=== PATIENT | female | born 1950 | race Caucasian/White ===

== ENCOUNTER → 2023-04-06 07:18 | Outpatient (CLI) | payer MEDICARE, OTHER, SELFPAY ==
[2023-04-06 08:37] LABS: Cortisol AM (Before 10AM) 7.69 ug/dL (4.46-22.7)
[2023-04-08 13:36] LABS: Dehydroepiandrosterone Sulfate 27.2 ug/dL (20.4-186.6)
== END ==
LOC: LAB 07:19
PROVIDERS: Family Provider Family Medicine; PCP Family Medicine; Referring Provider Internal Medicine Endocrinology, Diabetes & Metabolism; Visit Provider Internal Medicine Endocrinology, Diabetes & Metabolism
DX: Z86.39 Personal history of other endocrine, nutritional and metabolic disease (principal)
CPT/HCPCS: 36415; 82024; 82533; 82627

== ENCOUNTER → 2023-05-31 14:37 | Outpatient (CLI) | payer MEDICARE, OTHER, SELFPAY ==
[2023-05-31 17:36] LABS: BUN Creatinine Ratio 37.9 (6-22); Blood Urea Nitrogen 22 mg/dL (7-17); Carbon Dioxide 26 mmol/L (22-32); Chloride 106 mmol/L (98-107); Estimated Glomerular Filt Rate > 60 mL/min (>60); Glucose 93 mg/dL (80-110); HEMOLYSIS < 15 (0-50); Potassium 4.6 mmol/L (3.4-5.1); Sodium 138 mmol/L (137-145)
== END ==
PROVIDERS: Family Provider Family Medicine; PCP Family Medicine; Referring Provider Internal Medicine; Visit Provider Internal Medicine
DX: I50.32 Chronic diastolic (congestive) heart failure (principal)
CPT/HCPCS: 36415; 80048

== ENCOUNTER → 2023-06-06 09:35 | Outpatient (CLI) | payer MEDICARE, OTHER, SELFPAY ==
--- NOTE | 2023-06-06 09:37 | DI.RAD.S_ITS ---
PROCEDURE: XR DEXA AXIAL SKELETON INDICATIONS: postmenopausal female COMPARISON: None. FINDINGS: Lumbar Spine: Bone mineral density 0.603 g/cm2, T score -4.0. Left Hip: Bone mineral density 0.604 g/cm2, T score -2.8. Left Femoral Neck: Bone mineral density 0.515 g/cm2, T score -3.0. Right Hip: Bone mineral density 0.576 g/cm2, T score -3.0. Right Femoral Neck: Bone mineral density 0.462 g/cm2, T score -3.5. Fracture Risk Calculation (when applicable): Not calculated due to osteoporosis. IMPRESSION: Osteoporosis. Dictated by: Alexis Jorge M.D. on 06/06/2023 at 14:47 Approved by: Alexis Jorge M.D. on 06/06/2023 at 14:50
== END ==
PROVIDERS: Family Provider Family Medicine; PCP Family Medicine; Referring Provider Family Medicine; Visit Provider Family Medicine
DX: Z78.0 Asymptomatic menopausal state (principal); M81.0 Age-related osteoporosis without current pathological fracture
CPT/HCPCS: 77080

== ENCOUNTER → 2023-06-24 08:54 | Outpatient (CLI) | payer MEDICARE, OTHER, SELFPAY ==
[2023-06-24 10:47] LABS: Add Manual Diff / Slide Review NO; Basophils Absolute Auto 0 /uL (0-100); Basophils Percent Auto 0.9 % (0-2); Eosinophils Absolute Auto 100 /uL (0-450); Eosinophils Percent Auto 1.9 % (2-4); Hematocrit 39.1 % (36-46); Hemoglobin 13.6 g/dL (12.0-16.0); Lymphocytes Absolute Auto 1100 /uL (1100-4500); Lymphocytes Percent Auto 26.1 % (25-40); Mean Corpuscular HGB Conc 34.7 % (30-36); Mean Corpuscular Hemoglobin 32.2 PG (26-34); Mean Corpuscular Volume 92.8 fL (80-100); Monocytes Absolute Auto 400 /uL (0-900); Monocytes Percent Auto 10.1 % (3-14); Neutrophils Absolute Auto 2500 /uL (1500-7000); Platelet Count 266 X10^3/uL (150-400); Red Blood Cell Count 4.22 X10^6/uL (4.0-5.2); Red Cell Distribution Width 12.5 % (11.6-14.8); White Blood Cell Count 4.1 X10^3/uL (4.5-11.0)
[2023-06-24 11:03] LABS: BUN Creatinine Ratio 24.5 (6-22); Blood Urea Nitrogen 13 mg/dL (7-17); Calcium 9.5 mg/dL (8.4-10.2); Carbon Dioxide 26 mmol/L (22-32); Chloride 107 mmol/L (98-107); Estimated Glomerular Filt Rate > 60 mL/min (>60); Glucose 125 mg/dL (80-110); HEMOLYSIS < 15 (0-50); Potassium 3.9 mmol/L (3.4-5.1); Sodium 138 mmol/L (137-145)
[2023-06-24 11:32] LABS: Cortisol AM (Before 10AM) 8.22 ug/dL (4.46-22.7)
== END ==
PROVIDERS: Family Provider Family Medicine; PCP Family Medicine; Referring Provider Internal Medicine Endocrinology, Diabetes & Metabolism; Visit Provider Internal Medicine Endocrinology, Diabetes & Metabolism
DX: M81.0 Age-related osteoporosis without current pathological fracture (principal); Z86.39 Personal history of other endocrine, nutritional and metabolic disease; Z98.890 Other specified postprocedural states; Z86.018 Personal history of other benign neoplasm
CPT/HCPCS: 36415; 80048; 82024; 82306; 82530; 82533; 82627; 85025

== ENCOUNTER → 2023-07-07 10:23 | Outpatient (CLI) | payer MEDICARE, OTHER, SELFPAY | PROVIDERS: Family Provider Family Medicine; PCP Family Medicine; Referring Provider Internal Medicine Endocrinology, Diabetes & Metabolism; Visit Provider Internal Medicine Endocrinology, Diabetes & Metabolism | DX: M81.0 Age-related osteoporosis without current pathological fracture (principal) | CPT/HCPCS: 36415; 82523; 82570; 83970 ==

== ENCOUNTER → 2023-07-09 08:09 | Outpatient (CLI) | payer MEDICARE, OTHER, SELFPAY ==
[2023-07-10 05:08] LABS: Calcium, Urine 5.9 mg/dL (Not Estab.); Creatinine, Urine 52.9 mg/dL (Not Estab.); Urine Calcium/Creatinine Ratio 112 mg/g creat (29-442)
== END ==
PROVIDERS: Family Provider Family Medicine; PCP Family Medicine; Referring Provider Internal Medicine Endocrinology, Diabetes & Metabolism; Visit Provider Internal Medicine Endocrinology, Diabetes & Metabolism
DX: M81.0 Age-related osteoporosis without current pathological fracture (principal)
CPT/HCPCS: 82340; 82570

== ENCOUNTER 2023-07-21 14:30 | Outpatient (RCR) | payer MEDICARE, OTHER, SELFPAY ==
[2023-03-04 13:04] VITALS: BP 125/75; PULSE 80
--- NOTE | 2023-03-04 15:23 | PT.OIE ---
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) Pain in unspecified joint (03/04/23) Past Medical History (Last Updated 01/31/23 @ 21:21 by Billie Norman) Abnormal Pap smear of cervix (~1977) Cataracts, bilateral (~2010) Chicken pox Endometriosis (~1988) Fibromyalgia Genital warts (~1972) Heavy menstrual period Hypertension (~2013) Measles Painful menstrual periods (~1964) Past Surgical History (Last Updated 01/31/23 @ 21:21 by Billie Norman) Anesthesia History of cataract removal with insertion of prosthetic lens History of tonsillectomy (~1977) History of tubal ligation (~1988) Pituitary adenoma (~2022) Visit Care Team Role Provider Type Caitlyn Dominguez DO Attending Provider Physician Family Provider Primary Care Provider Referring Provider Specialty: [facility] Practice Address: [address] [place] [address], [address], [facility] Email: [email or web address] Physical Therapy Initial Evaluation PT-OP-A Visit Information Start: 03/03/23 17:50 Freq: Status: Active Protocol: Document 03/04/23 13:04 LRN (Rec: 03/04/23 15:17 LRN [id number]) Out-Patient Physical Therapy Visit Information Visit Information Visit Type Initial Evaluation Visit Start Time 13:05 Visit Stop Time 14:55 Total Visit Minutes 50 Visit Number 1 Evaluation Information Evaluation Date 03/04/23 Precautions Precautions SOB after walking & putting shoes on, Fibromyalgia, Libra's disease, Chronic fatigue for 35 yrs, recent surgery (07/20/22) 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 PT-OP-B Current Condition Start: 03/03/23 17:50 Freq: Status: Active Protocol: Document 03/04/23 13:04 LRN (Rec: 03/04/23 15:17 LRN [id number]) Current Condition History of Current Condition Onset Date 06/3022 Current Complaints Fatigue, SOB, general soreness of body. 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 Currently dealing with effect of tapering down use of hydrocortisone. Shoulders, legs, R ankle pain new since surgery. Has hot spots on top of L leg and at spine on LB, R hand (cat bit her a couple months before surgery). On 6 hrs of Tylenol and 8 hrs on Meloxicam daily then can sleep. R hand is most problematic. Prior Treatments and Tests MRI & CAT scan to check on surgery results. PT for neck 5-6 yrs ago without resolution. Treatment Goals Patient/Caregiver Goals Pt goals: Cooking or sitting on toilet w /o the riser w/o pain in shoulders, legs, R ankle. Getting up from chair without difficulty. Able to move stick shift with R hand w/o pain. Taking on/off coat w/o pain. Prior Functional Status Baseline Function- ADL's Independent Baseline Function- Mobility Independent Baseline Function- Other Before surgery (2 yrs ago) hiking and 1/2 mile a day. 2x /week 3-5 miles. Before surgery: (3yrs ago) Panting putting shoes/boots, walking 1 mile. Current Functional Impairments (Reported) Functional Limitations- ADL's Difficulty opening cans with can project development manager, and help to put coat on. Functional Limitations- Mobility/Gait Walks 1x/day 6-8 blocks. Fatigued from walking into treatment room. 13 steps to get to room, results in breathing heavy. Personal Factors Other Personal Factors That May Effect Tumor from pituitary gland Therapy/Recovery removed 07/20/22, currently working on steroid taper. Fibromyalgia. SOB just walking and putting shoes on. PT-OP-C Subjective Start: 03/03/23 17:50 Freq: Status: Active Protocol: Document 03/04/23 13:04 LRN (Rec: 03/04/23 15:17 LRN [id number]) Patient Questionnaires ABC- Activity Specific Balance Confidence Scale ABC Score 80 ABC Functional Impairment 20 to <40% Impaired (Score 61- 80) PT-OP-E Functional Tests Start: 03/03/23 17:50 Freq: Status: Active Protocol: Document 03/04/23 13:04 LRN (Rec: 03/04/23 15:17 LRN [id number]) Functional Tests Other Gait until fatigue Name of Test 409 ft PT-OP-G Mobility & Gait Start: 03/03/23 17:50 Freq: Status: Active Protocol: Document 03/04/23 13:04 LRN (Rec: 03/04/23 15:17 LRN [id number]) OP Mobility Evaluation Functional Movements Other Functional Movements Putting coat on: Pt dons from overhead and requires assistance to pull coat down through arms and to clear head . PT-OP-H Neuro Start: 03/03/23 17:50 Freq: Status: Active Protocol: Document 03/04/23 13:04 LRN (Rec: 03/04/23 15:17 LRN [id number]) Sensation Evaluation Gross Sensation Gross Sensation WNL Vital Signs Pulse At rest sitting Pulse at Rest (bpm) 80 Pulse Assessment Method BP cuff Blood Pressure Sitting Blood Pressure (90/60-120/80 mmHg) 125/75 H Blood Pressure Source Automatic Cuff PT-OP-J Posture/Palpation/Skin Start: 03/03/23 17:50 Freq: Status: Active Protocol: Document 03/04/23 13:04 LRN (Rec: 03/04/23 15:17 LRN [id number]) Posture Evaluation Position Standing Head/C-Spine Posture Forward Head T-Spine Posture Increased Kyphosis L-Spine Posture Increased Lordosis Shoulder Posture (L) Rounded,(R) Rounded,(L) Elevated Scapula Posture (L) Neutral,(R) Neutral Arm Posture (L) Internally Rotated,(R) Internally Rotated Pelvis Posture Anteriorly Tilted Weight Distribution Balanced Knee Posture (L) Neutral,(R) Neutral Ankle/Foot Posture (L) Neutral,(R) Neutral Foot Arch (L) High Arch,(R) High Arch PT-OP-K Range of Motion Start: 03/03/23 17:50 Freq: Status: Active Protocol: Document 03/04/23 13:04 LRN (Rec: 03/04/23 15:17 LRN [id number]) Thumb Goniometric Range of Motion Thumb Right MCP Flexion Active (degrees) 30 IP Flexion Active (degrees) 30 Left MCP Flexion Active (degrees) 45 IP Flexion Active (degrees) 50 PT-OP-M Strength Start: 03/03/23 17:50 Freq: Status: Active Protocol: Document 03/04/23 13:04 LRN (Rec: 03/04/23 15:17 LRN [id number]) Finger/Thumb Strength Finger Manual Muscle Testing Right Thumb Flexion (fingers C8) 5 Normal Extension (thumb C8) 4+ Good+ Adduction 5 Normal Abduction (fingers T1) 4+ Good+ Comments Pain with testing of thumb AD. Left Thumb Comments 5/5 w/o pain Hand Animal Biologist/Pinch Strength Hand Dominance Hand Dominance Right Hand Strength Right Comments Animal Biologist strength in kgs (3 trials ): 2, 2, 2. Avg strength is 2 kgs. Norm for 70-74 yo female is 22 .5 kg R, 18.6 kg L. Left Comments Animal Biologist strength in kgs (3 trials ): 7, 7, 7. Avg strength is 7 kgs. Norm for 70-74 yo female is 22 .5 kg R, 18.6 kg L. PT-OP-Q Treatments Start: 03/03/23 17:50 Freq: Status: Active Protocol: Document 03/04/23 13:04 LRN (Rec: 03/04/23 15:17 LRN [id number]) Self-Care/Home Management Treatment Education Other Education Discussed results of evaluation, goals, and plan of care (POC). Pt agreeable to goals and POC. PT-OP-T Assessment and Plan Start: 03/03/23 17:50 Freq: Status: Active Protocol: Document 03/04/23 13:04 LRN (Rec: 03/04/23 15:17 LRN [id number]) Physical Therapy Assessment Rehab Potential Rehabilitation Potential Good Evaluation Complexity Number of Personal Factors/Comorbidities 3 or More Number of Body Systems Impaired 4 or More Clinical Presentation at Evaluation Evolving Impairments Impairments Activity Tolerance,Functional Activities,Pain,Posture,ROM, Strength Goals Three Impairment Decreased R hand strength due to thumb pain. Short Term Goal (STG) Improve R UE/backup operator strength with pt able to cooking w/o thumb pain, or pt able to independently open jars or can with can project development manager. STG Duration 4 wks-04/01/23 Patients Transporter Goal (LTG) Improve R UE/backup operator strength with pt able to move stick shift with R hand w/o pain. LTG Duration 8 wks-04/29/23 Two Impairment Decreased endurance making transfers from chairs and toilet difficult. Impairment Pain in shoulders, legs, R ankle making sitting on toilet w/o a riser and getting up from a chair difficult. Short Term Goal (STG) Improve endurance with 5xSTS in 12 secs or less or 30 sec chair stand 10x or greater, or walk 546 ft prior to fatigue. STG Duration 4 wks-04/01/23 Halfway Goal (LTG) Improve endurance with pt able to walk 684 ft prior to fatigue or 13 steps at home without heavy breathing. LTG Duration 8 wks-04/29/23 One Impairment Pt lacks appropriate self care HEP. Short Term Goal (STG) Pt will be educated and independent in donning/doffing a coat without pain. STG Duration 4 wks-04/01/23 Patients Transporter Goal (LTG) Pt will be independent in a self care HEP for general strengthening of core/LE's/UE' s and bilateral thumb mobility ex's. LTG Duration 12 wks-05/27/23 Assessment Summary Assessment Pt is a 72 yo female who presents with general weakness , fatigue and joint pain of shoulders, legs, R ankle, and R thumb. Pt has pain with movement and fatigues quickly with walking. She in the process of tapering off from steroids; therefore it is expected that her pain will persist and extension of her rehabilitation will be needed. The pt had low tolerance to activity and needed rests between assessments; therefore general ROM and further assessement of endurance will be addressed at her next visit . The pt will benefit from skilled physical therapy to improve endurance, strength and function, and progress exercise and lessening of joint pain with improved joint stability and mobility. Modalities and manual therapy will be used to promote an increase in mobility, strength and reduction of pain in her hands/R thumb. Physical Therapy Plan Frequency and Duration Frequency of Treatment 2x/Week Duration of treatment (weeks) 12 Plan of Care Start Date 03/04/23 Plan of Care End Date 05/27/23 Therapeutic Interventions Therapeutic Interventions Home Exercise Program,Joint Mobilizations,Manual Therapy, Neuromuscular Re-education, Self-Care/Home Management,Soft Tissue Mobilization, Therapeutic Activities, Therapeutic Exercises Modalities Electric Stimulation,Hot Packs ,Paraffin Bath Next Visit Focus/Plan Next Note Type Treatment Note Next Visit Plan Ther Ex: Sit to stand ex (30 sec STST), Strength check- thumb (opposition), Thera Act- mobility (general mobility) for donning/doffing coat for independence, general conditioning (recumb stepper or bike, & UBE). R Hand mobility: Paraffin and AROM stretches, R thumb flex stretching (MCP/IP jt), rubén strengthening T-Putty. UE ROM as needed for functional dressing. Manual: STM post workout for pain management or self stretching HEP.
--- NOTE | 2023-03-04 15:23 | PT.OPPOC ---
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) Pain in unspecified joint (03/04/23) Visit Care Team Role Provider Type Caitlyn Dominguez DO Attending Provider Physician Family Provider Primary Care Provider Referring Provider Specialty: Family Practice Address: [address] [place] [address], [address], [facility] Email: [email or web address] Plan Of Care PT-OP-T Assessment and Plan Start: 03/03/23 17:50 Freq: Status: Active Protocol: Document 03/04/23 13:04 LRN (Rec: 03/04/23 15:17 LRN [id number]) Physical Therapy Assessment Rehab Potential Rehabilitation Potential Good Evaluation Complexity Number of Personal Factors/Comorbidities 3 or More Number of Body Systems Impaired 4 or More Clinical Presentation at Evaluation Evolving Impairments Impairments Activity Tolerance,Functional Activities,Pain,Posture,ROM, Strength Goals Three Impairment Decreased R hand strength due to thumb pain. Short Term Goal (STG) Improve R UE/taker off hemp fiber strength with pt able to cooking w/o thumb pain, or pt able to independently open jars or can with can insurance healthcare consultant. STG Duration 4 wks-04/01/23 Snf Goal (LTG) Improve R UE/taker off hemp fiber strength with pt able to move stick shift with R hand w/o pain. LTG Duration 8 wks-04/29/23 Two Impairment Decreased endurance making transfers from chairs and toilet difficult. Impairment Pain in shoulders, legs, R ankle making sitting on toilet w/o a riser and getting up from a chair difficult. Short Term Goal (STG) Improve endurance with 5xSTS in 12 secs or less or 30 sec chair stand 10x or greater, or walk 546 ft prior to fatigue. STG Duration 4 wks-04/01/23 Snf Goal (LTG) Improve endurance with pt able to walk 684 ft prior to fatigue or 13 steps at home without heavy breathing. LTG Duration 8 wks-04/29/23 One Impairment Pt lacks appropriate self care HEP. Short Term Goal (STG) Pt will be educated and independent in donning/doffing a coat without pain. STG Duration 4 wks-04/01/23 Snf Goal (LTG) Pt will be independent in a self care HEP for general strengthening of core/LE's/UE' s and bilateral thumb mobility ex's. LTG Duration 12 wks-05/27/23 Assessment Summary Assessment Pt is a 72 yo female who presents with general weakness , fatigue and joint pain of shoulders, legs, R ankle, and R thumb. Pt has pain with movement and fatigues quickly with walking. She in the process of tapering off from steroids; therefore it is expected that her pain will persist and extension of her rehabilitation will be needed. The pt had low tolerance to activity and needed rests between assessments; therefore general ROM and further assessement of endurance will be addressed at her next visit . The pt will benefit from skilled physical therapy to improve endurance, strength and function, and progress exercise and lessening of joint pain with improved joint stability and mobility. Modalities and manual therapy will be used to promote an increase in mobility, strength and reduction of pain in her hands/R thumb. Physical Therapy Plan Frequency and Duration Frequency of Treatment 2x/Week Duration of treatment (weeks) 12 Plan of Care Start Date 03/04/23 Plan of Care End Date 05/27/23 Therapeutic Interventions Therapeutic Interventions Home Exercise Program,Joint Mobilizations,Manual Therapy, Neuromuscular Re-education, Self-Care/Home Management,Soft Tissue Mobilization, Therapeutic Activities, Therapeutic Exercises Modalities Electric Stimulation,Hot Packs ,Paraffin Bath Next Visit Focus/Plan Next Note Type Treatment Note Next Visit Plan Ther Ex: Sit to stand ex (30 sec STST), Strength check- thumb (opposition), Thera Act- mobility (general mobility) for donning/doffing coat for independence, general conditioning (recumb stepper or bike, & UBE). R Hand mobility: Paraffin and AROM stretches, R thumb flex stretching (MCP/IP jt), rubén strengthening T-Putty. UE ROM as needed for functional dressing. Manual: STM post workout for pain management or self stretching HEP. Plan of Care Dates Plan of Care Start Date 03/04/23 Plan of Care End Date 05/27/23 Electronically Signed by: Kim Reyes, PT 03/04/23 [id number] If you are in agreement with this Plan of Care, please return a signed and dated copy. I have reviewed this Plan of Care and certify that the skilled therapy services above are required to meet the patient?s needs. Physician Signature Date Printed Name and Credentials Clinical Instructor Signature Printed Name and Credentials
--- NOTE | 2023-03-07 11:33 | PT.OTN ---
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/07/23) Pain in unspecified joint (03/07/23) Physical Therapy Treatment Note PT-OP-A Visit Information Start: 03/03/23 17:50 Freq: Status: Active Protocol: Document 03/07/23 10:36 LRN (Rec: 03/07/23 11:28 LRN [id number]) Out-Patient Physical Therapy Visit Information Visit Information Visit Type Treatment Note Visit Start Time 10:37 Visit Stop Time 11:17 Total Visit Minutes 40 Visit Number 2 Evaluation Information Evaluation Date 03/04/23 Precautions Precautions SOB after walking & putting shoes on, Fibromyalgia, Libra's disease, Chronic fatigue for 35 yrs, recent surgery (07/20/22) 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 PT-OP-B Current Condition Start: 03/03/23 17:50 Freq: Status: Active Protocol: Document 03/04/23 13:04 LRN (Rec: 03/04/23 15:17 LRN [id number]) Current Condition History of Current Condition Onset Date 06/3022 Current Complaints Fatigue, SOB, general soreness of body. 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 Currently dealing with effect of tapering down use of hydrocortisone. Shoulders, legs, R ankle pain new since surgery. Has hot spots on top of L leg and at spine on LB, R hand (cat bit her a couple months before surgery). On 6 hrs of Tylenol and 8 hrs on Meloxicam daily then can sleep. R hand is most problematic. Prior Treatments and Tests MRI & CAT scan to check on surgery results. PT for neck 5-6 yrs ago without resolution. Treatment Goals Patient/Caregiver Goals Pt goals: Cooking or sitting on toilet w /o the riser w/o pain in shoulders, legs, R ankle. Getting up from chair without difficulty. Able to move stick shift with R hand w/o pain. Taking on/off coat w/o pain. Prior Functional Status Baseline Function- ADL's Independent Baseline Function- Mobility Independent Baseline Function- Other Before surgery (2 yrs ago) hiking and 1/2 mile a day. 2x /week 3-5 miles. Before surgery: (3yrs ago) Panting putting shoes/boots, walking 1 mile. Current Functional Impairments (Reported) Functional Limitations- ADL's Difficulty opening cans with can cook cashier food prep, and help to put coat on. Functional Limitations- Mobility/Gait Walks 1x/day 6-8 blocks. Fatigued from walking into treatment room. 13 steps to get to room, results in breathing heavy. Personal Factors Other Personal Factors That May Effect Tumor from pituitary gland Therapy/Recovery removed 07/20/22, currently working on steroid taper. Fibromyalgia. SOB just walking and putting shoes on. PT-OP-C Subjective Start: 03/03/23 17:50 Freq: Status: Active Protocol: Document 03/07/23 10:36 LRN (Rec: 03/07/23 11:28 LRN [id number]) OP-PT Subjective Patient Comments Patient Comments States she has a stong stomach because of the way she gets out of bed. PT-OP-E Functional Tests Start: 03/03/23 17:50 Freq: Status: Active Protocol: Document 03/07/23 10:36 LRN (Rec: 03/07/23 11:28 LRN [id number]) Functional Tests 30 Second Sit to Stand Test Score 7 reps Comments Norm: Female age 70-74 is 10- 15 reps PT-OP-G Mobility & Gait Start: 03/03/23 17:50 Freq: Status: Active Protocol: Document 03/04/23 13:04 LRN (Rec: 03/04/23 15:17 LRN [id number]) OP Mobility Evaluation Functional Movements Other Functional Movements Putting coat on: Pt dons from overhead and requires assistance to pull coat down through arms and to clear head . PT-OP-H Neuro Start: 03/03/23 17:50 Freq: Status: Active Protocol: Document 03/04/23 13:04 LRN (Rec: 03/04/23 15:17 LRN [id number]) Sensation Evaluation Gross Sensation Gross Sensation WNL Vital Signs Pulse At rest sitting Pulse at Rest (bpm) 80 Pulse Assessment Method BP cuff Blood Pressure Sitting Blood Pressure (90/60-120/80 mmHg) 125/75 H Blood Pressure Source Automatic Cuff PT-OP-J Posture/Palpation/Skin Start: 03/03/23 17:50 Freq: Status: Active Protocol: Document 03/04/23 13:04 LRN (Rec: 03/04/23 15:17 LRN [id number]) Posture Evaluation Position Standing Head/C-Spine Posture Forward Head T-Spine Posture Increased Kyphosis L-Spine Posture Increased Lordosis Shoulder Posture (L) Rounded,(R) Rounded,(L) Elevated Scapula Posture (L) Neutral,(R) Neutral Arm Posture (L) Internally Rotated,(R) Internally Rotated Pelvis Posture Anteriorly Tilted Weight Distribution Balanced Knee Posture (L) Neutral,(R) Neutral Ankle/Foot Posture (L) Neutral,(R) Neutral Foot Arch (L) High Arch,(R) High Arch PT-OP-K Range of Motion Start: 03/03/23 17:50 Freq: Status: Active Protocol: Document 03/04/23 13:04 LRN (Rec: 03/04/23 15:17 LRN [id number]) Thumb Goniometric Range of Motion Thumb Right MCP Flexion Active (degrees) 30 IP Flexion Active (degrees) 30 Left MCP Flexion Active (degrees) 45 IP Flexion Active (degrees) 50 PT-OP-M Strength Start: 03/03/23 17:50 Freq: Status: Active Protocol: Document 03/07/23 11:30 LRN (Rec: 03/07/23 11:33 LRN [id number]) Finger/Thumb Strength Finger Manual Muscle Testing Right Thumb Flexion (fingers C8) 5 Normal Extension (thumb C8) 4+ Good+ Adduction 5 Normal Abduction (fingers T1) 4+ Good+ Comments Pain with testing of thumb AD. Opposition: 5/5 except with middle finger 3/5 due to lateral wrist pain (around pisiform) and digits 4 & 5 strength is 4+/5. Left Thumb Comments 5/5 w/o pain Opposition: 5/5 with all fingers. PT-OP-Q Treatments Start: 03/03/23 17:50 Freq: Status: Active Protocol: Document 03/07/23 10:36 LRN (Rec: 03/07/23 11:28 LRN [id number]) Cardio Equipment Recumbent Bicycle Duration (Minutes) 4 Resistance 3 Seat Position 1 Other Pt cued to lean back to support back/tighten TA. Extra time for set up. Therapeutic Exercises Sitting Exercises Sit<>Stands Sitting Exercise Name Sit<>Stand Reps/Minutes 7x in 30 sec, f/b rest. Comments Pt fatigued and felt she was breathing hard (not audible). Therapeutic Activity Therapeutic Activity Transfers in/out of bed Name Transfer training: Bed mobility, practicing both sides Reps/Minutes 12' Comments Pillow moved to both ends for exer to both sides. Donning/[place] Coat Name Training for donning/doffing coat Reps/Minutes 15' Comments Training at start and end of therapy. Self-Care/Home Management Treatment Education Patient Education Home Exercise Program Activities Self-Care/Home Management Activities Issued & reviewed HEP: Sit<> stand, & Shoulder ext (elbows straight and flexed, and moving hands up spine). Issued & reviewed I/S for bed mobility transfers and written to work on modified dressing method (in with painful side to start & off with non- painful side to start). PT-OP-T Assessment and Plan Start: 03/03/23 17:50 Freq: Status: Active Protocol: Document 03/07/23 10:36 LRN (Rec: 03/07/23 11:28 LRN [id number]) Physical Therapy Assessment Goals Three Impairment Decreased R hand strength due to thumb pain. Short Term Goal (STG) Improve R UE/sketch maker strength with pt able to cooking w/o thumb pain, or pt able to independently open jars or can with can cook cashier food prep. STG Duration 4 wks-04/01/23 Protective Signal Repairer Goal (LTG) Improve R UE/sketch maker strength with pt able to move stick shift with R hand w/o pain. LTG Duration 8 wks-04/29/23 Two Impairment Decreased endurance making transfers from chairs and toilet difficult. Impairment Pain in shoulders, legs, R ankle making sitting on toilet w/o a riser and getting up from a chair difficult. Short Term Goal (STG) Improve endurance with 5xSTS in 12 secs or less or 30 sec chair stand 10x or greater, or walk 546 ft prior to fatigue. 03/07/23: 30 STS - 7 reps. STG Duration 4 wks-04/01/23 Longterm Goal (LTG) Improve endurance with pt able to walk 684 ft prior to fatigue or 13 steps at home without heavy breathing. LTG Duration 8 wks-04/29/23 One Impairment Pt lacks appropriate self care HEP. Short Term Goal (STG) Pt will be educated and independent in donning/doffing a coat without pain. STG Duration 4 wks-04/01/23 (03/07/23: MET GOAL) Longterm Goal (LTG) Pt will be independent in a self care HEP for general strengthening of core/LE's/UE' s and bilateral thumb mobility ex's. 03/07/23: HEP: Sit<>stands, AROM rubén shlder ext (elbows straight & flexed) & I/S in IR reaching hand up spine. LTG Duration 12 wks-05/27/23 progressing 03/07/23 Assessment Summary Assessment Pt with general weakness, fatigue and joint pain of shoulders, legs, R ankle, and R thumb. Pt much improved with less energy use for donning/doffing coat and getting in/out of bed, that may help reduce her back pain. Pt fatigued with sit<>stands and ex bike. Physical Therapy Plan Frequency and Duration Frequency of Treatment 2x/Week Duration of treatment (weeks) 12 Plan of Care Start Date 03/04/23 Plan of Care End Date 05/27/23 Next Visit Focus/Plan Next Note Type Treatment Note Next Visit Plan Ther Ex: Thera Act-mobility (general mobility) for donning /doffing coat for independence , general conditioning (recumb stepper or bike, & UBE). R Hand mobility: Paraffin and AROM stretches, R thumb flex stretching (MCP/IP jt), rubén strengthening T-Putty. UE ROM as needed for functional dressing. Manual: STM post workout for pain management or self stretching HEP.
--- NOTE | 2023-03-10 15:42 | PT.OTN ---
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) Pain in unspecified joint (03/10/23) Physical Therapy Treatment Note PT-OP-A Visit Information Start: 03/03/23 17:50 Freq: Status: Active Protocol: Document 03/10/23 13:06 LRN (Rec: 03/10/23 13:52 LRN [id number]) Out-Patient Physical Therapy Visit Information Visit Information Visit Type Treatment Note Visit Start Time 13:06 Visit Stop Time 13:47 Total Visit Minutes 41 Visit Number 2 Evaluation Information Evaluation Date 03/04/23 Precautions Precautions SOB after walking & putting shoes on, Fibromyalgia, Libra's disease, Chronic fatigue for 35 yrs, recent surgery (07/20/22) 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 PT-OP-B Current Condition Start: 03/03/23 17:50 Freq: Status: Active Protocol: Document 03/04/23 13:04 LRN (Rec: 03/04/23 15:17 LRN [id number]) Current Condition History of Current Condition Onset Date 06/3022 Current Complaints Fatigue, SOB, general soreness of body. 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 Currently dealing with effect of tapering down use of hydrocortisone. Shoulders, legs, R ankle pain new since surgery. Has hot spots on top of L leg and at spine on LB, R hand (cat bit her a couple months before surgery). On 6 hrs of Tylenol and 8 hrs on Meloxicam daily then can sleep. R hand is most problematic. Prior Treatments and Tests MRI & CAT scan to check on surgery results. PT for neck 5-6 yrs ago without resolution. Treatment Goals Patient/Caregiver Goals Pt goals: Cooking or sitting on toilet w /o the riser w/o pain in shoulders, legs, R ankle. Getting up from chair without difficulty. Able to move stick shift with R hand w/o pain. Taking on/off coat w/o pain. Prior Functional Status Baseline Function- ADL's Independent Baseline Function- Mobility Independent Baseline Function- Other Before surgery (2 yrs ago) hiking and 1/2 mile a day. 2x /week 3-5 miles. Before surgery: (3yrs ago) Panting putting shoes/boots, walking 1 mile. Current Functional Impairments (Reported) Functional Limitations- ADL's Difficulty opening cans with can vice president network development, and help to put coat on. Functional Limitations- Mobility/Gait Walks 1x/day 6-8 blocks. Fatigued from walking into treatment room. 13 steps to get to room, results in breathing heavy. Personal Factors Other Personal Factors That May Effect Tumor from pituitary gland Therapy/Recovery removed 07/20/22, currently working on steroid taper. Fibromyalgia. SOB just walking and putting shoes on. PT-OP-C Subjective Start: 03/03/23 17:50 Freq: Status: Active Protocol: Document 03/10/23 13:06 LRN (Rec: 03/10/23 13:52 LRN [id number]) OP-PT Subjective Patient Comments Patient Comments Moderately tired. Daily chore of preparing meals and showering is tiring. States her R thumb joints are not bending. PT-OP-E Functional Tests Start: 03/03/23 17:50 Freq: Status: Active Protocol: Document 03/07/23 10:36 LRN (Rec: 03/07/23 11:28 LRN [id number]) Functional Tests 30 Second Sit to Stand Test Score 7 reps Comments Norm: Female age 70-74 is 10- 15 reps PT-OP-G Mobility & Gait Start: 03/03/23 17:50 Freq: Status: Active Protocol: Document 03/04/23 13:04 LRN (Rec: 03/04/23 15:17 LRN [id number]) OP Mobility Evaluation Functional Movements Other Functional Movements Putting coat on: Pt dons from overhead and requires assistance to pull coat down through arms and to clear head . PT-OP-H Neuro Start: 03/03/23 17:50 Freq: Status: Active Protocol: Document 03/04/23 13:04 LRN (Rec: 03/04/23 15:17 LRN [id number]) Sensation Evaluation Gross Sensation Gross Sensation WNL Vital Signs Pulse At rest sitting Pulse at Rest (bpm) 80 Pulse Assessment Method BP cuff Blood Pressure Sitting Blood Pressure (90/60-120/80 mmHg) 125/75 H Blood Pressure Source Automatic Cuff PT-OP-J Posture/Palpation/Skin Start: 03/03/23 17:50 Freq: Status: Active Protocol: Document 03/04/23 13:04 LRN (Rec: 03/04/23 15:17 LRN [id number]) Posture Evaluation Position Standing Head/C-Spine Posture Forward Head T-Spine Posture Increased Kyphosis L-Spine Posture Increased Lordosis Shoulder Posture (L) Rounded,(R) Rounded,(L) Elevated Scapula Posture (L) Neutral,(R) Neutral Arm Posture (L) Internally Rotated,(R) Internally Rotated Pelvis Posture Anteriorly Tilted Weight Distribution Balanced Knee Posture (L) Neutral,(R) Neutral Ankle/Foot Posture (L) Neutral,(R) Neutral Foot Arch (L) High Arch,(R) High Arch PT-OP-K Range of Motion Start: 03/03/23 17:50 Freq: Status: Active Protocol: Document 03/04/23 13:04 LRN (Rec: 03/04/23 15:17 LRN [id number]) Thumb Goniometric Range of Motion Thumb Right MCP Flexion Active (degrees) 30 IP Flexion Active (degrees) 30 Left MCP Flexion Active (degrees) 45 IP Flexion Active (degrees) 50 PT-OP-M Strength Start: 03/03/23 17:50 Freq: Status: Active Protocol: Document 03/07/23 10:36 LRN (Rec: 03/07/23 11:33 LRN [id number]) Finger/Thumb Strength Finger Manual Muscle Testing Right Thumb Flexion (fingers C8) 5 Normal Extension (thumb C8) 4+ Good+ Adduction 5 Normal Abduction (fingers T1) 4+ Good+ Comments Pain with testing of thumb AD. Opposition: 5/5 except with middle finger 3/5 due to lateral wrist pain (around pisiform) and digits 4 & 5 strength is 4+/5. Left Thumb Comments 5/5 w/o pain Opposition: 5/5 with all fingers. PT-OP-Q Treatments Start: 03/03/23 17:50 Freq: Status: Active Protocol: Document 03/10/23 13:06 LRN (Rec: 03/10/23 13:52 LRN [id number]) Cardio Equipment Upper Body Ergometer (UBE) Duration (Minutes) 3 RPM 80 Seat Position 9 Height 3 Other fwd/bkwd 1.5' each Recumbent Elliptical (Biodex) Duration (Minutes) 5 Resistance 1 Seat Position 5 Other steps Gym Equipment Shuttle Recovery Bilateral Squats Details [place] squats Resistance 37 Shuttle Recovery Platform Stable Reps/Time 8x 3 Therapeutic Exercises Sitting Exercises Thumb flex strengthening Sitting Exercise Name Thumb flex strengthening Side right Equipment Used Yellow Putty Reps/Minutes 6' Comments Extra time taken for training on TPutty squeeze with thumb. Asstd w/L jain Thumb self flex stretch Sitting Exercise Name Thumb flex & self flex stretch Side right Reps/Minutes 6' Manual Therapy Treatment Joint Mobilizations R thumb IP jt Joint R thumb IP jt Direction PA of distal end of thumb Grade III Body Position Sitting Reps/Duration 9' Self-Care/Home Management Treatment Education Patient Education Home Exercise Program Activities Self-Care/Home Management Activities Issued Lev1 TPutty (yellow) and I/S pt in self R thumb IP/ MCP flex stretch f/b active flex strengthening. PT-OP-R Modalities Start: 03/03/23 17:50 Freq: Status: Active Protocol: Document 03/10/23 13:06 LRN (Rec: 03/10/23 13:52 LRN [id number]) Paraffin Bath Treatment Right Hand Treatment Technique Immersion Bath Wax Temperature (degrees F) 120 Number Wax Layers (layers) 7 Duration (minutes) 12 Comment Treatment Comment Only R hand dipped due to ring on 4th digit not able to remove. PT-OP-T Assessment and Plan Start: 03/03/23 17:50 Freq: Status: Active Protocol: Document 03/10/23 13:06 LRN (Rec: 03/10/23 13:52 LRN [id number]) Physical Therapy Assessment Goals Three Impairment Decreased R hand strength due to thumb pain. Short Term Goal (STG) Improve R UE/head wrestling coach strength with pt able to cooking w/o thumb pain, or pt able to independently open jars or can with can vice president network development. 03/10/23: Pt reportedly had more R thumb ROM after paraffin dip and PROM/JMT. STG Duration 4 wks-04/01/23 Snf Goal (LTG) Improve R UE/head wrestling coach strength with pt able to move stick shift with R hand w/o pain. LTG Duration 8 wks-04/29/23 Two Impairment Decreased endurance making transfers from chairs and toilet difficult. Impairment Pain in shoulders, legs, R ankle making sitting on toilet w/o a riser and getting up from a chair difficult. Short Term Goal (STG) Improve endurance with 5xSTS in 12 secs or less or 30 sec chair stand 10x or greater, or walk 546 ft prior to fatigue. 03/07/23: 30 STS - 7 reps. STG Duration 4 wks-04/01/23 Utility Plant Operative Goal (LTG) Improve endurance with pt able to walk 684 ft prior to fatigue or 13 steps at home without heavy breathing. LTG Duration 8 wks-04/29/23 One Impairment Pt lacks appropriate self care HEP. Short Term Goal (STG) Pt will be educated and independent in donning/doffing a coat without pain. STG Duration 4 wks-04/01/23 (03/07/23: MET GOAL) Utility Plant Operative Goal (LTG) Pt will be independent in a self care HEP for general strengthening of core/LE's/UE' s and bilateral thumb mobility ex's. 03/07/23: HEP: Sit<>stands, AROM casper shlder ext (elbows straight & flexed) & I/S in IR reaching hand up spine. LTG Duration 12 wks-05/27/23 progressing 03/07/23 Assessment Summary Assessment Pt with general weakness, fatigue and joint pain of shoulders, legs, R ankle, and R thumb. Pt reportedly able to move R thumb more after treatment. Pain in R shoulder limits her ability to sleep on R side. Physical Therapy Plan Frequency and Duration Frequency of Treatment 2x/Week Duration of treatment (weeks) 12 Plan of Care Start Date 03/04/23 Plan of Care End Date 05/27/23 Next Visit Focus/Plan Next Note Type Treatment Note Next Visit Plan Next: Progress endurance conditioning (work to 10') R Hand mobility: Paraffin and AROM stretches, R thumb flex stretching (MCP/IP jt), casper strengthening T-Putty. UE ROM as needed for functional dressing. Manual: STM post workout for pain management or self stretching HEP.
--- NOTE | 2023-03-15 16:00 | PT.OTN ---
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/15/23) Pain in unspecified joint (03/15/23) Physical Therapy Treatment Note PT-OP-A Visit Information Start: 03/03/23 17:50 Freq: Status: Active Protocol: Document 03/15/23 10:34 LRN (Rec: 03/15/23 11:19 LRN [id number]) Out-Patient Physical Therapy Visit Information Visit Information Visit Type Treatment Note Visit Start Time 10:34 Visit Stop Time 11:15 Total Visit Minutes 41 Visit Number 3 Evaluation Information Evaluation Date 03/04/23 Precautions Precautions SOB after walking & putting shoes on, Fibromyalgia, Libra's disease, Chronic fatigue for 35 yrs, recent surgery (07/20/22) 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 PT-OP-B Current Condition Start: 03/03/23 17:50 Freq: Status: Active Protocol: Document 03/04/23 13:04 LRN (Rec: 03/04/23 15:17 LRN [id number]) Current Condition History of Current Condition Onset Date 06/3022 Current Complaints Fatigue, SOB, general soreness of body. 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 Currently dealing with effect of tapering down use of hydrocortisone. Shoulders, legs, R ankle pain new since surgery. Has hot spots on top of L leg and at spine on LB, R hand (cat bit her a couple months before surgery). On 6 hrs of Tylenol and 8 hrs on Meloxicam daily then can sleep. R hand is most problematic. Prior Treatments and Tests MRI & CAT scan to check on surgery results. PT for neck 5-6 yrs ago without resolution. Treatment Goals Patient/Caregiver Goals Pt goals: Cooking or sitting on toilet w /o the riser w/o pain in shoulders, legs, R ankle. Getting up from chair without difficulty. Able to move stick shift with R hand w/o pain. Taking on/off coat w/o pain. Prior Functional Status Baseline Function- ADL's Independent Baseline Function- Mobility Independent Baseline Function- Other Before surgery (2 yrs ago) hiking and 1/2 mile a day. 2x /week 3-5 miles. Before surgery: (3yrs ago) Panting putting shoes/boots, walking 1 mile. Current Functional Impairments (Reported) Functional Limitations- ADL's Difficulty opening cans with can brand inspector, and help to put coat on. Functional Limitations- Mobility/Gait Walks 1x/day 6-8 blocks. Fatigued from walking into treatment room. 13 steps to get to room, results in breathing heavy. Personal Factors Other Personal Factors That May Effect Tumor from pituitary gland Therapy/Recovery removed 07/20/22, currently working on steroid taper. Fibromyalgia. SOB just walking and putting shoes on. PT-OP-C Subjective Start: 03/03/23 17:50 Freq: Status: Active Protocol: Document 03/15/23 10:34 LRN (Rec: 03/15/23 11:19 LRN [id number]) OP-PT Subjective Patient Comments Patient Comments States controller repairer and tester said she can stop taking steroids today. Feeling not quite as stiff and having a little more energy. Last week hiked 1.25 miles. Going up/down stairs 3x/day instead of trying to avoid and stairs 1x/day. R Thumb, bending more, but last jt doesn't bend much. PT-OP-E Functional Tests Start: 03/03/23 17:50 Freq: Status: Active Protocol: Document 03/07/23 10:36 LRN (Rec: 03/07/23 11:28 LRN [id number]) Functional Tests 30 Second Sit to Stand Test Score 7 reps Comments Norm: Female age 70-74 is 10- 15 reps PT-OP-G Mobility & Gait Start: 03/03/23 17:50 Freq: Status: Active Protocol: Document 03/04/23 13:04 LRN (Rec: 03/04/23 15:17 LRN [id number]) OP Mobility Evaluation Functional Movements Other Functional Movements Putting coat on: Pt dons from overhead and requires assistance to pull coat down through arms and to clear head . PT-OP-H Neuro Start: 03/03/23 17:50 Freq: Status: Active Protocol: Document 03/04/23 13:04 LRN (Rec: 03/04/23 15:17 LRN [id number]) Sensation Evaluation Gross Sensation Gross Sensation WNL Vital Signs Pulse At rest sitting Pulse at Rest (bpm) 80 Pulse Assessment Method BP cuff Blood Pressure Sitting Blood Pressure (90/60-120/80 mmHg) 125/75 H Blood Pressure Source Automatic Cuff PT-OP-J Posture/Palpation/Skin Start: 03/03/23 17:50 Freq: Status: Active Protocol: Document 03/04/23 13:04 LRN (Rec: 03/04/23 15:17 LRN [id number]) Posture Evaluation Position Standing Head/C-Spine Posture Forward Head T-Spine Posture Increased Kyphosis L-Spine Posture Increased Lordosis Shoulder Posture (L) Rounded,(R) Rounded,(L) Elevated Scapula Posture (L) Neutral,(R) Neutral Arm Posture (L) Internally Rotated,(R) Internally Rotated Pelvis Posture Anteriorly Tilted Weight Distribution Balanced Knee Posture (L) Neutral,(R) Neutral Ankle/Foot Posture (L) Neutral,(R) Neutral Foot Arch (L) High Arch,(R) High Arch PT-OP-K Range of Motion Start: 03/03/23 17:50 Freq: Status: Active Protocol: Document 03/04/23 13:04 LRN (Rec: 03/04/23 15:17 LRN [id number]) Thumb Goniometric Range of Motion Thumb Right MCP Flexion Active (degrees) 30 IP Flexion Active (degrees) 30 Left MCP Flexion Active (degrees) 45 IP Flexion Active (degrees) 50 PT-OP-M Strength Start: 03/03/23 17:50 Freq: Status: Active Protocol: Document 03/07/23 10:36 LRN (Rec: 03/07/23 11:33 LRN [id number]) Finger/Thumb Strength Finger Manual Muscle Testing Right Thumb Flexion (fingers C8) 5 Normal Extension (thumb C8) 4+ Good+ Adduction 5 Normal Abduction (fingers T1) 4+ Good+ Comments Pain with testing of thumb AD. Opposition: 5/5 except with middle finger 3/5 due to lateral wrist pain (around pisiform) and digits 4 & 5 strength is 4+/5. Left Thumb Comments 5/5 w/o pain Opposition: 5/5 with all fingers. PT-OP-Q Treatments Start: 03/03/23 17:50 Freq: Status: Active Protocol: Document 03/15/23 10:34 LRN (Rec: 03/15/23 11:19 LRN [id number]) Cardio Equipment Upper Body Ergometer (UBE) Duration (Minutes) 4 RPM 80 Seat Position 9 Height 3 Other fwd/bkwd 2' each Recumbent Elliptical (Biodex) Duration (Minutes) 6 Resistance 1 Seat Position 5 Other 504 steps Therapeutic Exercises Sitting Exercises Shoulder ext Sitting Exercise Name Shoulder Ext 1)arms straight, 2) elbows bent, 3) hands up back Side bilateral Reps/Minutes 10x Thumb flex strengthening Sitting Exercise Name Thumb flex/ext strengthening & opposition Side right Reps/Minutes 10 SH x 5' Comments Active & AAROM. Thumb reaches Distal to DIP jt. Thumb self flex stretch Sitting Exercise Name Thumb flex & self flex stretch Side right Reps/Minutes 6' Sit<>Stands Sitting Exercise Name Sit<>Stand Reps/Minutes 10x 2 Comments Pt not fatigued after 10, tired, not heavy breathing after 2 sets. Manual Therapy Treatment Joint Mobilizations R thumb IP jt Joint R thumb IP & MCP jt Direction Volar to Dorsal Grade III Body Position Sitting Reps/Duration 3' PT-OP-R Modalities Start: 03/03/23 17:50 Freq: Status: Active Protocol: Document 03/15/23 10:34 LRN (Rec: 03/15/23 11:19 LRN [id number]) Paraffin Bath Treatment Right Hand Treatment Technique Immersion Bath Wax Temperature (degrees F) 120 Number Wax Layers (layers) 7 Duration (minutes) 10 PT-OP-T Assessment and Plan Start: 03/03/23 17:50 Freq: Status: Active Protocol: Document 03/15/23 10:34 LRN (Rec: 03/15/23 11:19 LRN [id number]) Physical Therapy Assessment Goals Three Impairment Decreased R hand strength due to thumb pain. Short Term Goal (STG) Improve R UE/armored machine operator strength with pt able to cooking w/o thumb pain, or pt able to independently open jars or can with can brand inspector. 03/10/23: Pt reportedly had more R thumb ROM after paraffin dip and PROM/JMT. 03/15/23: Improved R thumb PROM: MCP jt ~45 deg flex, IP jt ~30 deg's flex; Opposition: thumb to little finger PIP jt distally. STG Duration 4 wks-04/01/23 Sizing Sponger Goal (LTG) Improve R UE/armored machine operator strength with pt able to move stick shift with R hand w/o pain. LTG Duration 8 wks-04/29/23 Two Impairment Decreased endurance making transfers from chairs and toilet difficult. Impairment Pain in shoulders, legs, R ankle making sitting on toilet w/o a riser and getting up from a chair difficult. Short Term Goal (STG) Improve endurance with 5xSTS in 12 secs or less or 30 sec chair stand 10x or greater, or walk 546 ft prior to fatigue. 03/07/23: 30 STS - 7 reps. STG Duration 4 wks-04/01/23 Mcc Goal (LTG) Improve endurance with pt able to walk 684 ft prior to fatigue or 13 steps at home without heavy breathing. 03/15/23: Hiking 1.25 miles & is tired after 13 stair steps at home, but not heavily breathing. LTG Duration 8 wks-04/29/23 progressed One Impairment Pt lacks appropriate self care HEP. Short Term Goal (STG) Pt will be educated and independent in donning/doffing a coat without pain. STG Duration 4 wks-04/01/23 (03/07/23: MET GOAL) Sizing Sponger Goal (LTG) Pt will be independent in a self care HEP for general strengthening of core/LE's/UE' s and bilateral thumb mobility ex's. 03/07/23: HEP: Sit<>stands, AROM rubén shlder ext (elbows straight & flexed) & I/S in IR reaching hand up spine. LTG Duration 12 wks-05/27/23 progressing 03/07/23 Assessment Summary Assessment Pt with general weakness, fatigue and joint pain of shoulders, legs, R ankle, and R thumb. Improving R thumb mobility. PROM: MCP jt ~45 deg flex, IP jt ~30 deg's flex . Opposition: R thumb reaches 5th digit PIP jt distally. Physical Therapy Plan Frequency and Duration Frequency of Treatment 2x/Week Duration of treatment (weeks) 12 Plan of Care Start Date 03/04/23 Plan of Care End Date 05/27/23 Next Visit Focus/Plan Next Note Type Treatment Note Next Visit Plan Next: Progress UBE/Biodex endurance conditioning (work to 10') R Hand mobility: Paraffin and AROM stretches, R thumb flex stretching (MCP/IP jt), rubén strengthening T-Putty. UE ROM as needed for functional dressing. Manual: STM post workout for pain management or self stretching HEP.
--- NOTE | 2023-03-17 16:05 | PT.OTN ---
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) Pain in unspecified joint (03/17/23) Physical Therapy Treatment Note PT-OP-A Visit Information Start: 03/03/23 17:50 Freq: Status: Active Protocol: Document 03/17/23 08:09 AB (Rec: 03/17/23 12:08 AB [id number]) Out-Patient Physical Therapy Visit Information Visit Information Visit Type Treatment Note Visit Start Time 09:06 Visit Stop Time 09:51 Visit Number 4 Number of RACK WASHER Visits 1 PT-OP-B Current Condition Start: 03/03/23 17:50 Freq: Status: Active Protocol: Document 03/04/23 13:04 LRN (Rec: 03/04/23 15:17 LRN [id number]) Current Condition History of Current Condition Onset Date 06/3022 Current Complaints Fatigue, SOB, general soreness of body. 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 Currently dealing with effect of tapering down use of hydrocortisone. Shoulders, legs, R ankle pain new since surgery. Has hot spots on top of L leg and at spine on LB, R hand (cat bit her a couple months before surgery). On 6 hrs of Tylenol and 8 hrs on Meloxicam daily then can sleep. R hand is most problematic. Prior Treatments and Tests MRI & CAT scan to check on surgery results. PT for neck 5-6 yrs ago without resolution. Treatment Goals Patient/Caregiver Goals Pt goals: Cooking or sitting on toilet w /o the riser w/o pain in shoulders, legs, R ankle. Getting up from chair without difficulty. Able to move stick shift with R hand w/o pain. Taking on/off coat w/o pain. Prior Functional Status Baseline Function- ADL's Independent Baseline Function- Mobility Independent Baseline Function- Other Before surgery (2 yrs ago) hiking and 1/2 mile a day. 2x /week 3-5 miles. Before surgery: (3yrs ago) Panting putting shoes/boots, walking 1 mile. Current Functional Impairments (Reported) Functional Limitations- ADL's Difficulty opening cans with can client services representative, and help to put coat on. Functional Limitations- Mobility/Gait Walks 1x/day 6-8 blocks. Fatigued from walking into treatment room. 13 steps to get to room, results in breathing heavy. Personal Factors Other Personal Factors That May Effect Tumor from pituitary gland Therapy/Recovery removed 07/20/22, currently working on steroid taper. Fibromyalgia. SOB just walking and putting shoes on. PT-OP-C Subjective Start: 03/03/23 17:50 Freq: Status: Active Protocol: Document 03/17/23 08:09 AB (Rec: 03/17/23 12:08 AB [id number]) OP-PT Subjective Patient Comments Patient Comments Patient late 9:06 able to accomodate. Patient reports she is the same since previous session, but better over all since she started therapy. Patient reports bending over to reach floor is painful. PT-OP-E Functional Tests Start: 03/03/23 17:50 Freq: Status: Active Protocol: Document 03/07/23 10:36 LRN (Rec: 03/07/23 11:28 LRN [id number]) Functional Tests 30 Second Sit to Stand Test Score 7 reps Comments Norm: Female age 70-74 is 10- 15 reps PT-OP-G Mobility & Gait Start: 03/03/23 17:50 Freq: Status: Active Protocol: Document 03/04/23 13:04 LRN (Rec: 03/04/23 15:17 LRN [id number]) OP Mobility Evaluation Functional Movements Other Functional Movements Putting coat on: Pt dons from overhead and requires assistance to pull coat down through arms and to clear head . PT-OP-H Neuro Start: 03/03/23 17:50 Freq: Status: Active Protocol: Document 03/04/23 13:04 LRN (Rec: 03/04/23 15:17 LRN [id number]) Sensation Evaluation Gross Sensation Gross Sensation WNL Vital Signs Pulse At rest sitting Pulse at Rest (bpm) 80 Pulse Assessment Method BP cuff Blood Pressure Sitting Blood Pressure (90/60-120/80 mmHg) 125/75 H Blood Pressure Source Automatic Cuff PT-OP-J Posture/Palpation/Skin Start: 03/03/23 17:50 Freq: Status: Active Protocol: Document 03/04/23 13:04 LRN (Rec: 03/04/23 15:17 LRN [id number]) Posture Evaluation Position Standing Head/C-Spine Posture Forward Head T-Spine Posture Increased Kyphosis L-Spine Posture Increased Lordosis Shoulder Posture (L) Rounded,(R) Rounded,(L) Elevated Scapula Posture (L) Neutral,(R) Neutral Arm Posture (L) Internally Rotated,(R) Internally Rotated Pelvis Posture Anteriorly Tilted Weight Distribution Balanced Knee Posture (L) Neutral,(R) Neutral Ankle/Foot Posture (L) Neutral,(R) Neutral Foot Arch (L) High Arch,(R) High Arch PT-OP-K Range of Motion Start: 03/03/23 17:50 Freq: Status: Active Protocol: Document 03/04/23 13:04 LRN (Rec: 03/04/23 15:17 LRN [id number]) Thumb Goniometric Range of Motion Thumb Right MCP Flexion Active (degrees) 30 IP Flexion Active (degrees) 30 Left MCP Flexion Active (degrees) 45 IP Flexion Active (degrees) 50 PT-OP-M Strength Start: 03/03/23 17:50 Freq: Status: Active Protocol: Document 03/07/23 10:36 LRN (Rec: 03/07/23 11:33 LRN [id number]) Finger/Thumb Strength Finger Manual Muscle Testing Right Thumb Flexion (fingers C8) 5 Normal Extension (thumb C8) 4+ Good+ Adduction 5 Normal Abduction (fingers T1) 4+ Good+ Comments Pain with testing of thumb AD. Opposition: 5/5 except with middle finger 3/5 due to lateral wrist pain (around pisiform) and digits 4 & 5 strength is 4+/5. Left Thumb Comments 5/5 w/o pain Opposition: 5/5 with all fingers. PT-OP-Q Treatments Start: 03/03/23 17:50 Freq: Status: Active Protocol: Document 03/17/23 08:09 AB (Rec: 03/17/23 12:08 AB [id number]) Cardio Equipment Upper Body Ergometer (UBE) Duration (Minutes) 4 RPM 80 Seat Position 9 Height 3 Other fwd/bkwd 2' each Therapeutic Exercises Supine Exercises supine shoulder flexion Supine Exercise Name with and without hands clasped Side bilateral Reps/Minutes 6 Comments VC for form. Sitting Exercises wrist extension Sitting Exercise Name AROM Side bilateral Reps/Minutes 2X10 Comments visual cues opposition Sitting Exercise Name AROM Side right Reps/Minutes 2X10 Comments visual cues Thumb flex strengthening Sitting Exercise Name Thumb flex/ext strengthening & opposition Side right Equipment Used Yellow Putty Comments post paraffin Sit<>Stands Comments VC hip hinge, sit down slowy, knees past 90 deg Therapeutic Activity Therapeutic Activity Transfers in/out of bed Name supine to sit Comments Verbal cues to fully roll onto side and for timing to decrease difficulty Manual Therapy Treatment Joint Mobilizations R thumb IP jt Joint R thumb IP jt Direction PA of distal end of thumb Grade III Body Position Sitting Reps/Duration 3' Manual Techniques thumb flexion Type PROM manually Body Location right thumb Body Position Sitting Reps/Duration [id number] Comments monitored for pain PT-OP-R Modalities Start: 03/03/23 17:50 Freq: Status: Active Protocol: Document 03/15/23 10:34 LRN (Rec: 03/15/23 11:19 LRN [id number]) Paraffin Bath Treatment Right Hand Treatment Technique Immersion Bath Wax Temperature (degrees F) 120 Number Wax Layers (layers) 7 Duration (minutes) 10 PT-OP-T Assessment and Plan Start: 03/03/23 17:50 Freq: Status: Active Protocol: Document 03/17/23 08:09 AB (Rec: 03/17/23 12:08 AB [id number]) Physical Therapy Assessment Goals Three Impairment Decreased R hand strength due to thumb pain. Short Term Goal (STG) Improve R UE/administrator pesticide strength with pt able to cooking w/o thumb pain, or pt able to independently open jars or can with can client services representative. 03/10/23: Pt reportedly had more R thumb ROM after paraffin dip and PROM/JMT. 03/15/23: Improved R thumb PROM: MCP jt ~45 deg flex, IP jt ~30 deg's flex; Opposition: thumb to little finger PIP jt distally. STG Duration 4 wks-04/01/23 Mcfp Goal (LTG) Improve R UE/administrator pesticide strength with pt able to move stick shift with R hand w/o pain. LTG Duration 8 wks-04/29/23 Two Impairment Decreased endurance making transfers from chairs and toilet difficult. Impairment Pain in shoulders, legs, R ankle making sitting on toilet w/o a riser and getting up from a chair difficult. Short Term Goal (STG) Improve endurance with 5xSTS in 12 secs or less or 30 sec chair stand 10x or greater, or walk 546 ft prior to fatigue. 03/07/23: 30 STS - 7 reps. STG Duration 4 wks-04/01/23 Procurement Accountant Goal (LTG) Improve endurance with pt able to walk 684 ft prior to fatigue or 13 steps at home without heavy breathing. 03/15/23: Hiking 1.25 miles & is tired after 13 stair steps at home, but not heavily breathing. LTG Duration 8 wks-04/29/23 progressed One Impairment Pt lacks appropriate self care HEP. Short Term Goal (STG) Pt will be educated and independent in donning/doffing a coat without pain. STG Duration 4 wks-04/01/23 (03/07/23: MET GOAL) Procurement Accountant Goal (LTG) Pt will be independent in a self care HEP for general strengthening of core/LE's/UE' s and bilateral thumb mobility ex's. 03/07/23: HEP: Sit<>stands, AROM rubén shlder ext (elbows straight & flexed) & I/S in IR reaching hand up spine. LTG Duration 12 wks-05/27/23 progressing 03/07/23 Assessment Summary Assessment Patient comments on right thumb moving farther post manual therapy and exercise. ROM and strength continues to be limited. Patient will benefit from progression of PT plan for progression of functional mobility. Physical Therapy Plan Frequency and Duration Frequency of Treatment 2x/Week Duration of treatment (weeks) 12 Plan of Care Start Date 03/04/23 Plan of Care End Date 05/27/23 Next Visit Focus/Plan Next Note Type Treatment Note Next Visit Plan Next: Progress UBE/Biodex endurance conditioning (work to 10') R Hand mobility: Paraffin and AROM stretches, R thumb flex stretching (MCP/IP jt), rubén strengthening T-Putty. UE ROM as needed for functional dressing. Manual: STM post workout for pain management or self stretching HEP. Possibly log roll left and right side for training and core srengthening, side sit to upright for improving UE strength for bed mobility
--- NOTE | 2023-03-21 11:12 | PT.OTN ---
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) Pain in unspecified joint (03/21/23) Physical Therapy Treatment Note PT-OP-A Visit Information Start: 03/03/23 17:50 Freq: Status: Active Protocol: Document 03/21/23 08:10 AB (Rec: 03/21/23 10:57 AB [id number]) Out-Patient Physical Therapy Visit Information Visit Information Visit Note HEP access code Visit Start Time 09:48 Visit Stop Time 10:31 Visit Number 5 Number of HOUSE DECORATOR Visits 2 PT-OP-B Current Condition Start: 03/03/23 17:50 Freq: Status: Active Protocol: Document 03/04/23 13:04 LRN (Rec: 03/04/23 15:17 LRN [id number]) Current Condition History of Current Condition Onset Date 06/3022 Current Complaints Fatigue, SOB, general soreness of body. 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 Currently dealing with effect of tapering down use of hydrocortisone. Shoulders, legs, R ankle pain new since surgery. Has hot spots on top of L leg and at spine on LB, R hand (cat bit her a couple months before surgery). On 6 hrs of Tylenol and 8 hrs on Meloxicam daily then can sleep. R hand is most problematic. Prior Treatments and Tests MRI & CAT scan to check on surgery results. PT for neck 5-6 yrs ago without resolution. Treatment Goals Patient/Caregiver Goals Pt goals: Cooking or sitting on toilet w /o the riser w/o pain in shoulders, legs, R ankle. Getting up from chair without difficulty. Able to move stick shift with R hand w/o pain. Taking on/off coat w/o pain. Prior Functional Status Baseline Function- ADL's Independent Baseline Function- Mobility Independent Baseline Function- Other Before surgery (2 yrs ago) hiking and 1/2 mile a day. 2x /week 3-5 miles. Before surgery: (3yrs ago) Panting putting shoes/boots, walking 1 mile. Current Functional Impairments (Reported) Functional Limitations- ADL's Difficulty opening cans with can damascener, and help to put coat on. Functional Limitations- Mobility/Gait Walks 1x/day 6-8 blocks. Fatigued from walking into treatment room. 13 steps to get to room, results in breathing heavy. Personal Factors Other Personal Factors That May Effect Tumor from pituitary gland Therapy/Recovery removed 07/20/22, currently working on steroid taper. Fibromyalgia. SOB just walking and putting shoes on. PT-OP-C Subjective Start: 03/03/23 17:50 Freq: Status: Active Protocol: Document 03/21/23 08:10 AB (Rec: 03/21/23 10:57 AB [id number]) OP-PT Subjective Patient Comments Patient Comments Patient reports she was OK post previous session. Patient reports she did all of the HEP every day with some pain. Patient repots she can lift her shoulders a little farther , comments she feels stiff, attributes to not sleeping well. PT-OP-E Functional Tests Start: 03/03/23 17:50 Freq: Status: Active Protocol: Document 03/07/23 10:36 LRN (Rec: 03/07/23 11:28 LRN [id number]) Functional Tests 30 Second Sit to Stand Test Score 7 reps Comments Norm: Female age 70-74 is 10- 15 reps PT-OP-G Mobility & Gait Start: 03/03/23 17:50 Freq: Status: Active Protocol: Document 03/04/23 13:04 LRN (Rec: 03/04/23 15:17 LRN [id number]) OP Mobility Evaluation Functional Movements Other Functional Movements Putting coat on: Pt dons from overhead and requires assistance to pull coat down through arms and to clear head . PT-OP-H Neuro Start: 03/03/23 17:50 Freq: Status: Active Protocol: Document 03/04/23 13:04 LRN (Rec: 03/04/23 15:17 LRN [id number]) Sensation Evaluation Gross Sensation Gross Sensation WNL Vital Signs Pulse At rest sitting Pulse at Rest (bpm) 80 Pulse Assessment Method BP cuff Blood Pressure Sitting Blood Pressure (90/60-120/80 mmHg) 125/75 H Blood Pressure Source Automatic Cuff PT-OP-J Posture/Palpation/Skin Start: 03/03/23 17:50 Freq: Status: Active Protocol: Document 03/04/23 13:04 LRN (Rec: 03/04/23 15:17 LRN [id number]) Posture Evaluation Position Standing Head/C-Spine Posture Forward Head T-Spine Posture Increased Kyphosis L-Spine Posture Increased Lordosis Shoulder Posture (L) Rounded,(R) Rounded,(L) Elevated Scapula Posture (L) Neutral,(R) Neutral Arm Posture (L) Internally Rotated,(R) Internally Rotated Pelvis Posture Anteriorly Tilted Weight Distribution Balanced Knee Posture (L) Neutral,(R) Neutral Ankle/Foot Posture (L) Neutral,(R) Neutral Foot Arch (L) High Arch,(R) High Arch PT-OP-K Range of Motion Start: 03/03/23 17:50 Freq: Status: Active Protocol: Document 03/04/23 13:04 LRN (Rec: 03/04/23 15:17 LRN [id number]) Thumb Goniometric Range of Motion Thumb Right MCP Flexion Active (degrees) 30 IP Flexion Active (degrees) 30 Left MCP Flexion Active (degrees) 45 IP Flexion Active (degrees) 50 PT-OP-M Strength Start: 03/03/23 17:50 Freq: Status: Active Protocol: Document 03/07/23 10:36 LRN (Rec: 03/07/23 11:33 LRN [id number]) Finger/Thumb Strength Finger Manual Muscle Testing Right Thumb Flexion (fingers C8) 5 Normal Extension (thumb C8) 4+ Good+ Adduction 5 Normal Abduction (fingers T1) 4+ Good+ Comments Pain with testing of thumb AD. Opposition: 5/5 except with middle finger 3/5 due to lateral wrist pain (around pisiform) and digits 4 & 5 strength is 4+/5. Left Thumb Comments 5/5 w/o pain Opposition: 5/5 with all fingers. PT-OP-Q Treatments Start: 03/03/23 17:50 Freq: Status: Active Protocol: Document 03/21/23 08:10 AB (Rec: 03/21/23 10:57 AB [id number]) Therapeutic Exercises Supine Exercises supine shoulder flexion Supine Exercise Name hands clasped Side bilateral Reps/Minutes x10 Comments VC for 10 second hold Sitting Exercises side sit to upright Sitting Exercise Name side sitting to forearm to upright Side bilateral Reps/Minutes X10 Comments Verbal cues to avoid holding breath and for tech finger glide AROM Sitting Exercise Name finger glide AROM Side right Reps/Minutes 4X Comments Verbal and visual cues wrist extension Sitting Exercise Name AROM Side bilateral Reps/Minutes 2X10 Comments visual cues opposition Sitting Exercise Name AROM Side right Reps/Minutes 2X10 Comments visual cues Thumb flex strengthening Sitting Exercise Name Thumb flex/ext strengthening & opposition Side right Equipment Used with ball for gripping this session Comments post paraffin Therapeutic Activity Therapeutic Activity Transfers in/out of bed Name supine to sit Comments Verbal cues for timing, performed from left and right side, decreased effort to perform task noted from right side vs left Manual Therapy Treatment Soft Tissue Mobilization right forearm Body Location prior to hand and wrist ex Mobilization Type Rolling,Other Intensity/Depth Superficial Body Position Hooklying Comments superficial to gentle moderate , monitored for pain anterior and posterior forarm muscles Joint Mobilizations R thumb IP jt Joint R thumb IP jt Direction PA of distal end of thumb Grade III Body Position Sitting Reps/Duration 3' Manual Techniques thumb flexion Type PROM manually Body Location right thumb Body Position Sitting Reps/Duration X2X12 Comments monitored for pain Self-Care/Home Management Treatment Education Other Education side sit to upright added to HEP for progression to decreased difficulty/effort supine to sit transfers PT-OP-R Modalities Start: 03/03/23 17:50 Freq: Status: Active Protocol: Document 03/21/23 08:10 AB (Rec: 03/21/23 10:59 AB [id number]) Paraffin Bath Treatment Right Hand Treatment Technique Immersion Bath 10 min Wax Temperature (degrees F) 120 Number Wax Layers (layers) 7 Patient Tolerance Good PT-OP-T Assessment and Plan Start: 03/03/23 17:50 Freq: Status: Active Protocol: Document 03/21/23 08:10 AB (Rec: 03/21/23 10:57 AB [id number]) Physical Therapy Assessment Goals Three Impairment Decreased R hand strength due to thumb pain. Short Term Goal (STG) Improve R UE/machine fancy stitcher strength with pt able to cooking w/o thumb pain, or pt able to independently open jars or can with can damascener. 03/10/23: Pt reportedly had more R thumb ROM after paraffin dip and PROM/JMT. 03/15/23: Improved R thumb PROM: MCP jt ~45 deg flex, IP jt ~30 deg's flex; Opposition: thumb to little finger PIP jt distally. STG Duration 4 wks-04/01/23 Detention Goal (LTG) Improve R UE/machine fancy stitcher strength with pt able to move stick shift with R hand w/o pain. LTG Duration 8 wks-04/29/23 Two Impairment Decreased endurance making transfers from chairs and toilet difficult. Impairment Pain in shoulders, legs, R ankle making sitting on toilet w/o a riser and getting up from a chair difficult. Short Term Goal (STG) Improve endurance with 5xSTS in 12 secs or less or 30 sec chair stand 10x or greater, or walk 546 ft prior to fatigue. 03/07/23: 30 STS - 7 reps. STG Duration 4 wks-04/01/23 Detention Goal (LTG) Improve endurance with pt able to walk 684 ft prior to fatigue or 13 steps at home without heavy breathing. 03/15/23: Hiking 1.25 miles & is tired after 13 stair steps at home, but not heavily breathing. One Short Term Goal (STG) Pt will be educated and independent in donning/doffing a coat without pain. Manager Infrastructure Goal (LTG) Pt will be independent in a self care HEP for general strengthening of core/LE's/UE' s and bilateral thumb mobility ex's. 03/07/23: HEP: Sit<>stands, AROM rubén shlder ext (elbows straight & flexed) & I/S in IR reaching hand up spine. Assessment Summary Assessment Patient reports she is in less pain end of session than she was when she came in, right thumb nearly to base of 5th digit end of session. Physical Therapy Plan Frequency and Duration Frequency of Treatment 2x/Week Duration of treatment (weeks) 12 Plan of Care Start Date 03/04/23 Plan of Care End Date 05/27/23 Next Visit Focus/Plan Next Note Type Treatment Note Next Visit Plan Next: Progress UBE/Biodex endurance conditioning (work to 10') R Hand mobility: Paraffin and AROM stretches, R thumb flex stretching (MCP/IP jt), rubén strengthening T-Putty. UE ROM as needed for functional dressing. Manual: STM post workout for pain management or self stretching HEP. Possibly log roll left and right side for training and core srengthening, focus on increasing endurance on Biodex next session
--- NOTE | 2023-03-24 09:47 | PT.OTN ---
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) Pain in unspecified joint (03/24/23) Physical Therapy Treatment Note PT-OP-A Visit Information Start: 03/03/23 17:50 Freq: Status: Active Protocol: Document 03/24/23 09:02 LRN (Rec: 03/24/23 09:47 LRN [id number]) Out-Patient Physical Therapy Visit Information Visit Information Visit Type Treatment Note Visit Start Time 09:04 Visit Stop Time 09:42 Visit Number 6 Number of PRE PLANNING ADVISOR Visits 1 Evaluation Information Evaluation Date 03/04/23 Precautions Precautions SOB after walking & putting shoes on, Fibromyalgia, Libra's disease, Chronic fatigue for 35 yrs, recent surgery (07/20/22) 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 PT-OP-B Current Condition Start: 03/03/23 17:50 Freq: Status: Active Protocol: Document 03/04/23 13:04 LRN (Rec: 03/04/23 15:17 LRN [id number]) Current Condition History of Current Condition Onset Date 06/3022 Current Complaints Fatigue, SOB, general soreness of body. 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 Currently dealing with effect of tapering down use of hydrocortisone. Shoulders, legs, R ankle pain new since surgery. Has hot spots on top of L leg and at spine on LB, R hand (cat bit her a couple months before surgery). On 6 hrs of Tylenol and 8 hrs on Meloxicam daily then can sleep. R hand is most problematic. Prior Treatments and Tests MRI & CAT scan to check on surgery results. PT for neck 5-6 yrs ago without resolution. Treatment Goals Patient/Caregiver Goals Pt goals: Cooking or sitting on toilet w /o the riser w/o pain in shoulders, legs, R ankle. Getting up from chair without difficulty. Able to move stick shift with R hand w/o pain. Taking on/off coat w/o pain. Prior Functional Status Baseline Function- ADL's Independent Baseline Function- Mobility Independent Baseline Function- Other Before surgery (2 yrs ago) hiking and 1/2 mile a day. 2x /week 3-5 miles. Before surgery: (3yrs ago) Panting putting shoes/boots, walking 1 mile. Current Functional Impairments (Reported) Functional Limitations- ADL's Difficulty opening cans with can maintenance fitter, and help to put coat on. Functional Limitations- Mobility/Gait Walks 1x/day 6-8 blocks. Fatigued from walking into treatment room. 13 steps to get to room, results in breathing heavy. Personal Factors Other Personal Factors That May Effect Tumor from pituitary gland Therapy/Recovery removed 07/20/22, currently working on steroid taper. Fibromyalgia. SOB just walking and putting shoes on. PT-OP-C Subjective Start: 03/03/23 17:50 Freq: Status: Active Protocol: Document 03/24/23 09:02 LRN (Rec: 03/24/23 09:47 LRN [id number]) OP-PT Subjective Patient Comments Patient Comments States endurance is better. Able to make breakfast and felt clear headead. Walked Heart NSC ~3200 steps (1/2hr). PT-OP-E Functional Tests Start: 03/03/23 17:50 Freq: Status: Active Protocol: Document 03/07/23 10:36 LRN (Rec: 03/07/23 11:28 LRN [id number]) Functional Tests 30 Second Sit to Stand Test Score 7 reps Comments Norm: Female age 70-74 is 10- 15 reps PT-OP-G Mobility & Gait Start: 03/03/23 17:50 Freq: Status: Active Protocol: Document 03/04/23 13:04 LRN (Rec: 03/04/23 15:17 LRN [id number]) OP Mobility Evaluation Functional Movements Other Functional Movements Putting coat on: Pt dons from overhead and requires assistance to pull coat down through arms and to clear head . PT-OP-H Neuro Start: 03/03/23 17:50 Freq: Status: Active Protocol: Document 03/04/23 13:04 LRN (Rec: 03/04/23 15:17 LRN [id number]) Sensation Evaluation Gross Sensation Gross Sensation WNL Vital Signs Pulse At rest sitting Pulse at Rest (bpm) 80 Pulse Assessment Method BP cuff Blood Pressure Sitting Blood Pressure (90/60-120/80 mmHg) 125/75 H Blood Pressure Source Automatic Cuff PT-OP-J Posture/Palpation/Skin Start: 03/03/23 17:50 Freq: Status: Active Protocol: Document 03/04/23 13:04 LRN (Rec: 03/04/23 15:17 LRN [id number]) Posture Evaluation Position Standing Head/C-Spine Posture Forward Head T-Spine Posture Increased Kyphosis L-Spine Posture Increased Lordosis Shoulder Posture (L) Rounded,(R) Rounded,(L) Elevated Scapula Posture (L) Neutral,(R) Neutral Arm Posture (L) Internally Rotated,(R) Internally Rotated Pelvis Posture Anteriorly Tilted Weight Distribution Balanced Knee Posture (L) Neutral,(R) Neutral Ankle/Foot Posture (L) Neutral,(R) Neutral Foot Arch (L) High Arch,(R) High Arch PT-OP-K Range of Motion Start: 03/03/23 17:50 Freq: Status: Active Protocol: Document 03/04/23 13:04 LRN (Rec: 03/04/23 15:17 LRN [id number]) Thumb Goniometric Range of Motion Thumb Right MCP Flexion Active (degrees) 30 IP Flexion Active (degrees) 30 Left MCP Flexion Active (degrees) 45 IP Flexion Active (degrees) 50 PT-OP-M Strength Start: 03/03/23 17:50 Freq: Status: Active Protocol: Document 03/07/23 10:36 LRN (Rec: 03/07/23 11:33 LRN [id number]) Finger/Thumb Strength Finger Manual Muscle Testing Right Thumb Flexion (fingers C8) 5 Normal Extension (thumb C8) 4+ Good+ Adduction 5 Normal Abduction (fingers T1) 4+ Good+ Comments Pain with testing of thumb AD. Opposition: 5/5 except with middle finger 3/5 due to lateral wrist pain (around pisiform) and digits 4 & 5 strength is 4+/5. Left Thumb Comments 5/5 w/o pain Opposition: 5/5 with all fingers. PT-OP-Q Treatments Start: 03/03/23 17:50 Freq: Status: Active Protocol: Document 03/24/23 09:02 LRN (Rec: 03/24/23 09:47 LRN [id number]) Cardio Equipment Upper Body Ergometer (UBE) Duration (Minutes) 7 RPM 80 Seat Position 9 Height 3 Other fwd/bkwd 2.5' each Recumbent Elliptical (Biodex) Duration (Minutes) 8 Resistance 1 Seat Position 5 Other 538 steps Therapeutic Exercises Sitting Exercises Thumb flex strengthening Sitting Exercise Name Thumb flex/ext strengthening & opposition Side right Equipment Used with Yellow putty gripping Comments post paraffin Thumb self flex stretch Sitting Exercise Name Thumb flex & self flex stretch (Garrett stretch) Side right Reps/Minutes 6' Manual Therapy Treatment Joint Mobilizations R thumb IP jt Joint R thumb IP jt Direction PA of distal end of thumb f/b stretch Body Position Sitting Manual Techniques thumb flexion Type PROM manually MCP, IP jt Body Location right thumb Body Position Sitting Reps/Duration 10 SH X2 Comments monitored for pain PT-OP-R Modalities Start: 03/03/23 17:50 Freq: Status: Active Protocol: Document 03/24/23 09:02 LRN (Rec: 03/24/23 09:47 LRN [id number]) Paraffin Bath Treatment Right Hand Treatment Technique Immersion Bath R thumb only Wax Temperature (degrees F) 120 Number Wax Layers (layers) 7 Patient Tolerance Good PT-OP-T Assessment and Plan Start: 03/03/23 17:50 Freq: Status: Active Protocol: Document 03/24/23 09:02 LRN (Rec: 03/24/23 09:47 LRN [id number]) Physical Therapy Assessment Goals Three Impairment Decreased R hand strength due to thumb pain. Short Term Goal (STG) Improve R UE/band instrument repairer strength with pt able to cooking w/o thumb pain, or pt able to independently open jars or can with can maintenance fitter. 03/10/23: Pt reportedly had more R thumb ROM after paraffin dip and PROM/JMT. 03/15/23: Improved R thumb PROM: MCP jt ~45 deg flex, IP jt ~30 deg's flex; Opposition: thumb to little finger PIP jt distally. STG Duration 4 wks-04/01/23 Halfway Goal (LTG) Improve R UE/band instrument repairer strength with pt able to move stick shift with R hand w/o pain. LTG Duration 8 wks-04/29/23 Two Impairment Decreased endurance making transfers from chairs and toilet difficult. Impairment Pain in shoulders, legs, R ankle making sitting on toilet w/o a riser and getting up from a chair difficult. Short Term Goal (STG) Improve endurance with 5xSTS in 12 secs or less or 30 sec chair stand 10x or greater, or walk 546 ft prior to fatigue. 03/07/23: 30 STS - 7 reps. STG Duration 4 wks-04/01/23 Commercial Escrow Officer Goal (LTG) Improve endurance with pt able to walk 684 ft prior to fatigue or 13 steps at home without heavy breathing. 03/15/23: Hiking 1.25 miles & is tired after 13 stair steps at home, but not heavily breathing. LTG Duration 8 wks-04/29/23 progressed One Short Term Goal (STG) Pt will be educated and independent in donning/doffing a coat without pain. STG Duration 4 wks-04/01/23 (03/07/23: MET GOAL) Commercial Escrow Officer Goal (LTG) Pt will be independent in a self care HEP for general strengthening of core/LE's/UE' s and bilateral thumb mobility ex's. 03/07/23: HEP: Sit<>stands, AROM rubén shlder ext (elbows straight & flexed) & I/S in IR reaching hand up spine. LTG Duration 12 wks-05/27/23 progressing 03/07/23 Assessment Summary Assessment Pt with general weakness, fatigue and joint pain of shoulders, legs, R ankle, and R thumb. Increasing in endurance with steps from 504 to 538 (7-8' on recumbent stepper). R thumb passive flex ~45 deg's. Pt needs cont 'd strengthening of upper body /neck/shoulders with UBE and progress towards postural strengthening. Physical Therapy Plan Frequency and Duration Frequency of Treatment 2x/Week Duration of treatment (weeks) 12 Plan of Care Start Date 03/04/23 Plan of Care End Date 05/27/23 Next Visit Focus/Plan Next Note Type Treatment Note Next Visit Plan Next: Possibly log roll left and right side for training and core srengthening, focus on increasing endurance on Biodex and UBE. Progress UBE/Biodex endurance conditioning (work to 10') R Hand mobility: Paraffin R thumb only, AROM stretches, R thumb flex stretching (MCP/IP jt), rubén strengthening T-Putty . UE ROM as needed for functional dressing. Manual: STM post workout for pain management or self stretching HEP.
--- NOTE | 2023-03-29 10:04 | PT.OTN ---
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/29/23) Pain in unspecified joint (03/29/23) Physical Therapy Treatment Note PT-OP-A Visit Information Start: 03/03/23 17:50 Freq: Status: Active Protocol: Document 03/29/23 08:18 AB (Rec: 03/29/23 10:04 AB [id number]) Out-Patient Physical Therapy Visit Information Visit Information Visit Type Treatment Note Visit Note Access Code [email or web address] Visit Start Time 09:00 Visit Stop Time 09:47 Visit Number 7 Number of SHOTGUN SHELL LOADING MACHINE OPERATOR Visits 1 Evaluation Information Evaluation Date 03/04/23 Precautions Precautions SOB after walking & putting shoes on, Fibromyalgia, [place]'s disease, Chronic fatigue for 35 yrs, recent surgery (07/20/22) 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 PT-OP-B Current Condition Start: 03/03/23 17:50 Freq: Status: Active Protocol: Document 03/04/23 13:04 LRN (Rec: 03/04/23 15:17 LRN [id number]) Current Condition History of Current Condition Onset Date 06/3022 Current Complaints Fatigue, SOB, general soreness of body. 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 Currently dealing with effect of tapering down use of hydrocortisone. Shoulders, legs, R ankle pain new since surgery. Has hot spots on top of L leg and at spine on LB, R hand (cat bit her a couple months before surgery). On 6 hrs of Tylenol and 8 hrs on Meloxicam daily then can sleep. R hand is most problematic. Prior Treatments and Tests MRI & CAT scan to check on surgery results. PT for neck 5-6 yrs ago without resolution. Treatment Goals Patient/Caregiver Goals Pt goals: Cooking or sitting on toilet w /o the riser w/o pain in shoulders, legs, R ankle. Getting up from chair without difficulty. Able to move stick shift with R hand w/o pain. Taking on/off coat w/o pain. Prior Functional Status Baseline Function- ADL's Independent Baseline Function- Mobility Independent Baseline Function- Other Before surgery (2 yrs ago) hiking and 1/2 mile a day. 2x /week 3-5 miles. Before surgery: (3yrs ago) Panting putting shoes/boots, walking 1 mile. Current Functional Impairments (Reported) Functional Limitations- ADL's Difficulty opening cans with can pilot instructor, and help to put coat on. Functional Limitations- Mobility/Gait Walks 1x/day 6-8 blocks. Fatigued from walking into treatment room. 13 steps to get to room, results in breathing heavy. Personal Factors Other Personal Factors That May Effect Tumor from pituitary gland Therapy/Recovery removed 07/20/22, currently working on steroid taper. Fibromyalgia. SOB just walking and putting shoes on. PT-OP-C Subjective Start: 03/03/23 17:50 Freq: Status: Active Protocol: Document 03/29/23 08:18 AB (Rec: 03/29/23 10:04 AB [id number]) OP-PT Subjective Patient Comments Patient Comments Patient reports the thumb is loosening up a little bit. Patient reports getting in and out of bed is a little easier . Patient reports getting of the toilet and picking things off the floor is difficult. PT-OP-E Functional Tests Start: 03/03/23 17:50 Freq: Status: Active Protocol: Document 03/07/23 10:36 LRN (Rec: 03/07/23 11:28 LRN [id number]) Functional Tests 30 Second Sit to Stand Test Score 7 reps Comments Norm: Female age 70-74 is 10- 15 reps PT-OP-G Mobility & Gait Start: 03/03/23 17:50 Freq: Status: Active Protocol: Document 03/04/23 13:04 LRN (Rec: 03/04/23 15:17 LRN [id number]) OP Mobility Evaluation Functional Movements Other Functional Movements Putting coat on: Pt dons from overhead and requires assistance to pull coat down through arms and to clear head . PT-OP-H Neuro Start: 03/03/23 17:50 Freq: Status: Active Protocol: Document 03/04/23 13:04 LRN (Rec: 03/04/23 15:17 LRN [id number]) Sensation Evaluation Gross Sensation Gross Sensation WNL Vital Signs Pulse At rest sitting Pulse at Rest (bpm) 80 Pulse Assessment Method BP cuff Blood Pressure Sitting Blood Pressure (90/60-120/80 mmHg) 125/75 H Blood Pressure Source Automatic Cuff PT-OP-J Posture/Palpation/Skin Start: 03/03/23 17:50 Freq: Status: Active Protocol: Document 03/04/23 13:04 LRN (Rec: 03/04/23 15:17 LRN [id number]) Posture Evaluation Position Standing Head/C-Spine Posture Forward Head T-Spine Posture Increased Kyphosis L-Spine Posture Increased Lordosis Shoulder Posture (L) Rounded,(R) Rounded,(L) Elevated Scapula Posture (L) Neutral,(R) Neutral Arm Posture (L) Internally Rotated,(R) Internally Rotated Pelvis Posture Anteriorly Tilted Weight Distribution Balanced Knee Posture (L) Neutral,(R) Neutral Ankle/Foot Posture (L) Neutral,(R) Neutral Foot Arch (L) High Arch,(R) High Arch PT-OP-K Range of Motion Start: 03/03/23 17:50 Freq: Status: Active Protocol: Document 03/04/23 13:04 LRN (Rec: 03/04/23 15:17 LRN [id number]) Thumb Goniometric Range of Motion Thumb Right MCP Flexion Active (degrees) 30 IP Flexion Active (degrees) 30 Left MCP Flexion Active (degrees) 45 IP Flexion Active (degrees) 50 PT-OP-M Strength Start: 03/03/23 17:50 Freq: Status: Active Protocol: Document 03/07/23 10:36 LRN (Rec: 03/07/23 11:33 LRN [id number]) Finger/Thumb Strength Finger Manual Muscle Testing Right Thumb Flexion (fingers C8) 5 Normal Extension (thumb C8) 4+ Good+ Adduction 5 Normal Abduction (fingers T1) 4+ Good+ Comments Pain with testing of thumb AD. Opposition: 5/5 except with middle finger 3/5 due to lateral wrist pain (around pisiform) and digits 4 & 5 strength is 4+/5. Left Thumb Comments 5/5 w/o pain Opposition: 5/5 with all fingers. PT-OP-Q Treatments Start: 03/03/23 17:50 Freq: Status: Active Protocol: Document 03/29/23 08:18 AB (Rec: 03/29/23 10:04 AB [id number]) Cardio Equipment Upper Body Ergometer (UBE) Duration (Minutes) 7 RPM 80 Seat Position 9 Height 3 Other fwd/bkwd 2.5' each 7.5 min not 7 Therapeutic Exercises Sitting Exercises wrist extension Sitting Exercise Name AROM Side bilateral Reps/Minutes 1X10 Comments visual cues opposition Sitting Exercise Name AROM Side right Reps/Minutes 1X10 Comments visual cues Thumb flex strengthening Sitting Exercise Name Thumb flex/ext strengthening & opposition Side right Equipment Used with Yellow putty gripping Comments post paraffin Sit<>Stands Sitting Exercise Name sit to stand with and without band and weight Resistance light band above knees 2nd and 3rd set, 2 lb weight 3rd set Reps/Minutes X10 X 3 Comments VC hip hinge knees past 90 deg Therapeutic Activity Therapeutic Activity seated scooting Name From mat at height PT estimates is her bed height Reps/Minutes X5 Comments Verbal and visual cues for Weight shift and scooting until back of knees touch mat. Patient ed to use this tech when getting into bed, prior to performing supine to and from sit. Transfers in/out of bed Name supine to sit Comments Verbal cues for timing, performed from left and right side Manual Therapy Treatment Soft Tissue Mobilization right forearm Body Location prior to hand and wrist ex Mobilization Type Rolling,Other Intensity/Depth Superficial Body Position Hooklying Comments superficial to gentle moderate , monitored for pain anterior and posterior forarm muscles Joint Mobilizations R thumb IP jt Joint R thumb IP jt Direction PA of distal end of thumb f/b stretch Body Position Sitting Manual Techniques thumb flexion Type PROM manually MCP, IP jt Body Location right thumb Body Position Sitting Reps/Duration 1 x10 Comments monitored for pain PT-OP-R Modalities Start: 03/03/23 17:50 Freq: Status: Active Protocol: Document 03/29/23 08:18 AB (Rec: 03/29/23 10:04 AB [id number]) Paraffin Bath Treatment Right Hand Treatment Technique Immersion Bath R thumb only Wax Temperature (degrees F) 120 Number Wax Layers (layers) 7 Patient Tolerance Good PT-OP-T Assessment and Plan Start: 03/03/23 17:50 Freq: Status: Active Protocol: Document 03/29/23 08:18 AB (Rec: 03/29/23 10:04 AB [id number]) Physical Therapy Assessment Goals Three Impairment Decreased R hand strength due to thumb pain. Short Term Goal (STG) Improve R UE/casting wheel operator helper strength with pt able to cooking w/o thumb pain, or pt able to independently open jars or can with can pilot instructor. 03/10/23: Pt reportedly had more R thumb ROM after paraffin dip and PROM/JMT. 03/15/23: Improved R thumb PROM: MCP jt ~45 deg flex, IP jt ~30 deg's flex; Opposition: thumb to little finger PIP jt distally. STG Duration 4 wks-04/01/23 Construction Checker Goal (LTG) Improve R UE/casting wheel operator helper strength with pt able to move stick shift with R hand w/o pain. LTG Duration 8 wks-04/29/23 Two Impairment Decreased endurance making transfers from chairs and toilet difficult. Impairment Pain in shoulders, legs, R ankle making sitting on toilet w/o a riser and getting up from a chair difficult. Short Term Goal (STG) Improve endurance with 5xSTS in 12 secs or less or 30 sec chair stand 10x or greater, or walk 546 ft prior to fatigue. 03/07/23: 30 STS - 7 reps. STG Duration 4 wks-04/01/23 Group Home Goal (LTG) Improve endurance with pt able to walk 684 ft prior to fatigue or 13 steps at home without heavy breathing. 03/15/23: Hiking 1.25 miles & is tired after 13 stair steps at home, but not heavily breathing. LTG Duration 8 wks-04/29/23 progressed One Short Term Goal (STG) Pt will be educated and independent in donning/doffing a coat without pain. STG Duration 4 wks-04/01/23 (03/07/23: MET GOAL) Construction Checker Goal (LTG) Pt will be independent in a self care HEP for general strengthening of core/LE's/UE' s and bilateral thumb mobility ex's. 03/07/23: HEP: Sit<>stands, AROM rubén shlder ext (elbows straight & flexed) & I/S in IR reaching hand up spine. LTG Duration 12 wks-05/27/23 progressing 03/07/23 Assessment Summary Assessment Patient reports feeling looser end of session. SLS right LE 2,3,2 seconds left 2,4,3 without UE use, with no improvement noted end of session. LE strength and balance continues to be limited. Patient would benefit from progression of plan. Physical Therapy Plan Frequency and Duration Frequency of Treatment 2x/Week Duration of treatment (weeks) 12 Plan of Care Start Date 03/04/23 Plan of Care End Date 05/27/23 Next Visit Focus/Plan Next Visit Plan Possibly sit to stand with band above knees and weight to HEP. assess HR strength for carryover to balance. Next: focus on increasing endurance on Biodex and UBE. Progress UBE/Biodex endurance conditioning (work to 10') R Hand mobility: Paraffin R thumb only, AROM stretches, R thumb flex stretching (MCP/IP jt), rubén strengthening T-Putty . UE ROM as needed for functional dressing. Manual: STM post workout for pain management or self stretching HEP. [ End ]
--- NOTE | 2023-03-31 10:20 | PT.OTN ---
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) Pain in unspecified joint (03/31/23) Physical Therapy Treatment Note PT-OP-A Visit Information Start: 03/03/23 17:50 Freq: Status: Active Protocol: Document 03/31/23 08:12 AB (Rec: 03/31/23 10:19 AB [id number]) Out-Patient Physical Therapy Visit Information Visit Information Visit Type Treatment Note Visit Note Access Code [email or web address] Visit Start Time 09:01 Visit Stop Time 09:47 Visit Number 9 Number of WET AND DRY SUGAR BIN OPERATOR Visits 2 Evaluation Information Evaluation Date 03/04/23 Precautions Precautions SOB after walking & putting shoes on, Fibromyalgia, [place]'s disease, Chronic fatigue for 35 yrs, recent surgery (07/20/22) 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 PT-OP-B Current Condition Start: 03/03/23 17:50 Freq: Status: Active Protocol: Document 03/04/23 13:04 LRN (Rec: 03/04/23 15:17 LRN [id number]) Current Condition History of Current Condition Onset Date 06/3022 Current Complaints Fatigue, SOB, general soreness of body. 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 Currently dealing with effect of tapering down use of hydrocortisone. Shoulders, legs, R ankle pain new since surgery. Has hot spots on top of L leg and at spine on LB, R hand (cat bit her a couple months before surgery). On 6 hrs of Tylenol and 8 hrs on Meloxicam daily then can sleep. R hand is most problematic. Prior Treatments and Tests MRI & CAT scan to check on surgery results. PT for neck 5-6 yrs ago without resolution. Treatment Goals Patient/Caregiver Goals Pt goals: Cooking or sitting on toilet w /o the riser w/o pain in shoulders, legs, R ankle. Getting up from chair without difficulty. Able to move stick shift with R hand w/o pain. Taking on/off coat w/o pain. Prior Functional Status Baseline Function- ADL's Independent Baseline Function- Mobility Independent Baseline Function- Other Before surgery (2 yrs ago) hiking and 1/2 mile a day. 2x /week 3-5 miles. Before surgery: (3yrs ago) Panting putting shoes/boots, walking 1 mile. Current Functional Impairments (Reported) Functional Limitations- ADL's Difficulty opening cans with can data collector, and help to put coat on. Functional Limitations- Mobility/Gait Walks 1x/day 6-8 blocks. Fatigued from walking into treatment room. 13 steps to get to room, results in breathing heavy. Personal Factors Other Personal Factors That May Effect Tumor from pituitary gland Therapy/Recovery removed 07/20/22, currently working on steroid taper. Fibromyalgia. SOB just walking and putting shoes on. PT-OP-C Subjective Start: 03/03/23 17:50 Freq: Status: Active Protocol: Document 03/31/23 08:12 AB (Rec: 03/31/23 10:19 AB [id number]) OP-PT Subjective Patient Comments Patient Comments Patient reports she is a little better, thumb is a little better, gripping continues to be a problem. Patient comments she would like to ride her bike a again. Patient reports has to use both hands to move stick shift on car to move car into gear. PT-OP-E Functional Tests Start: 03/03/23 17:50 Freq: Status: Active Protocol: Document 03/07/23 10:36 LRN (Rec: 03/07/23 11:28 LRN [id number]) Functional Tests 30 Second Sit to Stand Test Score 7 reps Comments Norm: Female age 70-74 is 10- 15 reps PT-OP-G Mobility & Gait Start: 03/03/23 17:50 Freq: Status: Active Protocol: Document 03/04/23 13:04 LRN (Rec: 03/04/23 15:17 LRN [id number]) OP Mobility Evaluation Functional Movements Other Functional Movements Putting coat on: Pt dons from overhead and requires assistance to pull coat down through arms and to clear head . PT-OP-H Neuro Start: 03/03/23 17:50 Freq: Status: Active Protocol: Document 03/04/23 13:04 LRN (Rec: 03/04/23 15:17 LRN [id number]) Sensation Evaluation Gross Sensation Gross Sensation WNL Vital Signs Pulse At rest sitting Pulse at Rest (bpm) 80 Pulse Assessment Method BP cuff Blood Pressure Sitting Blood Pressure (90/60-120/80 mmHg) 125/75 H Blood Pressure Source Automatic Cuff PT-OP-J Posture/Palpation/Skin Start: 03/03/23 17:50 Freq: Status: Active Protocol: Document 03/04/23 13:04 LRN (Rec: 03/04/23 15:17 LRN [id number]) Posture Evaluation Position Standing Head/C-Spine Posture Forward Head T-Spine Posture Increased Kyphosis L-Spine Posture Increased Lordosis Shoulder Posture (L) Rounded,(R) Rounded,(L) Elevated Scapula Posture (L) Neutral,(R) Neutral Arm Posture (L) Internally Rotated,(R) Internally Rotated Pelvis Posture Anteriorly Tilted Weight Distribution Balanced Knee Posture (L) Neutral,(R) Neutral Ankle/Foot Posture (L) Neutral,(R) Neutral Foot Arch (L) High Arch,(R) High Arch PT-OP-K Range of Motion Start: 03/03/23 17:50 Freq: Status: Active Protocol: Document 03/04/23 13:04 LRN (Rec: 03/04/23 15:17 LRN [id number]) Thumb Goniometric Range of Motion Thumb Right MCP Flexion Active (degrees) 30 IP Flexion Active (degrees) 30 Left MCP Flexion Active (degrees) 45 IP Flexion Active (degrees) 50 PT-OP-M Strength Start: 03/03/23 17:50 Freq: Status: Active Protocol: Document 03/07/23 10:36 LRN (Rec: 03/07/23 11:33 LRN [id number]) Finger/Thumb Strength Finger Manual Muscle Testing Right Thumb Flexion (fingers C8) 5 Normal Extension (thumb C8) 4+ Good+ Adduction 5 Normal Abduction (fingers T1) 4+ Good+ Comments Pain with testing of thumb AD. Opposition: 5/5 except with middle finger 3/5 due to lateral wrist pain (around pisiform) and digits 4 & 5 strength is 4+/5. Left Thumb Comments 5/5 w/o pain Opposition: 5/5 with all fingers. PT-OP-Q Treatments Start: 03/03/23 17:50 Freq: Status: Active Protocol: Document 03/31/23 08:12 AB (Rec: 03/31/23 10:19 AB [id number]) Cardio Equipment Upper Body Ergometer (UBE) Duration (Minutes) 7 RPM 75 Seat Position 9 Height 3 Other 7.5 for time 2.5 fwd bkwd Therapeutic Exercises Sitting Exercises finger glide AROM Sitting Exercise Name finger glide AROM Side right Reps/Minutes X10 Comments Verbal and visual cues opposition Sitting Exercise Name AROM Side right Reps/Minutes 1X10 Comments visual cues Thumb flex strengthening Sitting Exercise Name Thumb flex/ext strengthening & opposition Side right Equipment Used with Yellow putty gripping Comments post paraffin Sit<>Stands Sitting Exercise Name 20 inch seat height Side bilateral Resistance light blue band above knees holding 2 lb weight Reps/Minutes X10 X 3 Comments VC to keep tension on band Standing Exercises bilateral heel raise Standing Exercise Name with UE support Side bilateral Reps/Minutes 3X10 Comments Verbal cues to lower heels to floor slowly Manual Therapy Treatment Soft Tissue Mobilization right forearm Body Location prior to hand and wrist ex Mobilization Type Rolling,Other Intensity/Depth Superficial Body Position Hooklying Comments superficial to gentle moderate , monitored for pain anterior and posterior forarm muscles Joint Mobilizations R thumb IP jt Joint R thumb IP jt Direction PA of distal end of thumb f/b stretch Body Position Sitting Manual Techniques thumb flexion Type PROM manually MCP, IP jt Body Location right thumb Body Position Sitting Reps/Duration 1 x10 Comments monitored for pain PT-OP-R Modalities Start: 03/03/23 17:50 Freq: Status: Active Protocol: Document 03/31/23 08:12 AB (Rec: 03/31/23 10:19 AB [id number]) Paraffin Bath Treatment Right Hand Treatment Technique Immersion Bath R thumb only Wax Temperature (degrees F) 120 Number Wax Layers (layers) 7 Patient Tolerance Good PT-OP-T Assessment and Plan Start: 03/03/23 17:50 Freq: Status: Active Protocol: Document 03/31/23 08:12 AB (Rec: 03/31/23 10:19 AB [id number]) Physical Therapy Assessment Goals Three Impairment Decreased R hand strength due to thumb pain. Short Term Goal (STG) Improve R UE/glove cuffer strength with pt able to cooking w/o thumb pain, or pt able to independently open jars or can with can data collector. 03/10/23: Pt reportedly had more R thumb ROM after paraffin dip and PROM/JMT. 03/15/23: Improved R thumb PROM: MCP jt ~45 deg flex, IP jt ~30 deg's flex; Opposition: thumb to little finger PIP jt distally. STG Duration 4 wks-04/01/23 Industrial Economist Goal (LTG) Improve R UE/glove cuffer strength with pt able to move stick shift with R hand w/o pain. LTG Duration 8 wks-04/29/23 Two Impairment Decreased endurance making transfers from chairs and toilet difficult. Impairment Pain in shoulders, legs, R ankle making sitting on toilet w/o a riser and getting up from a chair difficult. Short Term Goal (STG) Improve endurance with 5xSTS in 12 secs or less or 30 sec chair stand 10x or greater, or walk 546 ft prior to fatigue. 03/07/23: 30 STS - 7 reps. 03/31/23 PT reports less pain right ankle with sit to stand with band tied above knees to control valgus at knee impact on ankle. STG Duration 4 wks-04/01/23 Industrial Economist Goal (LTG) Improve endurance with pt able to walk 684 ft prior to fatigue or 13 steps at home without heavy breathing. 03/15/23: Hiking 1.25 miles & is tired after 13 stair steps at home, but not heavily breathing. LTG Duration 8 wks-04/29/23 progressed One Short Term Goal (STG) Pt will be educated and independent in donning/doffing a coat without pain. STG Duration 4 wks-04/01/23 (03/07/23: MET GOAL) Mcfp Goal (LTG) Pt will be independent in a self care HEP for general strengthening of core/LE's/UE' s and bilateral thumb mobility ex's. 03/07/23: HEP: Sit<>stands, AROM rubén shlder ext (elbows straight & flexed) & I/S in IR reaching hand up spine. LTG Duration 12 wks-05/27/23 progressing 03/07/23 Assessment Summary Assessment Patient reports feeling perkier end of sessin. right thumb not yet to base of 5th digit during opposition AROM. Patient with good tolerance to progression of strengthening exercises this session. Possibly contract relax for finger and thumb flexion.HR for controlling fwd momentum during ambulation added to HEP bilateral ( unable to perform full single Leg HR right LE ) sit to stand with band with 2lb added to HEP Physical Therapy Plan Frequency and Duration Frequency of Treatment 2x/Week Duration of treatment (weeks) 12 Plan of Care Start Date 03/04/23 Plan of Care End Date 05/27/23 Next Visit Focus/Plan Next Note Type Treatment Note Next Visit Plan Next: Possibly standing for UBE, HEP, supine to sit as an exercise vs side sit to upright focus on increasing endurance on Biodex and UBE. Progress UBE/Biodex endurance conditioning (work to 10') R Hand mobility: Paraffin R thumb only, AROM stretches, R thumb flex stretching (MCP/IP jt), rubén strengthening T-Putty . UE ROM as needed for functional dressing. Manual: STM post workout for pain management or self stretching [ End ]
--- NOTE | 2023-04-05 10:22 | PT.OTN ---
Current Diagnoses Pituitary-dependent [place]'s disease (04/05/23) Pain in unspecified joint (04/05/23) Physical Therapy Treatment Note PT-OP-A Visit Information Start: 03/03/23 17:50 Freq: Status: Active Protocol: Document 04/05/23 09:04 LRN (Rec: 04/05/23 10:13 LRN [id number]) Out-Patient Physical Therapy Visit Information Visit Information Visit Type Progress Note Visit Start Time 09:04 Visit Stop Time 09:42 Visit Number 10 Evaluation Information Evaluation Date 03/04/23 Precautions Precautions SOB after walking & putting shoes on, Fibromyalgia, Goodman's disease, Chronic fatigue for 35 yrs, recent surgery (07/20/22) 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 PT-OP-B Current Condition Start: 03/03/23 17:50 Freq: Status: Active Protocol: Document 03/04/23 13:04 LRN (Rec: 03/04/23 15:17 LRN [id number]) Current Condition History of Current Condition Onset Date 06/3022 Current Complaints Fatigue, SOB, general soreness of body. 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 Currently dealing with effect of tapering down use of hydrocortisone. Shoulders, legs, R ankle pain new since surgery. Has hot spots on top of L leg and at spine on LB, R hand (cat bit her a couple months before surgery). On 6 hrs of Tylenol and 8 hrs on Meloxicam daily then can sleep. R hand is most problematic. Prior Treatments and Tests MRI & CAT scan to check on surgery results. PT for neck 5-6 yrs ago without resolution. Treatment Goals Patient/Caregiver Goals Pt goals: Cooking or sitting on toilet w /o the riser w/o pain in shoulders, legs, R ankle. Getting up from chair without difficulty. Able to move stick shift with R hand w/o pain. Taking on/off coat w/o pain. Prior Functional Status Baseline Function- ADL's Independent Baseline Function- Mobility Independent Baseline Function- Other Before surgery (2 yrs ago) hiking and 1/2 mile a day. 2x /week 3-5 miles. Before surgery: (3yrs ago) Panting putting shoes/boots, walking 1 mile. Current Functional Impairments (Reported) Functional Limitations- ADL's Difficulty opening cans with can registered nurse maternal child, and help to put coat on. Functional Limitations- Mobility/Gait Walks 1x/day 6-8 blocks. Fatigued from walking into treatment room. 13 steps to get to room, results in breathing heavy. Personal Factors Other Personal Factors That May Effect Tumor from pituitary gland Therapy/Recovery removed 07/20/22, currently working on steroid taper. Fibromyalgia. SOB just walking and putting shoes on. PT-OP-C Subjective Start: 03/03/23 17:50 Freq: Status: Active Protocol: Document 04/05/23 09:04 LRN (Rec: 04/05/23 10:13 LRN [id number]) OP-PT Subjective Patient Comments Patient Comments 04/05/23: Joints in R hand loosening. No pain with cooking. Pain in R thumb opening cans. Can't make fist with R hand as well as with L hand. Can't tuck shirt in from behind. Waking this morning felt less stiff in the whole body getting out of bed and walking down the stairs. Patient Questionnaires ABC- Activity Specific Balance Confidence Scale ABC Score 82.5 ABC Functional Impairment 1 to <20% Impaired (Score 81- 99) PT-OP-E Functional Tests Start: 03/03/23 17:50 Freq: Status: Active Protocol: Document 04/05/23 09:04 LRN (Rec: 04/05/23 10:16 LRN [id number]) Functional Tests 30 Second Sit to Stand Test Score 7 reps Comments Norm: Female age 70-74 is 10- 15 reps Five Times Sit to Stand Test Score 23 secs Comments 70-79 yo's is 12.6 secs Other Gait until fatigue Name of Test 500 ft PT-OP-G Mobility & Gait Start: 03/03/23 17:50 Freq: Status: Active Protocol: Document 03/04/23 13:04 LRN (Rec: 03/04/23 15:17 LRN [id number]) OP Mobility Evaluation Functional Movements Other Functional Movements Putting coat on: Pt dons from overhead and requires assistance to pull coat down through arms and to clear head . PT-OP-H Neuro Start: 03/03/23 17:50 Freq: Status: Active Protocol: Document 03/04/23 13:04 LRN (Rec: 03/04/23 15:17 LRN [id number]) Sensation Evaluation Gross Sensation Gross Sensation WNL Vital Signs Pulse At rest sitting Pulse at Rest (bpm) 80 Pulse Assessment Method BP cuff Blood Pressure Sitting Blood Pressure (90/60-120/80 mmHg) 125/75 H Blood Pressure Source Automatic Cuff PT-OP-J Posture/Palpation/Skin Start: 03/03/23 17:50 Freq: Status: Active Protocol: Document 03/04/23 13:04 LRN (Rec: 03/04/23 15:17 LRN [id number]) Posture Evaluation Position Standing Head/C-Spine Posture Forward Head T-Spine Posture Increased Kyphosis L-Spine Posture Increased Lordosis Shoulder Posture (L) Rounded,(R) Rounded,(L) Elevated Scapula Posture (L) Neutral,(R) Neutral Arm Posture (L) Internally Rotated,(R) Internally Rotated Pelvis Posture Anteriorly Tilted Weight Distribution Balanced Knee Posture (L) Neutral,(R) Neutral Ankle/Foot Posture (L) Neutral,(R) Neutral Foot Arch (L) High Arch,(R) High Arch PT-OP-K Range of Motion Start: 03/03/23 17:50 Freq: Status: Active Protocol: Document 03/04/23 13:04 LRN (Rec: 03/04/23 15:17 LRN [id number]) Thumb Goniometric Range of Motion Thumb Right MCP Flexion Active (degrees) 30 IP Flexion Active (degrees) 30 Left MCP Flexion Active (degrees) 45 IP Flexion Active (degrees) 50 PT-OP-M Strength Start: 03/03/23 17:50 Freq: Status: Active Protocol: Document 03/07/23 10:36 LRN (Rec: 03/07/23 11:33 LRN [id number]) Finger/Thumb Strength Finger Manual Muscle Testing Right Thumb Flexion (fingers C8) 5 Normal Extension (thumb C8) 4+ Good+ Adduction 5 Normal Abduction (fingers T1) 4+ Good+ Comments Pain with testing of thumb AD. Opposition: 5/5 except with middle finger 3/5 due to lateral wrist pain (around pisiform) and digits 4 & 5 strength is 4+/5. Left Thumb Comments 5/5 w/o pain Opposition: 5/5 with all fingers. PT-OP-Q Treatments Start: 03/03/23 17:50 Freq: Status: Active Protocol: Document 04/05/23 09:04 LRN (Rec: 04/05/23 10:13 LRN [id number]) Cardio Equipment Other Cardio Equipment Other Cardio Equipment Standing UBE. 9, ' ~7-8 rpm. With focus on core stablization. Walking for endurance. Pt walked 500 ft before fatigue. Therapeutic Exercises Sitting Exercises Hands behind head stretch Sitting Exercise Name Hands behind head stretch Side bilateral Reps/Minutes 3' Comments Functional assessment taken Thumb flex strengthening Sitting Exercise Name Thumb flex/ext strengthening & opposition Side right Equipment Used Active assisted ROM Reps/Minutes 4' Thumb self flex stretch Sitting Exercise Name Thumb flex & self flex stretch (Garrett stretch) Side right Reps/Minutes 4' Sit<>Stands Sitting Exercise Name 20 inch seat height Side bilateral Reps/Minutes 30 & 5x STS Comments Rest needed between exercises. 30 - 7 reps, 5xSTS in 23 secs. Standing Exercises Hands behind back stretch Standing Exercise Name Hands behind back (IR) stretch Side bilateral Reps/Minutes 3' Comments Functional assessment taken Manual Therapy Treatment Joint Mobilizations R thumb MCP jt Joint R thumb MCP jt Direction PA Body Position Sitting Reps/Duration 4' R thumb IP jt Joint R thumb IP jt Direction PA of distal end of thumb f/b stretch Body Position Sitting Reps/Duration 4' PT-OP-R Modalities Start: 03/03/23 17:50 Freq: Status: Active Protocol: Document 03/31/23 08:12 AB (Rec: 03/31/23 10:19 AB [id number]) Paraffin Bath Treatment Right Hand Treatment Technique Immersion Bath R thumb only Wax Temperature (degrees F) 120 Number Wax Layers (layers) 7 Patient Tolerance Good PT-OP-T Assessment and Plan Start: 03/03/23 17:50 Freq: Status: Active Protocol: Document 04/05/23 09:04 LRN (Rec: 04/05/23 10:13 LRN [id number]) Physical Therapy Assessment Rehab Potential Rehabilitation Potential Good Evaluation Complexity Number of Personal Factors/Comorbidities 3 or More Number of Body Systems Impaired 4 or More Clinical Presentation at Evaluation Evolving Impairments Impairments Activity Tolerance,Functional Activities,Pain,Posture,ROM, Strength Goals Four Impairment Can't tuck shirt in from behind due to casper shoulder restriction. Impairment Spouse is helping to tuck shirt in. Reaching behind head: Casper to C7. Reaching behind back: S1 right, S2 left Alf Goal (LTG) Improve shoulder mobility with pt able to tuck shirt in independently. LTG Duration 8 wks-05/27/23 Three Impairment Decreased R hand strength due to thumb pain. Short Term Goal (STG) Improve R UE/motor setter strength with pt able to cooking w/o thumb pain, or pt able to independently open jars or can with can registered nurse maternal child. 03/10/23: Pt reportedly had more R thumb ROM after paraffin dip and PROM/JMT. 03/15/23: Improved R thumb PROM: MCP jt ~45 deg flex, IP jt ~30 deg's flex; Opposition: thumb to little finger PIP jt distally. 04/05/23: Joints in R hand loosening. No pain with cooking. Pain in R thumb opening cans. Can't make fist with R hand as well as with L hand. Can't tuck shirt in from behind. STG Duration 4 wks-05/06/23 Bridal Gown Fitter Goal (LTG) Improve R UE/motor setter strength with pt able to move stick shift with R hand w/o pain. 04/05/23: Still using both hands, not able to motor setter well. LTG Duration 8 wks-05/27/23 04/05/23: No change Two Impairment Decreased endurance making transfers from chairs and toilet difficult. Impairment Pain in shoulders, legs, R ankle making sitting on toilet w/o a riser and getting up from a chair difficult. Short Term Goal (STG) Improve endurance with 5xSTS in 12 secs or less or 30 sec chair stand 10x or greater, or walk 546 ft prior to fatigue. 03/07/23: 30 STS - 7 reps. 03/31/23 PT reports less pain right ankle with sit to stand with band tied above knees to control valgus at knee impact on ankle. 04/05/23: 30 STS - 7 reps, 5xSTS in 23 secs. STG Duration 4 wks-05/06/23 Alf Goal (LTG) Improve endurance with pt able to walk 684 ft prior to fatigue or 13 steps at home without heavy breathing. 03/15/23: Hiking 1.25 miles & is tired after 13 stair steps at home, but not heavily breathing. 04/05/23: (NOTE: chronic fatigue for 35 yrs) Tired still after 13 steps at home. 04/05/23: Walking before fatigue - 500 ft. LTG Duration 8 wks-05/27/23 progressed One Short Term Goal (STG) Pt will be educated and independent in donning/doffing a coat without pain. STG Duration 4 wks-04/01/23 (03/07/23: MET GOAL) Bridal Gown Fitter Goal (LTG) Pt will be independent in a self care HEP for general strengthening of core/LE's/UE' s and bilateral thumb mobility ex's. 03/07/23: HEP: Sit<>stands, AROM casper shlder ext (elbows straight & flexed) & I/S in IR reaching hand up spine. LTG Duration 8 wks-05/27/23 progressing 03/07/23 Assessment Summary Assessment Pt with general weakness, fatigue and joint pain of shoulders, legs, R ankle, and R thumb. She show some functionalimprovement with no c/o R thumb pain with cooking. She has pain with opening cans, but is possibly from the can registered nurse maternal child itself as her spouse also has trouble opening cans. Although sit<> stand test shows no improvement, her walking endurance is improving prior to fatigue. ABC score shows improved function score of 80 to 82.5. R thumb mobility improved with ROM ex. Physical Therapy Plan Frequency and Duration Frequency of Treatment 2x/Week Duration of treatment (weeks) 8 Plan of Care Start Date 04/05/23 Plan of Care End Date 05/27/23 Therapeutic Interventions Therapeutic Interventions Home Exercise Program,Joint Mobilizations,Manual Therapy, Neuromuscular Re-education, Self-Care/Home Management,Soft Tissue Mobilization, Therapeutic Activities, Therapeutic Exercises Modalities Electric Stimulation,Hot Packs ,Paraffin Bath Next Visit Focus/Plan Next Note Type Treatment Note Next Visit Plan Next: Measure shoulder ROM and try again standing UBE. Assess pt's ability to open jars and start ex to improve the ability. HEP, log roll to sit to for endurance ex and Biodex/UBE. Progress UBE/Biodex endurance conditioning (work to 10') R Hand mobility: Paraffin R thumb only, AROM stretches, R thumb flex stretching (MCP/IP jt), casper strengthening T-Putty . UE ROM as needed for functional dressing. Manual: STM post workout for pain management or self stretching [ End ]
--- NOTE | 2023-04-05 10:22 | PT.OPPOC ---
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) Pain in unspecified joint (04/05/23) Visit Care Team Role Provider Type Caitlyn Dominguez DO Attending Provider Physician Family Provider Primary Care Provider Referring Provider Specialty: Family Practice Address: [address] [place] [address], [address], [facility] Email: [email or web address] Plan Of Care PT-OP-T Assessment and Plan Start: 03/03/23 17:50 Freq: Status: Active Protocol: Document 04/05/23 09:04 LRN (Rec: 04/05/23 10:13 LRN [id number]) Physical Therapy Assessment Rehab Potential Rehabilitation Potential Good Evaluation Complexity Number of Personal Factors/Comorbidities 3 or More Number of Body Systems Impaired 4 or More Clinical Presentation at Evaluation Evolving Impairments Impairments Activity Tolerance,Functional Activities,Pain,Posture,ROM, Strength Goals Four Impairment Can't tuck shirt in from behind due to rubén shoulder restriction. Impairment Spouse is helping to tuck shirt in. Reaching behind head: Rubén to C7. Reaching behind back: S1 right, S2 left Residential Goal (LTG) Improve shoulder mobility with pt able to tuck shirt in independently. LTG Duration 8 wks-05/27/23 Three Impairment Decreased R hand strength due to thumb pain. 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 03/10/23: Pt reportedly had more R thumb ROM after paraffin dip and PROM/JMT. 03/15/23: Improved R thumb PROM: MCP jt ~45 deg flex, IP jt ~30 deg's flex; Opposition: thumb to little finger PIP jt distally. 04/05/23: Joints in R hand loosening. No pain with cooking. Pain in R thumb opening cans. Can't make fist with R hand as well as with L hand. Can't tuck shirt in from behind. STG Duration 4 wks-05/06/23 Residential Goal (LTG) Improve R UE/secretary bookkeeper strength with pt able to move stick shift with R hand w/o pain. 04/05/23: Still using both hands, not able to secretary bookkeeper well. LTG Duration 8 wks-05/27/23 04/05/23: No change Two Impairment Decreased endurance making transfers from chairs and toilet difficult. Impairment Pain in shoulders, legs, R ankle making sitting on toilet w/o a riser and getting up from a chair difficult. Short Term Goal (STG) Improve endurance with 5xSTS in 12 secs or less or 30 sec chair stand 10x or greater, or walk 546 ft prior to fatigue. 03/07/23: 30 STS - 7 reps. 03/31/23 PT reports less pain right ankle with sit to stand with band tied above knees to control valgus at knee impact on ankle. 04/05/23: 30 STS - 7 reps, 5xSTS in 23 secs. STG Duration 4 wks-05/06/23 Residential Goal (LTG) Improve endurance with pt able to walk 684 ft prior to fatigue or 13 steps at home without heavy breathing. 03/15/23: Hiking 1.25 miles & is tired after 13 stair steps at home, but not heavily breathing. 04/05/23: (NOTE: chronic fatigue for 35 yrs) Tired still after 13 steps at home. 04/05/23: Walking before fatigue - 500 ft. LTG Duration 8 wks-05/27/23 progressed One Short Term Goal (STG) Pt will be educated and independent in donning/doffing a coat without pain. STG Duration 4 wks-04/01/23 (03/07/23: MET GOAL) Audioprosthologist Goal (LTG) Pt will be independent in a self care HEP for general strengthening of core/LE's/UE' s and bilateral thumb mobility ex's. 03/07/23: HEP: Sit<>stands, AROM rubén shlder ext (elbows straight & flexed) & I/S in IR reaching hand up spine. LTG Duration 8 wks-05/27/23 progressing 03/07/23 Assessment Summary Assessment Pt with general weakness, fatigue and joint pain of shoulders, legs, R ankle, and R thumb. She show some functionalimprovement with no c/o R thumb pain with cooking. She has pain with opening cans, but is possibly from the can roof promenade tile setter itself as her spouse also has trouble opening cans. Although sit<> stand test shows no improvement, her walking endurance is improving prior to fatigue. ABC score shows improved function score of 80 to 82.5. R thumb mobility improved with ROM ex. Physical Therapy Plan Frequency and Duration Frequency of Treatment 2x/Week Duration of treatment (weeks) 8 Plan of Care Start Date 04/05/23 Plan of Care End Date 05/27/23 Therapeutic Interventions Therapeutic Interventions Home Exercise Program,Joint Mobilizations,Manual Therapy, Neuromuscular Re-education, Self-Care/Home Management,Soft Tissue Mobilization, Therapeutic Activities, Therapeutic Exercises Modalities Electric Stimulation,Hot Packs ,Paraffin Bath Next Visit Focus/Plan Next Note Type Treatment Note Next Visit Plan Next: Measure shoulder ROM and try again standing UBE. Assess pt's ability to open jars and start ex to improve the ability. HEP, log roll to sit to for endurance ex and Biodex/UBE. Progress UBE/Biodex endurance conditioning (work to 10') R Hand mobility: Paraffin R thumb only, AROM stretches, R thumb flex stretching (MCP/IP jt), rubén strengthening T-Putty . UE ROM as needed for functional dressing. Manual: STM post workout for pain management or self stretching [ End ] Plan of Care Dates Plan of Care Start Date 04/05/23 Plan of Care End Date 05/27/23 Electronically Signed by: Kim Reyes, PT 04/05/23 [id number] If you are in agreement with this Plan of Care, please return a signed and dated copy. I have reviewed this Plan of Care and certify that the skilled therapy services above are required to meet the patient?s needs. Physician Signature Date Printed Name and Credentials Clinical Instructor Signature Printed Name and Credentials
--- NOTE | 2023-04-07 09:30 | PT.OTN ---
Current Diagnoses Pituitary-dependent Libra's disease (04/07/23) Pain in unspecified joint (04/07/23) Physical Therapy Treatment Note PT-OP-A Visit Information Start: 03/03/23 17:50 Freq: Status: Active Protocol: Document 04/07/23 08:07 AB (Rec: 04/07/23 09:23 AB [id number]) Out-Patient Physical Therapy Visit Information Visit Information Visit Type Treatment Note Visit Note Access Code [email or web address] Visit Start Time 08:16 Visit Stop Time 09:02 Visit Number 11 Number of DEVELOPING MACHINE OPERATOR Visits 1 Evaluation Information Evaluation Date 03/04/23 Precautions Precautions SOB after walking & putting shoes on, Fibromyalgia, [place]'s disease, Chronic fatigue for 35 yrs, recent surgery (07/20/22) 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 PT-OP-B Current Condition Start: 03/03/23 17:50 Freq: Status: Active Protocol: Document 03/04/23 13:04 LRN (Rec: 03/04/23 15:17 LRN [id number]) Current Condition History of Current Condition Onset Date 06/3022 Current Complaints Fatigue, SOB, general soreness of body. 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 Currently dealing with effect of tapering down use of hydrocortisone. Shoulders, legs, R ankle pain new since surgery. Has hot spots on top of L leg and at spine on LB, R hand (cat bit her a couple months before surgery). On 6 hrs of Tylenol and 8 hrs on Meloxicam daily then can sleep. R hand is most problematic. Prior Treatments and Tests MRI & CAT scan to check on surgery results. PT for neck 5-6 yrs ago without resolution. Treatment Goals Patient/Caregiver Goals Pt goals: Cooking or sitting on toilet w /o the riser w/o pain in shoulders, legs, R ankle. Getting up from chair without difficulty. Able to move stick shift with R hand w/o pain. Taking on/off coat w/o pain. Prior Functional Status Baseline Function- ADL's Independent Baseline Function- Mobility Independent Baseline Function- Other Before surgery (2 yrs ago) hiking and 1/2 mile a day. 2x /week 3-5 miles. Before surgery: (3yrs ago) Panting putting shoes/boots, walking 1 mile. Current Functional Impairments (Reported) Functional Limitations- ADL's Difficulty opening cans with can migrant leader, and help to put coat on. Functional Limitations- Mobility/Gait Walks 1x/day 6-8 blocks. Fatigued from walking into treatment room. 13 steps to get to room, results in breathing heavy. Personal Factors Other Personal Factors That May Effect Tumor from pituitary gland Therapy/Recovery removed 07/20/22, currently working on steroid taper. Fibromyalgia. SOB just walking and putting shoes on. PT-OP-C Subjective Start: 03/03/23 17:50 Freq: Status: Active Protocol: Document 04/07/23 08:07 AB (Rec: 04/07/23 09:29 AB [id number]) OP-PT Subjective Patient Comments Patient Comments Patient comments the exercises are working. Glenys reports that they have purchased a new can migrant leader, but have not tried it yet. Glenys also reports she was able to remove her ring on the right hand, and will be able to have the parraffin to the entire right and today. PT-OP-E Functional Tests Start: 03/03/23 17:50 Freq: Status: Active Protocol: Document 04/05/23 09:04 LRN (Rec: 04/05/23 10:16 LRN [id number]) Functional Tests 30 Second Sit to Stand Test Score 7 reps Comments Norm: Female age 70-74 is 10- 15 reps Five Times Sit to Stand Test Score 23 secs Comments 70-79 yo's is 12.6 secs Other Gait until fatigue Name of Test 500 ft PT-OP-G Mobility & Gait Start: 03/03/23 17:50 Freq: Status: Active Protocol: Document 03/04/23 13:04 LRN (Rec: 03/04/23 15:17 LRN [id number]) OP Mobility Evaluation Functional Movements Other Functional Movements Putting coat on: Pt dons from overhead and requires assistance to pull coat down through arms and to clear head . PT-OP-H Neuro Start: 03/03/23 17:50 Freq: Status: Active Protocol: Document 03/04/23 13:04 LRN (Rec: 03/04/23 15:17 LRN [id number]) Sensation Evaluation Gross Sensation Gross Sensation WNL Vital Signs Pulse At rest sitting Pulse at Rest (bpm) 80 Pulse Assessment Method BP cuff Blood Pressure Sitting Blood Pressure (90/60-120/80 mmHg) 125/75 H Blood Pressure Source Automatic Cuff PT-OP-J Posture/Palpation/Skin Start: 03/03/23 17:50 Freq: Status: Active Protocol: Document 03/04/23 13:04 LRN (Rec: 03/04/23 15:17 LRN [id number]) Posture Evaluation Position Standing Head/C-Spine Posture Forward Head T-Spine Posture Increased Kyphosis L-Spine Posture Increased Lordosis Shoulder Posture (L) Rounded,(R) Rounded,(L) Elevated Scapula Posture (L) Neutral,(R) Neutral Arm Posture (L) Internally Rotated,(R) Internally Rotated Pelvis Posture Anteriorly Tilted Weight Distribution Balanced Knee Posture (L) Neutral,(R) Neutral Ankle/Foot Posture (L) Neutral,(R) Neutral Foot Arch (L) High Arch,(R) High Arch PT-OP-K Range of Motion Start: 03/03/23 17:50 Freq: Status: Active Protocol: Document 04/07/23 08:07 AB (Rec: 04/07/23 09:23 AB [id number]) Shoulder Goniometric Range of Motion Shoulder left shoulder AROM Testing Position standing except ER supine Flexion 136 Extension 30 Abduction 84 External Rotation at 45 degrees 20 Abduction Internal Rotation Behind Back (text) L4 Right shoulder AROM Testing Position Standing standing except ER supine Flexion 102 Extension 39 Abduction 72 External Rotation at 45 degrees 48 Abduction Internal Rotation Behind Back (text) glute Wrist Goniometric Range of Motion Wrist left wrist Ulnar Deviation Active (degrees) 27 right UE Ulnar Deviation Active (degrees) 35 PT-OP-M Strength Start: 03/03/23 17:50 Freq: Status: Active Protocol: Document 03/07/23 10:36 LRN (Rec: 03/07/23 11:33 LRN [id number]) Finger/Thumb Strength Finger Manual Muscle Testing Right Thumb Flexion (fingers C8) 5 Normal Extension (thumb C8) 4+ Good+ Adduction 5 Normal Abduction (fingers T1) 4+ Good+ Comments Pain with testing of thumb AD. Opposition: 5/5 except with middle finger 3/5 due to lateral wrist pain (around pisiform) and digits 4 & 5 strength is 4+/5. Left Thumb Comments 5/5 w/o pain Opposition: 5/5 with all fingers. PT-OP-Q Treatments Start: 03/03/23 17:50 Freq: Status: Active Protocol: Document 04/07/23 08:07 AB (Rec: 04/07/23 09:23 [id number]) Cardio Equipment Upper Body Ergometer (UBE) Duration (Minutes) 7 RPM 75 Height 7 Other Standing 1.5 min at 60 RPM then 75 RPM Therapeutic Exercises Supine Exercises supine shoulder flexion Supine Exercise Name AROM Side bilateral Reps/Minutes X10 Comments In hooklying, 10 second hold for gentle gravity assisted stretch Sitting Exercises AA shoulder ER Sitting Exercise Name using opposite UE, arm on pillows Side bilateral Reps/Minutes X15 Comments Verbal and tactile cues towel therabar squeeze and twist Sitting Exercise Name towel therabar squeeze and twist Side bilateral Resistance yellow and blue bar, towel Reps/Minutes X10 X 3 ie X 10 towel, X 10 each bar Comments payton for pain, performed to simulate opening jars Manual Therapy Treatment Soft Tissue Mobilization right forearm Body Location prior to hand and wrist ex Mobilization Type Rolling,Other Intensity/Depth Superficial Body Position Hooklying Comments superficial to gentle moderate , monitored for pain anterior and posterior forarm muscles Joint Mobilizations R thumb MCP jt Joint R thumb MCP jt Direction PA Body Position Sitting Reps/Duration X10 R thumb IP jt Joint R thumb IP jt Direction PA of distal end of thumb f/b stretch Body Position Sitting Reps/Duration X10 Manual Techniques thumb flexion Type PROM manually MCP, IP jt Body Location right thumb Body Position Sitting Reps/Duration 1 x10 Comments monitored for pain Self-Care/Home Management Treatment Activities Self-Care/Home Management Activities supine shoulder flexion, AA seated shoulder ER and towel squeeze and twist added to HEP PT-OP-R Modalities Start: 03/03/23 17:50 Freq: Status: Active Protocol: Document 04/07/23 08:07 AB (Rec: 04/07/23 09:23 [id number]) Paraffin Bath Treatment Right Hand Treatment Technique Immersion Bath R hand ( ring has been removed ) Wax Temperature (degrees F) 120 Number Wax Layers (layers) 7 Patient Tolerance Good PT-OP-T Assessment and Plan Start: 03/03/23 17:50 Freq: Status: Active Protocol: Document 04/07/23 08:07 AB (Rec: 04/07/23 09:23 AB [id number]) Physical Therapy Assessment Goals Four Impairment Can't tuck shirt in from behind due to rubén shoulder restriction. Impairment Spouse is helping to tuck shirt in. Reaching behind head: Rubén to C7. Reaching behind back: S1 right, S2 left Veterinary Dentist Goal (LTG) Improve shoulder mobility with pt able to tuck shirt in independently. LTG Duration 8 wks-05/27/23 Three Impairment Decreased R hand strength due to thumb pain. Short Term Goal (STG) Improve R UE/cigar head perforator strength with pt able to cooking w/o thumb pain, or pt able to independently open jars or can with can migrant leader. 03/10/23: Pt reportedly had more R thumb ROM after paraffin dip and PROM/JMT. 03/15/23: Improved R thumb PROM: MCP jt ~45 deg flex, IP jt ~30 deg's flex; Opposition: thumb to little finger PIP jt distally. 04/05/23: Joints in R hand loosening. No pain with cooking. Pain in R thumb opening cans. Can't make fist with R hand as well as with L hand. Can't tuck shirt in from behind. STG Duration 4 wks-05/06/23 Alf Goal (LTG) Improve R UE/cigar head perforator strength with pt able to move stick shift with R hand w/o pain. 04/05/23: Still using both hands, not able to cigar head perforator well. LTG Duration 8 wks-05/27/23 04/05/23: No change Two Impairment Decreased endurance making transfers from chairs and toilet difficult. Impairment Pain in shoulders, legs, R ankle making sitting on toilet w/o a riser and getting up from a chair difficult. Short Term Goal (STG) Improve endurance with 5xSTS in 12 secs or less or 30 sec chair stand 10x or greater, or walk 546 ft prior to fatigue. 03/07/23: 30 STS - 7 reps. 03/31/23 PT reports less pain right ankle with sit to stand with band tied above knees to control valgus at knee impact on ankle. 04/05/23: 30 STS - 7 reps, 5xSTS in 23 secs. STG Duration 4 wks-05/06/23 Veterinary Dentist Goal (LTG) Improve endurance with pt able to walk 684 ft prior to fatigue or 13 steps at home without heavy breathing. 03/15/23: Hiking 1.25 miles & is tired after 13 stair steps at home, but not heavily breathing. 04/05/23: (NOTE: chronic fatigue for 35 yrs) Tired still after 13 steps at home. 04/05/23: Walking before fatigue - 500 ft. LTG Duration 8 wks-05/27/23 progressed One Short Term Goal (STG) Pt will be educated and independent in donning/doffing a coat without pain. STG Duration 4 wks-04/01/23 (03/07/23: MET GOAL) Alf Goal (LTG) Pt will be independent in a self care HEP for general strengthening of core/LE's/UE' s and bilateral thumb mobility ex's. 03/07/23: HEP: Sit<>stands, AROM rubén shlder ext (elbows straight & flexed) & I/S in IR reaching hand up spine. LTG Duration 8 wks-05/27/23 progressing 03/07/23 Assessment Summary Assessment Good tolerance to standing UBE . Patient into session without ring on right finger which demonstrates decreased swelling right hand, and was then able to have parraffin to entire hand this session. Physical Therapy Plan Frequency and Duration Frequency of Treatment 2x/Week Duration of treatment (weeks) 8 Plan of Care Start Date 04/05/23 Plan of Care End Date 05/27/23 Next Visit Focus/Plan Next Note Type Treatment Note Next Visit Plan Next: Measure shoulder PROM possibly and assess fox to standing UBE. Assess pt's ability to open jars/review towel twist/squeeze, possibly add tendon glide, HEP, log roll to sit to for endurance ex and Biodex/UBE. Progress UBE/Biodex endurance conditioning (work to 10') R Hand mobility: Paraffin R hand ( ring removed ), AROM stretches, R thumb flex stretching (MCP/IP jt), rubén strengthening T-Putty. UE ROM as needed for functional dressing. Manual: STM post workout for pain management or self stretching [ End ]
--- NOTE | 2023-04-11 10:44 | PT.OTN ---
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) Pain in unspecified joint (04/11/23) Physical Therapy Treatment Note PT-OP-A Visit Information Start: 03/03/23 17:50 Freq: Status: Active Protocol: Document 04/11/23 08:06 AB (Rec: 04/11/23 10:43 AB [id number]) Out-Patient Physical Therapy Visit Information Visit Information Visit Type Treatment Note Visit Note Access Code [id number] Visit Start Time 08:16 Visit Stop Time 08:58 Visit Number 12 Number of CITIZEN PARTICIPATION SPECIALIST Visits 2 Evaluation Information Evaluation Date 03/04/23 Precautions Precautions SOB after walking & putting shoes on, Fibromyalgia, [place]'s disease, Chronic fatigue for 35 yrs, recent surgery (07/20/22) 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 PT-OP-B Current Condition Start: 03/03/23 17:50 Freq: Status: Active Protocol: Document 03/04/23 13:04 LRN (Rec: 03/04/23 15:17 LRN [id number]) Current Condition History of Current Condition Onset Date 06/3022 Current Complaints Fatigue, SOB, general soreness of body. 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 Currently dealing with effect of tapering down use of hydrocortisone. Shoulders, legs, R ankle pain new since surgery. Has hot spots on top of L leg and at spine on LB, R hand (cat bit her a couple months before surgery). On 6 hrs of Tylenol and 8 hrs on Meloxicam daily then can sleep. R hand is most problematic. Prior Treatments and Tests MRI & CAT scan to check on surgery results. PT for neck 5-6 yrs ago without resolution. Treatment Goals Patient/Caregiver Goals Pt goals: Cooking or sitting on toilet w /o the riser w/o pain in shoulders, legs, R ankle. Getting up from chair without difficulty. Able to move stick shift with R hand w/o pain. Taking on/off coat w/o pain. Prior Functional Status Baseline Function- ADL's Independent Baseline Function- Mobility Independent Baseline Function- Other Before surgery (2 yrs ago) hiking and 1/2 mile a day. 2x /week 3-5 miles. Before surgery: (3yrs ago) Panting putting shoes/boots, walking 1 mile. Current Functional Impairments (Reported) Functional Limitations- ADL's Difficulty opening cans with can special services coordinator, and help to put coat on. Functional Limitations- Mobility/Gait Walks 1x/day 6-8 blocks. Fatigued from walking into treatment room. 13 steps to get to room, results in breathing heavy. Personal Factors Other Personal Factors That May Effect Tumor from pituitary gland Therapy/Recovery removed 07/20/22, currently working on steroid taper. Fibromyalgia. SOB just walking and putting shoes on. PT-OP-C Subjective Start: 03/03/23 17:50 Freq: Status: Active Protocol: Document 04/11/23 08:06 AB (Rec: 04/11/23 10:43 AB [id number]) OP-PT Subjective Patient Comments Patient Comments Patient reports the thumb seems to move a little faster and easier. Patient reports she still needs 2 naps a day, comments that the Chronic fatigue ME/CFS seems to persist. PT-OP-E Functional Tests Start: 03/03/23 17:50 Freq: Status: Active Protocol: Document 04/05/23 09:04 LRN (Rec: 04/05/23 10:16 LRN [id number]) Functional Tests 30 Second Sit to Stand Test Score 7 reps Comments Norm: Female age 70-74 is 10- 15 reps Five Times Sit to Stand Test Score 23 secs Comments 70-79 yo's is 12.6 secs Other Gait until fatigue Name of Test 500 ft PT-OP-G Mobility & Gait Start: 03/03/23 17:50 Freq: Status: Active Protocol: Document 03/04/23 13:04 LRN (Rec: 03/04/23 15:17 LRN [id number]) OP Mobility Evaluation Functional Movements Other Functional Movements Putting coat on: Pt dons from overhead and requires assistance to pull coat down through arms and to clear head . PT-OP-H Neuro Start: 03/03/23 17:50 Freq: Status: Active Protocol: Document 03/04/23 13:04 LRN (Rec: 03/04/23 15:17 LRN [id number]) Sensation Evaluation Gross Sensation Gross Sensation WNL Vital Signs Pulse At rest sitting Pulse at Rest (bpm) 80 Pulse Assessment Method BP cuff Blood Pressure Sitting Blood Pressure (90/60-120/80 mmHg) 125/75 H Blood Pressure Source Automatic Cuff PT-OP-J Posture/Palpation/Skin Start: 03/03/23 17:50 Freq: Status: Active Protocol: Document 03/04/23 13:04 LRN (Rec: 03/04/23 15:17 LRN [id number]) Posture Evaluation Position Standing Head/C-Spine Posture Forward Head T-Spine Posture Increased Kyphosis L-Spine Posture Increased Lordosis Shoulder Posture (L) Rounded,(R) Rounded,(L) Elevated Scapula Posture (L) Neutral,(R) Neutral Arm Posture (L) Internally Rotated,(R) Internally Rotated Pelvis Posture Anteriorly Tilted Weight Distribution Balanced Knee Posture (L) Neutral,(R) Neutral Ankle/Foot Posture (L) Neutral,(R) Neutral Foot Arch (L) High Arch,(R) High Arch PT-OP-K Range of Motion Start: 03/03/23 17:50 Freq: Status: Active Protocol: Document 04/11/23 08:06 AB (Rec: 04/11/23 10:43 AB [id number]) Shoulder Goniometric Range of Motion Shoulder left shoulder AROM Testing Position PROM supine Flexion 151 Abduction 91 External Rotation at 45 degrees 55 Abduction Right shoulder AROM Testing Position PROM supine Flexion 141 Abduction 84 External Rotation at 45 degrees 47 Abduction PT-OP-M Strength Start: 03/03/23 17:50 Freq: Status: Active Protocol: Document 03/07/23 10:36 LRN (Rec: 03/07/23 11:33 LRN [id number]) Finger/Thumb Strength Finger Manual Muscle Testing Right Thumb Flexion (fingers C8) 5 Normal Extension (thumb C8) 4+ Good+ Adduction 5 Normal Abduction (fingers T1) 4+ Good+ Comments Pain with testing of thumb AD. Opposition: 5/5 except with middle finger 3/5 due to lateral wrist pain (around pisiform) and digits 4 & 5 strength is 4+/5. Left Thumb Comments 5/5 w/o pain Opposition: 5/5 with all fingers. PT-OP-Q Treatments Start: 03/03/23 17:50 Freq: Status: Active Protocol: Document 04/11/23 08:06 AB (Rec: 04/11/23 10:43 AB [id number]) Cardio Equipment Upper Body Ergometer (UBE) Duration (Minutes) 8 RPM 75 Height 7 Other Standing 1.5 min at 60 RPM then 75 RPM Therapeutic Exercises Sitting Exercises towel therabar squeeze and twist Sitting Exercise Name towel squeeze and twist this session Side bilateral Reps/Minutes on min Comments post paraffin opposition Sitting Exercise Name AROM Side right Reps/Minutes 2X10 Comments visual cues Standing Exercises L stretch Standing Exercise Name mat at counter height Side bilateral Reps/Minutes X5 Comments Verbal and visual cues Manual Therapy Treatment Soft Tissue Mobilization right forearm Body Location prior to hand and wrist ex Mobilization Type Rolling,Other Intensity/Depth Superficial Body Position Hooklying Comments superficial to gentle moderate , monitored for pain anterior and posterior forarm muscles Joint Mobilizations R thumb MCP jt Joint R thumb MCP jt Direction PA Body Position Sitting Reps/Duration X10 R thumb IP jt Joint R thumb IP jt Direction PA of distal end of thumb f/b stretch Body Position Sitting Reps/Duration X10 Manual Techniques thumb flexion Type PROM manually MCP, IP jt Body Location right thumb Body Position Sitting Reps/Duration 1 x10 Comments monitored for pain Self-Care/Home Management Treatment Activities Self-Care/Home Management Activities Added AROM tendon glide to HEP PT-OP-R Modalities Start: 03/03/23 17:50 Freq: Status: Active Protocol: Document 04/11/23 08:06 AB (Rec: 04/11/23 10:43 AB [id number]) Paraffin Bath Treatment Right Hand Treatment Technique Immersion Bath R hand ( ring has been removed ) Wax Temperature (degrees F) 120 Number Wax Layers (layers) 7 Patient Tolerance Good PT-OP-T Assessment and Plan Start: 03/03/23 17:50 Freq: Status: Active Protocol: Document 04/11/23 08:06 AB (Rec: 04/11/23 10:43 AB [id number]) Physical Therapy Assessment Goals Four Impairment Can't tuck shirt in from behind due to csaper shoulder restriction. Impairment Spouse is helping to tuck shirt in. Reaching behind head: [place] to C7. Reaching behind back: S1 right, S2 left Prison Goal (LTG) Improve shoulder mobility with pt able to tuck shirt in independently. LTG Duration 8 wks-05/27/23 Three Impairment Decreased R hand strength due to thumb pain. Short Term Goal (STG) Improve R UE/church musician strength with pt able to cooking w/o thumb pain, or pt able to independently open jars or can with can special services coordinator. 03/10/23: Pt reportedly had more R thumb ROM after paraffin dip and PROM/JMT. 03/15/23: Improved R thumb PROM: MCP jt ~45 deg flex, IP jt ~30 deg's flex; Opposition: thumb to little finger PIP jt distally. 04/05/23: Joints in R hand loosening. No pain with cooking. Pain in R thumb opening cans. Can't make fist with R hand as well as with L hand. Can't tuck shirt in from behind. STG Duration 4 wks-05/06/23 Prison Goal (LTG) Improve R UE/church musician strength with pt able to move stick shift with R hand w/o pain. 04/05/23: Still using both hands, not able to church musician well. LTG Duration 8 wks-05/27/23 04/05/23: No change Two Impairment Decreased endurance making transfers from chairs and toilet difficult. Impairment Pain in shoulders, legs, R ankle making sitting on toilet w/o a riser and getting up from a chair difficult. Short Term Goal (STG) Improve endurance with 5xSTS in 12 secs or less or 30 sec chair stand 10x or greater, or walk 546 ft prior to fatigue. 03/07/23: 30 STS - 7 reps. 03/31/23 PT reports less pain right ankle with sit to stand with band tied above knees to control valgus at knee impact on ankle. 04/05/23: 30 STS - 7 reps, 5xSTS in 23 secs. STG Duration 4 wks-05/06/23 Plastics Bench Mechanic Goal (LTG) Improve endurance with pt able to walk 684 ft prior to fatigue or 13 steps at home without heavy breathing. 03/15/23: Hiking 1.25 miles & is tired after 13 stair steps at home, but not heavily breathing. 04/05/23: (NOTE: chronic fatigue for 35 yrs) Tired still after 13 steps at home. 04/05/23: Walking before fatigue - 500 ft. LTG Duration 8 wks-05/27/23 progressed One Short Term Goal (STG) Pt will be educated and independent in donning/doffing a coat without pain. STG Duration 4 wks-04/01/23 (03/07/23: MET GOAL) Plastics Bench Mechanic Goal (LTG) Pt will be independent in a self care HEP for general strengthening of core/LE's/UE' s and bilateral thumb mobility ex's. 03/07/23: HEP: Sit<>stands, AROM casper shlder ext (elbows straight & flexed) & I/S in IR reaching hand up spine. LTG Duration 8 wks-05/27/23 progressing 03/07/23 Assessment Summary Assessment Patient reports feeling a little tired everywhere end of session. Physical Therapy Plan Frequency and Duration Frequency of Treatment 2x/Week Duration of treatment (weeks) 8 Plan of Care Start Date 04/05/23 Plan of Care End Date 05/27/23 Next Visit Focus/Plan Next Note Type Treatment Note Next Visit Plan Next: AA Sh flexion, PROM ER/ isometric reactive vs sidelying sh ER. standing UBE . Assess pt's ability to open jars/twist/squeeze with therabar in clinic. HEP, log roll to sit to for endurance ex and Biodex/UBE. Progress UBE/Biodex endurance conditioning (work to 10') R Hand mobility: Paraffin R hand ( ring removed ), AROM stretches, R thumb flex stretching (MCP/IP jt), casper strengthening T-Putty. UE ROM as needed for functional dressing. Manual: STM post workout for pain management or self stretching [ End ]
--- NOTE | 2023-04-14 16:01 | PT.OTN ---
Current Diagnoses Pituitary-dependent Libra's disease (04/14/23) Pain in unspecified joint (04/14/23) Physical Therapy Treatment Note PT-OP-A Visit Information Start: 03/03/23 17:50 Freq: Status: Active Protocol: Document 04/14/23 08:20 LRN (Rec: 04/14/23 09:01 LRN [id number]) Out-Patient Physical Therapy Visit Information Visit Information Visit Type Treatment Note Visit Note 3after PN Visit Start Time 08:16 Visit Stop Time 09:00 Visit Number 12 Number of FICTION AND NONFICTION AUTHOR Visits 2 Evaluation Information Evaluation Date 03/04/23 Precautions Precautions SOB after walking & putting shoes on, Fibromyalgia, Libra's disease, Chronic fatigue for 35 yrs, recent surgery (07/20/22) 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 PT-OP-B Current Condition Start: 03/03/23 17:50 Freq: Status: Active Protocol: Document 03/04/23 13:04 LRN (Rec: 03/04/23 15:17 LRN [id number]) Current Condition History of Current Condition Onset Date 06/3022 Current Complaints Fatigue, SOB, general soreness of body. 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 Currently dealing with effect of tapering down use of hydrocortisone. Shoulders, legs, R ankle pain new since surgery. Has hot spots on top of L leg and at spine on LB, R hand (cat bit her a couple months before surgery). On 6 hrs of Tylenol and 8 hrs on Meloxicam daily then can sleep. R hand is most problematic. Prior Treatments and Tests MRI & CAT scan to check on surgery results. PT for neck 5-6 yrs ago without resolution. Treatment Goals Patient/Caregiver Goals Pt goals: Cooking or sitting on toilet w /o the riser w/o pain in shoulders, legs, R ankle. Getting up from chair without difficulty. Able to move stick shift with R hand w/o pain. Taking on/off coat w/o pain. Prior Functional Status Baseline Function- ADL's Independent Baseline Function- Mobility Independent Baseline Function- Other Before surgery (2 yrs ago) hiking and 1/2 mile a day. 2x /week 3-5 miles. Before surgery: (3yrs ago) Panting putting shoes/boots, walking 1 mile. Current Functional Impairments (Reported) Functional Limitations- ADL's Difficulty opening cans with can information resources director, and help to put coat on. Functional Limitations- Mobility/Gait Walks 1x/day 6-8 blocks. Fatigued from walking into treatment room. 13 steps to get to room, results in breathing heavy. Personal Factors Other Personal Factors That May Effect Tumor from pituitary gland Therapy/Recovery removed 07/20/22, currently working on steroid taper. Fibromyalgia. SOB just walking and putting shoes on. PT-OP-C Subjective Start: 03/03/23 17:50 Freq: Status: Active Protocol: Document 04/14/23 08:20 LRN (Rec: 04/14/23 15:41 LRN [id number]) OP-PT Subjective Patient Comments Patient Comments States has not been wearing shirts to tuck, so is not sure if she can do it. PT-OP-E Functional Tests Start: 03/03/23 17:50 Freq: Status: Active Protocol: Document 04/14/23 08:20 LRN (Rec: 04/14/23 15:42 LRN [id number]) Functional Tests 30 Second Sit to Stand Test Score 7 reps Comments Norm: Female age 70-74 is 10- 15 reps Five Times Sit to Stand Test Score 19 Comments 70-79 yo's is 12.6 secs PT-OP-G Mobility & Gait Start: 03/03/23 17:50 Freq: Status: Active Protocol: Document 03/04/23 13:04 LRN (Rec: 03/04/23 15:17 LRN [id number]) OP Mobility Evaluation Functional Movements Other Functional Movements Putting coat on: Pt dons from overhead and requires assistance to pull coat down through arms and to clear head . PT-OP-H Neuro Start: 03/03/23 17:50 Freq: Status: Active Protocol: Document 03/04/23 13:04 LRN (Rec: 03/04/23 15:17 LRN [id number]) Sensation Evaluation Gross Sensation Gross Sensation WNL Vital Signs Pulse At rest sitting Pulse at Rest (bpm) 80 Pulse Assessment Method BP cuff Blood Pressure Sitting Blood Pressure (90/60-120/80 mmHg) 125/75 H Blood Pressure Source Automatic Cuff PT-OP-J Posture/Palpation/Skin Start: 03/03/23 17:50 Freq: Status: Active Protocol: Document 03/04/23 13:04 LRN (Rec: 03/04/23 15:17 LRN [id number]) Posture Evaluation Position Standing Head/C-Spine Posture Forward Head T-Spine Posture Increased Kyphosis L-Spine Posture Increased Lordosis Shoulder Posture (L) Rounded,(R) Rounded,(L) Elevated Scapula Posture (L) Neutral,(R) Neutral Arm Posture (L) Internally Rotated,(R) Internally Rotated Pelvis Posture Anteriorly Tilted Weight Distribution Balanced Knee Posture (L) Neutral,(R) Neutral Ankle/Foot Posture (L) Neutral,(R) Neutral Foot Arch (L) High Arch,(R) High Arch PT-OP-K Range of Motion Start: 03/03/23 17:50 Freq: Status: Active Protocol: Document 04/11/23 08:06 AB (Rec: 04/11/23 10:43 AB [id number]) Shoulder Goniometric Range of Motion Shoulder left shoulder AROM Testing Position PROM supine Flexion 151 Abduction 91 External Rotation at 45 degrees 55 Abduction Right shoulder AROM Testing Position PROM supine Flexion 141 Abduction 84 External Rotation at 45 degrees 47 Abduction PT-OP-M Strength Start: 03/03/23 17:50 Freq: Status: Active Protocol: Document 03/07/23 10:36 LRN (Rec: 03/07/23 11:33 LRN [id number]) Finger/Thumb Strength Finger Manual Muscle Testing Right Thumb Flexion (fingers C8) 5 Normal Extension (thumb C8) 4+ Good+ Adduction 5 Normal Abduction (fingers T1) 4+ Good+ Comments Pain with testing of thumb AD. Opposition: 5/5 except with middle finger 3/5 due to lateral wrist pain (around pisiform) and digits 4 & 5 strength is 4+/5. Left Thumb Comments 5/5 w/o pain Opposition: 5/5 with all fingers. PT-OP-Q Treatments Start: 03/03/23 17:50 Freq: Status: Active Protocol: Document 04/14/23 08:20 LRN (Rec: 04/14/23 09:01 LRN [id number]) Cardio Equipment Upper Body Ergometer (UBE) Duration (Minutes) 10 RPM 75 Height 7 Other Standing 5' fwd/bkwd. Cuing to keep body from swaying/ rotating Therapeutic Exercises Sitting Exercises Jar opening twisting ex Sitting Exercise Name Jar opening twisting ex Side bilateral Equipment Used Small blow up beach ball. Reps/Minutes 3' Sit<>Stands Sitting Exercise Name 20 inch seat height Side bilateral Reps/Minutes 30 & 5x STS Comments Rest needed between exercises. 30 - 7 reps, 5xSTS in 23 secs. Standing Exercises Tucking shirt in Standing Exercise Name Tucking shirt in Side bilateral Reps/Minutes 6' Comments Cued for hand position in pronation. Shldr IR w/towel Standing Exercise Name Shoulder IR stretch Side bilateral Reps/Minutes 1' holds x 2-3 each Comments Extra time was taken for positioning & finding max fox stretch/position PT-OP-R Modalities Start: 03/03/23 17:50 Freq: Status: Active Protocol: Document 04/11/23 08:06 AB (Rec: 04/11/23 10:43 AB [id number]) Paraffin Bath Treatment Right Hand Treatment Technique Immersion Bath R hand ( ring has been removed ) Wax Temperature (degrees F) 120 Number Wax Layers (layers) 7 Patient Tolerance Good PT-OP-T Assessment and Plan Start: 03/03/23 17:50 Freq: Status: Active Protocol: Document 04/14/23 08:20 LRN (Rec: 04/14/23 09:01 LRN [id number]) Physical Therapy Assessment Goals Four Impairment Can't tuck shirt in from behind due to casper shoulder restriction. Impairment Spouse is helping to tuck shirt in. Reaching behind head: Casper to C7. Reaching behind back: S1 right, S2 left Switch Repairer Goal (LTG) Improve shoulder mobility with pt able to tuck shirt in independently. 04/14/23: Hasn't tried to tuck shirt in. LTG Duration 8 wks-05/27/23 progressed 04/14/23 Three Impairment Decreased R hand strength due to thumb pain. Short Term Goal (STG) Improve R UE/qualifications examiner strength with pt able to cooking w/o thumb pain, or pt able to independently open jars or can with can information resources director. 03/10/23: Pt reportedly had more R thumb ROM after paraffin dip and PROM/JMT. 03/15/23: Improved R thumb PROM: MCP jt ~45 deg flex, IP jt ~30 deg's flex; Opposition: thumb to little finger PIP jt distally. 04/05/23: Joints in R hand loosening. No pain with cooking. Pain in R thumb opening cans. Can't make fist with R hand as well as with L hand. Can't tuck shirt in from behind. STG Duration 4 wks-05/06/23 Switch Repairer Goal (LTG) Improve R UE/qualifications examiner strength with pt able to move stick shift with R hand w/o pain. 04/05/23: Still using both hands, not able to qualifications examiner well. LTG Duration 8 wks-05/27/23 04/05/23: No change Two Impairment Decreased endurance making transfers from chairs and toilet difficult. Impairment Pain in shoulders, legs, R ankle making sitting on toilet w/o a riser and getting up from a chair difficult. Short Term Goal (STG) Improve endurance with 5xSTS in 12 secs or less or 30 sec chair stand 10x or greater, or walk 546 ft prior to fatigue. 03/07/23: 30 STS - 7 reps. 03/31/23 PT reports less pain right ankle with sit to stand with band tied above knees to control valgus at knee impact on ankle. 04/05/23: 30 STS - 7 reps, 5xSTS in 23 secs. 04/14/23: 30 STS - 7 reps. 5XSTS in 19 secs. STG Duration 4 wks-05/06/23 Senior Care Goal (LTG) Improve endurance with pt able to walk 684 ft prior to fatigue or 13 steps at home without heavy breathing. 03/15/23: Hiking 1.25 miles & is tired after 13 stair steps at home, but not heavily breathing. 04/05/23: (NOTE: chronic fatigue for 35 yrs) Tired still after 13 steps at home. 04/05/23: Walking before fatigue - 500 ft. LTG Duration 8 wks-05/27/23 progressed One Short Term Goal (STG) Pt will be educated and independent in donning/doffing a coat without pain. STG Duration 4 wks-04/01/23 (03/07/23: MET GOAL) Switch Repairer Goal (LTG) Pt will be independent in a self care HEP for general strengthening of core/LE's/UE' s and bilateral thumb mobility ex's. 03/07/23: HEP: Sit<>stands, AROM casper shlder ext (elbows straight & flexed) & I/S in IR reaching hand up spine. LTG Duration 8 wks-05/27/23 progressing 03/07/23 Assessment Summary Assessment Pt with general weakness, fatigue and joint pain of shoulders, legs, R ankle, and R thumb. She shows some functional improvement with no c/o R thumb pain with cooking . She has pain with opening cans/jars due to UE weakness and thumb pain. No change with 30 STS test (7 reps) indicating no change in LE endurance/strength, but 5TSTS test shows improvement from 23 secs to 19 secs, indicating improved strength/balance/fall risk. No change with ability to tuck her shirt in due to decreased casper shoulder mobility (IR) and generally with strength. Pt needs to improve general endurance/ strength, casper shoulder IR mobility, and qualifications examiner strength/ function. Physical Therapy Plan Frequency and Duration Frequency of Treatment 2x/Week Duration of treatment (weeks) 8 Plan of Care Start Date 04/05/23 Plan of Care End Date 05/27/23 Next Visit Focus/Plan Next Note Type Treatment Note Next Visit Plan Next: PROM IR/general caspre shoulder strengthening for functional activities per goal . Standing UBE f/b immediately LE exercise for endurance (work to 10' each) , monitor for appropriate Perceived exertion scale. Ex to improve pt's ability to open jars/twist/qualifications examiner. Progress HEP. R Hand mobility: Start AROM stretches, R thumb flex stretching (MCP/IP jt), casper strengthening T-Putty As needed Paraffin R hand (ring removed ). Manual: STM post workout for pain management or self stretching [ End ]
--- NOTE | 2023-04-19 11:00 | PT.OTN ---
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) Pain in unspecified joint (04/19/23) Physical Therapy Treatment Note PT-OP-A Visit Information Start: 03/03/23 17:50 Freq: Status: Active Protocol: Document 04/19/23 08:07 AB (Rec: 04/19/23 11:00 AB [id number]) Out-Patient Physical Therapy Visit Information Visit Information Visit Type Treatment Note Visit Note Access Code [email or web address] 4 after PN Visit Start Time 08:59 Visit Stop Time 09:45 Visit Number 13 Number of DRYWALL PROFESSIONAL Visits 1 PT-OP-B Current Condition Start: 03/03/23 17:50 Freq: Status: Active Protocol: Document 03/04/23 13:04 LRN (Rec: 03/04/23 15:17 LRN [id number]) Current Condition History of Current Condition Onset Date 06/3022 Current Complaints Fatigue, SOB, general soreness of body. 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 Currently dealing with effect of tapering down use of hydrocortisone. Shoulders, legs, R ankle pain new since surgery. Has hot spots on top of L leg and at spine on LB, R hand (cat bit her a couple months before surgery). On 6 hrs of Tylenol and 8 hrs on Meloxicam daily then can sleep. R hand is most problematic. Prior Treatments and Tests MRI & CAT scan to check on surgery results. PT for neck 5-6 yrs ago without resolution. Treatment Goals Patient/Caregiver Goals Pt goals: Cooking or sitting on toilet w /o the riser w/o pain in shoulders, legs, R ankle. Getting up from chair without difficulty. Able to move stick shift with R hand w/o pain. Taking on/off coat w/o pain. Prior Functional Status Baseline Function- ADL's Independent Baseline Function- Mobility Independent Baseline Function- Other Before surgery (2 yrs ago) hiking and 1/2 mile a day. 2x /week 3-5 miles. Before surgery: (3yrs ago) Panting putting shoes/boots, walking 1 mile. Current Functional Impairments (Reported) Functional Limitations- ADL's Difficulty opening cans with can cyber crime investigator, and help to put coat on. Functional Limitations- Mobility/Gait Walks 1x/day 6-8 blocks. Fatigued from walking into treatment room. 13 steps to get to room, results in breathing heavy. Personal Factors Other Personal Factors That May Effect Tumor from pituitary gland Therapy/Recovery removed 07/20/22, currently working on steroid taper. Fibromyalgia. SOB just walking and putting shoes on. PT-OP-C Subjective Start: 03/03/23 17:50 Freq: Status: Active Protocol: Document 04/19/23 08:07 AB (Rec: 04/19/23 11:00 AB [id number]) OP-PT Subjective Patient Comments Patient Comments Patient reports she just has her usual back pain, reports she tried the new can cyber crime investigator and it worked. Patient comments the thumb is makeing progress fingers are still stiff when trying to open jars . Patient reports the top of her feet hurt when she wakes up in the morning. PT-OP-E Functional Tests Start: 03/03/23 17:50 Freq: Status: Active Protocol: Document 04/14/23 08:20 LRN (Rec: 04/14/23 15:42 LRN [id number]) Functional Tests 30 Second Sit to Stand Test Score 7 reps Comments Norm: Female age 70-74 is 10- 15 reps Five Times Sit to Stand Test Score 19 Comments 70-79 yo's is 12.6 secs PT-OP-G Mobility & Gait Start: 03/03/23 17:50 Freq: Status: Active Protocol: Document 03/04/23 13:04 LRN (Rec: 03/04/23 15:17 LRN [id number]) OP Mobility Evaluation Functional Movements Other Functional Movements Putting coat on: Pt dons from overhead and requires assistance to pull coat down through arms and to clear head . PT-OP-H Neuro Start: 03/03/23 17:50 Freq: Status: Active Protocol: Document 03/04/23 13:04 LRN (Rec: 03/04/23 15:17 LRN [id number]) Sensation Evaluation Gross Sensation Gross Sensation WNL Vital Signs Pulse At rest sitting Pulse at Rest (bpm) 80 Pulse Assessment Method BP cuff Blood Pressure Sitting Blood Pressure (90/60-120/80 mmHg) 125/75 H Blood Pressure Source Automatic Cuff PT-OP-J Posture/Palpation/Skin Start: 03/03/23 17:50 Freq: Status: Active Protocol: Document 03/04/23 13:04 LRN (Rec: 03/04/23 15:17 LRN [id number]) Posture Evaluation Position Standing Head/C-Spine Posture Forward Head T-Spine Posture Increased Kyphosis L-Spine Posture Increased Lordosis Shoulder Posture (L) Rounded,(R) Rounded,(L) Elevated Scapula Posture (L) Neutral,(R) Neutral Arm Posture (L) Internally Rotated,(R) Internally Rotated Pelvis Posture Anteriorly Tilted Weight Distribution Balanced Knee Posture (L) Neutral,(R) Neutral Ankle/Foot Posture (L) Neutral,(R) Neutral Foot Arch (L) High Arch,(R) High Arch PT-OP-K Range of Motion Start: 03/03/23 17:50 Freq: Status: Active Protocol: Document 04/11/23 08:06 AB (Rec: 04/11/23 10:43 AB [id number]) Shoulder Goniometric Range of Motion Shoulder left shoulder AROM Testing Position PROM supine Flexion 151 Abduction 91 External Rotation at 45 degrees 55 Abduction Right shoulder AROM Testing Position PROM supine Flexion 141 Abduction 84 External Rotation at 45 degrees 47 Abduction PT-OP-M Strength Start: 03/03/23 17:50 Freq: Status: Active Protocol: Document 03/07/23 10:36 LRN (Rec: 03/07/23 11:33 LRN [id number]) Finger/Thumb Strength Finger Manual Muscle Testing Right Thumb Flexion (fingers C8) 5 Normal Extension (thumb C8) 4+ Good+ Adduction 5 Normal Abduction (fingers T1) 4+ Good+ Comments Pain with testing of thumb AD. Opposition: 5/5 except with middle finger 3/5 due to lateral wrist pain (around pisiform) and digits 4 & 5 strength is 4+/5. Left Thumb Comments 5/5 w/o pain Opposition: 5/5 with all fingers. PT-OP-Q Treatments Start: 03/03/23 17:50 Freq: Status: Active Protocol: Document 04/19/23 08:07 AB (Rec: 04/19/23 11:00 AB [id number]) Cardio Equipment Upper Body Ergometer (UBE) Duration (Minutes) 10 RPM 75 Height 7 Other Standing 5' fwd/bkwd. Cuing to keep body from swaying/ rotating Therapeutic Exercises Supine Exercises supine shoulder flexion Supine Exercise Name AROM Side bilateral Reps/Minutes X10 Comments In hooklying, 10 second hold for gentle gravity assisted stretch Sidelying Exercises sidelying shoulder abduction Sidelying Exercise Name AROM Side right Reps/Minutes X10 sidelying shoulder ER Sidelying Exercise Name AROM Side right Reps/Minutes X10 Comments Verbal cues Sitting Exercises seated screwing and unscrewing bolts Sitting Exercise Name large screw Side right Reps/Minutes X2 in and out Comments Verbal cues towel therabar squeeze and twist Sitting Exercise Name yellow therabar Side bilateral Reps/Minutes on min Comments post paraffin Sit<>Stands Side bilateral Reps/Minutes X10 Comments Verbal cues for hip hinge Standing Exercises lunges Side bilateral Reps/Minutes 12 feet X 6 Comments verbal and visual cues, appears fatigued as seen by dec velocity final set dowel with 2 lb off rope Standing Exercise Name winding up and down wrist flex and ext with gripping Resistance 2 lb Reps/Minutes X4 Comments Verbal and visual cues Manual Therapy Treatment Soft Tissue Mobilization right shouler Body Location pec and post cuff Mobilization Type Cross-Friction,Rolling Intensity/Depth Moderate Body Position Hooklying Comments and sidelying prior to exercise right forearm Body Location prior to hand and wrist ex Mobilization Type Rolling,Other Intensity/Depth Superficial Body Position Hooklying Comments superficial to gentle moderate , monitored for pain anterior and posterior forarm muscles Joint Mobilizations R thumb MCP jt Joint R thumb MCP jt Direction PA Body Position Sitting Reps/Duration X10 R thumb IP jt Joint R thumb IP jt Direction PA of distal end of thumb f/b stretch Body Position Sitting Reps/Duration X10 Manual Techniques PROM right shoulder Type external rotation Body Position Sidelying Reps/Duration X8 Comments monitored for pain Self-Care/Home Management Treatment Education Other Education Patient ed trial of loosening knots with large ropes with right hand for strengthening. Also, discussed jar cyber crime investigator devices and knives that are designed for weak hands. PT-OP-R Modalities Start: 03/03/23 17:50 Freq: Status: Active Protocol: Document 04/19/23 08:07 AB (Rec: 04/19/23 11:00 AB [id number]) Paraffin Bath Treatment Right Hand Treatment Technique Immersion Bath R hand ( ring has been removed ) Wax Temperature (degrees F) 120 Number Wax Layers (layers) 7 Patient Tolerance Good Comment Treatment Comment Ring has been removed PT-OP-T Assessment and Plan Start: 03/03/23 17:50 Freq: Status: Active Protocol: Document 04/19/23 08:07 AB (Rec: 04/19/23 11:00 AB [id number]) Physical Therapy Assessment Goals Four Impairment Can't tuck shirt in from behind due to casper shoulder restriction. Impairment Spouse is helping to tuck shirt in. Reaching behind head: Casper to C7. Reaching behind back: S1 right, S2 left Shelter Goal (LTG) Improve shoulder mobility with pt able to tuck shirt in independently. 04/14/23: Hasn't tried to tuck shirt in. LTG Duration 8 wks-05/27/23 progressed 04/14/23 Three Impairment Decreased R hand strength due to thumb pain. Short Term Goal (STG) Improve R UE/marketing executive strength with pt able to cooking w/o thumb pain, or pt able to independently open jars or can with can cyber crime investigator. 03/10/23: Pt reportedly had more R thumb ROM after paraffin dip and PROM/JMT. 03/15/23: Improved R thumb PROM: MCP jt ~45 deg flex, IP jt ~30 deg's flex; Opposition: thumb to little finger PIP jt distally. 04/05/23: Joints in R hand loosening. No pain with cooking. Pain in R thumb opening cans. Can't make fist with R hand as well as with L hand. Can't tuck shirt in from behind. STG Duration 4 wks-05/06/23 Behavioral Health Professional Goal (LTG) Improve R UE/marketing executive strength with pt able to move stick shift with R hand w/o pain. 04/05/23: Still using both hands, not able to marketing executive well. LTG Duration 8 wks-05/27/23 04/05/23: No change Two Impairment Decreased endurance making transfers from chairs and toilet difficult. Impairment Pain in shoulders, legs, R ankle making sitting on toilet w/o a riser and getting up from a chair difficult. Short Term Goal (STG) Improve endurance with 5xSTS in 12 secs or less or 30 sec chair stand 10x or greater, or walk 546 ft prior to fatigue. 03/07/23: 30 STS - 7 reps. 03/31/23 PT reports less pain right ankle with sit to stand with band tied above knees to control valgus at knee impact on ankle. 04/05/23: 30 STS - 7 reps, 5xSTS in 23 secs. 04/14/23: 30 STS - 7 reps. 5XSTS in 19 secs. STG Duration 4 wks-05/06/23 Shelter Goal (LTG) Improve endurance with pt able to walk 684 ft prior to fatigue or 13 steps at home without heavy breathing. 03/15/23: Hiking 1.25 miles & is tired after 13 stair steps at home, but not heavily breathing. 04/05/23: (NOTE: chronic fatigue for 35 yrs) Tired still after 13 steps at home. 04/05/23: Walking before fatigue - 500 ft. LTG Duration 8 wks-05/27/23 progressed One Short Term Goal (STG) Pt will be educated and independent in donning/doffing a coat without pain. STG Duration 4 wks-04/01/23 (03/07/23: MET GOAL) Behavioral Health Professional Goal (LTG) Pt will be independent in a self care HEP for general strengthening of core/LE's/UE' s and bilateral thumb mobility ex's. 03/07/23: HEP: Sit<>stands, AROM casper shlder ext (elbows straight & flexed) & I/S in IR reaching hand up spine. LTG Duration 8 wks-05/27/23 progressing 03/07/23 Assessment Summary Assessment AROM right shoulder flexion to 120 deg in standing end of session, continues to be unable to touch distal thumb to base of 5th digit. Physical Therapy Plan Frequency and Duration Frequency of Treatment 2x/Week Duration of treatment (weeks) 8 Plan of Care Start Date 04/05/23 Plan of Care End Date 05/27/23 Next Visit Focus/Plan Next Note Type Treatment Note Next Visit Plan Next: Focus on PROM IR/general casper shoulder strengthening for functional activities per goal. Standing UBE f/b immediately LE exercise for endurance (work to 10' each) , monitor for appropriate Perceived exertion scale. continue with ex to improve pt 's ability to open jars/twist/ marketing executive. Progress HEP. R Hand mobility: Start AROM stretches, R thumb flex stretching (MCP/IP jt), casper strengthening T-Putty As needed Paraffin R hand (ring removed ). [ End ]
--- NOTE | 2023-04-21 11:20 | PT.OTN ---
Current Diagnoses Pituitary-dependent Libra's disease (04/21/23) Pain in unspecified joint (04/21/23) Physical Therapy Treatment Note PT-OP-A Visit Information Start: 03/03/23 17:50 Freq: Status: Active Protocol: Document 04/21/23 08:05 AB (Rec: 04/21/23 11:19 AB [id number]) Out-Patient Physical Therapy Visit Information Visit Information Visit Note Access Code [id number] 5 after PN Visit Start Time 09:03 Visit Stop Time 09:46 Visit Number 14 Number of HOME ECONOMICS EXTENSION WORKER Visits 2 Evaluation Information Evaluation Date 03/04/23 Precautions Precautions SOB after walking & putting shoes on, Fibromyalgia, [place]'s disease, Chronic fatigue for 35 yrs, recent surgery (07/20/22) 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 PT-OP-B Current Condition Start: 03/03/23 17:50 Freq: Status: Active Protocol: Document 03/04/23 13:04 LRN (Rec: 03/04/23 15:17 LRN [id number]) Current Condition History of Current Condition Onset Date 06/3022 Current Complaints Fatigue, SOB, general soreness of body. 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 Currently dealing with effect of tapering down use of hydrocortisone. Shoulders, legs, R ankle pain new since surgery. Has hot spots on top of L leg and at spine on LB, R hand (cat bit her a couple months before surgery). On 6 hrs of Tylenol and 8 hrs on Meloxicam daily then can sleep. R hand is most problematic. Prior Treatments and Tests MRI & CAT scan to check on surgery results. PT for neck 5-6 yrs ago without resolution. Treatment Goals Patient/Caregiver Goals Pt goals: Cooking or sitting on toilet w /o the riser w/o pain in shoulders, legs, R ankle. Getting up from chair without difficulty. Able to move stick shift with R hand w/o pain. Taking on/off coat w/o pain. Prior Functional Status Baseline Function- ADL's Independent Baseline Function- Mobility Independent Baseline Function- Other Before surgery (2 yrs ago) hiking and 1/2 mile a day. 2x /week 3-5 miles. Before surgery: (3yrs ago) Panting putting shoes/boots, walking 1 mile. Current Functional Impairments (Reported) Functional Limitations- ADL's Difficulty opening cans with can block cableman, and help to put coat on. Functional Limitations- Mobility/Gait Walks 1x/day 6-8 blocks. Fatigued from walking into treatment room. 13 steps to get to room, results in breathing heavy. Personal Factors Other Personal Factors That May Effect Tumor from pituitary gland Therapy/Recovery removed 07/20/22, currently working on steroid taper. Fibromyalgia. SOB just walking and putting shoes on. PT-OP-C Subjective Start: 03/03/23 17:50 Freq: Status: Active Protocol: Document 04/21/23 08:05 AB (Rec: 04/21/23 11:19 AB [id number]) OP-PT Subjective Patient Comments Patient Comments Patient reports opening jars are getting easier. Patient reports she hasn't tried tucking a shirt in, but feels like she has more ROM in shoulder. Patient reports cardiology appt March not due to any symptoms, but due to not having seen sugar cane planter machine operator since prior to surgery. Patient comments she would rather work on being more flexible than work on endurance. PT-OP-E Functional Tests Start: 03/03/23 17:50 Freq: Status: Active Protocol: Document 04/14/23 08:20 LRN (Rec: 04/14/23 15:42 LRN [id number]) Functional Tests 30 Second Sit to Stand Test Score 7 reps Comments Norm: Female age 70-74 is 10- 15 reps Five Times Sit to Stand Test Score 19 Comments 70-79 yo's is 12.6 secs PT-OP-G Mobility & Gait Start: 03/03/23 17:50 Freq: Status: Active Protocol: Document 03/04/23 13:04 LRN (Rec: 03/04/23 15:17 LRN [id number]) OP Mobility Evaluation Functional Movements Other Functional Movements Putting coat on: Pt dons from overhead and requires assistance to pull coat down through arms and to clear head . PT-OP-H Neuro Start: 03/03/23 17:50 Freq: Status: Active Protocol: Document 03/04/23 13:04 LRN (Rec: 03/04/23 15:17 LRN [id number]) Sensation Evaluation Gross Sensation Gross Sensation WNL Vital Signs Pulse At rest sitting Pulse at Rest (bpm) 80 Pulse Assessment Method BP cuff Blood Pressure Sitting Blood Pressure (90/60-120/80 mmHg) 125/75 H Blood Pressure Source Automatic Cuff PT-OP-J Posture/Palpation/Skin Start: 03/03/23 17:50 Freq: Status: Active Protocol: Document 03/04/23 13:04 LRN (Rec: 03/04/23 15:17 LRN [id number]) Posture Evaluation Position Standing Head/C-Spine Posture Forward Head T-Spine Posture Increased Kyphosis L-Spine Posture Increased Lordosis Shoulder Posture (L) Rounded,(R) Rounded,(L) Elevated Scapula Posture (L) Neutral,(R) Neutral Arm Posture (L) Internally Rotated,(R) Internally Rotated Pelvis Posture Anteriorly Tilted Weight Distribution Balanced Knee Posture (L) Neutral,(R) Neutral Ankle/Foot Posture (L) Neutral,(R) Neutral Foot Arch (L) High Arch,(R) High Arch PT-OP-K Range of Motion Start: 03/03/23 17:50 Freq: Status: Active Protocol: Document 04/11/23 08:06 AB (Rec: 04/11/23 10:43 AB [id number]) Shoulder Goniometric Range of Motion Shoulder left shoulder AROM Testing Position PROM supine Flexion 151 Abduction 91 External Rotation at 45 degrees 55 Abduction Right shoulder AROM Testing Position PROM supine Flexion 141 Abduction 84 External Rotation at 45 degrees 47 Abduction PT-OP-M Strength Start: 03/03/23 17:50 Freq: Status: Active Protocol: Document 03/07/23 10:36 LRN (Rec: 03/07/23 11:33 LRN [id number]) Finger/Thumb Strength Finger Manual Muscle Testing Right Thumb Flexion (fingers C8) 5 Normal Extension (thumb C8) 4+ Good+ Adduction 5 Normal Abduction (fingers T1) 4+ Good+ Comments Pain with testing of thumb AD. Opposition: 5/5 except with middle finger 3/5 due to lateral wrist pain (around pisiform) and digits 4 & 5 strength is 4+/5. Left Thumb Comments 5/5 w/o pain Opposition: 5/5 with all fingers. PT-OP-Q Treatments Start: 03/03/23 17:50 Freq: Status: Active Protocol: Document 04/21/23 08:05 AB (Rec: 04/21/23 11:19 [id number]) Cardio Equipment Upper Body Ergometer (UBE) Duration (Minutes) 10 RPM 75 Height 7 Other Standing 5' fwd/bkwd. Cuing to keep body from swaying/ rotating Therapeutic Exercises Supine Exercises supine shoulder AROM IR Side bilateral Reps/Minutes X10 Comments VC and patient ed self tactile cues to avoid ant translation of humerus Manual Therapy Treatment Soft Tissue Mobilization right forearm Body Location prior to hand and wrist ex Mobilization Type Rolling,Other Intensity/Depth Superficial Body Position Hooklying Comments superficial to gentle moderate , monitored for pain anterior and posterior forarm muscles Joint Mobilizations R thumb MCP jt Joint R thumb MCP jt Direction PA Body Position Hooklying Reps/Duration X10 R thumb IP jt Joint R thumb IP jt Direction PA of distal end of thumb f/b stretch Body Position Hooklying Reps/Duration X10 Manual Techniques PROM right shoulder Type internal rotation Body Position Hooklying Reps/Duration X6 Comments monitored for pain thumb flexion Type PROM manually MCP, IP jt Body Location right thumb Body Position Sitting Reps/Duration 1 x10 Comments monitored for pain Self-Care/Home Management Treatment Activities Self-Care/Home Management Activities AROM IR with self tactile cue to avoid ant translation of humerus added to HEP. Discontinued opposition exercise PT-OP-R Modalities Start: 03/03/23 17:50 Freq: Status: Active Protocol: Document 04/21/23 08:05 AB (Rec: 04/21/23 11:19 [id number]) Paraffin Bath Treatment Right Hand Treatment Technique Immersion Bath R hand ( ring has been removed ) Wax Temperature (degrees F) 120 Number Wax Layers (layers) 7 Patient Tolerance Good PT-OP-T Assessment and Plan Start: 03/03/23 17:50 Freq: Status: Active Protocol: Document 04/21/23 08:05 AB (Rec: 04/21/23 11:19 [id number]) Physical Therapy Assessment Goals Four Impairment Can't tuck shirt in from behind due to casper shoulder restriction. Impairment Spouse is helping to tuck shirt in. Reaching behind head: Casper to C7. Reaching behind back: S1 right, S2 left [facility]ci Goal (LTG) Improve shoulder mobility with pt able to tuck shirt in independently. 04/14/23: Hasn't tried to tuck shirt in. LTG Duration 8 wks-05/27/23 progressed 04/14/23 Three Impairment Decreased R hand strength due to thumb pain. Short Term Goal (STG) Improve R UE/wiener packer strength with pt able to cooking w/o thumb pain, or pt able to independently open jars or can with can block cableman. 03/10/23: Pt reportedly had more R thumb ROM after paraffin dip and PROM/JMT. 03/15/23: Improved R thumb PROM: MCP jt ~45 deg flex, IP jt ~30 deg's flex; Opposition: thumb to little finger PIP jt distally. 04/05/23: Joints in R hand loosening. No pain with cooking. Pain in R thumb opening cans. Can't make fist with R hand as well as with L hand. Can't tuck shirt in from behind. Roller Cleaner Goal (LTG) Improve R UE/wiener packer strength with pt able to move stick shift with R hand w/o pain. 04/05/23: Still using both hands, not able to wiener packer well. LTG Duration 8 wks-05/27/23 04/05/23: No change Two Impairment Decreased endurance making transfers from chairs and toilet difficult. Impairment Pain in shoulders, legs, R ankle making sitting on toilet w/o a riser and getting up from a chair difficult. Short Term Goal (STG) Improve endurance with 5xSTS in 12 secs or less or 30 sec chair stand 10x or greater, or walk 546 ft prior to fatigue. 03/07/23: 30 STS - 7 reps. 03/31/23 PT reports less pain right ankle with sit to stand with band tied above knees to control valgus at knee impact on ankle. 04/05/23: 30 STS - 7 reps, 5xSTS in 23 secs. 04/14/23: 30 STS - 7 reps. 5XSTS in 19 secs. STG Duration 4 wks-05/06/23 Roller Cleaner Goal (LTG) Improve endurance with pt able to walk 684 ft prior to fatigue or 13 steps at home without heavy breathing. 03/15/23: Hiking 1.25 miles & is tired after 13 stair steps at home, but not heavily breathing. 04/05/23: (NOTE: chronic fatigue for 35 yrs) Tired still after 13 steps at home. 04/05/23: Walking before fatigue - 500 ft. LTG Duration 8 wks-05/27/23 progressed One Short Term Goal (STG) Pt will be educated and independent in donning/doffing a coat without pain. STG Duration 4 wks-04/01/23 (03/07/23: MET GOAL) Roller Cleaner Goal (LTG) Pt will be independent in a self care HEP for general strengthening of core/LE's/UE' s and bilateral thumb mobility ex's. 03/07/23: HEP: Sit<>stands, AROM casper shlder ext (elbows straight & flexed) & I/S in IR reaching hand up spine. Assessment Summary Assessment Rates exertion 3/10 during UBE , able to hold a conversation. Right hand behind back to S2 , but with increased effort and UT activation start of session/ also noted ant translation of humerus with AROM IR right UE in hooklying, decreased with training. Physical Therapy Plan Frequency and Duration Frequency of Treatment 2x/Week Duration of treatment (weeks) 8 Plan of Care Start Date 04/05/23 Plan of Care End Date 05/27/23 Next Visit Focus/Plan Next Note Type Treatment Note Next Visit Plan Next: Focus on general casper shoulder strengthening for functional activities per goal / push up plus vs wall slide with lift off and lower. Standing UBE f/b immediately LE exercise for endurance/? ( work to 10' each) monitor for appropriate Perceived exertion scale with UBE, increase resistance. continue with ex to improve pt's ability to open jars/twist/wiener packer. Progress HEP. R Hand mobility: Start AROM stretches, R thumb flex stretching (MCP/IP jt), casper strengthening T-Putty As needed Paraffin R hand (ring removed ). [ End ]
--- NOTE | 2023-04-26 10:04 | PT.OTN ---
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) Pain in unspecified joint (04/26/23) Physical Therapy Treatment Note PT-OP-A Visit Information Start: 03/03/23 17:50 Freq: Status: Active Protocol: Document 04/26/23 09:04 LRN (Rec: 04/26/23 10:04 LRN [id number]) Out-Patient Physical Therapy Visit Information Visit Information Visit Type Treatment Note Visit Note 6 after PN Visit Start Time 09:04 Visit Stop Time 09:45 Visit Number 15 Evaluation Information Evaluation Date 03/04/23 Precautions Precautions SOB after walking & putting shoes on, Fibromyalgia, [place]'s disease, Chronic fatigue for 35 yrs, recent surgery (07/20/22) 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 PT-OP-B Current Condition Start: 03/03/23 17:50 Freq: Status: Active Protocol: Document 03/04/23 13:04 LRN (Rec: 03/04/23 15:17 LRN [id number]) Current Condition History of Current Condition Onset Date 06/3022 Current Complaints Fatigue, SOB, general soreness of body. 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 Currently dealing with effect of tapering down use of hydrocortisone. Shoulders, legs, R ankle pain new since surgery. Has hot spots on top of L leg and at spine on LB, R hand (cat bit her a couple months before surgery). On 6 hrs of Tylenol and 8 hrs on Meloxicam daily then can sleep. R hand is most problematic. Prior Treatments and Tests MRI & CAT scan to check on surgery results. PT for neck 5-6 yrs ago without resolution. Treatment Goals Patient/Caregiver Goals Pt goals: Cooking or sitting on toilet w /o the riser w/o pain in shoulders, legs, R ankle. Getting up from chair without difficulty. Able to move stick shift with R hand w/o pain. Taking on/off coat w/o pain. Prior Functional Status Baseline Function- ADL's Independent Baseline Function- Mobility Independent Baseline Function- Other Before surgery (2 yrs ago) hiking and 1/2 mile a day. 2x /week 3-5 miles. Before surgery: (3yrs ago) Panting putting shoes/boots, walking 1 mile. Current Functional Impairments (Reported) Functional Limitations- ADL's Difficulty opening cans with can director of procurement, and help to put coat on. Functional Limitations- Mobility/Gait Walks 1x/day 6-8 blocks. Fatigued from walking into treatment room. 13 steps to get to room, results in breathing heavy. Personal Factors Other Personal Factors That May Effect Tumor from pituitary gland Therapy/Recovery removed 07/20/22, currently working on steroid taper. Fibromyalgia. SOB just walking and putting shoes on. PT-OP-C Subjective Start: 03/03/23 17:50 Freq: Status: Active Protocol: Document 04/26/23 09:04 LRN (Rec: 04/26/23 10:04 LRN [id number]) OP-PT Subjective Patient Comments Patient Comments Shoulder ex's are coming along . L hand/shoulder are better/ less stiff than the R hand/ shoulder. Fingers on R hand don't bend yet. States stopped doing sit<>stands because it is too tiring. PT-OP-E Functional Tests Start: 03/03/23 17:50 Freq: Status: Active Protocol: Document 04/14/23 08:20 LRN (Rec: 04/14/23 15:42 LRN [id number]) Functional Tests 30 Second Sit to Stand Test Score 7 reps Comments Norm: Female age 70-74 is 10- 15 reps Five Times Sit to Stand Test Score 19 Comments 70-79 yo's is 12.6 secs PT-OP-G Mobility & Gait Start: 03/03/23 17:50 Freq: Status: Active Protocol: Document 03/04/23 13:04 LRN (Rec: 03/04/23 15:17 LRN [id number]) OP Mobility Evaluation Functional Movements Other Functional Movements Putting coat on: Pt dons from overhead and requires assistance to pull coat down through arms and to clear head . PT-OP-H Neuro Start: 03/03/23 17:50 Freq: Status: Active Protocol: Document 03/04/23 13:04 LRN (Rec: 03/04/23 15:17 LRN [id number]) Sensation Evaluation Gross Sensation Gross Sensation WNL Vital Signs Pulse At rest sitting Pulse at Rest (bpm) 80 Pulse Assessment Method BP cuff Blood Pressure Sitting Blood Pressure (90/60-120/80 mmHg) 125/75 H Blood Pressure Source Automatic Cuff PT-OP-J Posture/Palpation/Skin Start: 03/03/23 17:50 Freq: Status: Active Protocol: Document 03/04/23 13:04 LRN (Rec: 03/04/23 15:17 LRN [id number]) Posture Evaluation Position Standing Head/C-Spine Posture Forward Head T-Spine Posture Increased Kyphosis L-Spine Posture Increased Lordosis Shoulder Posture (L) Rounded,(R) Rounded,(L) Elevated Scapula Posture (L) Neutral,(R) Neutral Arm Posture (L) Internally Rotated,(R) Internally Rotated Pelvis Posture Anteriorly Tilted Weight Distribution Balanced Knee Posture (L) Neutral,(R) Neutral Ankle/Foot Posture (L) Neutral,(R) Neutral Foot Arch (L) High Arch,(R) High Arch PT-OP-K Range of Motion Start: 03/03/23 17:50 Freq: Status: Active Protocol: Document 04/11/23 08:06 AB (Rec: 04/11/23 10:43 AB [id number]) Shoulder Goniometric Range of Motion Shoulder left shoulder AROM Testing Position PROM supine Flexion 151 Abduction 91 External Rotation at 45 degrees 55 Abduction Right shoulder AROM Testing Position PROM supine Flexion 141 Abduction 84 External Rotation at 45 degrees 47 Abduction PT-OP-M Strength Start: 03/03/23 17:50 Freq: Status: Active Protocol: Document 03/07/23 10:36 LRN (Rec: 03/07/23 11:33 LRN [id number]) Finger/Thumb Strength Finger Manual Muscle Testing Right Thumb Flexion (fingers C8) 5 Normal Extension (thumb C8) 4+ Good+ Adduction 5 Normal Abduction (fingers T1) 4+ Good+ Comments Pain with testing of thumb AD. Opposition: 5/5 except with middle finger 3/5 due to lateral wrist pain (around pisiform) and digits 4 & 5 strength is 4+/5. Left Thumb Comments 5/5 w/o pain Opposition: 5/5 with all fingers. PT-OP-Q Treatments Start: 03/03/23 17:50 Freq: Status: Active Protocol: Document 04/26/23 09:04 LRN (Rec: 04/26/23 10:04 LRN [id number]) Cardio Equipment Upper Body Ergometer (UBE) Duration (Minutes) 10 RPM 70 Height 7 Other Standing 5' fwd/bkwd. Cuing to keep body from swaying/ rotating Recumbent Elliptical (Biodex) Duration (Minutes) 9 Resistance 2 Seat Position 5 Other 8' - 767 steps. (previously at 8' - 538 steps) Therapeutic Exercises Standing Exercises Tucking shirt in Standing Exercise Name Tucking shirt in Side bilateral Reps/Minutes 6' Shldr IR w/towel Standing Exercise Name Shoulder IR stretch with Side bilateral Reps/Minutes 1' holds x 3 bilaterally Comments Extra time was taken for positioning & finding max fox stretch/position Self-Care/Home Management Treatment Education Other Education Discussed with pt her 80% HR Max of 119-120 range for exer for endurance using DIMA Perceived Exertion Scale of Fairly Light (scale 11) to less than Somewhat Hard ( scale 12). Encouraged pt to cont Sit<> Stand ex's at home, but to do less if too tiring. PT-OP-R Modalities Start: 03/03/23 17:50 Freq: Status: Active Protocol: Document 04/21/23 08:05 AB (Rec: 04/21/23 11:19 AB [id number]) Paraffin Bath Treatment Right Hand Treatment Technique Immersion Bath R hand ( ring has been removed ) Wax Temperature (degrees F) 120 Number Wax Layers (layers) 7 Patient Tolerance Good PT-OP-T Assessment and Plan Start: 03/03/23 17:50 Freq: Status: Active Protocol: Document 04/26/23 09:04 LRN (Rec: 04/26/23 10:04 LRN [id number]) Physical Therapy Assessment Goals Four Impairment Can't tuck shirt in from behind due to rubén shoulder restriction. Impairment Spouse is helping to tuck shirt in. Reaching behind head: Rubén to C7. Reaching behind back: S1 right, S2 left Retirement Goal (LTG) Improve shoulder mobility with pt able to tuck shirt in independently. 04/14/23: Hasn't tried to tuck shirt in. LTG Duration 8 wks-05/27/23 progressed 04/14/23 Three Impairment Decreased R hand strength due to thumb pain. Short Term Goal (STG) Improve R UE/unmanned aircraft systems roboticist strength with pt able to cooking w/o thumb pain, or pt able to independently open jars or can with can director of procurement. 03/10/23: Pt reportedly had more R thumb ROM after paraffin dip and PROM/JMT. 03/15/23: Improved R thumb PROM: MCP jt ~45 deg flex, IP jt ~30 deg's flex; Opposition: thumb to little finger PIP jt distally. 04/05/23: Joints in R hand loosening. No pain with cooking. Pain in R thumb opening cans. Can't make fist with R hand as well as with L hand. Can't tuck shirt in from behind. 04/26/23: Slightly better able to unmanned aircraft systems roboticist with R hand. New can director of procurement, so able to open can most times. Might lack strength to twist handle to open can. STG Duration 4 wks-05/06/23 progressing 04/26/23. Aurist Goal (LTG) Improve R UE/unmanned aircraft systems roboticist strength with pt able to move stick shift with R hand w/o pain. 04/05/23: Still using both hands, not able to unmanned aircraft systems roboticist well. LTG Duration 8 wks-05/27/23 04/05/23: No change Two Impairment Decreased endurance making transfers from chairs and toilet difficult. Impairment Pain in shoulders, legs, R ankle making sitting on toilet w/o a riser and getting up from a chair difficult. Short Term Goal (STG) Improve endurance with 5xSTS in 12 secs or less or 30 sec chair stand 10x or greater, or walk 546 ft prior to fatigue. 03/07/23: 30 STS - 7 reps. 03/31/23 PT reports less pain right ankle with sit to stand with band tied above knees to control valgus at knee impact on ankle. 04/05/23: 30 STS - 7 reps, 5xSTS in 23 secs. 04/14/23: 30 STS - 7 reps. 5XSTS in 19 secs. STG Duration 4 wks-05/06/23 Retirement Goal (LTG) Improve endurance with pt able to walk 684 ft prior to fatigue or 13 steps at home without heavy breathing. 03/15/23: Hiking 1.25 miles & is tired after 13 stair steps at home, but not heavily breathing. 04/05/23: (NOTE: chronic fatigue for 35 yrs) Tired still after 13 steps at home. 04/05/23: Walking before fatigue - 500 ft. LTG Duration 8 wks-05/27/23 progressed One Impairment Pt lacks appropriate self care HEP. Short Term Goal (STG) Pt will be educated and independent in donning/doffing a coat without pain. STG Duration 4 wks-04/01/23 (03/07/23: MET GOAL) Aurist Goal (LTG) Pt will be independent in a self care HEP for general strengthening of core/LE's/UE' s and bilateral thumb mobility ex's. 03/07/23: HEP: Sit<>stands, AROM rubén shlder ext (elbows straight & flexed) & I/S in IR reaching hand up spine. LTG Duration 8 wks-05/27/23 progressing 03/07/23 Assessment Summary Assessment Pt with general weakness, fatigue and joint pain of shoulders, legs, R ankle, and R thumb. Pt has improved in endurance with increased steps over 8' on Biodex, but pt LE' s are weak with pt avoiding sit<>stands due to it being too fatiging. Physical Therapy Plan Frequency and Duration Frequency of Treatment 2x/Week Duration of treatment (weeks) 8 Plan of Care Start Date 04/05/23 Plan of Care End Date 05/27/23 Next Visit Focus/Plan Next Note Type Treatment Note Next Visit Plan Next: Focus on PROM IR/general rubén shoulder strengthening for functional activities PER GOAL & general rubén shoulder strengthening, try push up plus vs wall slide with lift off and lower; and add focus to Quad/Hamstring strengthening. ENDURANCE: Standing UBE f/b immediately LE for endurance (can include Sit<>Stands)/(work to 10' each ) monitor for appropriate Perceived exertion scale 10-11 . UBE, if needed increase resistance. Progress HEP (see LT GOAL #1). Continue with ex to improve pt 's ability to tuck shirt in ( GOAL 4), open jars/twist/unmanned aircraft systems roboticist (GOAL 3). R Hand mobility: Start AROM stretches, R thumb flex stretching (MCP/IP jt), rubén strengthening T-Putty As needed Paraffin R hand (ring removed ). [ End ]
--- NOTE | 2023-04-28 14:41 | PT.OTN ---
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) Pain in unspecified joint (04/28/23) Physical Therapy Treatment Note PT-OP-A Visit Information Start: 03/03/23 17:50 Freq: Status: Active Protocol: Document 04/28/23 08:09 AB (Rec: 04/28/23 09:47 AB [id number]) Out-Patient Physical Therapy Visit Information Visit Information Visit Type Treatment Note Visit Note 7 after PN Access Code [id number] Visit Start Time 09:01 Visit Stop Time 09:45 Visit Number 16 Number of [facility]ICAL [facility] REPRESENTATIVE Visits 1 Evaluation Information Evaluation Date 03/04/23 Precautions Precautions SOB after walking & putting shoes on, Fibromyalgia, [place]'s disease, Chronic fatigue for 35 yrs, recent surgery (07/20/22) 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 PT-OP-B Current Condition Start: 03/03/23 17:50 Freq: Status: Active Protocol: Document 03/04/23 13:04 LRN (Rec: 03/04/23 15:17 LRN [id number]) Current Condition History of Current Condition Onset Date 06/3022 Current Complaints Fatigue, SOB, general soreness of body. 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 Currently dealing with effect of tapering down use of hydrocortisone. Shoulders, legs, R ankle pain new since surgery. Has hot spots on top of L leg and at spine on LB, R hand (cat bit her a couple months before surgery). On 6 hrs of Tylenol and 8 hrs on Meloxicam daily then can sleep. R hand is most problematic. Prior Treatments and Tests MRI & CAT scan to check on surgery results. PT for neck 5-6 yrs ago without resolution. Treatment Goals Patient/Caregiver Goals Pt goals: Cooking or sitting on toilet w /o the riser w/o pain in shoulders, legs, R ankle. Getting up from chair without difficulty. Able to move stick shift with R hand w/o pain. Taking on/off coat w/o pain. Prior Functional Status Baseline Function- ADL's Independent Baseline Function- Mobility Independent Baseline Function- Other Before surgery (2 yrs ago) hiking and 1/2 mile a day. 2x /week 3-5 miles. Before surgery: (3yrs ago) Panting putting shoes/boots, walking 1 mile. Current Functional Impairments (Reported) Functional Limitations- ADL's Difficulty opening cans with can certified physical therapist assistant, and help to put coat on. Functional Limitations- Mobility/Gait Walks 1x/day 6-8 blocks. Fatigued from walking into treatment room. 13 steps to get to room, results in breathing heavy. Personal Factors Other Personal Factors That May Effect Tumor from pituitary gland Therapy/Recovery removed 07/20/22, currently working on steroid taper. Fibromyalgia. SOB just walking and putting shoes on. PT-OP-C Subjective Start: 03/03/23 17:50 Freq: Status: Active Protocol: Document 04/28/23 08:09 AB (Rec: 04/28/23 09:47 AB [id number]) OP-PT Subjective Patient Comments Patient Comments Patient reports neck and right hand have the ususal pain. Patient reports reaching behind back is better, tucked her shirt in a couple of times this morning. Pt reports performing hand exercises, noting hands were sore last night. Hand behind back right LE thumb to L 3 AROM start of session. Pt reports MD is ordering blood work, concerned she may need to back on the steriod. PT-OP-E Functional Tests Start: 03/03/23 17:50 Freq: Status: Active Protocol: Document 04/14/23 08:20 LRN (Rec: 04/14/23 15:42 LRN [id number]) Functional Tests 30 Second Sit to Stand Test Score 7 reps Comments Norm: Female age 70-74 is 10- 15 reps Five Times Sit to Stand Test Score 19 Comments 70-79 yo's is 12.6 secs PT-OP-G Mobility & Gait Start: 03/03/23 17:50 Freq: Status: Active Protocol: Document 03/04/23 13:04 LRN (Rec: 03/04/23 15:17 LRN [id number]) OP Mobility Evaluation Functional Movements Other Functional Movements Putting coat on: Pt dons from overhead and requires assistance to pull coat down through arms and to clear head . PT-OP-H Neuro Start: 03/03/23 17:50 Freq: Status: Active Protocol: Document 03/04/23 13:04 LRN (Rec: 03/04/23 15:17 LRN [id number]) Sensation Evaluation Gross Sensation Gross Sensation WNL Vital Signs Pulse At rest sitting Pulse at Rest (bpm) 80 Pulse Assessment Method BP cuff Blood Pressure Sitting Blood Pressure (90/60-120/80 mmHg) 125/75 H Blood Pressure Source Automatic Cuff PT-OP-J Posture/Palpation/Skin Start: 03/03/23 17:50 Freq: Status: Active Protocol: Document 03/04/23 13:04 LRN (Rec: 03/04/23 15:17 LRN [id number]) Posture Evaluation Position Standing Head/C-Spine Posture Forward Head T-Spine Posture Increased Kyphosis L-Spine Posture Increased Lordosis Shoulder Posture (L) Rounded,(R) Rounded,(L) Elevated Scapula Posture (L) Neutral,(R) Neutral Arm Posture (L) Internally Rotated,(R) Internally Rotated Pelvis Posture Anteriorly Tilted Weight Distribution Balanced Knee Posture (L) Neutral,(R) Neutral Ankle/Foot Posture (L) Neutral,(R) Neutral Foot Arch (L) High Arch,(R) High Arch PT-OP-K Range of Motion Start: 03/03/23 17:50 Freq: Status: Active Protocol: Document 04/11/23 08:06 AB (Rec: 04/11/23 10:43 AB [id number]) Shoulder Goniometric Range of Motion Shoulder left shoulder AROM Testing Position PROM supine Flexion 151 Abduction 91 External Rotation at 45 degrees 55 Abduction Right shoulder AROM Testing Position PROM supine Flexion 141 Abduction 84 External Rotation at 45 degrees 47 Abduction PT-OP-M Strength Start: 03/03/23 17:50 Freq: Status: Active Protocol: Document 03/07/23 10:36 LRN (Rec: 03/07/23 11:33 LRN [id number]) Finger/Thumb Strength Finger Manual Muscle Testing Right Thumb Flexion (fingers C8) 5 Normal Extension (thumb C8) 4+ Good+ Adduction 5 Normal Abduction (fingers T1) 4+ Good+ Comments Pain with testing of thumb AD. Opposition: 5/5 except with middle finger 3/5 due to lateral wrist pain (around pisiform) and digits 4 & 5 strength is 4+/5. Left Thumb Comments 5/5 w/o pain Opposition: 5/5 with all fingers. PT-OP-Q Treatments Start: 03/03/23 17:50 Freq: Status: Active Protocol: Document 04/28/23 08:09 AB (Rec: 04/28/23 09:47 AB [id number]) Cardio Equipment Recumbent Elliptical (Biodex) Duration (Minutes) 9 Resistance 3 Seat Position 6 Other 4 minutes into exercise rates exertion 5/10 Gia exertion scale Therapeutic Exercises Sitting Exercises wrist extension Sitting Exercise Name AROM Side bilateral Reps/Minutes 2X10 Comments with fingers flexed and fingers extended Sit<>Stands Sitting Exercise Name 18 inch seat height Side bilateral Reps/Minutes X10 X2 Comments Verbal cues for hip hinge Standing Exercises push up plus on wall Side bilateral Reps/Minutes X5 Comments verbal and tactile cues Manual Therapy Treatment Soft Tissue Mobilization right shouler Body Location post cuff and pec Mobilization Type Cross-Friction,Rolling Intensity/Depth Moderate Body Position Hooklying Comments also hooklying right forearm Body Location prior to hand and wrist ex Mobilization Type Rolling,Other Intensity/Depth Superficial Body Position Hooklying Comments prior to wrist ext with fingers neutral then flexed Joint Mobilizations scapular mobilization Joint right Direction dep and adduction Grade III Body Position Sidelying R thumb MCP jt Joint R thumb MCP jt Direction PA Body Position Hooklying Reps/Duration X10 R thumb IP jt Joint R thumb IP jt Direction PA of distal end of thumb f/b stretch Body Position Hooklying Reps/Duration X10 Manual Techniques thumb flexion Type PROM manually MCP, IP jt Body Location right thumb Body Position Sitting Reps/Duration 1 x10 Comments monitored for pain PT-OP-R Modalities Start: 03/03/23 17:50 Freq: Status: Active Protocol: Document 04/28/23 08:09 AB (Rec: 04/28/23 14:41 AB [id number]) Paraffin Bath Treatment Right Hand Treatment Technique Dip-immersion Wax Temperature (degrees F) 120 Number Wax Layers (layers) 7 Patient Tolerance Good PT-OP-T Assessment and Plan Start: 03/03/23 17:50 Freq: Status: Active Protocol: Document 04/28/23 08:09 AB (Rec: 04/28/23 09:47 AB [id number]) Physical Therapy Assessment Goals Four Impairment Can't tuck shirt in from behind due to casper shoulder restriction. Impairment Spouse is helping to tuck shirt in. Reaching behind head: Casper to C7. Reaching behind back: S1 right, S2 left Advertising Coordinator Goal (LTG) Improve shoulder mobility with pt able to tuck shirt in independently. 04/14/23: Hasn't tried to tuck shirt in. 04/28/2023 Patient reports she is able to tuck in shirt. Goal met LTG Duration 8 wks-05/27/23 progressed 04/14/23 Three Impairment Decreased R hand strength due to thumb pain. Short Term Goal (STG) Improve R UE/tools administrator strength with pt able to cooking w/o thumb pain, or pt able to independently open jars or can with can certified physical therapist assistant. 03/10/23: Pt reportedly had more R thumb ROM after paraffin dip and PROM/JMT. 03/15/23: Improved R thumb PROM: MCP jt ~45 deg flex, IP jt ~30 deg's flex; Opposition: thumb to little finger PIP jt distally. 04/05/23: Joints in R hand loosening. No pain with cooking. Pain in R thumb opening cans. Can't make fist with R hand as well as with L hand. Can't tuck shirt in from behind. 04/26/23: Slightly better able to tools administrator with R hand. New can certified physical therapist assistant, so able to open can most times. Might lack strength to twist handle to open can. STG Duration 4 wks-05/06/23 progressing 04/26/23. Advertising Coordinator Goal (LTG) Improve R UE/tools administrator strength with pt able to move stick shift with R hand w/o pain. 04/05/23: Still using both hands, not able to tools administrator well. LTG Duration 8 wks-05/27/23 04/05/23: No change Two Impairment Decreased endurance making transfers from chairs and toilet difficult. Impairment Pain in shoulders, legs, R ankle making sitting on toilet w/o a riser and getting up from a chair difficult. Short Term Goal (STG) Improve endurance with 5xSTS in 12 secs or less or 30 sec chair stand 10x or greater, or walk 546 ft prior to fatigue. 03/07/23: 30 STS - 7 reps. 03/31/23 PT reports less pain right ankle with sit to stand with band tied above knees to control valgus at knee impact on ankle. 04/05/23: 30 STS - 7 reps, 5xSTS in 23 secs. 04/14/23: 30 STS - 7 reps. 5XSTS in 19 secs. STG Duration 4 wks-05/06/23 [facility] Goal (LTG) Improve endurance with pt able to walk 684 ft prior to fatigue or 13 steps at home without heavy breathing. 03/15/23: Hiking 1.25 miles & is tired after 13 stair steps at home, but not heavily breathing. 04/05/23: (NOTE: chronic fatigue for 35 yrs) Tired still after 13 steps at home. 04/05/23: Walking before fatigue - 500 ft. LTG Duration 8 wks-05/27/23 progressed One Impairment Pt lacks appropriate self care HEP. Short Term Goal (STG) Pt will be educated and independent in donning/doffing a coat without pain. STG Duration 4 wks-04/01/23 (03/07/23: MET GOAL) Advertising Coordinator Goal (LTG) Pt will be independent in a self care HEP for general strengthening of core/LE's/UE' s and bilateral thumb mobility ex's. 03/07/23: HEP: Sit<>stands, AROM casper shlder ext (elbows straight & flexed) & I/S in IR reaching hand up spine. LTG Duration 8 wks-05/27/23 progressing 03/07/23 Assessment Summary Assessment Patient reports feeling more limber end of session. Physical Therapy Plan Frequency and Duration Frequency of Treatment 2x/Week Duration of treatment (weeks) 8 Plan of Care Start Date 04/05/23 Plan of Care End Date 05/27/23 Next Visit Focus/Plan Next Note Type Treatment Note Next Visit Plan Next: try push up plus counter vs wall. focus on hand next session with some Quad/ Hamstring strengthening. ENDURANCE: elliptical (can include Sit<>Stands)/(work to 10' each) monitor for appropriate Perceived exertion scale 10-11. Progress HEP (see LT GOAL #1). Continue with ex to improve pt 's ability to tuck shirt in ( GOAL 4), open jars/twist/tools administrator (GOAL 3). R Hand mobility: Start AROM stretches, R thumb flex stretching (MCP/IP jt), casper strengthening T-Putty As needed Paraffin R hand (ring removed ). [ End ]
--- NOTE | 2023-05-03 10:08 | PT.OTN ---
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 PT-OP-B Current Condition Start: 03/03/23 17:50 Freq: Status: Active Protocol: Document 03/04/23 13:04 LRN (Rec: 03/04/23 15:17 LRN [id number]) Current Condition History of Current Condition Onset Date 06/3022 Current Complaints Fatigue, SOB, general soreness of body. 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 Currently dealing with effect of tapering down use of hydrocortisone. Shoulders, legs, R ankle pain new since surgery. Has hot spots on top of L leg and at spine on LB, R hand (cat bit her a couple months before surgery). On 6 hrs of Tylenol and 8 hrs on Meloxicam daily then can sleep. R hand is most problematic. Prior Treatments and Tests MRI & CAT scan to check on surgery results. PT for neck 5-6 yrs ago without resolution. Treatment Goals Patient/Caregiver Goals Pt goals: Cooking or sitting on toilet w /o the riser w/o pain in shoulders, legs, R ankle. Getting up from chair without difficulty. Able to move stick shift with R hand w/o pain. Taking on/off coat w/o pain. Prior Functional Status Baseline Function- ADL's Independent Baseline Function- Mobility Independent Baseline Function- Other Before surgery (2 yrs ago) hiking and 1/2 mile a day. 2x /week 3-5 miles. Before surgery: (3yrs ago) Panting putting shoes/boots, walking 1 mile. Current Functional Impairments (Reported) Functional Limitations- ADL's Difficulty opening cans with can panel machine setter, and help to put coat on. Functional Limitations- Mobility/Gait Walks 1x/day 6-8 blocks. Fatigued from walking into treatment room. 13 steps to get to room, results in breathing heavy. Personal Factors Other Personal Factors That May Effect Tumor from pituitary gland Therapy/Recovery removed 07/20/22, currently working on steroid taper. Fibromyalgia. SOB just walking and putting shoes on. PT-OP-C Subjective Start: 03/03/23 17:50 Freq: Status: Active Protocol: Document 05/03/23 08:01 AB (Rec: 05/03/23 10:08 AB [id number]) OP-PT Subjective Patient Comments Patient Comments Patient reports having increased neck pain yesterday, reports she has a history of this, it is less today, but not resolved. Patient reports the hand is the same, comments breaking the seal as suggested worked. PT-OP-E Functional Tests Start: 03/03/23 17:50 Freq: Status: Active Protocol: Document 04/14/23 08:20 LRN (Rec: 04/14/23 15:42 LRN [id number]) Functional Tests 30 Second Sit to Stand Test Score 7 reps Comments Norm: Female age 70-74 is 10- 15 reps Five Times Sit to Stand Test Score 19 Comments 70-79 yo's is 12.6 secs PT-OP-G Mobility & Gait Start: 03/03/23 17:50 Freq: Status: Active Protocol: Document 03/04/23 13:04 LRN (Rec: 03/04/23 15:17 LRN [id number]) OP Mobility Evaluation Functional Movements Other Functional Movements Putting coat on: Pt dons from overhead and requires assistance to pull coat down through arms and to clear head . PT-OP-H Neuro Start: 03/03/23 17:50 Freq: Status: Active Protocol: Document 03/04/23 13:04 LRN (Rec: 03/04/23 15:17 LRN [id number]) Sensation Evaluation Gross Sensation Gross Sensation WNL Vital Signs Pulse At rest sitting Pulse at Rest (bpm) 80 Pulse Assessment Method BP cuff Blood Pressure Sitting Blood Pressure (90/60-120/80 mmHg) 125/75 H Blood Pressure Source Automatic Cuff PT-OP-J Posture/Palpation/Skin Start: 03/03/23 17:50 Freq: Status: Active Protocol: Document 03/04/23 13:04 LRN (Rec: 03/04/23 15:17 LRN [id number]) Posture Evaluation Position Standing Head/C-Spine Posture Forward Head T-Spine Posture Increased Kyphosis L-Spine Posture Increased Lordosis Shoulder Posture (L) Rounded,(R) Rounded,(L) Elevated Scapula Posture (L) Neutral,(R) Neutral Arm Posture (L) Internally Rotated,(R) Internally Rotated Pelvis Posture Anteriorly Tilted Weight Distribution Balanced Knee Posture (L) Neutral,(R) Neutral Ankle/Foot Posture (L) Neutral,(R) Neutral Foot Arch (L) High Arch,(R) High Arch PT-OP-K Range of Motion Start: 03/03/23 17:50 Freq: Status: Active Protocol: Document 04/11/23 08:06 AB (Rec: 04/11/23 10:43 AB [id number]) Shoulder Goniometric Range of Motion Shoulder left shoulder AROM Testing Position PROM supine Flexion 151 Abduction 91 External Rotation at 45 degrees 55 Abduction Right shoulder AROM Testing Position PROM supine Flexion 141 Abduction 84 External Rotation at 45 degrees 47 Abduction PT-OP-M Strength Start: 03/03/23 17:50 Freq: Status: Active Protocol: Document 03/07/23 10:36 LRN (Rec: 03/07/23 11:33 LRN [id number]) Finger/Thumb Strength Finger Manual Muscle Testing Right Thumb Flexion (fingers C8) 5 Normal Extension (thumb C8) 4+ Good+ Adduction 5 Normal Abduction (fingers T1) 4+ Good+ Comments Pain with testing of thumb AD. Opposition: 5/5 except with middle finger 3/5 due to lateral wrist pain (around pisiform) and digits 4 & 5 strength is 4+/5. Left Thumb Comments 5/5 w/o pain Opposition: 5/5 with all fingers. PT-OP-Q Treatments Start: 03/03/23 17:50 Freq: Status: Active Protocol: Document 05/03/23 08:01 AB (Rec: 05/03/23 10:08 AB [id number]) Cardio Equipment Recumbent Elliptical ([employer]) Duration (Minutes) 9 Resistance 3 Seat Position 6 Other Gia scale 10/20 fpc through Therapeutic Exercises Sitting Exercises digiflex yellow Sitting Exercise Name single finger set up Side right Equipment Used digiflex yellow Reps/Minutes one minute towel therabar squeeze and twist Sitting Exercise Name yellow therabar Side bilateral Reps/Minutes on min Comments post paraffin wrist extension Sitting Exercise Name AROM Side bilateral Reps/Minutes 2X10 Comments with fingers flexed and fingers extended Sit<>Stands Sitting Exercise Name 21 seat height due to rep of slight knee pain today with ellipt & Side bilateral Reps/Minutes X10 X2 Comments reports of doing squats yesterday Standing Exercises push up plus on wall Standing Exercise Name on counter X 5 then on wall X 10 Reps/Minutes X5 and X 10 Comments verbal and visual dowel with 2 lb off rope Standing Exercise Name winding up and down wrist flex and ext with gripping Resistance 2 lb Reps/Minutes one min Comments Verbal and visual cues Manual Therapy Treatment Soft Tissue Mobilization right forearm Body Location prior to hand and wrist ex Mobilization Type Rolling,Other Intensity/Depth Superficial Body Position Hooklying Comments prior to wrist ext with fingers neutral then flexed Joint Mobilizations R thumb MCP jt Joint R thumb MCP jt Direction PA Body Position Hooklying Reps/Duration X10 R thumb IP jt Joint R thumb IP jt Direction PA of distal end of thumb f/b stretch Grade III Body Position Hooklying Reps/Duration X10 Manual Techniques PROM wrist extension right UE Reps/Duration X5 Comments post manual therapy pre exercise thumb flexion Type PROM manually MCP, IP jt right Body Location right thumb Body Position Sitting Reps/Duration 1 x8 Comments monitored for pain PT-OP-R Modalities Start: 03/03/23 17:50 Freq: Status: Active Protocol: Document 05/03/23 08:01 AB (Rec: 05/03/23 10:08 AB [id number]) Paraffin Bath Treatment Right Hand Treatment Technique Dip-immersion Wax Temperature (degrees F) 120 Number Wax Layers (layers) 7 Patient Tolerance Good PT-OP-T Assessment and Plan Start: 03/03/23 17:50 Freq: Status: Active Protocol: Document 05/03/23 08:01 AB (Rec: 05/03/23 10:08 AB [id number]) Physical Therapy Assessment Goals Four Impairment Can't tuck shirt in from behind due to casper shoulder restriction. Impairment Spouse is helping to tuck shirt in. Reaching behind head: Casper to C7. Reaching behind back: S1 right, S2 left Usp Goal (LTG) Improve shoulder mobility with pt able to tuck shirt in independently. 04/14/23: Hasn't tried to tuck shirt in. 04/28/2023 Patient reports she is able to tuck in shirt. Goal met LTG Duration 8 wks-05/27/23 progressed 04/14/23 Three Impairment Decreased R hand strength due to thumb pain. Short Term Goal (STG) Improve R UE/manufacturer strength with pt able to cooking w/o thumb pain, or pt able to independently open jars or can with can panel machine setter. 03/10/23: Pt reportedly had more R thumb ROM after paraffin dip and PROM/JMT. 03/15/23: Improved R thumb PROM: MCP jt ~45 deg flex, IP jt ~30 deg's flex; Opposition: thumb to little finger PIP jt distally. 04/05/23: Joints in R hand loosening. No pain with cooking. Pain in R thumb opening cans. Can't make fist with R hand as well as with L hand. Can't tuck shirt in from behind. 04/26/23: Slightly better able to manufacturer with R hand. New can panel machine setter, so able to open can most times. Might lack strength to twist handle to open can. STG Duration 4 wks-05/06/23 progressing 04/26/23. Usp Goal (LTG) Improve R UE/manufacturer strength with pt able to move stick shift with R hand w/o pain. 04/05/23: Still using both hands, not able to manufacturer well. LTG Duration 8 wks-05/27/23 04/05/23: No change Two Impairment Decreased endurance making transfers from chairs and toilet difficult. Impairment Pain in shoulders, legs, R ankle making sitting on toilet w/o a riser and getting up from a chair difficult. Short Term Goal (STG) Improve endurance with 5xSTS in 12 secs or less or 30 sec chair stand 10x or greater, or walk 546 ft prior to fatigue. 03/07/23: 30 STS - 7 reps. 03/31/23 PT reports less pain right ankle with sit to stand with band tied above knees to control valgus at knee impact on ankle. 04/05/23: 30 STS - 7 reps, 5xSTS in 23 secs. 04/14/23: 30 STS - 7 reps. 5XSTS in 19 secs. STG Duration 4 wks-05/06/23 Clinical Educator Goal (LTG) Improve endurance with pt able to walk 684 ft prior to fatigue or 13 steps at home without heavy breathing. 03/15/23: Hiking 1.25 miles & is tired after 13 stair steps at home, but not heavily breathing. 04/05/23: (NOTE: chronic fatigue for 35 yrs) Tired still after 13 steps at home. 04/05/23: Walking before fatigue - 500 ft. LTG Duration 8 wks-05/27/23 progressed One Impairment Pt lacks appropriate self care HEP. Short Term Goal (STG) Pt will be educated and independent in donning/doffing a coat without pain. STG Duration 4 wks-04/01/23 (03/07/23: MET GOAL) Clinical Educator Goal (LTG) Pt will be independent in a self care HEP for general strengthening of core/LE's/UE' s and bilateral thumb mobility ex's. 03/07/23: HEP: Sit<>stands, AROM casper shlder ext (elbows straight & flexed) & I/S in IR reaching hand up spine. LTG Duration 8 wks-05/27/23 progressing 03/07/23 Assessment Summary Assessment Gia scale 15 hard with sit to stand had to catch breath between sets. Patient hand feels looser end of session. Patient into session with reports difficulty opening jars persists, but trial of breaking the seal first as advised has helped. Physical Therapy Plan Frequency and Duration Frequency of Treatment 2x/Week Duration of treatment (weeks) 8 Plan of Care Start Date 04/05/23 Plan of Care End Date 05/27/23 Next Visit Focus/Plan Next Note Type Treatment Note Next Visit Plan Next: focus on hand next session with some Quad/ Hamstring strengthening. ENDURANCE: elliptical (can include Sit<>Stands)/(work to 10' each) monitor for appropriate Perceived exertion scale 10-11. Progress HEP (see LT GOAL #1). Continue with ex to improve pt 's ability to tuck shirt in ( GOAL 4), open jars/twist/manufacturer (GOAL 3). R Hand mobility: Start AROM stretches, R thumb flex stretching (MCP/IP jt), casper strengthening T-Putty As needed Paraffin R hand (ring removed ). [ End ]
--- NOTE | 2023-05-05 12:44 | PT.OTN ---
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) Pain in unspecified joint (05/05/23) Physical Therapy Treatment Note PT-OP-A Visit Information Start: 03/03/23 17:50 Freq: Status: Active Protocol: Document 05/05/23 09:03 LRN (Rec: 05/05/23 09:48 LRN [id number]) Out-Patient Physical Therapy Visit Information Visit Information Visit Type Treatment Note Visit Note 9 after PN Visit Start Time 09:03 Visit Stop Time 09:47 Visit Number 18 Number of OVERHEAD CRANE OPERATOR Visits 2 Evaluation Information Evaluation Date 03/04/23 Precautions Precautions SOB after walking & putting shoes on, Fibromyalgia, Libra's disease, Chronic fatigue for 35 yrs, recent surgery (07/20/22) 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 PT-OP-B Current Condition Start: 03/03/23 17:50 Freq: Status: Active Protocol: Document 03/04/23 13:04 LRN (Rec: 03/04/23 15:17 LRN [id number]) Current Condition History of Current Condition Onset Date 06/3022 Current Complaints Fatigue, SOB, general soreness of body. 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 Currently dealing with effect of tapering down use of hydrocortisone. Shoulders, legs, R ankle pain new since surgery. Has hot spots on top of L leg and at spine on LB, R hand (cat bit her a couple months before surgery). On 6 hrs of Tylenol and 8 hrs on Meloxicam daily then can sleep. R hand is most problematic. Prior Treatments and Tests MRI & CAT scan to check on surgery results. PT for neck 5-6 yrs ago without resolution. Treatment Goals Patient/Caregiver Goals Pt goals: Cooking or sitting on toilet w /o the riser w/o pain in shoulders, legs, R ankle. Getting up from chair without difficulty. Able to move stick shift with R hand w/o pain. Taking on/off coat w/o pain. Prior Functional Status Baseline Function- ADL's Independent Baseline Function- Mobility Independent Baseline Function- Other Before surgery (2 yrs ago) hiking and 1/2 mile a day. 2x /week 3-5 miles. Before surgery: (3yrs ago) Panting putting shoes/boots, walking 1 mile. Current Functional Impairments (Reported) Functional Limitations- ADL's Difficulty opening cans with can parts sales advisor, and help to put coat on. Functional Limitations- Mobility/Gait Walks 1x/day 6-8 blocks. Fatigued from walking into treatment room. 13 steps to get to room, results in breathing heavy. Personal Factors Other Personal Factors That May Effect Tumor from pituitary gland Therapy/Recovery removed 07/20/22, currently working on steroid taper. Fibromyalgia. SOB just walking and putting shoes on. PT-OP-C Subjective Start: 03/03/23 17:50 Freq: Status: Active Protocol: Document 05/05/23 09:03 LRN (Rec: 05/05/23 09:48 LRN [id number]) OP-PT Subjective Patient Comments Patient Comments States she is getting a cortisol test tomorrow to see if she is making enough cortisol in her body, because she has been losing a lot of weight. Sees Extractions Technologist on Tuesday05/09/23. States she will ask him what HR she should be exercising within. States she is tired today because she went to [facility] yesterday. PT-OP-E Functional Tests Start: 03/03/23 17:50 Freq: Status: Active Protocol: Document 04/14/23 08:20 LRN (Rec: 04/14/23 15:42 LRN [id number]) Functional Tests 30 Second Sit to Stand Test Score 7 reps Comments Norm: Female age 70-74 is 10- 15 reps Five Times Sit to Stand Test Score 19 Comments 70-79 yo's is 12.6 secs PT-OP-G Mobility & Gait Start: 03/03/23 17:50 Freq: Status: Active Protocol: Document 03/04/23 13:04 LRN (Rec: 03/04/23 15:17 LRN [id number]) OP Mobility Evaluation Functional Movements Other Functional Movements Putting coat on: Pt dons from overhead and requires assistance to pull coat down through arms and to clear head . PT-OP-H Neuro Start: 03/03/23 17:50 Freq: Status: Active Protocol: Document 03/04/23 13:04 LRN (Rec: 03/04/23 15:17 LRN [id number]) Sensation Evaluation Gross Sensation Gross Sensation WNL Vital Signs Pulse At rest sitting Pulse at Rest (bpm) 80 Pulse Assessment Method BP cuff Blood Pressure Sitting Blood Pressure (90/60-120/80 mmHg) 125/75 H Blood Pressure Source Automatic Cuff PT-OP-J Posture/Palpation/Skin Start: 03/03/23 17:50 Freq: Status: Active Protocol: Document 03/04/23 13:04 LRN (Rec: 03/04/23 15:17 LRN [id number]) Posture Evaluation Position Standing Head/C-Spine Posture Forward Head T-Spine Posture Increased Kyphosis L-Spine Posture Increased Lordosis Shoulder Posture (L) Rounded,(R) Rounded,(L) Elevated Scapula Posture (L) Neutral,(R) Neutral Arm Posture (L) Internally Rotated,(R) Internally Rotated Pelvis Posture Anteriorly Tilted Weight Distribution Balanced Knee Posture (L) Neutral,(R) Neutral Ankle/Foot Posture (L) Neutral,(R) Neutral Foot Arch (L) High Arch,(R) High Arch PT-OP-K Range of Motion Start: 03/03/23 17:50 Freq: Status: Active Protocol: Document 04/11/23 08:06 AB (Rec: 04/11/23 10:43 AB [id number]) Shoulder Goniometric Range of Motion Shoulder left shoulder AROM Testing Position PROM supine Flexion 151 Abduction 91 External Rotation at 45 degrees 55 Abduction Right shoulder AROM Testing Position PROM supine Flexion 141 Abduction 84 External Rotation at 45 degrees 47 Abduction PT-OP-M Strength Start: 03/03/23 17:50 Freq: Status: Active Protocol: Document 03/07/23 10:36 LRN (Rec: 03/07/23 11:33 LRN [id number]) Finger/Thumb Strength Finger Manual Muscle Testing Right Thumb Flexion (fingers C8) 5 Normal Extension (thumb C8) 4+ Good+ Adduction 5 Normal Abduction (fingers T1) 4+ Good+ Comments Pain with testing of thumb AD. Opposition: 5/5 except with middle finger 3/5 due to lateral wrist pain (around pisiform) and digits 4 & 5 strength is 4+/5. Left Thumb Comments 5/5 w/o pain Opposition: 5/5 with all fingers. PT-OP-Q Treatments Start: 03/03/23 17:50 Freq: Status: Active Protocol: Document 05/05/23 09:03 LRN (Rec: 05/05/23 09:48 [facility] [id number]) Cardio Equipment Upper Body Ergometer (UBE) Duration (Minutes) 10 RPM 70 Height 7 Other Standing 5' fwd/bkwd. Cuing to keep body from swaying/ rotating Recumbent Elliptical (Biodex) Duration (Minutes) 10 Resistance 3 Seat Position 6 Other Gia scale 10/20 mcc through Therapeutic Exercises Sitting Exercises Finger flex stretching Sitting Exercise Name Finger flexion stretching Side right Reps/Minutes 4' Thumb self flex stretch Sitting Exercise Name Thumb flex & self flex stretch (Garrett stretch) Side right Reps/Minutes 4' Sit<>Stands Sitting Exercise Name Sit<>stand from webbed chair w /o use of UE's. Side bilateral Reps/Minutes 3' Comments 30 STS - 7 reps. 5XSTS in 21 secs. Self-Care/Home Management Treatment Education Other Education Discussed and encouraged pt to continue sit<>stands daily and up to 3x/day and continue ex walking 3-5x/wk as tolerated. Activities Self-Care/Home Management Activities Issued handout for Perceived Exertion scale with recommendation to work 70-80% effort. PT-OP-R Modalities Start: 03/03/23 17:50 Freq: Status: Active Protocol: Document 05/05/23 09:03 GROVER (Rec: 05/05/23 09:48 [facility] [id number]) Paraffin Bath Treatment Right Hand Treatment Technique Dip-immersion Wax Temperature (degrees F) 120 Number Wax Layers (layers) 7 Patient Tolerance Good PT-OP-T Assessment and Plan Start: 03/03/23 17:50 Freq: Status: Active Protocol: Document 05/05/23 09:03 GROVER (Rec: 05/05/23 09:48 [facility] [id number]) Physical Therapy Assessment Goals Four Impairment Can't tuck shirt in from behind due to rubén shoulder restriction. Impairment Spouse is helping to tuck shirt in. Reaching behind head: Rubén to C7. Reaching behind back: S1 right, S2 left Staffing Program Manager Goal (LTG) Improve shoulder mobility with pt able to tuck shirt in independently. 04/14/23: Hasn't tried to tuck shirt in. 04/28/2023 Patient reports she is able to tuck in shirt. Goal met LTG Duration 8 wks-05/27/23 (05/05/23: MET GOAL on 04/28/23) Three Impairment Decreased R hand strength due to thumb pain. Short Term Goal (STG) Improve R UE/powder loader strength with pt able to cooking w/o thumb pain, or pt able to independently open jars or can with can parts sales advisor. 03/10/23: Pt reportedly had more R thumb ROM after paraffin dip and PROM/JMT. 03/15/23: Improved R thumb PROM: MCP jt ~45 deg flex, IP jt ~30 deg's flex; Opposition: thumb to little finger PIP jt distally. 04/05/23: Joints in R hand loosening. No pain with cooking. Pain in R thumb opening cans. Can't make fist with R hand as well as with L hand. Can't tuck shirt in from behind. 04/26/23: Slightly better able to powder loader with R hand. New can parts sales advisor, so able to open can most times. Might lack strength to twist handle to open can. STG Duration 4 wks-05/06/23 progressing 04/26/23. Staffing Program Manager Goal (LTG) Improve R UE/powder loader strength with pt able to move stick shift with R hand w/o pain. 04/05/23: Still using both hands, not able to powder loader well. LTG Duration 8 wks-05/27/23 04/05/23: No change Two Impairment Decreased endurance making transfers from chairs and toilet difficult. Impairment Pain in shoulders, legs, R ankle making sitting on toilet w/o a riser and getting up from a chair difficult. (5xSTS Norm for 70-79 yo is 12 .6 secs) (30 sec chair stand Norm for 70-74 yo female is 10-15x) Short Term Goal (STG) Improve endurance with 5xSTS in 12 secs or less or 30 sec chair stand 10x or greater, or walk 546 ft prior to fatigue. 03/07/23: 30 STS - 7 reps. 03/31/23 PT reports less pain right ankle with sit to stand with band tied above knees to control valgus at knee impact on ankle. 04/05/23: 30 STS - 7 reps, 5xSTS in 23 secs. 04/14/23: 30 STS - 7 reps. 5XSTS in 19 secs. 05/05/23: 30 STS - 7 reps. 5XSTS in 21 secs. STG Duration 4 wks-05/06/23 (05/05/23: No change STS & worse /30 STS) Staffing Program Manager Goal (LTG) Improve endurance with pt able to walk 684 ft prior to fatigue or 13 steps at home without heavy breathing. 03/15/23: Hiking 1.25 miles & is tired after 13 stair steps at home, but not heavily breathing. 04/05/23: (NOTE: chronic fatigue for 35 yrs) Tired still after 13 steps at home. 04/05/23: Walking before fatigue - 500 ft. LTG Duration 8 wks-05/27/23 progressed One Impairment Pt lacks appropriate self care HEP. Short Term Goal (STG) Pt will be educated and independent in donning/doffing a coat without pain. STG Duration 4 wks-04/01/23 (03/07/23: MET GOAL) Staffing Program Manager Goal (LTG) Pt will be independent in a self care HEP for general strengthening of core/LE's/UE' s and bilateral thumb mobility ex's. 03/07/23: HEP: (LE's) Sit<> stands, (UE's)AROM rubén shlder ext (elbows straight & flexed) & I/S in IR reaching hand up spine. 03/10/23: (UE's) I/S pt in self R thumb IP/MCP flex stretch f/b active flex strengthening and issued Lev1 TPutty (yellow). 03/21/23: OVERHEAD CRANE OPERATOR added HEP: Log roll sup<>sit transfer. 04/07/23: OVERHEAD CRANE OPERATOR added HEP: (UE' s) supine shoulder flexion, AA seated shoulder ER and towel squeeze and twist. 04/11/23: OVERHEAD CRANE OPERATOR added HEP: AROM tendon glide. 04/19/23: OVERHEAD CRANE OPERATOR added HEP: (UE' s) loosening knots with large ropes with right hand for strengthening. Discussed jar parts sales advisor devices and knives that are designed for weak hands. 04/21/23; OVERHEAD CRANE OPERATOR added HEP: (UE) AROM IR. 04/26/23: Pt to ex for endurance (Core:standing UBE) using GIA Perceived Exertion Scale of Fairly Light (scale 11) to less than Somewhat Hard. Sit<>Stand ex's at home, but to do less if too tiring. LTG Duration 8 wks-05/27/23 progressing 03/07/23 Assessment Summary Assessment Pt rehab to improve endurance (general weakness), fatigue, joint pain of shoulders, legs, R ankle, and R thumb. 5xSTS is 21 secs (previously 19 secs ), possibly due to pt weakened from cardio work prior to testing. She worked her endurance at fairly light ( 70% max HR) perceived exertion rating (PER) pt can probably work PER max 12 (80% max HR). Pt R hand mobility limited with finger flexion compared to L hand. Pt would benefit from improving R hand strength /function by reducing thumb pain and by improving LE quad/ hamstring endurance. Physical Therapy Plan Frequency and Duration Frequency of Treatment 2x/Week Duration of treatment (weeks) 8 Plan of Care Start Date 04/05/23 Plan of Care End Date 05/27/23 Next Visit Focus/Plan Next Note Type Progress Note Next Visit Plan Next: PN assessment. LE strengthening with Paraffin dip R hand, bike, R thumb ex's . Focus on reducing R thumb pain to improve thumb/hand ability to open jars/twist/powder loader (GOAL 3), and Quad/Hamstring strengthening (STS endurance). Mobility, R Thumb/Hand: Start AROM stretches, R thumb flex stretching (MCP/IP jt), rubén strengthening (improve thumb & powder loader strength), T- Putty & As needed Paraffin R hand (ring removed). ENDURANCE: LE: Add upright bike ex & cont Sit<>Stands x 10, monitor for appropriate Perceived exertion scale 10-11 . Progress HEP (see LT GOAL #1). Encourage pt to improve endurance on home stair & walking program. [ End ]
--- NOTE | 2023-05-10 16:49 | PT.OTN ---
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) Pain in unspecified joint (05/10/23) Physical Therapy Treatment Note PT-OP-A Visit Information Start: 03/03/23 17:50 Freq: Status: Active Protocol: Document 05/10/23 09:07 LRN (Rec: 05/10/23 09:49 LRN [id number]) Out-Patient Physical Therapy Visit Information Visit Information Visit Type Treatment Note Visit Note 10 after PN Visit Start Time 09:07 Visit Stop Time 09:47 Visit Number 19 Number of MEDICAL RECORDS AUDITOR Visits 2 Evaluation Information Evaluation Date 03/04/23 Precautions Precautions SOB after walking & putting shoes on, Fibromyalgia, Libra's disease, Chronic fatigue for 35 yrs, recent surgery (07/20/22) 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 PT-OP-B Current Condition Start: 03/03/23 17:50 Freq: Status: Active Protocol: Document 03/04/23 13:04 LRN (Rec: 03/04/23 15:17 LRN [id number]) Current Condition History of Current Condition Onset Date 06/3022 Current Complaints Fatigue, SOB, general soreness of body. 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 Currently dealing with effect of tapering down use of hydrocortisone. Shoulders, legs, R ankle pain new since surgery. Has hot spots on top of L leg and at spine on LB, R hand (cat bit her a couple months before surgery). On 6 hrs of Tylenol and 8 hrs on Meloxicam daily then can sleep. R hand is most problematic. Prior Treatments and Tests MRI & CAT scan to check on surgery results. PT for neck 5-6 yrs ago without resolution. Treatment Goals Patient/Caregiver Goals Pt goals: Cooking or sitting on toilet w /o the riser w/o pain in shoulders, legs, R ankle. Getting up from chair without difficulty. Able to move stick shift with R hand w/o pain. Taking on/off coat w/o pain. Prior Functional Status Baseline Function- ADL's Independent Baseline Function- Mobility Independent Baseline Function- Other Before surgery (2 yrs ago) hiking and 1/2 mile a day. 2x /week 3-5 miles. Before surgery: (3yrs ago) Panting putting shoes/boots, walking 1 mile. Current Functional Impairments (Reported) Functional Limitations- ADL's Difficulty opening cans with can hedis registered nurse rn, and help to put coat on. Functional Limitations- Mobility/Gait Walks 1x/day 6-8 blocks. Fatigued from walking into treatment room. 13 steps to get to room, results in breathing heavy. Personal Factors Other Personal Factors That May Effect Tumor from pituitary gland Therapy/Recovery removed 07/20/22, currently working on steroid taper. Fibromyalgia. SOB just walking and putting shoes on. PT-OP-C Subjective Start: 03/03/23 17:50 Freq: Status: Active Protocol: Document 05/10/23 09:07 LRN (Rec: 05/10/23 09:49 LRN [id number]) OP-PT Subjective Patient Comments Patient Comments States she is stiff. States she is doing things she couldn 't do before such as: tucking shirt in and flushing toilet while sitting on it, and going down stairs and getting in/ out of bed is easier. She was told she has light heart failure by her theater projectionist, she feels it is light heart failure. Luster Applicator noted she could exercise at a level of 120 on the DIMA Exertion Scale. Patient Questionnaires ABC- Activity Specific Balance Confidence Scale ABC Score 91.875 ABC Functional Impairment 1 to <20% Impaired (Score 81- 99) PT-OP-E Functional Tests Start: 03/03/23 17:50 Freq: Status: Active Protocol: Document 04/14/23 08:20 LRN (Rec: 04/14/23 15:42 LRN [id number]) Functional Tests 30 Second Sit to Stand Test Score 7 reps Comments Norm: Female age 70-74 is 10- 15 reps Five Times Sit to Stand Test Score 19 Comments 70-79 yo's is 12.6 secs PT-OP-G Mobility & Gait Start: 03/03/23 17:50 Freq: Status: Active Protocol: Document 03/04/23 13:04 LRN (Rec: 03/04/23 15:17 LRN [id number]) OP Mobility Evaluation Functional Movements Other Functional Movements Putting coat on: Pt dons from overhead and requires assistance to pull coat down through arms and to clear head . PT-OP-H Neuro Start: 03/03/23 17:50 Freq: Status: Active Protocol: Document 03/04/23 13:04 LRN (Rec: 03/04/23 15:17 LRN [id number]) Sensation Evaluation Gross Sensation Gross Sensation WNL Vital Signs Pulse At rest sitting Pulse at Rest (bpm) 80 Pulse Assessment Method BP cuff Blood Pressure Sitting Blood Pressure (90/60-120/80 mmHg) 125/75 H Blood Pressure Source Automatic Cuff PT-OP-J Posture/Palpation/Skin Start: 03/03/23 17:50 Freq: Status: Active Protocol: Document 03/04/23 13:04 LRN (Rec: 03/04/23 15:17 LRN [id number]) Posture Evaluation Position Standing Head/C-Spine Posture Forward Head T-Spine Posture Increased Kyphosis L-Spine Posture Increased Lordosis Shoulder Posture (L) Rounded,(R) Rounded,(L) Elevated Scapula Posture (L) Neutral,(R) Neutral Arm Posture (L) Internally Rotated,(R) Internally Rotated Pelvis Posture Anteriorly Tilted Weight Distribution Balanced Knee Posture (L) Neutral,(R) Neutral Ankle/Foot Posture (L) Neutral,(R) Neutral Foot Arch (L) High Arch,(R) High Arch PT-OP-K Range of Motion Start: 03/03/23 17:50 Freq: Status: Active Protocol: Document 04/11/23 08:06 AB (Rec: 04/11/23 10:43 AB [id number]) Shoulder Goniometric Range of Motion Shoulder left shoulder AROM Testing Position PROM supine Flexion 151 Abduction 91 External Rotation at 45 degrees 55 Abduction Right shoulder AROM Testing Position PROM supine Flexion 141 Abduction 84 External Rotation at 45 degrees 47 Abduction PT-OP-M Strength Start: 03/03/23 17:50 Freq: Status: Active Protocol: Document 03/07/23 10:36 LRN (Rec: 03/07/23 11:33 LRN [id number]) Finger/Thumb Strength Finger Manual Muscle Testing Right Thumb Flexion (fingers C8) 5 Normal Extension (thumb C8) 4+ Good+ Adduction 5 Normal Abduction (fingers T1) 4+ Good+ Comments Pain with testing of thumb AD. Opposition: 5/5 except with middle finger 3/5 due to lateral wrist pain (around pisiform) and digits 4 & 5 strength is 4+/5. Left Thumb Comments 5/5 w/o pain Opposition: 5/5 with all fingers. PT-OP-Q Treatments Start: 03/03/23 17:50 Freq: Status: Active Protocol: Document 05/10/23 09:07 LRN (Rec: 05/10/23 09:49 LRN [id number]) Therapeutic Exercises Sitting Exercises Finger flex stretching Sitting Exercise Name Finger flexion stretching Side right Reps/Minutes 4' Thumb self flex stretch Sitting Exercise Name Thumb flex & self flex stretch (Garrett stretch) Side right Reps/Minutes 4' Neuro Re-Education Treatment Balance Activities Tandem standing Details Tandem standing - bilateral Surface Level Reps/Duration 5' Comments R foot behind 0 secs L foot behind 10 secs SLS Details Single leg Balance - bilateral Surface Level Reps/Duration 5' Comments R 3 secs, L 8 secs. Self-Care/Home Management Treatment Education Other Education Discussed pt function and Scored ABC Scale (score 1740). Discussed pt's plan of care and discussed at length her goals with addition of experimental display builder strength and balance goal added. PT-OP-R Modalities Start: 03/03/23 17:50 Freq: Status: Active Protocol: Document 05/10/23 09:07 LRN (Rec: 05/10/23 09:49 LRN [id number]) Paraffin Bath Treatment Right Hand Treatment Technique Dip-immersion Wax Temperature (degrees F) 120 Number Wax Layers (layers) 7 Patient Tolerance Good PT-OP-T Assessment and Plan Start: 03/03/23 17:50 Freq: Status: Active Protocol: Document 05/10/23 09:07 LRN (Rec: 05/10/23 09:49 LRN [id number]) Physical Therapy Assessment Rehab Potential Rehabilitation Potential Good Evaluation Complexity Number of Personal Factors/Comorbidities 3 or More Number of Body Systems Impaired 4 or More Clinical Presentation at Evaluation Evolving Impairments Impairments Activity Tolerance,Balance, Functional Activities,Posture, ROM,Strength Goals Six Impairment Decreased balance Impairment SLS: 3 secs R, 8 secs L Tandem stance: R leg behind - 0 secs; L leg behind - 10 secs. Business Rules Developer Goal (LTG) Improve SLS or tandem stance to improve balance and safety with gait. LTG Duration 8 wks-07/08/23 Five Impairment Decreased R hand experimental display builder strength Business Rules Developer Goal (LTG) Pt able to feel safe gripping shower door to get out of shower without fear of falling or experimental display builder post on a boat to get off the boat onto a dock. LTG Duration 8 wks-07/08/23 Four Impairment Can't tuck shirt in from behind due to rubén shoulder restriction. Impairment Spouse is helping to tuck shirt in. Reaching behind head: Rubén to C7. Reaching behind back: S1 right, S2 left Halfway Goal (LTG) Improve shoulder mobility with pt able to tuck shirt in independently. 04/14/23: Hasn't tried to tuck shirt in. 04/28/2023 Patient reports she is able to tuck in shirt. Goal met LTG Duration 8 wks-05/27/23 (05/05/23: MET GOAL on 04/28/23) Three Impairment Decreased R hand strength due to thumb pain. Short Term Goal (STG) Improve R UE/experimental display builder strength with pt able to cooking w/o thumb pain, or pt able to independently open jars or can with can hedis registered nurse rn. 03/10/23: Pt reportedly had more R thumb ROM after paraffin dip and PROM/JMT. 03/15/23: Improved R thumb PROM: MCP jt ~45 deg flex, IP jt ~30 deg's flex; Opposition: thumb to little finger PIP jt distally. 04/05/23: Joints in R hand loosening. No pain with cooking. Pain in R thumb opening cans. Can't make fist with R hand as well as with L hand. Can't tuck shirt in from behind. 04/26/23: Slightly better able to experimental display builder with R hand. New can hedis registered nurse rn, so able to open can most times. Might lack strength to twist handle to open can. 05/10/23: Dosen't have thumb pain with cooking but fingers don't bend well and states thumb is improving in mobility . Opening jars is difficulty. Opening jars, if can break the seal first. Can open cans with new can hedis registered nurse rn (x 2). STG Duration 4 wks-05/06/23 (05/10/23: MET GOAL) Halfway Goal (LTG) Improve R UE/experimental display builder strength with pt able to move stick shift with R hand w/o pain. 04/05/23: Still using both hands, not able to experimental display builder well. 05/10/23: Able to move stick shift with R hand w/o pain. LTG Duration 8 wks-05/27/23 (05/10/23: MET GOAL) Two Impairment Decreased endurance making transfers from chairs and toilet difficult. Impairment Pain in shoulders, legs, R ankle making sitting on toilet w/o a riser and getting up from a chair difficult. (5xSTS Norm for 70-79 yo is 12 .6 secs) (30 sec chair stand Norm for 70-74 yo female is 10-15x) Short Term Goal (STG) Improve endurance with 5xSTS in 12 secs or less or 30 sec chair stand 10x or greater, or walk 546 ft prior to fatigue. 03/07/23: 30 STS - 7 reps. 03/31/23 PT reports less pain right ankle with sit to stand with band tied above knees to control valgus at knee impact on ankle. 04/05/23: 30 STS - 7 reps, 5xSTS in 23 secs. 04/14/23: 30 STS - 7 reps. 5XSTS in 19 secs. 05/05/23: 30 STS - 7 reps. 5XSTS in 21 secs. STG Duration 4 wks-06/10/23 (05/05/23: No change STS & worse w/30 STS) Business Rules Developer Goal (LTG) Improve endurance with pt able to walk 684 ft prior to fatigue or 13 steps at home without heavy breathing. 03/15/23: Hiking 1.25 miles & is tired after 13 stair steps at home, but not heavily breathing. 04/05/23: (NOTE: chronic fatigue for 35 yrs) Tired still after 13 steps at home. 04/05/23: Walking before fatigue - 500 ft. LTG Duration 8 wks-07/08/23 progressed One Impairment Pt lacks appropriate self care HEP. Short Term Goal (STG) Pt will be educated and independent in donning/doffing a coat without pain. STG Duration 4 wks-04/01/23 (03/07/23: MET GOAL) Halfway Goal (LTG) Pt will be independent in a self care HEP for general strengthening of core/LE's/UE' s and bilateral thumb mobility ex's. 03/07/23: HEP: (LE's) Sit<> stands, (UE's)AROM rubén shlder ext (elbows straight & flexed) & I/S in IR reaching hand up spine. 03/10/23: (UE's) I/S pt in self R thumb IP/MCP flex stretch f/b active flex strengthening and issued Lev1 TPutty (yellow). 03/21/23: MEDICAL RECORDS AUDITOR added HEP: Log roll sup<>sit transfer. 04/07/23: MEDICAL RECORDS AUDITOR added HEP: (UE' s) supine shoulder flexion, AA seated shoulder ER and towel squeeze and twist. 04/11/23: MEDICAL RECORDS AUDITOR added HEP: AROM tendon glide. 04/19/23: MEDICAL RECORDS AUDITOR added HEP: (UE' s) loosening knots with large ropes with right hand for strengthening. Discussed jar hedis registered nurse rn devices and knives that are designed for weak hands. 04/21/23; MEDICAL RECORDS AUDITOR added HEP: (UE) AROM IR. 04/26/23: Pt to ex for endurance (Core:standing UBE) using DIMA Perceived Exertion Scale of Fairly Light (scale 11) to less than Somewhat Hard. Sit<>Stand ex's at home, but to do less if too tiring. LTG Duration 8 wks-07/08/23 progressing 03/07/23 Assessment Summary Assessment Pt is a 72 yo female attending rehab to improve endurance ( general weakness), fatigue, joint pain of shoulders, legs, R ankle, and R thumb. She has improved in function as noted in goals above and her ABC function scale is 91/99 ( previously scored 82.5/99). The pt will benefit from continued skilled physical therapy to work towards further improving function, and added goals of improving her hand experimental display builder and balance to reduce her risk of falling and improve her safety with gait. Physical Therapy Plan Frequency and Duration Frequency of Treatment 2x/Week Duration of treatment (weeks) 8 Plan of Care Start Date 05/10/23 Plan of Care End Date 07/08/23 Therapeutic Interventions Therapeutic Interventions Home Exercise Program,Joint Mobilizations,Manual Therapy, Neuromuscular Re-education, Self-Care/Home Management,Soft Tissue Mobilization, Therapeutic Activities, Therapeutic Exercises Modalities Electric Stimulation,Hot Packs ,Paraffin Bath Next Visit Focus/Plan Next Note Type Treatment Note Next Visit Plan Next: LE strengthening with Paraffin dip R hand, bike, R thumb ex's and start balance training. Focus on improving R thumb mobility to improve thumb/hand ability to experimental display builder (GOAL 5), and Quad/Hamstring strengthening (STS endurance), and improve balance for safety and fluidity of gait. Mobility, R Thumb/Hand: Start AROM stretches, R thumb flex stretching (MCP/IP jt), rubén strengthening (improve thumb & experimental display builder strength), T- Putty & As needed Paraffin R hand (ring removed). ENDURANCE: LE: Add upright bike ex & cont Sit<>Stands x 10, monitor for appropriate Perceived exertion scale 10-11 . Progress HEP (see LT GOAL #1). Encourage pt to improve endurance on home stair & walking program. [ End ]
--- NOTE | 2023-05-10 16:49 | PT.OPPOC ---
Physical, Occupational & Speech Therapy At [facility] Current Diagnoses Pituitary-dependent [place]'s disease (05/10/23) Pain in unspecified joint (05/10/23) Visit Care Team Role Provider Type Caitlyn Dominguez DO Attending Provider Physician Family Provider Primary Care Provider Referring Provider Specialty: Family Practice Address: [address] [place] [address], [address], [facility] Email: [email or web address] Plan Of Care PT-OP-T Assessment and Plan Start: 03/03/23 17:50 Freq: Status: Active Protocol: Document 05/10/23 09:07 LRN (Rec: 05/10/23 09:49 LRN [id number]) Physical Therapy Assessment Rehab Potential Rehabilitation Potential Good Evaluation Complexity Number of Personal Factors/Comorbidities 3 or More Number of Body Systems Impaired 4 or More Clinical Presentation at Evaluation Evolving Impairments Impairments Activity Tolerance,Balance, Functional Activities,Posture, ROM,Strength Goals Six Impairment Decreased balance Impairment SLS: 3 secs R, 8 secs L Tandem stance: R leg behind - 0 secs; L leg behind - 10 secs. Snf Goal (LTG) Improve SLS or tandem stance to improve balance and safety with gait. LTG Duration 8 wks-07/08/23 Five Impairment Decreased R hand insurance account representative strength Snf Goal (LTG) Pt able to feel safe gripping shower door to get out of shower without fear of falling or insurance account representative post on a boat to get off the boat onto a dock. LTG Duration 8 wks-07/08/23 Four Impairment Can't tuck shirt in from behind due to rubén shoulder restriction. Impairment Spouse is helping to tuck shirt in. Reaching behind head: Rubén to C7. Reaching behind back: S1 right, S2 left Snf Goal (LTG) Improve shoulder mobility with pt able to tuck shirt in independently. 04/14/23: Hasn't tried to tuck shirt in. 04/28/2023 Patient reports she is able to tuck in shirt. Goal met LTG Duration 8 wks-05/27/23 (05/05/23: MET GOAL on 04/28/23) Three Impairment Decreased R hand strength due to thumb pain. Short Term Goal (STG) Improve R UE/insurance account representative strength with pt able to cooking w/o thumb pain, or pt able to independently open jars or can with can soft crab shedder. 03/10/23: Pt reportedly had more R thumb ROM after paraffin dip and PROM/JMT. 03/15/23: Improved R thumb PROM: MCP jt ~45 deg flex, IP jt ~30 deg's flex; Opposition: thumb to little finger PIP jt distally. 04/05/23: Joints in R hand loosening. No pain with cooking. Pain in R thumb opening cans. Can't make fist with R hand as well as with L hand. Can't tuck shirt in from behind. 04/26/23: Slightly better able to insurance account representative with R hand. New can soft crab shedder, so able to open can most times. Might lack strength to twist handle to open can. 05/10/23: Dosen't have thumb pain with cooking but fingers don't bend well and states thumb is improving in mobility . Opening jars is difficulty. Opening jars, if can break the seal first. Can open cans with new can soft crab shedder (x 2). STG Duration 4 wks-05/06/23 (05/10/23: MET GOAL) Autos Disassembler Goal (LTG) Improve R UE/insurance account representative strength with pt able to move stick shift with R hand w/o pain. 04/05/23: Still using both hands, not able to insurance account representative well. 05/10/23: Able to move stick shift with R hand w/o pain. LTG Duration 8 wks-05/27/23 (05/10/23: MET GOAL) Two Impairment Decreased endurance making transfers from chairs and toilet difficult. Impairment Pain in shoulders, legs, R ankle making sitting on toilet w/o a riser and getting up from a chair difficult. (5xSTS Norm for 70-79 yo is 12 .6 secs) (30 sec chair stand Norm for 70-74 yo female is 10-15x) Short Term Goal (STG) Improve endurance with 5xSTS in 12 secs or less or 30 sec chair stand 10x or greater, or walk 546 ft prior to fatigue. 03/07/23: 30 STS - 7 reps. 03/31/23 PT reports less pain right ankle with sit to stand with band tied above knees to control valgus at knee impact on ankle. 04/05/23: 30 STS - 7 reps, 5xSTS in 23 secs. 04/14/23: 30 STS - 7 reps. 5XSTS in 19 secs. 05/05/23: 30 STS - 7 reps. 5XSTS in 21 secs. STG Duration 4 wks-06/10/23 (05/05/23: No change STS & worse STS) Autos Disassembler Goal (LTG) Improve endurance with pt able to walk 684 ft prior to fatigue or 13 steps at home without heavy breathing. 03/15/23: Hiking 1.25 miles & is tired after 13 stair steps at home, but not heavily breathing. 04/05/23: (NOTE: chronic fatigue for 35 yrs) Tired still after 13 steps at home. 04/05/23: Walking before fatigue - 500 ft. LTG Duration 8 wks-07/08/23 progressed One Impairment Pt lacks appropriate self care HEP. Short Term Goal (STG) Pt will be educated and independent in donning/doffing a coat without pain. STG Duration 4 wks-04/01/23 (03/07/23: MET GOAL) Autos Disassembler Goal (LTG) Pt will be independent in a self care HEP for general strengthening of core/LE's/UE' s and bilateral thumb mobility ex's. 03/07/23: HEP: (LE's) Sit<> stands, (UE's)AROM rubén shlder ext (elbows straight & flexed) & I/S in IR reaching hand up spine. 03/10/23: (UE's) I/S pt in self R thumb IP/MCP flex stretch f/b active flex strengthening and issued Lev1 TPutty (yellow). 03/21/23: APPLICATIONS ENGINEER added HEP: Log roll sup<>sit transfer. 04/07/23: APPLICATIONS ENGINEER added HEP: (UE' s) supine shoulder flexion, AA seated shoulder ER and towel squeeze and twist. 04/11/23: APPLICATIONS ENGINEER added HEP: AROM tendon glide. 04/19/23: APPLICATIONS ENGINEER added HEP: (UE' s) loosening knots with large ropes with right hand for strengthening. Discussed jar soft crab shedder devices and knives that are designed for weak hands. 04/21/23; APPLICATIONS ENGINEER added HEP: (UE) AROM IR. 04/26/23: Pt to ex for endurance (Core:standing UBE) using DIMA Perceived Exertion Scale of Fairly Light (scale 11) to less than Somewhat Hard. Sit<>Stand ex's at home, but to do less if too tiring. LTG Duration 8 wks-07/08/23 progressing 03/07/23 Assessment Summary Assessment Pt is a 72 yo female attending rehab to improve endurance ( general weakness), fatigue, joint pain of shoulders, legs, R ankle, and R thumb. She has improved in function as noted in goals above and her ABC function scale is 91/99 ( previously scored 82.5/99). The pt will benefit from continued skilled physical therapy to work towards further improving function, and added goals of improving her hand insurance account representative and balance to reduce her risk of falling and improve her safety with gait. Physical Therapy Plan Frequency and Duration Frequency of Treatment 2x/Week Duration of treatment (weeks) 8 Plan of Care Start Date 05/10/23 Plan of Care End Date 07/08/23 Therapeutic Interventions Therapeutic Interventions Home Exercise Program,Joint Mobilizations,Manual Therapy, Neuromuscular Re-education, Self-Care/Home Management,Soft Tissue Mobilization, Therapeutic Activities, Therapeutic Exercises Modalities Electric Stimulation,Hot Packs ,Paraffin Bath Next Visit Focus/Plan Next Note Type Treatment Note Next Visit Plan Next: LE strengthening with Paraffin dip R hand, bike, R thumb ex's and start balance training. Focus on improving R thumb mobility to improve thumb/hand ability to insurance account representative (GOAL 5), and Quad/Hamstring strengthening (STS endurance), and improve balance for safety and fluidity of gait. Mobility, R Thumb/Hand: Start AROM stretches, R thumb flex stretching (MCP/IP jt), rubén strengthening (improve thumb & insurance account representative strength), T- Putty & As needed Paraffin R hand (ring removed). ENDURANCE: LE: Add upright bike ex & cont Sit<>Stands x 10, monitor for appropriate Perceived exertion scale 10-11 . Progress HEP (see LT GOAL #1). Encourage pt to improve endurance on home stair & walking program. [ End ] Plan of Care Dates Plan of Care Start Date 05/10/23 Plan of Care End Date 07/08/23 Electronically Signed by: Kim Reyes, PT 05/10/23 2425 If you are in agreement with this Plan of Care, please return a signed and dated copy. I have reviewed this Plan of Care and certify that the skilled therapy services above are required to meet the patient?s needs. Physician Signature Date Printed Name and Credentials Clinical Instructor Signature Printed Name and Credentials
--- NOTE | 2023-05-12 12:49 | PT.OTN ---
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) Pain in unspecified joint (05/12/23) Physical Therapy Treatment Note PT-OP-A Visit Information Start: 03/03/23 17:50 Freq: Status: Active Protocol: Document 05/12/23 08:01 AB (Rec: 05/12/23 10:29 AB [id number]) Out-Patient Physical Therapy Visit Information Visit Information Visit Type Treatment Note Visit Note 04/02 Visit Start Time 08:14 Visit Stop Time 09:02 Visit Number 20 Number of REGULATORY AFFAIRS STRATEGY SPECIALIST Visits 1 Evaluation Information Evaluation Date 03/04/23 Precautions Precautions SOB after walking & putting shoes on, Fibromyalgia, Libra's disease, Chronic fatigue for 35 yrs, recent surgery (07/20/22) 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 PT-OP-B Current Condition Start: 03/03/23 17:50 Freq: Status: Active Protocol: Document 03/04/23 13:04 LRN (Rec: 03/04/23 15:17 LRN [id number]) Current Condition History of Current Condition Onset Date 06/3022 Current Complaints Fatigue, SOB, general soreness of body. 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 Currently dealing with effect of tapering down use of hydrocortisone. Shoulders, legs, R ankle pain new since surgery. Has hot spots on top of L leg and at spine on LB, R hand (cat bit her a couple months before surgery). On 6 hrs of Tylenol and 8 hrs on Meloxicam daily then can sleep. R hand is most problematic. Prior Treatments and Tests MRI & CAT scan to check on surgery results. PT for neck 5-6 yrs ago without resolution. Treatment Goals Patient/Caregiver Goals Pt goals: Cooking or sitting on toilet w /o the riser w/o pain in shoulders, legs, R ankle. Getting up from chair without difficulty. Able to move stick shift with R hand w/o pain. Taking on/off coat w/o pain. Prior Functional Status Baseline Function- ADL's Independent Baseline Function- Mobility Independent Baseline Function- Other Before surgery (2 yrs ago) hiking and 1/2 mile a day. 2x /week 3-5 miles. Before surgery: (3yrs ago) Panting putting shoes/boots, walking 1 mile. Current Functional Impairments (Reported) Functional Limitations- ADL's Difficulty opening cans with can promotions executive producer, and help to put coat on. Functional Limitations- Mobility/Gait Walks 1x/day 6-8 blocks. Fatigued from walking into treatment room. 13 steps to get to room, results in breathing heavy. Personal Factors Other Personal Factors That May Effect Tumor from pituitary gland Therapy/Recovery removed 07/20/22, currently working on steroid taper. Fibromyalgia. SOB just walking and putting shoes on. PT-OP-C Subjective Start: 03/03/23 17:50 Freq: Status: Active Protocol: Document 05/12/23 08:01 AB (Rec: 05/12/23 10:29 AB [id number]) OP-PT Subjective Patient Comments Patient Comments Patient reports she ordered a digiflex and it is helping. Patient reports opening jars is going better. PT-OP-E Functional Tests Start: 03/03/23 17:50 Freq: Status: Active Protocol: Document 04/14/23 08:20 LRN (Rec: 04/14/23 15:42 LRN [id number]) Functional Tests 30 Second Sit to Stand Test Score 7 reps Comments Norm: Female age 70-74 is 10- 15 reps Five Times Sit to Stand Test Score 19 Comments 70-79 yo's is 12.6 secs PT-OP-G Mobility & Gait Start: 03/03/23 17:50 Freq: Status: Active Protocol: Document 03/04/23 13:04 LRN (Rec: 03/04/23 15:17 LRN [id number]) OP Mobility Evaluation Functional Movements Other Functional Movements Putting coat on: Pt dons from overhead and requires assistance to pull coat down through arms and to clear head . PT-OP-H Neuro Start: 03/03/23 17:50 Freq: Status: Active Protocol: Document 03/04/23 13:04 LRN (Rec: 03/04/23 15:17 LRN [id number]) Sensation Evaluation Gross Sensation Gross Sensation WNL Vital Signs Pulse At rest sitting Pulse at Rest (bpm) 80 Pulse Assessment Method BP cuff Blood Pressure Sitting Blood Pressure (90/60-120/80 mmHg) 125/75 H Blood Pressure Source Automatic Cuff PT-OP-J Posture/Palpation/Skin Start: 03/03/23 17:50 Freq: Status: Active Protocol: Document 03/04/23 13:04 LRN (Rec: 03/04/23 15:17 LRN [id number]) Posture Evaluation Position Standing Head/C-Spine Posture Forward Head T-Spine Posture Increased Kyphosis L-Spine Posture Increased Lordosis Shoulder Posture (L) Rounded,(R) Rounded,(L) Elevated Scapula Posture (L) Neutral,(R) Neutral Arm Posture (L) Internally Rotated,(R) Internally Rotated Pelvis Posture Anteriorly Tilted Weight Distribution Balanced Knee Posture (L) Neutral,(R) Neutral Ankle/Foot Posture (L) Neutral,(R) Neutral Foot Arch (L) High Arch,(R) High Arch PT-OP-K Range of Motion Start: 03/03/23 17:50 Freq: Status: Active Protocol: Document 04/11/23 08:06 AB (Rec: 04/11/23 10:43 AB [id number]) Shoulder Goniometric Range of Motion Shoulder left shoulder AROM Testing Position PROM supine Flexion 151 Abduction 91 External Rotation at 45 degrees 55 Abduction Right shoulder AROM Testing Position PROM supine Flexion 141 Abduction 84 External Rotation at 45 degrees 47 Abduction PT-OP-M Strength Start: 03/03/23 17:50 Freq: Status: Active Protocol: Document 03/07/23 10:36 LRN (Rec: 03/07/23 11:33 LRN [id number]) Finger/Thumb Strength Finger Manual Muscle Testing Right Thumb Flexion (fingers C8) 5 Normal Extension (thumb C8) 4+ Good+ Adduction 5 Normal Abduction (fingers T1) 4+ Good+ Comments Pain with testing of thumb AD. Opposition: 5/5 except with middle finger 3/5 due to lateral wrist pain (around pisiform) and digits 4 & 5 strength is 4+/5. Left Thumb Comments 5/5 w/o pain Opposition: 5/5 with all fingers. PT-OP-Q Treatments Start: 03/03/23 17:50 Freq: Status: Active Protocol: Document 05/12/23 08:01 AB (Rec: 05/12/23 10:29 AB [id number]) Cardio Equipment Recumbent Elliptical (Biodex) Duration (Minutes) 10 Resistance 3 Seat Position 3 Other 11 fairly light Gia scale 7 min into bike Gym Equipment Shuttle Balance red Details feet on fours and stagger stance Reps/Duration 3 min Comments CGA to minimal assist, visual scanning, head turns and eyes closed for feet on fours Therapeutic Exercises Sitting Exercises full billiard table assembler and full extend Sitting Exercise Name hand gripping alternating with finger extensoin Side right Reps/Minutes X10 Comments visual cues Jar opening twisting ex Sitting Exercise Name jar with 11 cm diameter lid Side right Reps/Minutes 2 min Comments Patient ed to find jars with increasingly smaller diameter to practice with finger glide AROM Sitting Exercise Name with highlighter this session Side right Reps/Minutes X4 Comments Increased difficulty, poor quality movement wrist extension Sitting Exercise Name AROM Side bilateral Reps/Minutes 2X10 Comments fingers flexed Manual Therapy Treatment Soft Tissue Mobilization right forearm Body Location prior to hand and wrist ex Mobilization Type Rolling,Other Intensity/Depth Superficial Body Position Sitting Comments prior to wrist/finger exercises Joint Mobilizations R thumb MCP jt Joint R thumb MCP jt Direction PA AP Grade III Body Position Sitting Reps/Duration X10 R thumb IP jt Joint and PIP this session Direction AP and PA Grade III Body Position Sitting Reps/Duration X10 Neuro Re-Education Treatment Balance Activities marching on large blue cushion Reps/Duration X15 Comments CGA step up taps Details hands above bars to use as needed Equipment 6 inch steps Reps/Duration X12 each LE Comments cga tandem stepping Details hands above parallel bars CGA to very min assist Reps/Duration 10 feet X 6 Comments Verbal cues Self-Care/Home Management Treatment Activities Self-Care/Home Management Activities Patient given a plastic jar with a 11 cm diameter to practice opening and closing with advice to progress to smaller and smaller jars as able 3X a day. PT-OP-R Modalities Start: 03/03/23 17:50 Freq: Status: Active Protocol: Document 05/12/23 08:01 (Rec: 05/12/23 10:29 [id number]) Paraffin Bath Treatment Right Hand Treatment Technique Dip-immersion Wax Temperature (degrees F) 120 Number Wax Layers (layers) 7 Patient Tolerance Good PT-OP-T Assessment and Plan Start: 03/03/23 17:50 Freq: Status: Active Protocol: Document 05/12/23 08:01 (Rec: 05/12/23 10:29 [id number]) Physical Therapy Assessment Goals Six Impairment Decreased balance Impairment SLS: 3 secs R, 8 secs L Tandem stance: R leg behind - 0 secs; L leg behind - 10 secs. Fdc Goal (LTG) Improve SLS or tandem stance to improve balance and safety with gait. LTG Duration 8 wks-07/08/23 Five Impairment Decreased R hand billiard table assembler strength Fdc Goal (LTG) Pt able to feel safe gripping shower door to get out of shower without fear of falling or billiard table assembler post on a boat to get off the boat onto a dock. LTG Duration 8 wks-07/08/23 Four Impairment Can't tuck shirt in from behind due to rubén shoulder restriction. Impairment Spouse is helping to tuck shirt in. Reaching behind head: Rubén to C7. Reaching behind back: S1 right, S2 left Fdc Goal (LTG) Improve shoulder mobility with pt able to tuck shirt in independently. 04/14/23: Hasn't tried to tuck shirt in. 04/28/2023 Patient reports she is able to tuck in shirt. Goal met LTG Duration 8 wks-05/27/23 (05/05/23: MET GOAL on 04/28/23) Three Impairment Decreased R hand strength due to thumb pain. Short Term Goal (STG) Improve R UE/billiard table assembler strength with pt able to cooking w/o thumb pain, or pt able to independently open jars or can with can promotions executive producer. 03/10/23: Pt reportedly had more R thumb ROM after paraffin dip and PROM/JMT. 03/15/23: Improved R thumb PROM: MCP jt ~45 deg flex, IP jt ~30 deg's flex; Opposition: thumb to little finger PIP jt distally. 04/05/23: Joints in R hand loosening. No pain with cooking. Pain in R thumb opening cans. Can't make fist with R hand as well as with L hand. Can't tuck shirt in from behind. 04/26/23: Slightly better able to billiard table assembler with R hand. New can promotions executive producer, so able to open can most times. Might lack strength to twist handle to open can. 05/10/23: Dosen't have thumb pain with cooking but fingers don't bend well and states thumb is improving in mobility . Opening jars is difficulty. Opening jars, if can break the seal first. Can open cans with new can promotions executive producer (x 2). STG Duration 4 wks-05/06/23 (05/10/23: MET GOAL) Cloth Covered Helmet Puller Goal (LTG) Improve R UE/billiard table assembler strength with pt able to move stick shift with R hand w/o pain. 04/05/23: Still using both hands, not able to billiard table assembler well. 05/10/23: Able to move stick shift with R hand w/o pain. LTG Duration 8 wks-05/27/23 (05/10/23: MET GOAL) Two Impairment Decreased endurance making transfers from chairs and toilet difficult. Impairment Pain in shoulders, legs, R ankle making sitting on toilet w/o a riser and getting up from a chair difficult. (5xSTS Norm for 70-79 yo is 12 .6 secs) (30 sec chair stand Norm for 70-74 yo female is 10-15x) Short Term Goal (STG) Improve endurance with 5xSTS in 12 secs or less or 30 sec chair stand 10x or greater, or walk 546 ft prior to fatigue. 03/07/23: 30 STS - 7 reps. 03/31/23 PT reports less pain right ankle with sit to stand with band tied above knees to control valgus at knee impact on ankle. 04/05/23: 30 STS - 7 reps, 5xSTS in 23 secs. 04/14/23: 30 STS - 7 reps. 5XSTS in 19 secs. 05/05/23: 30 STS - 7 reps. 5XSTS in 21 secs. STG Duration 4 wks-06/10/23 (05/05/23: No change STS & worse w/30 STS) Cloth Covered Helmet Puller Goal (LTG) Improve endurance with pt able to walk 684 ft prior to fatigue or 13 steps at home without heavy breathing. 03/15/23: Hiking 1.25 miles & is tired after 13 stair steps at home, but not heavily breathing. 04/05/23: (NOTE: chronic fatigue for 35 yrs) Tired still after 13 steps at home. 04/05/23: Walking before fatigue - 500 ft. LTG Duration 8 wks-07/08/23 progressed One Impairment Pt lacks appropriate self care HEP. Short Term Goal (STG) Pt will be educated and independent in donning/doffing a coat without pain. STG Duration 4 wks-04/01/23 (03/07/23: MET GOAL) Cloth Covered Helmet Puller Goal (LTG) Pt will be independent in a self care HEP for general strengthening of core/LE's/UE' s and bilateral thumb mobility ex's. 03/07/23: HEP: (LE's) Sit<> stands, (UE's)AROM rubén shlder ext (elbows straight & flexed) & I/S in IR reaching hand up spine. 03/10/23: (UE's) I/S pt in self R thumb IP/MCP flex stretch f/b active flex strengthening and issued Lev1 TPutty (yellow). 03/21/23: REGULATORY AFFAIRS STRATEGY SPECIALIST added HEP: Log roll sup<>sit transfer. 04/07/23: REGULATORY AFFAIRS STRATEGY SPECIALIST added HEP: (UE' s) supine shoulder flexion, AA seated shoulder ER and towel squeeze and twist. 04/11/23: REGULATORY AFFAIRS STRATEGY SPECIALIST added HEP: AROM tendon glide. 04/19/23: REGULATORY AFFAIRS STRATEGY SPECIALIST added HEP: (UE' s) loosening knots with large ropes with right hand for strengthening. Discussed jar promotions executive producer devices and knives that are designed for weak hands. 04/21/23; REGULATORY AFFAIRS STRATEGY SPECIALIST added HEP: (UE) AROM IR. 04/26/23: Pt to ex for endurance (Core:standing UBE) using GIA Perceived Exertion Scale of Fairly Light (scale 11) to less than Somewhat Hard. Sit<>Stand ex's at home, but to do less if too tiring. LTG Duration 8 wks-07/08/23 progressing 03/07/23 Assessment Summary Assessment Gia exertion scale rating 13 post balance exercises. Patient verbalizes that she is pleased to be working on balance. Physical Therapy Plan Frequency and Duration Frequency of Treatment 2x/Week Duration of treatment (weeks) 8 Plan of Care Start Date 05/10/23 Plan of Care End Date 07/08/23 Next Visit Focus/Plan Next Note Type Treatment Note Next Visit Plan Next: continue LE strengthening with Paraffin dip R hand, bike, R thumb ex's and continue balance training add hurdles. Focus on improving R thumb mobility to improve thumb/hand ability to billiard table assembler (GOAL 5), and Quad/Hamstring strengthening (STS endurance), and improve balance for safety and fluidity of gait. Mobility, R Thumb/Hand: Start AROM stretches, R thumb flex stretching (MCP/IP jt), rubén strengthening (improve thumb & billiard table assembler strength), T- Putty & As needed Paraffin R hand (ring removed). ENDURANCE: LE: Add upright bike ex & cont Sit<>Stands x 10, monitor for appropriate Perceived exertion scale 10-11 . Progress HEP (see LT GOAL #1). Encourage pt to improve endurance on home stair & walking program. [ End ]
--- NOTE | 2023-05-17 16:31 | PT.OTN ---
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) Pain in unspecified joint (05/17/23) Physical Therapy Treatment Note PT-OP-A Visit Information Start: 03/03/23 17:50 Freq: Status: Active Protocol: Document 05/17/23 09:01 LRN (Rec: 05/17/23 09:48 LRN [id number]) Out-Patient Physical Therapy Visit Information Visit Information Visit Type Treatment Note Visit Note 04/30 Visit Start Time 09:01 Visit Stop Time 09:41 Visit Number 21 Number of SPANISH TUTOR Visits 1 Evaluation Information Evaluation Date 03/04/23 Precautions Precautions SOB after walking & putting shoes on, Fibromyalgia, Palmer's disease, Chronic fatigue for 35 yrs, recent surgery (07/20/22) 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 PT-OP-B Current Condition Start: 03/03/23 17:50 Freq: Status: Active Protocol: Document 03/04/23 13:04 LRN (Rec: 03/04/23 15:17 LRN [id number]) Current Condition History of Current Condition Onset Date 06/3022 Current Complaints Fatigue, SOB, general soreness of body. 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 Currently dealing with effect of tapering down use of hydrocortisone. Shoulders, legs, R ankle pain new since surgery. Has hot spots on top of L leg and at spine on LB, R hand (cat bit her a couple months before surgery). On 6 hrs of Tylenol and 8 hrs on Meloxicam daily then can sleep. R hand is most problematic. Prior Treatments and Tests MRI & CAT scan to check on surgery results. PT for neck 5-6 yrs ago without resolution. Treatment Goals Patient/Caregiver Goals Pt goals: Cooking or sitting on toilet w /o the riser w/o pain in shoulders, legs, R ankle. Getting up from chair without difficulty. Able to move stick shift with R hand w/o pain. Taking on/off coat w/o pain. Prior Functional Status Baseline Function- ADL's Independent Baseline Function- Mobility Independent Baseline Function- Other Before surgery (2 yrs ago) hiking and 1/2 mile a day. 2x /week 3-5 miles. Before surgery: (3yrs ago) Panting putting shoes/boots, walking 1 mile. Current Functional Impairments (Reported) Functional Limitations- ADL's Difficulty opening cans with can orthotic/prosthetic clinician, and help to put coat on. Functional Limitations- Mobility/Gait Walks 1x/day 6-8 blocks. Fatigued from walking into treatment room. 13 steps to get to room, results in breathing heavy. Personal Factors Other Personal Factors That May Effect Tumor from pituitary gland Therapy/Recovery removed 07/20/22, currently working on steroid taper. Fibromyalgia. SOB just walking and putting shoes on. PT-OP-C Subjective Start: 03/03/23 17:50 Freq: Status: Active Protocol: Document 05/17/23 09:01 LRN (Rec: 05/17/23 09:48 LRN [id number]) OP-PT Subjective Patient Comments Patient Comments New shoes, stiff all over. Using jar given to exercise. Bought digiflex (lowest level one), R hand hasn't mastered . Notes improved endurance with doing sit<>stand more often. PT-OP-E Functional Tests Start: 03/03/23 17:50 Freq: Status: Active Protocol: Document 04/14/23 08:20 LRN (Rec: 04/14/23 15:42 LRN [id number]) Functional Tests 30 Second Sit to Stand Test Score 7 reps Comments Norm: Female age 70-74 is 10- 15 reps Five Times Sit to Stand Test Score 19 Comments 70-79 yo's is 12.6 secs PT-OP-G Mobility & Gait Start: 03/03/23 17:50 Freq: Status: Active Protocol: Document 03/04/23 13:04 LRN (Rec: 03/04/23 15:17 LRN [id number]) OP Mobility Evaluation Functional Movements Other Functional Movements Putting coat on: Pt dons from overhead and requires assistance to pull coat down through arms and to clear head . PT-OP-H Neuro Start: 03/03/23 17:50 Freq: Status: Active Protocol: Document 03/04/23 13:04 LRN (Rec: 03/04/23 15:17 LRN [id number]) Sensation Evaluation Gross Sensation Gross Sensation WNL Vital Signs Pulse At rest sitting Pulse at Rest (bpm) 80 Pulse Assessment Method BP cuff Blood Pressure Sitting Blood Pressure (90/60-120/80 mmHg) 125/75 H Blood Pressure Source Automatic Cuff PT-OP-J Posture/Palpation/Skin Start: 03/03/23 17:50 Freq: Status: Active Protocol: Document 03/04/23 13:04 LRN (Rec: 03/04/23 15:17 LRN [id number]) Posture Evaluation Position Standing Head/C-Spine Posture Forward Head T-Spine Posture Increased Kyphosis L-Spine Posture Increased Lordosis Shoulder Posture (L) Rounded,(R) Rounded,(L) Elevated Scapula Posture (L) Neutral,(R) Neutral Arm Posture (L) Internally Rotated,(R) Internally Rotated Pelvis Posture Anteriorly Tilted Weight Distribution Balanced Knee Posture (L) Neutral,(R) Neutral Ankle/Foot Posture (L) Neutral,(R) Neutral Foot Arch (L) High Arch,(R) High Arch PT-OP-K Range of Motion Start: 03/03/23 17:50 Freq: Status: Active Protocol: Document 04/11/23 08:06 AB (Rec: 04/11/23 10:43 AB [id number]) Shoulder Goniometric Range of Motion Shoulder left shoulder AROM Testing Position PROM supine Flexion 151 Abduction 91 External Rotation at 45 degrees 55 Abduction Right shoulder AROM Testing Position PROM supine Flexion 141 Abduction 84 External Rotation at 45 degrees 47 Abduction PT-OP-M Strength Start: 03/03/23 17:50 Freq: Status: Active Protocol: Document 03/07/23 10:36 LRN (Rec: 03/07/23 11:33 LRN [id number]) Finger/Thumb Strength Finger Manual Muscle Testing Right Thumb Flexion (fingers C8) 5 Normal Extension (thumb C8) 4+ Good+ Adduction 5 Normal Abduction (fingers T1) 4+ Good+ Comments Pain with testing of thumb AD. Opposition: 5/5 except with middle finger 3/5 due to lateral wrist pain (around pisiform) and digits 4 & 5 strength is 4+/5. Left Thumb Comments 5/5 w/o pain Opposition: 5/5 with all fingers. PT-OP-Q Treatments Start: 03/03/23 17:50 Freq: Status: Active Protocol: Document 05/17/23 09:01 LRN (Rec: 05/17/23 09:48 LRN [id number]) Cardio Equipment Recumbent Elliptical ([employer]) Duration (Minutes) 10 Resistance 4 Seat Position 7 Other Working Gia PER 10-12 (11- fairly light), rpm 30 or more Bicycle (Upright) Duration (Minutes) 2 Resistance 5 Seat Position 3 Other 2' extra for initial set up, although seat low, raise next trial Manual Therapy Treatment Joint Mobilizations R Middle jts Joint MCP & PIP jt Direction PA Grade II Body Position Sitting Reps/Duration 10x R Index jt Joint MCP & PIP jt Direction PA Grade II Body Position Sitting Reps/Duration 10x R thumb MCP jt Joint R thumb MCP jt Direction PA AP Grade III Body Position Sitting Reps/Duration X10 R thumb IP jt Joint and PIP this session Direction AP and PA Grade III Body Position Sitting Reps/Duration X10 PT-OP-R Modalities Start: 03/03/23 17:50 Freq: Status: Active Protocol: Document 05/12/23 08:01 AB (Rec: 05/12/23 10:29 AB [id number]) Paraffin Bath Treatment Right Hand Treatment Technique Dip-immersion Wax Temperature (degrees F) 120 Number Wax Layers (layers) 7 Patient Tolerance Good PT-OP-T Assessment and Plan Start: 03/03/23 17:50 Freq: Status: Active Protocol: Document 05/17/23 09:01 LRN (Rec: 05/17/23 09:48 LRN [id number]) Physical Therapy Assessment Goals Six Impairment Decreased balance Impairment SLS: 3 secs R, 8 secs L Tandem stance: R leg behind - 0 secs; L leg behind - 10 secs. Correction Goal (LTG) Improve SLS or tandem stance to improve balance and safety with gait. LTG Duration 8 wks-07/08/23 Five Impairment Decreased R hand it project manager strength Pals Specialist Goal (LTG) Pt able to feel safe gripping shower door to get out of shower without fear of falling or it project manager post on a boat to get off the boat onto a dock. LTG Duration 8 wks-07/08/23 Four Impairment Can't tuck shirt in from behind due to rubén shoulder restriction. Impairment Spouse is helping to tuck shirt in. Reaching behind head: Rubén to C7. Reaching behind back: S1 right, S2 left Correction Goal (LTG) Improve shoulder mobility with pt able to tuck shirt in independently. 04/14/23: Hasn't tried to tuck shirt in. 04/28/2023 Patient reports she is able to tuck in shirt. Goal met LTG Duration 8 wks-05/27/23 (05/05/23: MET GOAL on 04/28/23) Three Impairment Decreased R hand strength due to thumb pain. Short Term Goal (STG) Improve R UE/it project manager strength with pt able to cooking w/o thumb pain, or pt able to independently open jars or can with can orthotic/prosthetic clinician. 03/10/23: Pt reportedly had more R thumb ROM after paraffin dip and PROM/JMT. 03/15/23: Improved R thumb PROM: MCP jt ~45 deg flex, IP jt ~30 deg's flex; Opposition: thumb to little finger PIP jt distally. 04/05/23: Joints in R hand loosening. No pain with cooking. Pain in R thumb opening cans. Can't make fist with R hand as well as with L hand. Can't tuck shirt in from behind. 04/26/23: Slightly better able to it project manager with R hand. New can orthotic/prosthetic clinician, so able to open can most times. Might lack strength to twist handle to open can. 05/10/23: Dosen't have thumb pain with cooking but fingers don't bend well and states thumb is improving in mobility . Opening jars is difficulty. Opening jars, if can break the seal first. Can open cans with new can orthotic/prosthetic clinician (x 2). STG Duration 4 wks-05/06/23 (05/10/23: MET GOAL) Correction Goal (LTG) Improve R UE/it project manager strength with pt able to move stick shift with R hand w/o pain. 04/05/23: Still using both hands, not able to it project manager well. 05/10/23: Able to move stick shift with R hand w/o pain. LTG Duration 8 wks-05/27/23 (05/10/23: MET GOAL) Two Impairment Decreased endurance making transfers from chairs and toilet difficult. Impairment Pain in shoulders, legs, R ankle making sitting on toilet w/o a riser and getting up from a chair difficult. (5xSTS Norm for 70-79 yo is 12 .6 secs) (30 sec chair stand Norm for 70-74 yo female is 10-15x) Short Term Goal (STG) Improve endurance with 5xSTS in 12 secs or less or 30 sec chair stand 10x or greater, or walk 546 ft prior to fatigue. 03/07/23: 30 STS - 7 reps. 03/31/23 PT reports less pain right ankle with sit to stand with band tied above knees to control valgus at knee impact on ankle. 04/05/23: 30 STS - 7 reps, 5xSTS in 23 secs. 04/14/23: 30 STS - 7 reps. 5XSTS in 19 secs. 05/05/23: 30 STS - 7 reps. 5XSTS in 21 secs. STG Duration 4 wks-06/10/23 (05/05/23: No change STS & worse / STS) Correction Goal (LTG) Improve endurance with pt able to walk 684 ft prior to fatigue or 13 steps at home without heavy breathing. 03/15/23: Hiking 1.25 miles & is tired after 13 stair steps at home, but not heavily breathing. 04/05/23: (NOTE: chronic fatigue for 35 yrs) Tired still after 13 steps at home. 04/05/23: Walking before fatigue - 500 ft. LTG Duration 8 wks-07/08/23 progressed One Impairment Pt lacks appropriate self care HEP. Short Term Goal (STG) Pt will be educated and independent in donning/doffing a coat without pain. STG Duration 4 wks-04/01/23 (03/07/23: MET GOAL) Correction Goal (LTG) Pt will be independent in a self care HEP for general strengthening of core/LE's/UE' s and bilateral thumb mobility ex's. 03/07/23: HEP: (LE's) Sit<> stands, (UE's)AROM rubén shlder ext (elbows straight & flexed) & I/S in IR reaching hand up spine. 03/10/23: (UE's) I/S pt in self R thumb IP/MCP flex stretch f/b active flex strengthening and issued Lev1 TPutty (yellow). 03/21/23: SPANISH TUTOR added HEP: Log roll sup<>sit transfer. 04/07/23: SPANISH TUTOR added HEP: (UE' s) supine shoulder flexion, AA seated shoulder ER and towel squeeze and twist. 04/11/23: SPANISH TUTOR added HEP: AROM tendon glide. 04/19/23: SPANISH TUTOR added HEP: (UE' s) loosening knots with large ropes with right hand for strengthening. Discussed jar orthotic/prosthetic clinician devices and knives that are designed for weak hands. 04/21/23; SPANISH TUTOR added HEP: (UE) AROM IR. 04/26/23: Pt to ex for endurance (Core:standing UBE) using GIA Perceived Exertion Scale of Fairly Light (scale 11) to less than Somewhat Hard. Sit<>Stand ex's at home, but to do less if too tiring. LTG Duration 8 wks-07/08/23 progressing 03/07/23 Assessment Summary Assessment 72 yo female attending rehab to improve endurance (general weakness), fatigue, joint pain of shoulders, legs, R ankle, and R thumb. Endurance improving with sit<>stand more during day. Rubén knee pain onset with upright bike after 2 minutes, but may have been because seat too low; therefore try again with seat higher. R thumb passive flex @ MCP & IP jt very close to opp hand PROM. Noted R MCP/ PIP digits 3,4 are stiff. Physical Therapy Plan Frequency and Duration Frequency of Treatment 2x/Week Duration of treatment (weeks) 8 Plan of Care Start Date 05/10/23 Plan of Care End Date 07/08/23 Next Visit Focus/Plan Next Note Type Treatment Note Next Visit Plan Next: Assess 2' walk & walk to fatigue, then focus on R hand and endurance. Continue Paraffin dip R hand, then place on upright bike (higher seat than before) doing thumb ROM, LE strengthening ([employer] , could try recumbent bike), R thumb ex's, and balance training. Focus on improving R thumb mobility to improve thumb/hand ability to it project manager (GOAL 5), and Quad/Hamstring strengthening (STS endurance), and improve balance for safety and fluidity of gait. Mobility, R Thumb/Hand: Start AROM stretches, R thumb flex stretching (MCP/IP jt), rubén strengthening (improve thumb & it project manager strength), T- Putty & As needed Paraffin R hand (ring removed). ENDURANCE: LE: Add upright bike ex & cont Sit<>Stands x 10, monitor for appropriate Perceived exertion scale 10-11 . Progress HEP (see LT GOAL #1). Encourage pt to improve endurance on home stair & walking program. Balance, add hurdles. [ End ]
--- NOTE | 2023-05-19 12:51 | PT.OTN ---
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) Pain in unspecified joint (05/19/23) Physical Therapy Treatment Note PT-OP-A Visit Information Start: 03/03/23 17:50 Freq: Status: Active Protocol: Document 05/19/23 08:04 AB (Rec: 05/19/23 12:49 AB [id number]) Out-Patient Physical Therapy Visit Information Visit Information Visit Type Treatment Note Visit Note 05/31 Visit Start Time 09:03 Visit Stop Time 09:48 Visit Number 22 Number of DIELECTRIC MACHINE OPERATOR Visits 2 Evaluation Information Evaluation Date 03/04/23 Precautions Precautions SOB after walking & putting shoes on, Fibromyalgia, Libra's disease, Chronic fatigue for 35 yrs, recent surgery (07/20/22) 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 PT-OP-B Current Condition Start: 03/03/23 17:50 Freq: Status: Active Protocol: Document 03/04/23 13:04 LRN (Rec: 03/04/23 15:17 LRN [id number]) Current Condition History of Current Condition Onset Date 06/3022 Current Complaints Fatigue, SOB, general soreness of body. 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 Currently dealing with effect of tapering down use of hydrocortisone. Shoulders, legs, R ankle pain new since surgery. Has hot spots on top of L leg and at spine on LB, R hand (cat bit her a couple months before surgery). On 6 hrs of Tylenol and 8 hrs on Meloxicam daily then can sleep. R hand is most problematic. Prior Treatments and Tests MRI & CAT scan to check on surgery results. PT for neck 5-6 yrs ago without resolution. Treatment Goals Patient/Caregiver Goals Pt goals: Cooking or sitting on toilet w /o the riser w/o pain in shoulders, legs, R ankle. Getting up from chair without difficulty. Able to move stick shift with R hand w/o pain. Taking on/off coat w/o pain. Prior Functional Status Baseline Function- ADL's Independent Baseline Function- Mobility Independent Baseline Function- Other Before surgery (2 yrs ago) hiking and 1/2 mile a day. 2x /week 3-5 miles. Before surgery: (3yrs ago) Panting putting shoes/boots, walking 1 mile. Current Functional Impairments (Reported) Functional Limitations- ADL's Difficulty opening cans with can ice cream freezer helper, and help to put coat on. Functional Limitations- Mobility/Gait Walks 1x/day 6-8 blocks. Fatigued from walking into treatment room. 13 steps to get to room, results in breathing heavy. Personal Factors Other Personal Factors That May Effect Tumor from pituitary gland Therapy/Recovery removed 07/20/22, currently working on steroid taper. Fibromyalgia. SOB just walking and putting shoes on. 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 Patient reports she can open smaller jars now. Patient reports walking daily at least 20 minutes and spouse commented that she is keeping up better. Patient reports ascending and descending using one rail stairs 4 X a day at home. PT-OP-E Functional Tests Start: 03/03/23 17:50 Freq: Status: Active Protocol: Document 05/19/23 08:04 AB (Rec: 05/19/23 12:50 AB [id number]) Functional Tests 2 Minute Walk Test Distance 341 feet Device Used no device PT-OP-G Mobility & Gait Start: 03/03/23 17:50 Freq: Status: Active Protocol: Document 03/04/23 13:04 LRN (Rec: 03/04/23 15:17 LRN [id number]) OP Mobility Evaluation Functional Movements Other Functional Movements Putting coat on: Pt dons from overhead and requires assistance to pull coat down through arms and to clear head . PT-OP-H Neuro Start: 03/03/23 17:50 Freq: Status: Active Protocol: Document 03/04/23 13:04 LRN (Rec: 03/04/23 15:17 LRN [id number]) Sensation Evaluation Gross Sensation Gross Sensation WNL Vital Signs Pulse At rest sitting Pulse at Rest (bpm) 80 Pulse Assessment Method BP cuff Blood Pressure Sitting Blood Pressure (90/60-120/80 mmHg) 125/75 H Blood Pressure Source Automatic Cuff PT-OP-J Posture/Palpation/Skin Start: 03/03/23 17:50 Freq: Status: Active Protocol: Document 03/04/23 13:04 LRN (Rec: 03/04/23 15:17 LRN [id number]) Posture Evaluation Position Standing Head/C-Spine Posture Forward Head T-Spine Posture Increased Kyphosis L-Spine Posture Increased Lordosis Shoulder Posture (L) Rounded,(R) Rounded,(L) Elevated Scapula Posture (L) Neutral,(R) Neutral Arm Posture (L) Internally Rotated,(R) Internally Rotated Pelvis Posture Anteriorly Tilted Weight Distribution Balanced Knee Posture (L) Neutral,(R) Neutral Ankle/Foot Posture (L) Neutral,(R) Neutral Foot Arch (L) High Arch,(R) High Arch PT-OP-K Range of Motion Start: 03/03/23 17:50 Freq: Status: Active Protocol: Document 04/11/23 08:06 AB (Rec: 04/11/23 10:43 AB [id number]) Shoulder Goniometric Range of Motion Shoulder left shoulder AROM Testing Position PROM supine Flexion 151 Abduction 91 External Rotation at 45 degrees 55 Abduction Right shoulder AROM Testing Position PROM supine Flexion 141 Abduction 84 External Rotation at 45 degrees 47 Abduction PT-OP-M Strength Start: 03/03/23 17:50 Freq: Status: Active Protocol: Document 03/07/23 10:36 LRN (Rec: 03/07/23 11:33 LRN [id number]) Finger/Thumb Strength Finger Manual Muscle Testing Right Thumb Flexion (fingers C8) 5 Normal Extension (thumb C8) 4+ Good+ Adduction 5 Normal Abduction (fingers T1) 4+ Good+ Comments Pain with testing of thumb AD. Opposition: 5/5 except with middle finger 3/5 due to lateral wrist pain (around pisiform) and digits 4 & 5 strength is 4+/5. Left Thumb Comments 5/5 w/o pain Opposition: 5/5 with all fingers. PT-OP-Q Treatments Start: 03/03/23 17:50 Freq: Status: Active Protocol: Document 05/19/23 08:04 AB (Rec: 05/19/23 12:49 AB [id number]) Cardio Equipment Bicycle (Upright) Duration (Minutes) 9 Resistance 5 Seat Position 5 Other 4/10 gia scale 5 minutes into bike Therapeutic Exercises Sitting Exercises Thumb flex strengthening Sitting Exercise Name Thumb flex/ext strengthening & opposition Side right Equipment Used Active assisted ROM Reps/Minutes 4' Standing Exercises dowel with 2 lb off rope Standing Exercise Name winding up and down wrist flex and ext with gripping Resistance 3 lb this session Reps/Minutes 3 min 59 sec Comments verbal cues to perform to fatigue Gia scale wrist/ fingers 3/10 Gia right Neuro Re-Education Treatment Balance Activities hurdles Reps/Duration 10 feet X6 Comments CGA Seated hip abduction with band Equipment level 3 light green band Reps/Duration one minute X 1 Comments for glute med activation SLS Details Single leg Balance - bilateral Surface Level Reps/Duration X3 X2 Comments R 3 secs, L 3 secs. post glute med activation 11 sec left 13 seconds right post glute med activation PT-OP-R Modalities Start: 03/03/23 17:50 Freq: Status: Active Protocol: Document 05/19/23 08:04 AB (Rec: 05/19/23 12:49 AB [id number]) Paraffin Bath Treatment Right Hand Treatment Technique Dip-immersion Wax Temperature (degrees F) 120 Number Wax Layers (layers) 7 Patient Tolerance Good PT-OP-T Assessment and Plan Start: 03/03/23 17:50 Freq: Status: Active Protocol: Document 05/19/23 08:04 AB (Rec: 05/19/23 12:49 AB [id number]) Physical Therapy Assessment Goals Six Impairment Decreased balance Impairment SLS: 3 secs R, 8 secs L Tandem stance: R leg behind - 0 secs; L leg behind - 10 secs. General Operator Goal (LTG) Improve SLS or tandem stance to improve balance and safety with gait. LTG Duration 8 wks-07/08/23 Five Impairment Decreased R hand director of patient financial services strength General Operator Goal (LTG) Pt able to feel safe gripping shower door to get out of shower without fear of falling or director of patient financial services post on a boat to get off the boat onto a dock. LTG Duration 8 wks-07/08/23 Four Impairment Can't tuck shirt in from behind due to rubén shoulder restriction. Impairment Spouse is helping to tuck shirt in. Reaching behind head: Rubén to C7. Reaching behind back: S1 right, S2 left Nursing Home Goal (LTG) Improve shoulder mobility with pt able to tuck shirt in independently. 04/14/23: Hasn't tried to tuck shirt in. 04/28/2023 Patient reports she is able to tuck in shirt. Goal met LTG Duration 8 wks-05/27/23 (05/05/23: MET GOAL on 04/28/23) Three Impairment Decreased R hand strength due to thumb pain. Short Term Goal (STG) Improve R UE/director of patient financial services strength with pt able to cooking w/o thumb pain, or pt able to independently open jars or can with can ice cream freezer helper. 03/10/23: Pt reportedly had more R thumb ROM after paraffin dip and PROM/JMT. 03/15/23: Improved R thumb PROM: MCP jt ~45 deg flex, IP jt ~30 deg's flex; Opposition: thumb to little finger PIP jt distally. 04/05/23: Joints in R hand loosening. No pain with cooking. Pain in R thumb opening cans. Can't make fist with R hand as well as with L hand. Can't tuck shirt in from behind. 04/26/23: Slightly better able to director of patient financial services with R hand. New can ice cream freezer helper, so able to open can most times. Might lack strength to twist handle to open can. 05/10/23: Dosen't have thumb pain with cooking but fingers don't bend well and states thumb is improving in mobility . Opening jars is difficulty. Opening jars, if can break the seal first. Can open cans with new can ice cream freezer helper (x 2). STG Duration 4 wks-05/06/23 (05/10/23: MET GOAL) Nursing Home Goal (LTG) Improve R UE/director of patient financial services strength with pt able to move stick shift with R hand w/o pain. 04/05/23: Still using both hands, not able to director of patient financial services well. 05/10/23: Able to move stick shift with R hand w/o pain. LTG Duration 8 wks-05/27/23 (05/10/23: MET GOAL) Two Impairment Decreased endurance making transfers from chairs and toilet difficult. Impairment Pain in shoulders, legs, R ankle making sitting on toilet w/o a riser and getting up from a chair difficult. (5xSTS Norm for 70-79 yo is 12 .6 secs) (30 sec chair stand Norm for 70-74 yo female is 10-15x) Short Term Goal (STG) Improve endurance with 5xSTS in 12 secs or less or 30 sec chair stand 10x or greater, or walk 546 ft prior to fatigue. 03/07/23: 30 STS - 7 reps. 03/31/23 PT reports less pain right ankle with sit to stand with band tied above knees to control valgus at knee impact on ankle. 04/05/23: 30 STS - 7 reps, 5xSTS in 23 secs. 04/14/23: 30 STS - 7 reps. 5XSTS in 19 secs. 05/05/23: 30 STS - 7 reps. 5XSTS in 21 secs. STG Duration 4 wks-06/10/23 (05/05/23: No change STS & worse / STS) Nursing Home Goal (LTG) Improve endurance with pt able to walk 684 ft prior to fatigue or 13 steps at home without heavy breathing. 03/15/23: Hiking 1.25 miles & is tired after 13 stair steps at home, but not heavily breathing. 04/05/23: (NOTE: chronic fatigue for 35 yrs) Tired still after 13 steps at home. 04/05/23: Walking before fatigue - 500 ft. 2 minute walk test 2 min walk test 341 feet and patient reports daily 20 minute walks and stairs daily X 4 at home. LTG Duration 8 wks-07/08/23 progressed One Impairment Pt lacks appropriate self care HEP. Short Term Goal (STG) Pt will be educated and independent in donning/doffing a coat without pain. STG Duration 4 wks-04/01/23 (03/07/23: MET GOAL) General Operator Goal (LTG) Pt will be independent in a self care HEP for general strengthening of core/LE's/UE' s and bilateral thumb mobility ex's. 03/07/23: HEP: (LE's) Sit<> stands, (UE's)AROM rubén shlder ext (elbows straight & flexed) & I/S in IR reaching hand up spine. 03/10/23: (UE's) I/S pt in self R thumb IP/MCP flex stretch f/b active flex strengthening and issued Lev1 TPutty (yellow). 03/21/23: DIELECTRIC MACHINE OPERATOR added HEP: Log roll sup<>sit transfer. 04/07/23: DIELECTRIC MACHINE OPERATOR added HEP: (UE' s) supine shoulder flexion, AA seated shoulder ER and towel squeeze and twist. 04/11/23: DIELECTRIC MACHINE OPERATOR added HEP: AROM tendon glide. 04/19/23: DIELECTRIC MACHINE OPERATOR added HEP: (UE' s) loosening knots with large ropes with right hand for strengthening. Discussed jar ice cream freezer helper devices and knives that are designed for weak hands. 04/21/23; DIELECTRIC MACHINE OPERATOR added HEP: (UE) AROM IR. 04/26/23: Pt to ex for endurance (Core:standing UBE) using GIA Perceived Exertion Scale of Fairly Light (scale 11) to less than Somewhat Hard. Sit<>Stand ex's at home, but to do less if too tiring. LTG Duration 8 wks-07/08/23 progressing 03/07/23 Assessment Summary Assessment Glenys reports feeling perkier end of session. Physical Therapy Plan Frequency and Duration Frequency of Treatment 2x/Week Duration of treatment (weeks) 8 Plan of Care Start Date 05/10/23 Plan of Care End Date 07/08/23 Next Visit Focus/Plan Next Note Type Treatment Note Next Visit Plan Next: walk to fatigue, then focus on R hand and endurance. Continue Paraffin dip R hand , then place on upright bike doing thumb ROM, LE strengthening ([employer], could try recumbent bike), R thumb ex's, and balance training. Focus on improving R thumb mobility to improve thumb/hand ability to director of patient financial services (GOAL 5), and Quad/Hamstring strengthening (STS endurance), and improve balance for safety and fluidity of gait. Mobility, R Thumb/Hand: Start AROM stretches, R thumb flex stretching (MCP/IP jt), rubén strengthening (improve thumb & director of patient financial services strength), T- Putty & As needed Paraffin R hand (ring removed). ENDURANCE: LE: Add upright bike ex & cont Sit<>Stands x 10, monitor for appropriate Perceived exertion scale 10-11 . Progress HEP (see LT GOAL #1). Encourage pt to improve endurance on home stair & walking program. Balance, [ End ]
--- NOTE | 2023-05-24 17:20 | PT.OTN ---
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) Pain in unspecified joint (05/24/23) Physical Therapy Treatment Note PT-OP-A Visit Information Start: 03/03/23 17:50 Freq: Status: Active Protocol: Document 05/24/23 08:49 AB (Rec: 05/24/23 11:11 AB [id number]) Out-Patient Physical Therapy Visit Information Visit Information Visit Type Treatment Note Visit Note 06/30 Visit Start Time 09:00 Visit Stop Time 09:45 Visit Number 23 Number of SLUDGE CONTROL ATTENDANT Visits 3 Evaluation Information Evaluation Date 03/04/23 Precautions Precautions SOB after walking & putting shoes on, Fibromyalgia, Libra's disease, Chronic fatigue for 35 yrs, recent surgery (07/20/22) 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 PT-OP-B Current Condition Start: 03/03/23 17:50 Freq: Status: Active Protocol: Document 03/04/23 13:04 LRN (Rec: 03/04/23 15:17 LRN [id number]) Current Condition History of Current Condition Onset Date 06/3022 Current Complaints Fatigue, SOB, general soreness of body. 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 Currently dealing with effect of tapering down use of hydrocortisone. Shoulders, legs, R ankle pain new since surgery. Has hot spots on top of L leg and at spine on LB, R hand (cat bit her a couple months before surgery). On 6 hrs of Tylenol and 8 hrs on Meloxicam daily then can sleep. R hand is most problematic. Prior Treatments and Tests MRI & CAT scan to check on surgery results. PT for neck 5-6 yrs ago without resolution. Treatment Goals Patient/Caregiver Goals Pt goals: Cooking or sitting on toilet w /o the riser w/o pain in shoulders, legs, R ankle. Getting up from chair without difficulty. Able to move stick shift with R hand w/o pain. Taking on/off coat w/o pain. Prior Functional Status Baseline Function- ADL's Independent Baseline Function- Mobility Independent Baseline Function- Other Before surgery (2 yrs ago) hiking and 1/2 mile a day. 2x /week 3-5 miles. Before surgery: (3yrs ago) Panting putting shoes/boots, walking 1 mile. Current Functional Impairments (Reported) Functional Limitations- ADL's Difficulty opening cans with can medical lab specialist, and help to put coat on. Functional Limitations- Mobility/Gait Walks 1x/day 6-8 blocks. Fatigued from walking into treatment room. 13 steps to get to room, results in breathing heavy. Personal Factors Other Personal Factors That May Effect Tumor from pituitary gland Therapy/Recovery removed 07/20/22, currently working on steroid taper. Fibromyalgia. SOB just walking and putting shoes on. PT-OP-C Subjective Start: 03/03/23 17:50 Freq: Status: Active Protocol: Document 05/24/23 08:49 AB (Rec: 05/24/23 11:11 AB [id number]) OP-PT Subjective Patient Comments Patient Comments Patient reports she is better, believes balance and endurance are getting better. Patient reports she almost gave up on opening a smaller jar, but she kept at it and got it open. PT-OP-E Functional Tests Start: 03/03/23 17:50 Freq: Status: Active Protocol: Document 05/19/23 08:04 AB (Rec: 05/19/23 12:50 AB [id number]) Functional Tests 2 Minute Walk Test Distance 341 feet Device Used no device PT-OP-G Mobility & Gait Start: 03/03/23 17:50 Freq: Status: Active Protocol: Document 03/04/23 13:04 LRN (Rec: 03/04/23 15:17 LRN [id number]) OP Mobility Evaluation Functional Movements Other Functional Movements Putting coat on: Pt dons from overhead and requires assistance to pull coat down through arms and to clear head . PT-OP-H Neuro Start: 03/03/23 17:50 Freq: Status: Active Protocol: Document 03/04/23 13:04 LRN (Rec: 03/04/23 15:17 LRN [id number]) Sensation Evaluation Gross Sensation Gross Sensation WNL Vital Signs Pulse At rest sitting Pulse at Rest (bpm) 80 Pulse Assessment Method BP cuff Blood Pressure Sitting Blood Pressure (90/60-120/80 mmHg) 125/75 H Blood Pressure Source Automatic Cuff PT-OP-J Posture/Palpation/Skin Start: 03/03/23 17:50 Freq: Status: Active Protocol: Document 03/04/23 13:04 LRN (Rec: 03/04/23 15:17 LRN [id number]) Posture Evaluation Position Standing Head/C-Spine Posture Forward Head T-Spine Posture Increased Kyphosis L-Spine Posture Increased Lordosis Shoulder Posture (L) Rounded,(R) Rounded,(L) Elevated Scapula Posture (L) Neutral,(R) Neutral Arm Posture (L) Internally Rotated,(R) Internally Rotated Pelvis Posture Anteriorly Tilted Weight Distribution Balanced Knee Posture (L) Neutral,(R) Neutral Ankle/Foot Posture (L) Neutral,(R) Neutral Foot Arch (L) High Arch,(R) High Arch PT-OP-K Range of Motion Start: 03/03/23 17:50 Freq: Status: Active Protocol: Document 04/11/23 08:06 AB (Rec: 04/11/23 10:43 AB [id number]) Shoulder Goniometric Range of Motion Shoulder left shoulder AROM Testing Position PROM supine Flexion 151 Abduction 91 External Rotation at 45 degrees 55 Abduction Right shoulder AROM Testing Position PROM supine Flexion 141 Abduction 84 External Rotation at 45 degrees 47 Abduction PT-OP-M Strength Start: 03/03/23 17:50 Freq: Status: Active Protocol: Document 03/07/23 10:36 LRN (Rec: 03/07/23 11:33 LRN [id number]) Finger/Thumb Strength Finger Manual Muscle Testing Right Thumb Flexion (fingers C8) 5 Normal Extension (thumb C8) 4+ Good+ Adduction 5 Normal Abduction (fingers T1) 4+ Good+ Comments Pain with testing of thumb AD. Opposition: 5/5 except with middle finger 3/5 due to lateral wrist pain (around pisiform) and digits 4 & 5 strength is 4+/5. Left Thumb Comments 5/5 w/o pain Opposition: 5/5 with all fingers. PT-OP-Q Treatments Start: 03/03/23 17:50 Freq: Status: Active Protocol: Document 05/24/23 08:49 AB (Rec: 05/24/23 11:11 AB [id number]) Gym Equipment Shuttle Balance red Details feet on fours/mini squat and stagger stance Reps/Duration 3 min Comments CGA to min assist Manual Therapy Treatment Soft Tissue Mobilization right forearm Body Location prior to hand and wrist ex Mobilization Type Rolling,Other Intensity/Depth Superficial Body Position Sitting Comments prior to wrist/finger exercises Joint Mobilizations R thumb MCP jt Joint R thumb MCP jt Direction PA AP Grade III Body Position Sitting Reps/Duration X10 R thumb IP jt Joint and PIP this session Direction AP and PA Grade III Body Position Sitting Reps/Duration X10 Neuro Re-Education Treatment Balance Activities hurdles Reps/Duration 10 feet X6 Comments CGA Seated hip abduction with band Equipment level 3 light green band Reps/Duration one minute X 1 Comments for glute med activation tandem stepping Details hands above parallel bars CGA to very min assist Reps/Duration 10 feet X 6 Comments Verbal cues Tandem standing Details Tandem standing - bilateral Surface Level Reps/Duration 5' Comments R foot behind 0 secs L foot behind 10 secs PT-OP-R Modalities Start: 03/03/23 17:50 Freq: Status: Active Protocol: Document 05/24/23 08:49 AB (Rec: 05/24/23 11:11 AB [id number]) Paraffin Bath Treatment Right Hand Treatment Technique Dip-immersion Wax Temperature (degrees F) 120 Number Wax Layers (layers) 7 Patient Tolerance Good PT-OP-T Assessment and Plan Start: 03/03/23 17:50 Freq: Status: Active Protocol: Document 05/24/23 08:49 AB (Rec: 05/24/23 11:11 AB [id number]) Physical Therapy Assessment Goals Six Impairment Decreased balance Impairment SLS: 3 secs R, 8 secs L Tandem stance: R leg behind - 0 secs; L leg behind - 10 secs. Mid Level Game Designer Goal (LTG) Improve SLS or tandem stance to improve balance and safety with gait. LTG Duration 8 wks-07/08/23 Five Impairment Decreased R hand boat painter strength Skilled Nursing Goal (LTG) Pt able to feel safe gripping shower door to get out of shower without fear of falling or boat painter post on a boat to get off the boat onto a dock. LTG Duration 8 wks-07/08/23 Four Impairment Can't tuck shirt in from behind due to rubén shoulder restriction. Impairment Spouse is helping to tuck shirt in. Reaching behind head: Rubén to C7. Reaching behind back: S1 right, S2 left Skilled Nursing Goal (LTG) Improve shoulder mobility with pt able to tuck shirt in independently. 04/14/23: Hasn't tried to tuck shirt in. 04/28/2023 Patient reports she is able to tuck in shirt. Goal met LTG Duration 8 wks-05/27/23 (05/05/23: MET GOAL on 04/28/23) Three Impairment Decreased R hand strength due to thumb pain. Short Term Goal (STG) Improve R UE/boat painter strength with pt able to cooking w/o thumb pain, or pt able to independently open jars or can with can medical lab specialist. 03/10/23: Pt reportedly had more R thumb ROM after paraffin dip and PROM/JMT. 03/15/23: Improved R thumb PROM: MCP jt ~45 deg flex, IP jt ~30 deg's flex; Opposition: thumb to little finger PIP jt distally. 04/05/23: Joints in R hand loosening. No pain with cooking. Pain in R thumb opening cans. Can't make fist with R hand as well as with L hand. Can't tuck shirt in from behind. 04/26/23: Slightly better able to boat painter with R hand. New can medical lab specialist, so able to open can most times. Might lack strength to twist handle to open can. 05/10/23: Dosen't have thumb pain with cooking but fingers don't bend well and states thumb is improving in mobility . Opening jars is difficulty. Opening jars, if can break the seal first. Can open cans with new can medical lab specialist (x 2). STG Duration 4 wks-05/06/23 (05/10/23: MET GOAL) Mid Level Game Designer Goal (LTG) Improve R UE/boat painter strength with pt able to move stick shift with R hand w/o pain. 04/05/23: Still using both hands, not able to boat painter well. 05/10/23: Able to move stick shift with R hand w/o pain. LTG Duration 8 wks-05/27/23 (05/10/23: MET GOAL) Two Impairment Decreased endurance making transfers from chairs and toilet difficult. Impairment Pain in shoulders, legs, R ankle making sitting on toilet w/o a riser and getting up from a chair difficult. (5xSTS Norm for 70-79 yo is 12 .6 secs) (30 sec chair stand Norm for 70-74 yo female is 10-15x) Short Term Goal (STG) Improve endurance with 5xSTS in 12 secs or less or 30 sec chair stand 10x or greater, or walk 546 ft prior to fatigue. 03/07/23: 30 STS - 7 reps. 03/31/23 PT reports less pain right ankle with sit to stand with band tied above knees to control valgus at knee impact on ankle. 04/05/23: 30 STS - 7 reps, 5xSTS in 23 secs. 04/14/23: 30 STS - 7 reps. 5XSTS in 19 secs. 05/05/23: 30 STS - 7 reps. 5XSTS in 21 secs. STG Duration 4 wks-06/10/23 (05/05/23: No change STS & worse / STS) Mid Level Game Designer Goal (LTG) Improve endurance with pt able to walk 684 ft prior to fatigue or 13 steps at home without heavy breathing. 03/15/23: Hiking 1.25 miles & is tired after 13 stair steps at home, but not heavily breathing. 04/05/23: (NOTE: chronic fatigue for 35 yrs) Tired still after 13 steps at home. 04/05/23: Walking before fatigue - 500 ft. minute walk test 2 min walk test 341 feet and patient reports daily 20 minute walks and stairs daily X 4 at home. 05/24/2023 walk to fatigue Gia 12/20 rating at 8 min 20 seconds and 1611 feet LTG Duration 8 wks-07/08/23 progressed One Impairment Pt lacks appropriate self care HEP. Short Term Goal (STG) Pt will be educated and independent in donning/doffing a coat without pain. STG Duration 4 wks-04/01/23 (03/07/23: MET GOAL) Skilled Nursing Goal (LTG) Pt will be independent in a self care HEP for general strengthening of core/LE's/UE' s and bilateral thumb mobility ex's. 03/07/23: HEP: (LE's) Sit<> stands, (UE's)AROM rubén shlder ext (elbows straight & flexed) & I/S in IR reaching hand up spine. 03/10/23: (UE's) I/S pt in self R thumb IP/MCP flex stretch f/b active flex strengthening and issued Lev1 TPutty (yellow). 03/21/23: SLUDGE CONTROL ATTENDANT added HEP: Log roll sup<>sit transfer. 04/07/23: SLUDGE CONTROL ATTENDANT added HEP: (UE' s) supine shoulder flexion, AA seated shoulder ER and towel squeeze and twist. 04/11/23: SLUDGE CONTROL ATTENDANT added HEP: AROM tendon glide. 04/19/23: SLUDGE CONTROL ATTENDANT added HEP: (UE' s) loosening knots with large ropes with right hand for strengthening. Discussed jar medical lab specialist devices and knives that are designed for weak hands. 04/21/23; SLUDGE CONTROL ATTENDANT added HEP: (UE) AROM IR. 04/26/23: Pt to ex for endurance (Core:standing UBE) using GIA Perceived Exertion Scale of Fairly Light (scale 11) to less than Somewhat Hard. Sit<>Stand ex's at home, but to do less if too tiring. LTG Duration 8 wks-07/08/23 progressing 03/07/23 Assessment Summary Assessment Glenys reports feeling tired and limber end of session. Physical Therapy Plan Frequency and Duration Frequency of Treatment 2x/Week Duration of treatment (weeks) 8 Plan of Care Start Date 05/10/23 Plan of Care End Date 07/08/23 Next Visit Focus/Plan Next Note Type Treatment Note Next Visit Plan Next: then focus on R hand and endurance. Continue Paraffin dip R hand, then place on upright bike doing thumb ROM, LE strengthening ( Biodex, could try recumbent bike), R thumb ex's, and balance training. Focus on improving R thumb mobility to improve thumb/hand ability to boat painter (GOAL 5), and Quad/Hamstring strengthening (STS endurance), and improve balance for safety and fluidity of gait. Mobility, R Thumb/Hand: Start AROM stretches, R thumb flex stretching (MCP/IP jt), rubén strengthening (improve thumb & boat painter strength), T- Putty & As needed Paraffin R hand (ring removed). ENDURANCE: LE: Add upright bike ex & cont Sit<>Stands x 10, monitor for appropriate Perceived exertion scale 10-11 . Progress HEP (see LT GOAL #1). Encourage pt to improve endurance on home stair & walking program. Balance, [ End ]
--- NOTE | 2023-05-26 16:03 | PT.OTN ---
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) Pain in unspecified joint (05/26/23) Physical Therapy Treatment Note PT-OP-A Visit Information Start: 03/03/23 17:50 Freq: Status: Active Protocol: Document 05/26/23 09:06 LRN (Rec: 05/26/23 09:49 LRN [id number]) Out-Patient Physical Therapy Visit Information Visit Information Visit Type Treatment Note Visit Note 07/31 Visit Start Time 09:06 Visit Stop Time 09:47 Visit Number 24 Evaluation Information Evaluation Date 03/04/23 Precautions Precautions SOB after walking & putting shoes on, Fibromyalgia, Libra's disease, Chronic fatigue for 35 yrs, recent surgery (07/20/22) 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 PT-OP-B Current Condition Start: 03/03/23 17:50 Freq: Status: Active Protocol: Document 03/04/23 13:04 LRN (Rec: 03/04/23 15:17 LRN [id number]) Current Condition History of Current Condition Onset Date 06/3022 Current Complaints Fatigue, SOB, general soreness of body. 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 Currently dealing with effect of tapering down use of hydrocortisone. Shoulders, legs, R ankle pain new since surgery. Has hot spots on top of L leg and at spine on LB, R hand (cat bit her a couple months before surgery). On 6 hrs of Tylenol and 8 hrs on Meloxicam daily then can sleep. R hand is most problematic. Prior Treatments and Tests MRI & CAT scan to check on surgery results. PT for neck 5-6 yrs ago without resolution. Treatment Goals Patient/Caregiver Goals Pt goals: Cooking or sitting on toilet w /o the riser w/o pain in shoulders, legs, R ankle. Getting up from chair without difficulty. Able to move stick shift with R hand w/o pain. Taking on/off coat w/o pain. Prior Functional Status Baseline Function- ADL's Independent Baseline Function- Mobility Independent Baseline Function- Other Before surgery (2 yrs ago) hiking and 1/2 mile a day. 2x /week 3-5 miles. Before surgery: (3yrs ago) Panting putting shoes/boots, walking 1 mile. Current Functional Impairments (Reported) Functional Limitations- ADL's Difficulty opening cans with can automation mechanic, and help to put coat on. Functional Limitations- Mobility/Gait Walks 1x/day 6-8 blocks. Fatigued from walking into treatment room. 13 steps to get to room, results in breathing heavy. Personal Factors Other Personal Factors That May Effect Tumor from pituitary gland Therapy/Recovery removed 07/20/22, currently working on steroid taper. Fibromyalgia. SOB just walking and putting shoes on. PT-OP-C Subjective Start: 03/03/23 17:50 Freq: Status: Active Protocol: Document 05/26/23 09:06 LRN (Rec: 05/26/23 09:49 LRN [id number]) OP-PT Subjective Patient Comments Patient Comments States she walked on trails for a little < 1hr. States she has knots in her hands that may be restricting her strength. Doing hand ex's daily and can screw jars she couldn't do before, partly in due to L hand mobility. R 3rd & 4th fingers don't bend. PT-OP-E Functional Tests Start: 03/03/23 17:50 Freq: Status: Active Protocol: Document 05/19/23 08:04 AB (Rec: 05/19/23 12:50 AB [id number]) Functional Tests 2 Minute Walk Test Distance 341 feet Device Used no device PT-OP-G Mobility & Gait Start: 03/03/23 17:50 Freq: Status: Active Protocol: Document 03/04/23 13:04 LRN (Rec: 03/04/23 15:17 LRN [id number]) OP Mobility Evaluation Functional Movements Other Functional Movements Putting coat on: Pt dons from overhead and requires assistance to pull coat down through arms and to clear head . PT-OP-H Neuro Start: 03/03/23 17:50 Freq: Status: Active Protocol: Document 03/04/23 13:04 LRN (Rec: 03/04/23 15:17 LRN [id number]) Sensation Evaluation Gross Sensation Gross Sensation WNL Vital Signs Pulse At rest sitting Pulse at Rest (bpm) 80 Pulse Assessment Method BP cuff Blood Pressure Sitting Blood Pressure (90/60-120/80 mmHg) 125/75 H Blood Pressure Source Automatic Cuff PT-OP-J Posture/Palpation/Skin Start: 03/03/23 17:50 Freq: Status: Active Protocol: Document 03/04/23 13:04 LRN (Rec: 03/04/23 15:17 LRN [id number]) Posture Evaluation Position Standing Head/C-Spine Posture Forward Head T-Spine Posture Increased Kyphosis L-Spine Posture Increased Lordosis Shoulder Posture (L) Rounded,(R) Rounded,(L) Elevated Scapula Posture (L) Neutral,(R) Neutral Arm Posture (L) Internally Rotated,(R) Internally Rotated Pelvis Posture Anteriorly Tilted Weight Distribution Balanced Knee Posture (L) Neutral,(R) Neutral Ankle/Foot Posture (L) Neutral,(R) Neutral Foot Arch (L) High Arch,(R) High Arch PT-OP-K Range of Motion Start: 03/03/23 17:50 Freq: Status: Active Protocol: Document 04/11/23 08:06 AB (Rec: 04/11/23 10:43 AB [id number]) Shoulder Goniometric Range of Motion Shoulder left shoulder AROM Testing Position PROM supine Flexion 151 Abduction 91 External Rotation at 45 degrees 55 Abduction Right shoulder AROM Testing Position PROM supine Flexion 141 Abduction 84 External Rotation at 45 degrees 47 Abduction PT-OP-M Strength Start: 03/03/23 17:50 Freq: Status: Active Protocol: Document 03/07/23 10:36 LRN (Rec: 03/07/23 11:33 LRN [id number]) Finger/Thumb Strength Finger Manual Muscle Testing Right Thumb Flexion (fingers C8) 5 Normal Extension (thumb C8) 4+ Good+ Adduction 5 Normal Abduction (fingers T1) 4+ Good+ Comments Pain with testing of thumb AD. Opposition: 5/5 except with middle finger 3/5 due to lateral wrist pain (around pisiform) and digits 4 & 5 strength is 4+/5. Left Thumb Comments 5/5 w/o pain Opposition: 5/5 with all fingers. PT-OP-Q Treatments Start: 03/03/23 17:50 Freq: Status: Active Protocol: Document 05/26/23 09:06 LRN (Rec: 05/26/23 09:49 LRN [id number]) Cardio Equipment Bicycle (Upright) Duration (Minutes) 10 Resistance 5 Seat Position 5 Other Pt cued to ex 10-11 on PANCHAL scale, pt needed rest & drink after ex. Therapeutic Exercises Sitting Exercises Finger flex stretching Sitting Exercise Name Finger flexion stretching, pt stretching to tolerance Side right Reps/Minutes 3' Standing Exercises Hand stretch Standing Exercise Name Stretch to finger flexors w/ self overpressure at knuckles Side right Reps/Minutes 5' Comments Pt cued as to pressure on knuckles for extension. Manual Therapy Treatment Manual Techniques STM of flex tendon Type DTM R flexor tendons of thumb, index, middle finger. Body Position Sitting Reps/Duration 9' Self-Care/Home Management Treatment Education Other Education Discussed pt's POC for further therapy. Activities Self-Care/Home Management Activities I/S pt in self stretch to R hand MCP extension and self stretch to all fingers extension for flattening of hand on supporting surface. PT-OP-R Modalities Start: 03/03/23 17:50 Freq: Status: Active Protocol: Document 05/26/23 09:06 LRN (Rec: 05/26/23 09:49 LRN [id number]) Paraffin Bath Treatment Right Hand Treatment Technique Dip-immersion Wax Temperature (degrees F) 120 Number Wax Layers (layers) 7 Patient Tolerance Good PT-OP-T Assessment and Plan Start: 03/03/23 17:50 Freq: Status: Active Protocol: Document 05/26/23 09:06 LRN (Rec: 05/26/23 09:49 LRN [id number]) Physical Therapy Assessment Goals Six Impairment Decreased balance Impairment SLS: 3 secs R, 8 secs L Tandem stance: R leg behind - 0 secs; L leg behind - 10 secs. Java Front End Web Developer Goal (LTG) Improve SLS or tandem stance to improve balance and safety with gait. 03/27/23: Treatment note indicates TAndem STance: R foot behind 0 secs, L foot behind 10 secs LTG Duration 8 wks-07/08/23 progressing as of 05/24/23 Five Impairment Decreased R hand mold carrier strength Java Front End Web Developer Goal (LTG) Pt able to feel safe gripping shower door to get out of shower without fear of falling or mold carrier post on a boat to get off the boat onto a dock. LTG Duration 8 wks-07/08/23 Four Impairment Can't tuck shirt in from behind due to rubén shoulder restriction. Impairment Spouse is helping to tuck shirt in. Reaching behind head: Rubén to C7. Reaching behind back: S1 right, S2 left Java Front End Web Developer Goal (LTG) Improve shoulder mobility with pt able to tuck shirt in independently. 04/14/23: Hasn't tried to tuck shirt in. 04/28/2023 Patient reports she is able to tuck in shirt. Goal met LTG Duration 8 wks-05/27/23 (05/05/23: MET GOAL on 04/28/23) Three Impairment Decreased R hand strength due to thumb pain. Short Term Goal (STG) Improve R UE/mold carrier strength with pt able to cooking w/o thumb pain, or pt able to independently open jars or can with can automation mechanic. 03/10/23: Pt reportedly had more R thumb ROM after paraffin dip and PROM/JMT. 03/15/23: Improved R thumb PROM: MCP jt ~45 deg flex, IP jt ~30 deg's flex; Opposition: thumb to little finger PIP jt distally. 04/05/23: Joints in R hand loosening. No pain with cooking. Pain in R thumb opening cans. Can't make fist with R hand as well as with L hand. Can't tuck shirt in from behind. 04/26/23: Slightly better able to mold carrier with R hand. New can automation mechanic, so able to open can most times. Might lack strength to twist handle to open can. 05/10/23: Dosen't have thumb pain with cooking but fingers don't bend well and states thumb is improving in mobility . Opening jars is difficulty. Opening jars, if can break the seal first. Can open cans with new can automation mechanic (x 2). STG Duration 4 wks-05/06/23 (05/10/23: MET GOAL) Prison Goal (LTG) Improve R UE/mold carrier strength with pt able to move stick shift with R hand w/o pain. 04/05/23: Still using both hands, not able to mold carrier well. 05/10/23: Able to move stick shift with R hand w/o pain. LTG Duration 8 wks-05/27/23 (05/10/23: MET GOAL) Two Impairment Decreased endurance making transfers from chairs and toilet difficult. Impairment Pain in shoulders, legs, R ankle making sitting on toilet w/o a riser and getting up from a chair difficult. (5xSTS Norm for 70-79 yo is 12 .6 secs) (30 sec chair stand Norm for 70-74 yo female is 10-15x) Short Term Goal (STG) Improve endurance with 5xSTS in 12 secs or less or 30 sec chair stand 10x or greater, or walk 546 ft prior to fatigue. 03/07/23: 30 STS - 7 reps. 03/31/23 PT reports less pain right ankle with sit to stand with band tied above knees to control valgus at knee impact on ankle. 04/05/23: 30 STS - 7 reps, 5xSTS in 23 secs. 04/14/23: 30 STS - 7 reps. 5XSTS in 19 secs. 05/05/23: 30 STS - 7 reps. 5XSTS in 21 secs. STG Duration 4 wks-06/10/23 (05/05/23: No change STS & worse w/30 STS) Java Front End Web Developer Goal (LTG) Improve endurance with pt able to walk 684 ft prior to fatigue or 13 steps at home without heavy breathing. 03/15/23: Hiking 1.25 miles & is tired after 13 stair steps at home, but not heavily breathing. 04/05/23: (NOTE: chronic fatigue for 35 yrs) Tired still after 13 steps at home. 04/05/23: Walking before fatigue - 500 ft. minute walk test 2 min walk test 341 feet and patient reports daily 20 minute walks and stairs daily X 4 at home. 05/24/2023 walk to fatigue Gia 12/20 rating at 8 min 20 seconds and 1611 feet. 05/26/23: Not heavy breathing after travelling 13 steps. LTG Duration 8 wks-07/08/23 progressed One Impairment Pt lacks appropriate self care HEP. Short Term Goal (STG) Pt will be educated and independent in donning/doffing a coat without pain. STG Duration 4 wks-04/01/23 (03/07/23: MET GOAL) Java Front End Web Developer Goal (LTG) Pt will be independent in a self care HEP for general strengthening of core/LE's/UE' s and bilateral thumb mobility ex's. 03/07/23: HEP: (LE's) Sit<> stands, (UE's)AROM rubén shlder ext (elbows straight & flexed) & I/S in IR reaching hand up spine. 03/10/23: (UE's) I/S pt in self R thumb IP/MCP flex stretch f/b active flex strengthening and issued Lev1 TPutty (yellow). 03/21/23: CLINICAL TRIALS MANAGER added HEP: Log roll sup<>sit transfer. 04/07/23: CLINICAL TRIALS MANAGER added HEP: (UE' s) supine shoulder flexion, AA seated shoulder ER and towel squeeze and twist. 04/11/23: CLINICAL TRIALS MANAGER added HEP: AROM tendon glide. 04/19/23: CLINICAL TRIALS MANAGER added HEP: (UE' s) loosening knots with large ropes with right hand for strengthening. Discussed jar automation mechanic devices and knives that are designed for weak hands. 04/21/23; CLINICAL TRIALS MANAGER added HEP: (UE) AROM IR. 04/26/23: Pt to ex for endurance (Core:standing UBE) using GIA Perceived Exertion Scale of Fairly Light (scale 11) to less than Somewhat Hard. Sit<>Stand ex's at home, but to do less if too tiring. LTG Duration 8 wks-07/08/23 progressing 03/07/23 Assessment Summary Assessment 72 yo female attending rehab to improve endurance primarily walking, fatigue, & decr R thumb pain/improve R hand function. She has met her endurance goal of walking and stairs although taxing she reports she is not heavy breathing. The pt needs further therapy for improving mold carrier strength by improve R hand mobility and strength. Balance is improving, tandem stance is still challenging for R foot behind. Physical Therapy Plan Frequency and Duration Frequency of Treatment 2x/Week Duration of treatment (weeks) 8 Plan of Care Start Date 05/10/23 Plan of Care End Date 07/08/23 Next Visit Focus/Plan Next Note Type Treatment Note Next Visit Plan Continue Paraffin dip R hand, then place on upright bike, may doing thumb ROM, Next: focus on R hand mobility and mold carrier strength and endurance for ascending stairs. LE strengthening, R thumb and full hand ext/wrist flex stretch ex, and balance training (R LE primarily). Focus on improving R thumb mobility and finger/wrist ext mobility f/b strengthening flexion to improve thumb/hand ability to mold carrier (GOAL 5), and Quad/Hamstring strengthening ( STS endurance), and improve balance for safety and fluidity of gait. ENDURANCE: LE: Sit<>Stands from lower surface, monitor for appropriate Perceived exertion scale 10-11. Encourage pt to improve endurance on home stair program. Balance & Progress HEP (see LT GOAL #1). [ End ]
--- NOTE | 2023-05-31 15:47 | PT.OTN ---
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) Pain in unspecified joint (05/31/23) Physical Therapy Treatment Note PT-OP-A Visit Information Start: 03/03/23 17:50 Freq: Status: Active Protocol: Document 05/31/23 13:24 AB (Rec: 05/31/23 15:47 AB [id number]) Out-Patient Physical Therapy Visit Information Visit Information Visit Type Treatment Note Visit Note 08/30 Visit Start Time 13:45 Visit Stop Time 14:30 Visit Number 25 Number of MANAGER PROJECT Visits 1 Evaluation Information Evaluation Date 03/04/23 Precautions Precautions SOB after walking & putting shoes on, Fibromyalgia, Libra's disease, Chronic fatigue for 35 yrs, recent surgery (07/20/22) 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 PT-OP-B Current Condition Start: 03/03/23 17:50 Freq: Status: Active Protocol: Document 03/04/23 13:04 LRN (Rec: 03/04/23 15:17 LRN [id number]) Current Condition History of Current Condition Onset Date 06/3022 Current Complaints Fatigue, SOB, general soreness of body. 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 Currently dealing with effect of tapering down use of hydrocortisone. Shoulders, legs, R ankle pain new since surgery. Has hot spots on top of L leg and at spine on LB, R hand (cat bit her a couple months before surgery). On 6 hrs of Tylenol and 8 hrs on Meloxicam daily then can sleep. R hand is most problematic. Prior Treatments and Tests MRI & CAT scan to check on surgery results. PT for neck 5-6 yrs ago without resolution. Treatment Goals Patient/Caregiver Goals Pt goals: Cooking or sitting on toilet w /o the riser w/o pain in shoulders, legs, R ankle. Getting up from chair without difficulty. Able to move stick shift with R hand w/o pain. Taking on/off coat w/o pain. Prior Functional Status Baseline Function- ADL's Independent Baseline Function- Mobility Independent Baseline Function- Other Before surgery (2 yrs ago) hiking and 1/2 mile a day. 2x /week 3-5 miles. Before surgery: (3yrs ago) Panting putting shoes/boots, walking 1 mile. Current Functional Impairments (Reported) Functional Limitations- ADL's Difficulty opening cans with can batter scaler, and help to put coat on. Functional Limitations- Mobility/Gait Walks 1x/day 6-8 blocks. Fatigued from walking into treatment room. 13 steps to get to room, results in breathing heavy. Personal Factors Other Personal Factors That May Effect Tumor from pituitary gland Therapy/Recovery removed 07/20/22, currently working on steroid taper. Fibromyalgia. SOB just walking and putting shoes on. PT-OP-C Subjective Start: 03/03/23 17:50 Freq: Status: Active Protocol: Document 05/31/23 13:24 AB (Rec: 05/31/23 15:47 AB [id number]) OP-PT Subjective Patient Comments Patient Comments Patient reports she is tired today post cleaning the home. Patient reports she is doing her exercises daily religously , walking a lot. Patient reports she [place] in the [place]. Cycle Counter strength left 17, 20, 20 right 11,10,12 lbs. Patient reports she uses stairs as needed during day, but not as an exercise. PT-OP-E Functional Tests Start: 03/03/23 17:50 Freq: Status: Active Protocol: Document 05/19/23 08:04 AB (Rec: 05/19/23 12:50 AB [id number]) Functional Tests 2 Minute Walk Test Distance 341 feet Device Used no device PT-OP-G Mobility & Gait Start: 03/03/23 17:50 Freq: Status: Active Protocol: Document 03/04/23 13:04 LRN (Rec: 03/04/23 15:17 LRN [id number]) OP Mobility Evaluation Functional Movements Other Functional Movements Putting coat on: Pt dons from overhead and requires assistance to pull coat down through arms and to clear head . PT-OP-H Neuro Start: 03/03/23 17:50 Freq: Status: Active Protocol: Document 03/04/23 13:04 LRN (Rec: 03/04/23 15:17 LRN [id number]) Sensation Evaluation Gross Sensation Gross Sensation WNL Vital Signs Pulse At rest sitting Pulse at Rest (bpm) 80 Pulse Assessment Method BP cuff Blood Pressure Sitting Blood Pressure (90/60-120/80 mmHg) 125/75 H Blood Pressure Source Automatic Cuff PT-OP-J Posture/Palpation/Skin Start: 03/03/23 17:50 Freq: Status: Active Protocol: Document 03/04/23 13:04 LRN (Rec: 03/04/23 15:17 LRN [id number]) Posture Evaluation Position Standing Head/C-Spine Posture Forward Head T-Spine Posture Increased Kyphosis L-Spine Posture Increased Lordosis Shoulder Posture (L) Rounded,(R) Rounded,(L) Elevated Scapula Posture (L) Neutral,(R) Neutral Arm Posture (L) Internally Rotated,(R) Internally Rotated Pelvis Posture Anteriorly Tilted Weight Distribution Balanced Knee Posture (L) Neutral,(R) Neutral Ankle/Foot Posture (L) Neutral,(R) Neutral Foot Arch (L) High Arch,(R) High Arch PT-OP-K Range of Motion Start: 03/03/23 17:50 Freq: Status: Active Protocol: Document 04/11/23 08:06 AB (Rec: 04/11/23 10:43 AB [id number]) Shoulder Goniometric Range of Motion Shoulder left shoulder AROM Testing Position PROM supine Flexion 151 Abduction 91 External Rotation at 45 degrees 55 Abduction Right shoulder AROM Testing Position PROM supine Flexion 141 Abduction 84 External Rotation at 45 degrees 47 Abduction PT-OP-M Strength Start: 03/03/23 17:50 Freq: Status: Active Protocol: Document 03/07/23 10:36 LRN (Rec: 03/07/23 11:33 LRN [id number]) Finger/Thumb Strength Finger Manual Muscle Testing Right Thumb Flexion (fingers C8) 5 Normal Extension (thumb C8) 4+ Good+ Adduction 5 Normal Abduction (fingers T1) 4+ Good+ Comments Pain with testing of thumb AD. Opposition: 5/5 except with middle finger 3/5 due to lateral wrist pain (around pisiform) and digits 4 & 5 strength is 4+/5. Left Thumb Comments 5/5 w/o pain Opposition: 5/5 with all fingers. PT-OP-Q Treatments Start: 03/03/23 17:50 Freq: Status: Active Protocol: Document 05/31/23 13:24 AB (Rec: 05/31/23 15:47 AB [id number]) Cardio Equipment Bicycle (Upright) Resistance 5 Seat Position 5 Other 6.5 min reports feeling a little sweat, able to hold a conversation Therapeutic Exercises Sitting Exercises wrist extension Sitting Exercise Name AROM Side bilateral Reps/Minutes 2X10 Comments fingers flexed and fingers extended Manual Therapy Treatment Soft Tissue Mobilization right forearm Body Location prior to hand and wrist ex Mobilization Type Rolling,Other Intensity/Depth Superficial Body Position Sitting Comments prior to wrist/finger exercises Joint Mobilizations R Middle jts Joint MCP & PIP jt Direction PA Grade II Body Position Sitting Reps/Duration 10x R Index jt Joint MCP & PIP jt Direction PA Grade II Body Position Sitting Reps/Duration 10x R thumb MCP jt Joint R thumb MCP jt Direction PA AP Grade III Body Position Sitting Reps/Duration X10 R thumb IP jt Joint and PIP this session Direction AP and PA Grade III Body Position Sitting Reps/Duration X10 Neuro Re-Education Treatment Balance Activities hurdles Reps/Duration 10 feet X6 Comments CGA marching on large blue cushion Reps/Duration X15 Comments CGA step up taps Details hands above bars to use as needed Equipment 6 inch steps Reps/Duration X12 each LE Comments cga tandem stepping Details hands above parallel bars CGA to very min assist Reps/Duration 10 feet X 6 Comments with visual scanning and head turns PT-OP-R Modalities Start: 03/03/23 17:50 Freq: Status: Active Protocol: Document 05/31/23 13:24 AB (Rec: 05/31/23 15:47 AB [id number]) Paraffin Bath Treatment Right Hand Treatment Technique Dip-immersion Wax Temperature (degrees F) 120 Number Wax Layers (layers) 7 Patient Tolerance Good PT-OP-T Assessment and Plan Start: 03/03/23 17:50 Freq: Status: Active Protocol: Document 05/31/23 13:24 AB (Rec: 05/31/23 15:47 AB [id number]) Physical Therapy Assessment Goals Six Impairment Decreased balance Impairment SLS: 3 secs R, 8 secs L Tandem stance: R leg behind - 0 secs; L leg behind - 10 secs. Usp Goal (LTG) Improve SLS or tandem stance to improve balance and safety with gait. 03/27/23: Treatment note indicates TAndem STance: R foot behind 0 secs, L foot behind 10 secs LTG Duration 8 wks-07/08/23 progressing as of 05/24/23 Five Impairment Decreased R hand recreation worker strength Usp Goal (LTG) Pt able to feel safe gripping shower door to get out of shower without fear of falling or recreation worker post on a boat to get off the boat onto a dock. 05/31/2023 Cycle Counter strength left 17 , 20, 20 right 11,10,12 lbs LTG Duration 8 wks-07/08/23 Two Impairment Decreased endurance making transfers from chairs and toilet difficult. Impairment Pain in shoulders, legs, R ankle making sitting on toilet w/o a riser and getting up from a chair difficult. (5xSTS Norm for 70-79 yo is 12 .6 secs) (30 sec chair stand Norm for 70-74 yo female is 10-15x) Short Term Goal (STG) Improve endurance with 5xSTS in 12 secs or less or 30 sec chair stand 10x or greater, or walk 546 ft prior to fatigue. 03/07/23: 30 STS - 7 reps. 03/31/23 PT reports less pain right ankle with sit to stand with band tied above knees to control valgus at knee impact on ankle. 04/05/23: 30 STS - 7 reps, 5xSTS in 23 secs. 04/14/23: 30 STS - 7 reps. 5XSTS in 19 secs. 05/05/23: 30 STS - 7 reps. 5XSTS in 21 secs. STG Duration 4 wks-06/10/23 (05/05/23: No change STS & worse w/30 STS) Washroom Attendant Goal (LTG) Improve endurance with pt able to walk 684 ft prior to fatigue or 13 steps at home without heavy breathing. 03/15/23: Hiking 1.25 miles & is tired after 13 stair steps at home, but not heavily breathing. 04/05/23: (NOTE: chronic fatigue for 35 yrs) Tired still after 13 steps at home. 04/05/23: Walking before fatigue - 500 ft. minute walk test 2 min walk test 341 feet and patient reports daily 20 minute walks and stairs daily X 4 at home. 05/24/2023 walk to fatigue Gia 12/20 rating at 8 min 20 seconds and 1611 feet. 05/26/23: Not heavy breathing after travelling 13 steps. LTG Duration 8 wks-07/08/23 progressed One Impairment Pt lacks appropriate self care HEP. Short Term Goal (STG) Pt will be educated and independent in donning/doffing a coat without pain. STG Duration 4 wks-04/01/23 (03/07/23: MET GOAL) Usp Goal (LTG) Pt will be independent in a self care HEP for general strengthening of core/LE's/UE' s and bilateral thumb mobility ex's. 03/07/23: HEP: (LE's) Sit<> stands, (UE's)AROM rubén shlder ext (elbows straight & flexed) & I/S in IR reaching hand up spine. 03/10/23: (UE's) I/S pt in self R thumb IP/MCP flex stretch f/b active flex strengthening and issued Lev1 TPutty (yellow). 03/21/23: MANAGER PROJECT added HEP: Log roll sup<>sit transfer. 04/07/23: MANAGER PROJECT added HEP: (UE' s) supine shoulder flexion, AA seated shoulder ER and towel squeeze and twist. 04/11/23: MANAGER PROJECT added HEP: AROM tendon glide. 04/19/23: MANAGER PROJECT added HEP: (UE' s) loosening knots with large ropes with right hand for strengthening. Discussed jar batter scaler devices and knives that are designed for weak hands. 04/21/23; MANAGER PROJECT added HEP: (UE) AROM IR. 04/26/23: Pt to ex for endurance (Core:standing UBE) using GIA Perceived Exertion Scale of Fairly Light (scale 11) to less than Somewhat Hard. Sit<>Stand ex's at home, but to do less if too tiring. LTG Duration 8 wks-07/08/23 progressing 03/07/23 Assessment Summary Assessment Glenys reports feeling less exertion end of session than she did post cleaning home. Physical Therapy Plan Frequency and Duration Frequency of Treatment 2x/Week Duration of treatment (weeks) 8 Plan of Care Start Date 05/10/23 Plan of Care End Date 07/08/23 Next Visit Focus/Plan Next Note Type Treatment Note Next Visit Plan Continue Paraffin dip R hand, then place on upright bike, may doing thumb ROM, Next: focus on R hand mobility and recreation worker strength and endurance for ascending stairs. LE strengthening, R thumb and full hand ext/wrist flex stretch ex, and balance training (R LE primarily). Focus on improving R thumb mobility and finger/wrist ext mobility f/b strengthening flexion to improve thumb/hand ability to recreation worker (GOAL 5), and Quad/Hamstring strengthening ( STS endurance), and improve balance for safety and fluidity of gait. ENDURANCE: LE: Sit<>Stands from lower surface, monitor for appropriate Perceived exertion scale 10-11. Encourage pt to improve endurance on home stair program/assess stairs next session. Balance & Progress HEP (see LT GOAL #1). [ End ]
--- NOTE | 2023-06-02 17:25 | PT.OTN ---
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) Pain in unspecified joint (06/02/23) Physical Therapy Treatment Note PT-OP-A Visit Information Start: 03/03/23 17:50 Freq: Status: Active Protocol: Document 06/02/23 09:12 LRN (Rec: 06/02/23 09:52 LRN [id number]) Out-Patient Physical Therapy Visit Information Visit Information Visit Type Treatment Note Visit Note 09/30 Visit Start Time 09:12 Visit Stop Time 09:51 Visit Number 26 Evaluation Information Evaluation Date 03/04/23 Precautions Precautions SOB after walking & putting shoes on, Fibromyalgia, Libra's disease, Chronic fatigue for 35 yrs, recent surgery (07/20/22) 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 PT-OP-B Current Condition Start: 03/03/23 17:50 Freq: Status: Active Protocol: Document 03/04/23 13:04 LRN (Rec: 03/04/23 15:17 LRN [id number]) Current Condition History of Current Condition Onset Date 06/3022 Current Complaints Fatigue, SOB, general soreness of body. 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 Currently dealing with effect of tapering down use of hydrocortisone. Shoulders, legs, R ankle pain new since surgery. Has hot spots on top of L leg and at spine on LB, R hand (cat bit her a couple months before surgery). On 6 hrs of Tylenol and 8 hrs on Meloxicam daily then can sleep. R hand is most problematic. Prior Treatments and Tests MRI & CAT scan to check on surgery results. PT for neck 5-6 yrs ago without resolution. Treatment Goals Patient/Caregiver Goals Pt goals: Cooking or sitting on toilet w /o the riser w/o pain in shoulders, legs, R ankle. Getting up from chair without difficulty. Able to move stick shift with R hand w/o pain. Taking on/off coat w/o pain. Prior Functional Status Baseline Function- ADL's Independent Baseline Function- Mobility Independent Baseline Function- Other Before surgery (2 yrs ago) hiking and 1/2 mile a day. 2x /week 3-5 miles. Before surgery: (3yrs ago) Panting putting shoes/boots, walking 1 mile. Current Functional Impairments (Reported) Functional Limitations- ADL's Difficulty opening cans with can developer designer, and help to put coat on. Functional Limitations- Mobility/Gait Walks 1x/day 6-8 blocks. Fatigued from walking into treatment room. 13 steps to get to room, results in breathing heavy. Personal Factors Other Personal Factors That May Effect Tumor from pituitary gland Therapy/Recovery removed 07/20/22, currently working on steroid taper. Fibromyalgia. SOB just walking and putting shoes on. PT-OP-C Subjective Start: 03/03/23 17:50 Freq: Status: Active Protocol: Document 06/02/23 09:12 LRN (Rec: 06/02/23 09:52 LRN [id number]) OP-PT Subjective Patient Comments Patient Comments States others have noticed she walks hunched over. States she did 11,000 steps yesterday and was very tired. PT-OP-E Functional Tests Start: 03/03/23 17:50 Freq: Status: Active Protocol: Document 05/19/23 08:04 AB (Rec: 05/19/23 12:50 AB [id number]) Functional Tests 2 Minute Walk Test Distance 341 feet Device Used no device PT-OP-G Mobility & Gait Start: 03/03/23 17:50 Freq: Status: Active Protocol: Document 03/04/23 13:04 LRN (Rec: 03/04/23 15:17 LRN [id number]) OP Mobility Evaluation Functional Movements Other Functional Movements Putting coat on: Pt dons from overhead and requires assistance to pull coat down through arms and to clear head . PT-OP-H Neuro Start: 03/03/23 17:50 Freq: Status: Active Protocol: Document 03/04/23 13:04 LRN (Rec: 03/04/23 15:17 LRN [id number]) Sensation Evaluation Gross Sensation Gross Sensation WNL Vital Signs Pulse At rest sitting Pulse at Rest (bpm) 80 Pulse Assessment Method BP cuff Blood Pressure Sitting Blood Pressure (90/60-120/80 mmHg) 125/75 H Blood Pressure Source Automatic Cuff PT-OP-J Posture/Palpation/Skin Start: 03/03/23 17:50 Freq: Status: Active Protocol: Document 03/04/23 13:04 LRN (Rec: 03/04/23 15:17 LRN [id number]) Posture Evaluation Position Standing Head/C-Spine Posture Forward Head T-Spine Posture Increased Kyphosis L-Spine Posture Increased Lordosis Shoulder Posture (L) Rounded,(R) Rounded,(L) Elevated Scapula Posture (L) Neutral,(R) Neutral Arm Posture (L) Internally Rotated,(R) Internally Rotated Pelvis Posture Anteriorly Tilted Weight Distribution Balanced Knee Posture (L) Neutral,(R) Neutral Ankle/Foot Posture (L) Neutral,(R) Neutral Foot Arch (L) High Arch,(R) High Arch PT-OP-K Range of Motion Start: 03/03/23 17:50 Freq: Status: Active Protocol: Document 04/11/23 08:06 AB (Rec: 04/11/23 10:43 AB [id number]) Shoulder Goniometric Range of Motion Shoulder left shoulder AROM Testing Position PROM supine Flexion 151 Abduction 91 External Rotation at 45 degrees 55 Abduction Right shoulder AROM Testing Position PROM supine Flexion 141 Abduction 84 External Rotation at 45 degrees 47 Abduction PT-OP-M Strength Start: 03/03/23 17:50 Freq: Status: Active Protocol: Document 03/07/23 10:36 LRN (Rec: 03/07/23 11:33 LRN [id number]) Finger/Thumb Strength Finger Manual Muscle Testing Right Thumb Flexion (fingers C8) 5 Normal Extension (thumb C8) 4+ Good+ Adduction 5 Normal Abduction (fingers T1) 4+ Good+ Comments Pain with testing of thumb AD. Opposition: 5/5 except with middle finger 3/5 due to lateral wrist pain (around pisiform) and digits 4 & 5 strength is 4+/5. Left Thumb Comments 5/5 w/o pain Opposition: 5/5 with all fingers. PT-OP-Q Treatments Start: 03/03/23 17:50 Freq: Status: Active Protocol: Document 06/02/23 09:12 LRN (Rec: 06/02/23 09:52 LR [id number]) Cardio Equipment Bicycle (Upright) Duration (Minutes) 10 Resistance 5 Seat Position 5 Other 6.5 min reports feeling a little sweat, able to hold a conversation Therapeutic Exercises Sitting Exercises Sit<>Stands Sitting Exercise Name Sit<>stand from webbed chair w /o use of UE's. Side bilateral Reps/Minutes 3' Comments 30 STS - 8 reps. 5XSTS in 17 secs. Manual Therapy Treatment Joint Mobilizations R Middle jts Joint MCP & PIP jt Direction PA Grade II Body Position Sitting Reps/Duration 10x R Index jt Joint MCP & PIP jt Direction PA Grade II Body Position Sitting Reps/Duration 10x R thumb MCP jt Joint R thumb MCP jt Direction PA AP Grade III Body Position Sitting Reps/Duration X10 Self-Care/Home Management Treatment Education Other Education Discussed pt posturing with hiking and had conversation about using outdoor ex bike this summer. Recommended she try a tandem bike with spouse vs independent bike. PT-OP-R Modalities Start: 03/03/23 17:50 Freq: Status: Active Protocol: Document 06/02/23 09:12 LRN (Rec: 06/02/23 09:52 LRN [id number]) Paraffin Bath Treatment Right Hand Treatment Technique Dip-immersion Wax Temperature (degrees F) 120 Number Wax Layers (layers) 7 Patient Tolerance Good PT-OP-T Assessment and Plan Start: 03/03/23 17:50 Freq: Status: Active Protocol: Document 06/02/23 09:12 LRN (Rec: 06/02/23 09:52 LRN [id number]) Physical Therapy Assessment Goals Six Impairment Decreased balance Impairment SLS: 3 secs R, 8 secs L Tandem stance: R leg behind - 0 secs; L leg behind - 10 secs. Method Consultant Goal (LTG) Improve SLS or tandem stance to improve balance and safety with gait. 03/27/23: Treatment note indicates TAndem STance: R foot behind 0 secs, L foot behind 10 secs LTG Duration 8 wks-07/08/23 progressing as of 05/24/23 Five Impairment Decreased R hand twister doffer strength Method Consultant Goal (LTG) Pt able to feel safe gripping shower door to get out of shower without fear of falling or twister doffer post on a boat to get off the boat onto a dock. 05/31/2023 Wellness Program Coordinator strength left 17 , 20, 20 right 11,10,12 lbs LTG Duration 8 wks-07/08/23 Two Impairment Decreased endurance making transfers from chairs and toilet difficult. Impairment Pain in shoulders, legs, R ankle making sitting on toilet w/o a riser and getting up from a chair difficult. (5xSTS Norm for 70-79 yo is 12 .6 secs) (30 sec chair stand Norm for 70-74 yo female is 10-15x) Short Term Goal (STG) Improve endurance with 5xSTS in 12 secs or less or 30 sec chair stand 10x or greater, or walk 546 ft prior to fatigue. 03/07/23: 30 STS - 7 reps. 03/31/23 PT reports less pain right ankle with sit to stand with band tied above knees to control valgus at knee impact on ankle. 04/05/23: 30 STS - 7 reps, 5xSTS in 23 secs. 04/14/23: 30 STS - 7 reps. 5XSTS in 19 secs. 05/05/23: 30 STS - 7 reps. 5XSTS in 21 secs. 06/02/23: 30 STS - 8 reps, 5xSTS in 17 secs. STG Duration 4 wks-06/10/23 (06/02/23: Improved) Usp Goal (LTG) Improve endurance with pt able to walk 684 ft prior to fatigue or 13 steps at home without heavy breathing. 03/15/23: Hiking 1.25 miles & is tired after 13 stair steps at home, but not heavily breathing. 04/05/23: (NOTE: chronic fatigue for 35 yrs) Tired still after 13 steps at home. 04/05/23: Walking before fatigue - 500 ft. 2 minute walk test 2 min walk test 341 feet and patient reports daily 20 minute walks and stairs daily X 4 at home. 05/24/2023 walk to fatigue Gia 12/20 rating at 8 min 20 seconds and 1611 feet. 05/26/23: Not heavy breathing after travelling 13 steps. 06/02/23: Walked outdoors 11, 000 steps yesterday. LTG Duration (06/02/23: MET GOAL) One Impairment Pt lacks appropriate self care HEP. Short Term Goal (STG) Pt will be educated and independent in donning/doffing a coat without pain. STG Duration 4 wks-04/01/23 (03/07/23: MET GOAL) Method Consultant Goal (LTG) Pt will be independent in a self care HEP for general strengthening of core/LE's/UE' s and bilateral thumb mobility ex's. 03/07/23: HEP: (LE's) Sit<> stands, (UE's)AROM rubén shlder ext (elbows straight & flexed) & I/S in IR reaching hand up spine. 03/10/23: (UE's) I/S pt in self R thumb IP/MCP flex stretch f/b active flex strengthening and issued Lev1 TPutty (yellow). 03/21/23: PHARMACY STUDENT added HEP: Log roll sup<>sit transfer. 04/07/23: PHARMACY STUDENT added HEP: (UE' s) supine shoulder flexion, AA seated shoulder ER and towel squeeze and twist. 04/11/23: PHARMACY STUDENT added HEP: AROM tendon glide. 04/19/23: PHARMACY STUDENT added HEP: (UE' s) loosening knots with large ropes with right hand for strengthening. Discussed jar developer designer devices and knives that are designed for weak hands. 04/21/23; PHARMACY STUDENT added HEP: (UE) AROM IR. 04/26/23: Pt to ex for endurance (Core:standing UBE) using GIA Perceived Exertion Scale of Fairly Light (scale 11) to less than Somewhat Hard. Sit<>Stand ex's at home, but to do less if too tiring. LTG Duration 8 wks-07/08/23 progressing 03/07/23 Assessment Summary Assessment 72 yo female attending rehab to improve endurance primarily walking, fatigue, & decr R thumb pain/improve R hand function. Today, pt needed water break between exercises. Improved STS: 5xSTS in 17 secs (was 21 secs), and improved 30 STS 8x (was 7x), indicating improved LE strength/endurance. Pt R thumb, index and middle finger DIP/PIP jt mobility decreased . Physical Therapy Plan Frequency and Duration Frequency of Treatment 2x/Week Duration of treatment (weeks) 8 Plan of Care Start Date 05/10/23 Plan of Care End Date 07/08/23 Next Visit Focus/Plan Next Note Type Treatment Note Next Visit Plan Continue Paraffin dip R hand, then DC Upright bike to start stair stepping for LE strengthening & Shuttle Recovery, and FOCUS On: R hand mobility and twister doffer strength, & endurance for ascending stairs. LE strengthening, R thumb and full hand ext/wrist flex stretch ex, and balance training (R LE primarily). Encourage pt to improve endurance on home stair program/assess stairs next session. Focus on improving R thumb mobility and finger/wrist ext mobility f/b strengthening flexion to improve thumb/hand ability to twister doffer (GOAL 5), and Quad/Hamstring strengthening ( STS endurance), and improve balance for safety and fluidity of gait. ENDURANCE: LE: Sit<>Stands from lower surface, monitor for appropriate Perceived exertion scale 10-11. Balance & Progress HEP (see LT GOAL #1). [ End ]
--- NOTE | 2023-06-07 16:19 | PT.OTN ---
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) Pain in unspecified joint (06/07/23) Physical Therapy Treatment Note PT-OP-A Visit Information Start: 03/03/23 17:50 Freq: Status: Active Protocol: Document 06/07/23 09:02 LRN (Rec: 06/07/23 09:48 LRN [id number]) Out-Patient Physical Therapy Visit Information Visit Information Visit Type Treatment Note Visit Note 10/31 Visit Start Time 09:02 Visit Stop Time 09:46 Visit Number 27 Evaluation Information Evaluation Date 03/04/23 Precautions Precautions SOB after walking & putting shoes on, Fibromyalgia, Libra's disease, Chronic fatigue for 35 yrs, recent surgery (07/20/22) 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 PT-OP-B Current Condition Start: 03/03/23 17:50 Freq: Status: Active Protocol: Document 03/04/23 13:04 LRN (Rec: 03/04/23 15:17 LRN [id number]) Current Condition History of Current Condition Onset Date 06/3022 Current Complaints Fatigue, SOB, general soreness of body. 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 Currently dealing with effect of tapering down use of hydrocortisone. Shoulders, legs, R ankle pain new since surgery. Has hot spots on top of L leg and at spine on LB, R hand (cat bit her a couple months before surgery). On 6 hrs of Tylenol and 8 hrs on Meloxicam daily then can sleep. R hand is most problematic. Prior Treatments and Tests MRI & CAT scan to check on surgery results. PT for neck 5-6 yrs ago without resolution. Treatment Goals Patient/Caregiver Goals Pt goals: Cooking or sitting on toilet w /o the riser w/o pain in shoulders, legs, R ankle. Getting up from chair without difficulty. Able to move stick shift with R hand w/o pain. Taking on/off coat w/o pain. Prior Functional Status Baseline Function- ADL's Independent Baseline Function- Mobility Independent Baseline Function- Other Before surgery (2 yrs ago) hiking and 1/2 mile a day. 2x /week 3-5 miles. Before surgery: (3yrs ago) Panting putting shoes/boots, walking 1 mile. 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 Functional Limitations- Mobility/Gait Walks 1x/day 6-8 blocks. Fatigued from walking into treatment room. 13 steps to get to room, results in breathing heavy. Personal Factors Other Personal Factors That May Effect Tumor from pituitary gland Therapy/Recovery removed 07/20/22, currently working on steroid taper. Fibromyalgia. SOB just walking and putting shoes on. PT-OP-C Subjective Start: 03/03/23 17:50 Freq: Status: Active Protocol: Document 06/07/23 09:02 LRN (Rec: 06/07/23 09:48 LRN [id number]) OP-PT Subjective Patient Comments Patient Comments States she has been diagnosed with osteoporosis. PT-OP-E Functional Tests Start: 03/03/23 17:50 Freq: Status: Active Protocol: Document 05/19/23 08:04 AB (Rec: 05/19/23 12:50 AB [id number]) Functional Tests 2 Minute Walk Test Distance 341 feet Device Used no device PT-OP-G Mobility & Gait Start: 03/03/23 17:50 Freq: Status: Active Protocol: Document 03/04/23 13:04 LRN (Rec: 03/04/23 15:17 LRN [id number]) OP Mobility Evaluation Functional Movements Other Functional Movements Putting coat on: Pt dons from overhead and requires assistance to pull coat down through arms and to clear head . PT-OP-H Neuro Start: 03/03/23 17:50 Freq: Status: Active Protocol: Document 03/04/23 13:04 LRN (Rec: 03/04/23 15:17 LRN [id number]) Sensation Evaluation Gross Sensation Gross Sensation WNL Vital Signs Pulse At rest sitting Pulse at Rest (bpm) 80 Pulse Assessment Method BP cuff Blood Pressure Sitting Blood Pressure (90/60-120/80 mmHg) 125/75 H Blood Pressure Source Automatic Cuff PT-OP-J Posture/Palpation/Skin Start: 03/03/23 17:50 Freq: Status: Active Protocol: Document 03/04/23 13:04 LRN (Rec: 03/04/23 15:17 LRN [id number]) Posture Evaluation Position Standing Head/C-Spine Posture Forward Head T-Spine Posture Increased Kyphosis L-Spine Posture Increased Lordosis Shoulder Posture (L) Rounded,(R) Rounded,(L) Elevated Scapula Posture (L) Neutral,(R) Neutral Arm Posture (L) Internally Rotated,(R) Internally Rotated Pelvis Posture Anteriorly Tilted Weight Distribution Balanced Knee Posture (L) Neutral,(R) Neutral Ankle/Foot Posture (L) Neutral,(R) Neutral Foot Arch (L) High Arch,(R) High Arch PT-OP-K Range of Motion Start: 03/03/23 17:50 Freq: Status: Active Protocol: Document 04/11/23 08:06 AB (Rec: 04/11/23 10:43 AB [id number]) Shoulder Goniometric Range of Motion Shoulder left shoulder AROM Testing Position PROM supine Flexion 151 Abduction 91 External Rotation at 45 degrees 55 Abduction Right shoulder AROM Testing Position PROM supine Flexion 141 Abduction 84 External Rotation at 45 degrees 47 Abduction PT-OP-M Strength Start: 03/03/23 17:50 Freq: Status: Active Protocol: Document 03/07/23 10:36 LRN (Rec: 03/07/23 11:33 LRN [id number]) Finger/Thumb Strength Finger Manual Muscle Testing Right Thumb Flexion (fingers C8) 5 Normal Extension (thumb C8) 4+ Good+ Adduction 5 Normal Abduction (fingers T1) 4+ Good+ Comments Pain with testing of thumb AD. Opposition: 5/5 except with middle finger 3/5 due to lateral wrist pain (around pisiform) and digits 4 & 5 strength is 4+/5. Left Thumb Comments 5/5 w/o pain Opposition: 5/5 with all fingers. PT-OP-Q Treatments Start: 03/03/23 17:50 Freq: Status: Active Protocol: Document 06/07/23 09:02 LRN (Rec: 06/07/23 09:48 LRN [id number]) Gym Equipment Shuttle Recovery Unilateral Squats Resistance 25 Shuttle Recovery Platform Stable Reps/Time 15x Bilateral Squats Details Rubén squats Resistance 37 Shuttle Recovery Platform Stable Reps/Time 15x 2 Therapeutic Exercises Sitting Exercises full cotton converter and full extend Sitting Exercise Name Full Aluminum Pourer (hammer) with arm flex/ext and sup/pron Side right Reps/Minutes 5' Finger flex stretching Sitting Exercise Name Finger flexion stretching, pt stretching to tolerance Side right Reps/Minutes 4' Thumb self flex stretch Sitting Exercise Name Thumb flex & self flex stretch (Garrett stretch) Side right Reps/Minutes 5' MCP, 5' IP jt Comments Cued location of opp hand for stretch, amt of stretch & hand position Standing Exercises Tucking shirt in Standing Exercise Name Tucking shirt in Side bilateral Reps/Minutes 1' Comments Pt able to do with R index finger, difficulty with other fingers. Shldr IR w/towel Standing Exercise Name Shoulder IR stretch with and w /o towel Side bilateral Reps/Minutes 8' Long hold 3' f/b repetitive lifts x 10 Comments Extra time was taken for positioning & finding max fox stretch/position Self-Care/Home Management Treatment Education Other Education (4') Discussed her recent diagnosis of Osteoporosis and how that migh impact her decision on exercise this summer (biking). PT-OP-R Modalities Start: 03/03/23 17:50 Freq: Status: Active Protocol: Document 06/07/23 09:02 GROVER (Rec: 06/07/23 09:48 LRNoé [id number]) Paraffin Bath Treatment Right Hand Treatment Technique Dip-immersion Wax Temperature (degrees F) 120 Number Wax Layers (layers) 7 Patient Tolerance Good PT-OP-T Assessment and Plan Start: 03/03/23 17:50 Freq: Status: Active Protocol: Document 06/07/23 09:02 LRN (Rec: 06/07/23 09:48 N [id number]) Physical Therapy Assessment Rehab Potential Rehabilitation Potential Good Evaluation Complexity Number of Personal Factors/Comorbidities 3 or More Number of Body Systems Impaired 4 or More Clinical Presentation at Evaluation Evolving Impairments Impairments Activity Tolerance,Balance, Functional Activities,Posture, ROM,Strength Goals Six Impairment Decreased balance Impairment SLS: 3 secs R, 8 secs L Tandem stance: R leg behind - 0 secs; L leg behind - 10 secs. Supervisor Shuttle Preparation Goal (LTG) Improve SLS or tandem stance to improve balance and safety with gait. 03/27/23: Treatment note indicates TAndem STance: R foot behind 0 secs, L foot behind 10 secs LTG Duration 8 wks-07/08/23 progressing as of 05/24/23 Five Impairment Decreased R hand cotton converter strength Supervisor Shuttle Preparation Goal (LTG) Pt able to feel safe gripping shower door to get out of shower without fear of falling or cotton converter post on a boat to get off the boat onto a dock. 05/31/2023 Aluminum Pourer strength left 17 , 20, 20 right 11,10,12 lbs LTG Duration 8 wks-07/08/23 Two Impairment Decreased endurance making transfers from chairs and toilet difficult. Impairment Pain in shoulders, legs, R ankle making sitting on toilet w/o a riser and getting up from a chair difficult. (5xSTS Norm for 70-79 yo is 12 .6 secs) (30 sec chair stand Norm for 70-74 yo female is 10-15x) Short Term Goal (STG) Improve endurance with 5xSTS in 12 secs or less or 30 sec chair stand 10x or greater, or walk 546 ft prior to fatigue. 03/07/23: 30 STS - 7 reps. 03/31/23 PT reports less pain right ankle with sit to stand with band tied above knees to control valgus at knee impact on ankle. 04/05/23: 30 STS - 7 reps, 5xSTS in 23 secs. 04/14/23: 30 STS - 7 reps. 5XSTS in 19 secs. 05/05/23: 30 STS - 7 reps. 5XSTS in 21 secs. 06/02/23: 30 STS - 8 reps, 5xSTS in 17 secs. STG Duration 4 wks-06/10/23 (06/02/23: Improved) Supervisor Shuttle Preparation Goal (LTG) Improve endurance with pt able to walk 684 ft prior to fatigue or 13 steps at home without heavy breathing. 03/15/23: Hiking 1.25 miles & is tired after 13 stair steps at home, but not heavily breathing. 04/05/23: (NOTE: chronic fatigue for 35 yrs) Tired still after 13 steps at home. 04/05/23: Walking before fatigue - 500 ft. minute walk test 2 min walk test 341 feet and patient reports daily 20 minute walks and stairs daily X 4 at home. 05/24/2023 walk to fatigue Gia 12/20 rating at 8 min 20 seconds and 1611 feet. 05/26/23: Not heavy breathing after travelling 13 steps. 06/02/23: Walked outdoors 11, 000 steps yesterday. LTG Duration (06/02/23: MET GOAL) One Impairment Pt lacks appropriate self care HEP. Short Term Goal (STG) Pt will be educated and independent in donning/doffing a coat without pain. STG Duration 4 wks-04/01/23 (03/07/23: MET GOAL) Supervisor Shuttle Preparation Goal (LTG) Pt will be independent in a self care HEP for general strengthening of core/LE's/UE' s and bilateral thumb mobility ex's. 03/07/23: HEP: (LE's) Sit<> stands, (UE's)AROM rubén shlder ext (elbows straight & flexed) & I/S in IR reaching hand up spine. 03/10/23: (UE's) I/S pt in self R thumb IP/MCP flex stretch f/b active flex strengthening and issued Lev1 TPutty (yellow). 03/21/23: WAIST PRESSER added HEP: Log roll sup<>sit transfer. 04/07/23: WAIST PRESSER added HEP: (UE' s) supine shoulder flexion, AA seated shoulder ER and towel squeeze and twist. 04/11/23: WAIST PRESSER added HEP: AROM tendon glide. 04/19/23: WAIST PRESSER added HEP: (UE' s) loosening knots with large ropes with right hand for strengthening. Discussed jar out of town collection clerk devices and knives that are designed for weak hands. 04/21/23; WAIST PRESSER added HEP: (UE) AROM IR. 04/26/23: Pt to ex for endurance (Core:standing UBE) using GIA Perceived Exertion Scale of Fairly Light (scale 11) to less than Somewhat Hard. Sit<>Stand ex's at home, but to do less if too tiring. LTG Duration 8 wks-07/08/23 progressing 03/07/23 Assessment Summary Assessment Pt is a 72 yo female attending rehab to improve endurance ( primarily walking), reduce fatigue, decr R thumb pain and improve R hand function (cotton converter ). Today she demonstrates improved endurance in LE's, tolerating many more reps with SL & double leg squats on Shuttle Recovery. Unknown how it effects function of sit<> stands. Pt new diagnosis of osteoporosis leads her to reconsider use of outdoor bike this summer for safety reasons. The pt could benefit from further therapy to improve her LE strength/ endurance for stair ambulation and sit<>stand ability. Her cotton converter ability is slowly improving as expected. Focus of therapy has been on her LE strength/endurance and function (with sit<>stands and stair ambulation) and improving cotton converter ability and strength. The pt would benefit from continued skilled physical therapy to further improve her LE strength and endurance, improve her cotton converter ability and strength and to start progressing balance rehab and HEP. Physical Therapy Plan Frequency and Duration Frequency of Treatment 2x/Week Duration of treatment (weeks) 8 Plan of Care Start Date 05/10/23 Plan of Care End Date 07/08/23 Therapeutic Interventions Therapeutic Interventions Balance Training,Home Exercise Program,Joint Mobilizations, Manual Therapy,Neuromuscular Re-education,Self-Care/Home Management,Soft Tissue Mobilization,Therapeutic Activities,Therapeutic Exercises Modalities Electric Stimulation,Hot Packs ,Paraffin Bath Next Visit Focus/Plan Next Note Type Progress Note Next Visit Plan Next: Assess for Progress Note: ABC score, Aluminum Pourer strength , SLS and/or Tandem stance. Assess stair amb. Paraffin dip R hand, start stair stepping for LE/quad, gluteal strengthening. FOCUS: R hand mobility and cotton converter strength, & Endurance for ascending stairs. Encourage pt to improve endurance on home stair program. Focus on improving R thumb mobility and finger/wrist ext mobility (stretch to flexors), f/b strengthening flexion to improve thumb/hand ability to cotton converter (GOAL 5), and Quad/ Hamstring strengthening (STS endurance), and improve balance once LE strength achieved, (R LE primarily) for safety and fluidity of gait. ENDURANCE: LE: Sit<>Stands from lower surface, monitor for appropriate Perceived exertion scale 10-11. Balance & Progress HEP (see LT GOAL #1). [ End ]
--- NOTE | 2023-06-09 12:13 | PT.OTN ---
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) Pain in unspecified joint (06/09/23) Physical Therapy Treatment Note PT-OP-A Visit Information Start: 03/03/23 17:50 Freq: Status: Active Protocol: Document 06/09/23 09:06 AB (Rec: 06/09/23 09:47 AB [id number]) Out-Patient Physical Therapy Visit Information Visit Information Visit Type Treatment Note Visit Note 11/30 Visit Start Time 09:03 Visit Stop Time 09:43 Visit Number 28 Number of COMPUTER FORENSIC SPECIALIST Visits 1 PT-OP-B Current Condition Start: 03/03/23 17:50 Freq: Status: Active Protocol: Document 03/04/23 13:04 LRN (Rec: 03/04/23 15:17 LRN [id number]) Current Condition History of Current Condition Onset Date 06/3022 Current Complaints Fatigue, SOB, general soreness of body. 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 Currently dealing with effect of tapering down use of hydrocortisone. Shoulders, legs, R ankle pain new since surgery. Has hot spots on top of L leg and at spine on LB, R hand (cat bit her a couple months before surgery). On 6 hrs of Tylenol and 8 hrs on Meloxicam daily then can sleep. R hand is most problematic. Prior Treatments and Tests MRI & CAT scan to check on surgery results. PT for neck 5-6 yrs ago without resolution. Treatment Goals Patient/Caregiver Goals Pt goals: Cooking or sitting on toilet w /o the riser w/o pain in shoulders, legs, R ankle. Getting up from chair without difficulty. Able to move stick shift with R hand w/o pain. Taking on/off coat w/o pain. Prior Functional Status Baseline Function- ADL's Independent Baseline Function- Mobility Independent Baseline Function- Other Before surgery (2 yrs ago) hiking and 1/2 mile a day. 2x /week 3-5 miles. Before surgery: (3yrs ago) Panting putting shoes/boots, walking 1 mile. Current Functional Impairments (Reported) Functional Limitations- ADL's Difficulty opening cans with can meat soaker, and help to put coat on. Functional Limitations- Mobility/Gait Walks 1x/day 6-8 blocks. Fatigued from walking into treatment room. 13 steps to get to room, results in breathing heavy. Personal Factors Other Personal Factors That May Effect Tumor from pituitary gland Therapy/Recovery removed 07/20/22, currently working on steroid taper. Fibromyalgia. SOB just walking and putting shoes on. PT-OP-C Subjective Start: 03/03/23 17:50 Freq: Status: Active Protocol: Document 06/09/23 09:06 AB (Rec: 06/09/23 09:47 AB [id number]) OP-PT Subjective Patient Comments Patient Comments Patient reports she saw the energy infrastructure engineer and was told to tell us (physical therapy) to work her as hard as we can. Patient reports opening jars was able to open jars she wasn 't so sure that she would be able to in the past few days. PT-OP-E Functional Tests Start: 03/03/23 17:50 Freq: Status: Active Protocol: Document 05/19/23 08:04 AB (Rec: 05/19/23 12:50 AB [id number]) Functional Tests 2 Minute Walk Test Distance 341 feet Device Used no device PT-OP-G Mobility & Gait Start: 03/03/23 17:50 Freq: Status: Active Protocol: Document 03/04/23 13:04 LRN (Rec: 03/04/23 15:17 LRN [id number]) OP Mobility Evaluation Functional Movements Other Functional Movements Putting coat on: Pt dons from overhead and requires assistance to pull coat down through arms and to clear head . PT-OP-H Neuro Start: 03/03/23 17:50 Freq: Status: Active Protocol: Document 03/04/23 13:04 LRN (Rec: 03/04/23 15:17 LRN [id number]) Sensation Evaluation Gross Sensation Gross Sensation WNL Vital Signs Pulse At rest sitting Pulse at Rest (bpm) 80 Pulse Assessment Method BP cuff Blood Pressure Sitting Blood Pressure (90/60-120/80 mmHg) 125/75 H Blood Pressure Source Automatic Cuff PT-OP-J Posture/Palpation/Skin Start: 03/03/23 17:50 Freq: Status: Active Protocol: Document 03/04/23 13:04 LRN (Rec: 03/04/23 15:17 LRN [id number]) Posture Evaluation Position Standing Head/C-Spine Posture Forward Head T-Spine Posture Increased Kyphosis L-Spine Posture Increased Lordosis Shoulder Posture (L) Rounded,(R) Rounded,(L) Elevated Scapula Posture (L) Neutral,(R) Neutral Arm Posture (L) Internally Rotated,(R) Internally Rotated Pelvis Posture Anteriorly Tilted Weight Distribution Balanced Knee Posture (L) Neutral,(R) Neutral Ankle/Foot Posture (L) Neutral,(R) Neutral Foot Arch (L) High Arch,(R) High Arch PT-OP-K Range of Motion Start: 03/03/23 17:50 Freq: Status: Active Protocol: Document 04/11/23 08:06 AB (Rec: 04/11/23 10:43 AB [id number]) Shoulder Goniometric Range of Motion Shoulder left shoulder AROM Testing Position PROM supine Flexion 151 Abduction 91 External Rotation at 45 degrees 55 Abduction Right shoulder AROM Testing Position PROM supine Flexion 141 Abduction 84 External Rotation at 45 degrees 47 Abduction PT-OP-M Strength Start: 03/03/23 17:50 Freq: Status: Active Protocol: Document 03/07/23 10:36 LRN (Rec: 03/07/23 11:33 LRN [id number]) Finger/Thumb Strength Finger Manual Muscle Testing Right Thumb Flexion (fingers C8) 5 Normal Extension (thumb C8) 4+ Good+ Adduction 5 Normal Abduction (fingers T1) 4+ Good+ Comments Pain with testing of thumb AD. Opposition: 5/5 except with middle finger 3/5 due to lateral wrist pain (around pisiform) and digits 4 & 5 strength is 4+/5. Left Thumb Comments 5/5 w/o pain Opposition: 5/5 with all fingers. PT-OP-Q Treatments Start: 03/03/23 17:50 Freq: Status: Active Protocol: Document 06/09/23 09:06 AB (Rec: 06/09/23 09:47 AB [id number]) Cardio Equipment Bicycle (Upright) Duration (Minutes) 10 Resistance 5 Seat Position 5 Other 6.5 min reports feeling a little sweat, able to hold a conversation Therapeutic Exercises Sitting Exercises wrist extension Side right Reps/Minutes X10 X 2 Manual Therapy Treatment Soft Tissue Mobilization right forearm Body Location prior to hand and wrist ex Mobilization Type Rolling,Other Intensity/Depth Superficial Body Position Sitting Comments prior to wrist/finger exercises Joint Mobilizations R thumb MCP jt Joint R thumb MCP jt Direction PA AP Grade III Body Position Sitting Reps/Duration X10 R thumb IP jt Joint and PIP this session Direction AP and PA Grade III Body Position Sitting Reps/Duration X10 Manual Techniques thumb flexion Type PROM manually MCP, IP jt right Body Location right thumb Body Position Sitting Reps/Duration 1 x8 Comments monitored for pain PT-OP-R Modalities Start: 03/03/23 17:50 Freq: Status: Active Protocol: Document 06/09/23 09:06 AB (Rec: 06/09/23 12:11 AB [id number]) Paraffin Bath Treatment Right Hand Treatment Technique Dip-immersion Wax Temperature (degrees F) 120 Number Wax Layers (layers) 7 Patient Tolerance Good PT-OP-T Assessment and Plan Start: 03/03/23 17:50 Freq: Status: Active Protocol: Document 06/09/23 09:06 AB (Rec: 06/09/23 09:47 AB [id number]) Physical Therapy Assessment Goals Six Impairment Decreased balance Impairment SLS: 3 secs R, 8 secs L Tandem stance: R leg behind - 0 secs; L leg behind - 10 secs. Halfway Goal (LTG) Improve SLS or tandem stance to improve balance and safety with gait. 03/27/23: Treatment note indicates TAndem STance: R foot behind 0 secs, L foot behind 10 secs 06/09/2023 Left LE 15 seconds SLS without UE use right LE 17 seconds LTG Duration 8 wks-07/08/23 progressing as of 05/24/23 Five Impairment Decreased R hand general production worker strength Radiotelegraphist Goal (LTG) Pt able to feel safe gripping shower door to get out of shower without fear of falling or general production worker post on a boat to get off the boat onto a dock. 05/31/2023 Contact Lens Assistant strength left 17 , 20, 20 right 11,10,12 lbs 06/09/2023 Pt reports continued difficulty gripping hammer, door of shower which is a small general production worker, and hasn't tried post at boat. 10,11,12.5 lb general production worker strength right UE this session LTG Duration 8 wks-07/08/23 Progressing () Two Impairment Decreased endurance making transfers from chairs and toilet difficult. Impairment Pain in shoulders, legs, R ankle making sitting on toilet w/o a riser and getting up from a chair difficult. (5xSTS Norm for 70-79 yo is 12 .6 secs) (30 sec chair stand Norm for 70-74 yo female is 10-15x) Short Term Goal (STG) Improve endurance with 5xSTS in 12 secs or less or 30 sec chair stand 10x or greater, or walk 546 ft prior to fatigue. 03/07/23: 30 STS - 7 reps. 03/31/23 PT reports less pain right ankle with sit to stand with band tied above knees to control valgus at knee impact on ankle. 04/05/23: 30 STS - 7 reps, 5xSTS in 23 secs. 04/14/23: 30 STS - 7 reps. 5XSTS in 19 secs. 05/05/23: 30 STS - 7 reps. 5XSTS in 21 secs. 06/02/23: 30 STS - 8 reps, 5xSTS in 17 secs. 06/09/2023 5X sit to automated manufacturing instructor 16 seconds STG Duration 4 wks-06/10/23 (06/02/23: Improved) ( 06/09/2023 slightly improved) Radiotelegraphist Goal (LTG) Improve endurance with pt able to walk 684 ft prior to fatigue or 13 steps at home without heavy breathing. 03/15/23: Hiking 1.25 miles & is tired after 13 stair steps at home, but not heavily breathing. 04/05/23: (NOTE: chronic fatigue for 35 yrs) Tired still after 13 steps at home. 04/05/23: Walking before fatigue - 500 ft. 2 minute walk test 2 min walk test 341 feet and patient reports daily 20 minute walks and stairs daily X 4 at home. 05/24/2023 walk to fatigue Gia 12/20 rating at 8 min 20 seconds and 1611 feet. 05/26/23: Not heavy breathing after travelling 13 steps. 06/02/23: Walked outdoors 11, 000 steps yesterday. LTG Duration (06/02/23: MET GOAL) One Impairment Pt lacks appropriate self care HEP. Short Term Goal (STG) Pt will be educated and independent in donning/doffing a coat without pain. STG Duration 4 wks-04/01/23 (03/07/23: MET GOAL) Radiotelegraphist Goal (LTG) Pt will be independent in a self care HEP for general strengthening of core/LE's/UE' s and bilateral thumb mobility ex's. 03/07/23: HEP: (LE's) Sit<> stands, (UE's)AROM rubén shlder ext (elbows straight & flexed) & I/S in IR reaching hand up spine. 03/10/23: (UE's) I/S pt in self R thumb IP/MCP flex stretch f/b active flex strengthening and issued Lev1 TPutty (yellow). 03/21/23: COMPUTER FORENSIC SPECIALIST added HEP: Log roll sup<>sit transfer. 04/07/23: COMPUTER FORENSIC SPECIALIST added HEP: (UE' s) supine shoulder flexion, AA seated shoulder ER and towel squeeze and twist. 04/11/23: COMPUTER FORENSIC SPECIALIST added HEP: AROM tendon glide. 04/19/23: COMPUTER FORENSIC SPECIALIST added HEP: (UE' s) loosening knots with large ropes with right hand for strengthening. Discussed jar meat soaker devices and knives that are designed for weak hands. 04/21/23; COMPUTER FORENSIC SPECIALIST added HEP: (UE) AROM IR. 04/26/23: Pt to ex for endurance (Core:standing UBE) using GIA Perceived Exertion Scale of Fairly Light (scale 11) to less than Somewhat Hard. Sit<>Stand ex's at home, but to do less if too tiring. 06/09/2023 - Patient reports working on using all of fingers when dressing, but has been working on it. Patient able to touch base of 5th digit with thumb, oppostition AROM LTG Duration 8 wks-07/08/23 progressing 03/07/23 Progress Towards Goals Progress Comments Patient has made significant progress toward goal six for balance, and continues to progress minimally with goal 5 and 2. Regarding goal one patient was able to touch base of 5th digit with right hand opposition this session AROM. Assessment Summary Assessment Patient reports feeling pretty good end of session. Patient continues to make progress toward goals with the largest gains made toward the balance goal ie goal 6. Patient's functional use of right UE continues to be limited and will continue to benefit from progression of exercises and manual therapy. Physical Therapy Plan Frequency and Duration Frequency of Treatment 2x/Week Duration of treatment (weeks) 8 Plan of Care Start Date 05/10/23 Plan of Care End Date 07/08/23 Next Visit Focus/Plan Next Note Type Treatment Note Next Visit Plan Next: Assess for Progress Note: ABC score, Contact Lens Assistant strength , SLS and/or Tandem stance. Assess stair amb. Paraffin dip R hand, start stair stepping for LE/quad, gluteal strengthening. FOCUS: R hand mobility and general production worker strength, & Endurance for ascending stairs. Encourage pt to improve endurance on home stair program. Focus on improving R thumb mobility and finger/wrist ext mobility (stretch to flexors), f/b strengthening flexion to improve thumb/hand ability to general production worker (GOAL 5), and Quad/ Hamstring strengthening (STS endurance), and improve balance once LE strength achieved, (R LE primarily) for safety and fluidity of gait. ENDURANCE: LE: Sit<>Stands from lower surface, monitor for appropriate Perceived exertion scale 10-11. Balance & Progress HEP (see LT GOAL #1). [ End ]
--- NOTE | 2023-06-09 17:42 | PT.OPPN ---
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) Pain in unspecified joint (06/09/23) Physical Therapy Progress Note PT-OP-A Visit Information Start: 03/03/23 17:50 Freq: Status: Active Protocol: Document 06/09/23 09:06 AB (Rec: 06/09/23 09:47 AB [id number]) Out-Patient Physical Therapy Visit Information Visit Information Visit Type Treatment Note Visit Note 11/30 Visit Start Time 09:03 Visit Stop Time 09:43 Visit Number 28 Number of DORMITORY MAID Visits 1 PT-OP-B Current Condition Start: 03/03/23 17:50 Freq: Status: Active Protocol: Document 03/04/23 13:04 LRN (Rec: 03/04/23 15:17 LRN [id number]) Current Condition History of Current Condition Onset Date 06/3022 Current Complaints Fatigue, SOB, general soreness of body. 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 Currently dealing with effect of tapering down use of hydrocortisone. Shoulders, legs, R ankle pain new since surgery. Has hot spots on top of L leg and at spine on LB, R hand (cat bit her a couple months before surgery). On 6 hrs of Tylenol and 8 hrs on Meloxicam daily then can sleep. R hand is most problematic. Prior Treatments and Tests MRI & CAT scan to check on surgery results. PT for neck 5-6 yrs ago without resolution. Treatment Goals Patient/Caregiver Goals Pt goals: Cooking or sitting on toilet w /o the riser w/o pain in shoulders, legs, R ankle. Getting up from chair without difficulty. Able to move stick shift with R hand w/o pain. Taking on/off coat w/o pain. Prior Functional Status Baseline Function- ADL's Independent Baseline Function- Mobility Independent Baseline Function- Other Before surgery (2 yrs ago) hiking and 1/2 mile a day. 2x /week 3-5 miles. Before surgery: (3yrs ago) Panting putting shoes/boots, walking 1 mile. Current Functional Impairments (Reported) Functional Limitations- ADL's Difficulty opening cans with can rubber compounder formulator, and help to put coat on. Functional Limitations- Mobility/Gait Walks 1x/day 6-8 blocks. Fatigued from walking into treatment room. 13 steps to get to room, results in breathing heavy. Personal Factors Other Personal Factors That May Effect Tumor from pituitary gland Therapy/Recovery removed 07/20/22, currently working on steroid taper. Fibromyalgia. SOB just walking and putting shoes on. PT-OP-C Subjective Start: 03/03/23 17:50 Freq: Status: Active Protocol: Document 06/09/23 09:06 AB (Rec: 06/09/23 09:47 AB [id number]) OP-PT Subjective Patient Comments Patient Comments Patient reports she saw the luncheonette manager and was told to tell us (physical therapy) to work her as hard as we can. Patient reports opening jars was able to open jars she wasn 't so sure that she would be able to in the past few days. PT-OP-E Functional Tests Start: 03/03/23 17:50 Freq: Status: Active Protocol: Document 05/19/23 08:04 AB (Rec: 05/19/23 12:50 AB [id number]) Functional Tests 2 Minute Walk Test Distance 341 feet Device Used no device PT-OP-G Mobility & Gait Start: 03/03/23 17:50 Freq: Status: Active Protocol: Document 03/04/23 13:04 LRN (Rec: 03/04/23 15:17 LRN [id number]) OP Mobility Evaluation Functional Movements Other Functional Movements Putting coat on: Pt dons from overhead and requires assistance to pull coat down through arms and to clear head . PT-OP-H Neuro Start: 03/03/23 17:50 Freq: Status: Active Protocol: Document 03/04/23 13:04 LRN (Rec: 03/04/23 15:17 LRN [id number]) Sensation Evaluation Gross Sensation Gross Sensation WNL Vital Signs Pulse At rest sitting Pulse at Rest (bpm) 80 Pulse Assessment Method BP cuff Blood Pressure Sitting Blood Pressure (90/60-120/80 mmHg) 125/75 H Blood Pressure Source Automatic Cuff PT-OP-J Posture/Palpation/Skin Start: 03/03/23 17:50 Freq: Status: Active Protocol: Document 03/04/23 13:04 LRN (Rec: 03/04/23 15:17 LRN [id number]) Posture Evaluation Position Standing Head/C-Spine Posture Forward Head T-Spine Posture Increased Kyphosis L-Spine Posture Increased Lordosis Shoulder Posture (L) Rounded,(R) Rounded,(L) Elevated Scapula Posture (L) Neutral,(R) Neutral Arm Posture (L) Internally Rotated,(R) Internally Rotated Pelvis Posture Anteriorly Tilted Weight Distribution Balanced Knee Posture (L) Neutral,(R) Neutral Ankle/Foot Posture (L) Neutral,(R) Neutral Foot Arch (L) High Arch,(R) High Arch PT-OP-K Range of Motion Start: 03/03/23 17:50 Freq: Status: Active Protocol: Document 04/11/23 08:06 AB (Rec: 04/11/23 10:43 AB [id number]) Shoulder Goniometric Range of Motion Shoulder Measured in Degrees left shoulder AROM Testing Position PROM supine Flexion 151 Abduction 91 External Rotation at 45 degrees 55 Abduction Right shoulder AROM Testing Position PROM supine Flexion 141 Abduction 84 External Rotation at 45 degrees 47 Abduction PT-OP-M Strength Start: 03/03/23 17:50 Freq: Status: Active Protocol: Document 03/07/23 10:36 LRN (Rec: 03/07/23 11:33 LRN [id number]) Finger/Thumb Strength Finger Manual Muscle Testing Right Thumb Flexion (fingers C8) 5 Normal Extension (thumb C8) 4+ Good+ Adduction 5 Normal Abduction (fingers T1) 4+ Good+ Comments Pain with testing of thumb AD. Opposition: 5/5 except with middle finger 3/5 due to lateral wrist pain (around pisiform) and digits 4 & 5 strength is 4+/5. Left Thumb Comments 5/5 w/o pain Opposition: 5/5 with all fingers. PT-OP-T Assessment and Plan Start: 03/03/23 17:50 Freq: Status: Active Protocol: Document 06/09/23 17:33 LRN (Rec: 06/09/23 17:42 LRN [id number]) Physical Therapy Assessment Goals Six Impairment Decreased balance Impairment SLS: 3 secs R, 8 secs L Tandem stance: R leg behind - 0 secs; L leg behind - 10 secs. Custodial Goal (LTG) Improve SLS or tandem stance to improve balance and safety with gait. 03/27/23: Treatment note indicates TAndem STance: R foot behind 0 secs, L foot behind 10 secs 06/09/2023 Left LE 15 seconds SLS without UE use right LE 17 seconds LTG Duration 8 wks-08/05/23 progressing as of 05/24/23 Five Impairment Decreased R hand pit hand strength Dance Master Goal (LTG) Pt able to feel safe gripping shower door to get out of shower without fear of falling or pit hand post on a boat to get off the boat onto a dock. 05/31/2023 Double End Chucking Machine Operator strength left 17 , 20, 20 right 11,10,12 lbs 06/09/2023 Pt reports continued difficulty gripping hammer, door of shower which is a small pit hand, and hasn't tried post at boat. 10,11,12.5 lb pit hand strength right UE this session LTG Duration 8 wks-08/05/23 Progressing (06/09/2023) Two Impairment Decreased endurance making transfers from chairs and toilet difficult. Impairment Pain in shoulders, legs, R ankle making sitting on toilet w/o a riser and getting up from a chair difficult. (5xSTS Norm for 70-79 yo is 12 .6 secs) (30 sec chair stand Norm for 70-74 yo female is 10-15x) Short Term Goal (STG) Improve endurance with 5xSTS in 12 secs or less or 30 sec chair stand 10x or greater, or walk 546 ft prior to fatigue. 03/07/23: 30 STS - 7 reps. 03/31/23 PT reports less pain right ankle with sit to stand with band tied above knees to control valgus at knee impact on ankle. 04/05/23: 30 STS - 7 reps, 5xSTS in 23 secs. 04/14/23: 30 STS - 7 reps. 5XSTS in 19 secs. 05/05/23: 30 STS - 7 reps. 5XSTS in 21 secs. 06/02/23: 30 STS - 8 reps, 5xSTS in 17 secs. 06/09/2023 5X sit to balance truing inspector 16 seconds STG Duration 4 wks-07/08/23 (06/02/23: Improved) ( 06/09/2023 slightly improved) Dance Master Goal (LTG) Improve endurance with pt able to walk 684 ft prior to fatigue or 13 steps at home without heavy breathing. 03/15/23: Hiking 1.25 miles & is tired after 13 stair steps at home, but not heavily breathing. 04/05/23: (NOTE: chronic fatigue for 35 yrs) Tired still after 13 steps at home. 04/05/23: Walking before fatigue - 500 ft. minute walk test 2 min walk test 341 feet and patient reports daily 20 minute walks and stairs daily X 4 at home. 05/24/2023 walk to fatigue Gia 12/20 rating at 8 min 20 seconds and 1611 feet. 05/26/23: Not heavy breathing after travelling 13 steps. 06/02/23: Walked outdoors 11, 000 steps yesterday. LTG Duration (06/02/23: MET GOAL) One Impairment Pt lacks appropriate self care HEP. Short Term Goal (STG) Pt will be educated and independent in donning/doffing a coat without pain. STG Duration 4 wks-04/01/23 (03/07/23: MET GOAL) Dance Master Goal (LTG) Pt will be independent in a self care HEP for general strengthening of core/LE's/UE' s and bilateral thumb mobility ex's. 03/07/23: HEP: (LE's) Sit<> stands, (UE's)AROM rubén shlder ext (elbows straight & flexed) & I/S in IR reaching hand up spine. 03/10/23: (UE's) I/S pt in self R thumb IP/MCP flex stretch f/b active flex strengthening and issued Lev1 TPutty (yellow). 03/21/23: DORMITORY MAID added HEP: Log roll sup<>sit transfer. 04/07/23: DORMITORY MAID added HEP: (UE' s) supine shoulder flexion, AA seated shoulder ER and towel squeeze and twist. 04/11/23: DORMITORY MAID added HEP: AROM tendon glide. 04/19/23: DORMITORY MAID added HEP: (UE' s) loosening knots with large ropes with right hand for strengthening. Discussed jar rubber compounder formulator devices and knives that are designed for weak hands. 04/21/23; DORMITORY MAID added HEP: (UE) AROM IR. 04/26/23: Pt to ex for endurance (Core:standing UBE) using GIA Perceived Exertion Scale of Fairly Light (scale 11) to less than Somewhat Hard. Sit<>Stand ex's at home, but to do less if too tiring. 06/09/2023 - Patient reports working on using all of fingers when dressing, but has been working on it. Patient able to touch base of 5th digit with thumb, oppostition AROM LTG Duration 8 wks-08/05/23 progressing 03/07/23 Assessment Summary Assessment Pt is a 72 yo female attending rehab to improve endurance ( primarily walking), reduce fatigue, decr R thumb pain and improve R hand function (pit hand ). The pt continues to make progress toward goals with the largest gains made toward the balance goal ie goal 6. Patient's functional use of right UE continues to be limited. The pt would benefit from continued skilled physical therapy to further improve her LE strength and endurance, improve her pit hand ability/strength and to progress balance for safety with gait and functional activities and progression of her HEP. Physical Therapy Plan Frequency and Duration Frequency of Treatment 2x/Week Duration of treatment (weeks) 8 Plan of Care Start Date 06/09/23 Plan of Care End Date 08/05/23 Next Visit Focus/Plan Next Note Type Treatment Note Next Visit Plan Next: Assess for Progress Note: ABC score, Double End Chucking Machine Operator strength , SLS and/or Tandem stance. Assess stair amb. Paraffin dip R hand, start stair stepping for LE/quad, gluteal strengthening. FOCUS: R hand mobility and pit hand strength, & Endurance for ascending stairs. Encourage pt to improve endurance on home stair program. Focus on improving R thumb mobility and finger/wrist ext mobility (stretch to flexors), f/b strengthening flexion to improve thumb/hand ability to pit hand (GOAL 5), and Quad/ Hamstring strengthening (STS endurance), and improve balance once LE strength achieved, (R LE primarily) for safety and fluidity of gait. ENDURANCE: LE: Sit<>Stands from lower surface, monitor for appropriate Perceived exertion scale 10-11. Balance & Progress HEP (see LT GOAL #1). [ End ]
--- NOTE | 2023-06-09 17:42 | PT.OPPOC ---
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) Pain in unspecified joint (06/09/23) Visit Care Team Role Provider Type Caitlyn Dominguez DO Attending Provider Physician Family Provider Primary Care Provider Referring Provider Specialty: Family Practice Address: [address] [place] [address], [address], [facility] Email: [email or web address] Plan Of Care PT-OP-T Assessment and Plan Start: 03/03/23 17:50 Freq: Status: Active Protocol: Document 06/09/23 17:33 LRN (Rec: 06/09/23 17:42 LRN [id number]) Physical Therapy Assessment Goals Six Impairment Decreased balance Impairment SLS: 3 secs R, 8 secs L Tandem stance: R leg behind - 0 secs; L leg behind - 10 secs. Mcfp Goal (LTG) Improve SLS or tandem stance to improve balance and safety with gait. 03/27/23: Treatment note indicates TAndem STance: R foot behind 0 secs, L foot behind 10 secs 06/09/2023 Left LE 15 seconds SLS without UE use right LE 17 seconds LTG Duration 8 wks-08/05/23 progressing as of 05/24/23 Five Impairment Decreased R hand clothing man strength Mcfp Goal (LTG) Pt able to feel safe gripping shower door to get out of shower without fear of falling or clothing man post on a boat to get off the boat onto a dock. 05/31/2023 Paper Testing Supervisor strength left 17 , 20, 20 right 11,10,12 lbs 06/09/2023 Pt reports continued difficulty gripping hammer, door of shower which is a small clothing man, and hasn't tried post at boat. 10,11,12.5 lb clothing man strength right UE this session LTG Duration 8 wks-08/05/23 Progressing (06/09/2023) Two Impairment Decreased endurance making transfers from chairs and toilet difficult. Impairment Pain in shoulders, legs, R ankle making sitting on toilet w/o a riser and getting up from a chair difficult. (5xSTS Norm for 70-79 yo is 12 .6 secs) (30 sec chair stand Norm for 70-74 yo female is 10-15x) Short Term Goal (STG) Improve endurance with 5xSTS in 12 secs or less or 30 sec chair stand 10x or greater, or walk 546 ft prior to fatigue. 03/07/23: 30 STS - 7 reps. 03/31/23 PT reports less pain right ankle with sit to stand with band tied above knees to control valgus at knee impact on ankle. 04/05/23: 30 STS - 7 reps, 5xSTS in 23 secs. 04/14/23: 30 STS - 7 reps. 5XSTS in 19 secs. 05/05/23: 30 STS - 7 reps. 5XSTS in 21 secs. 06/02/23: 30 STS - 8 reps, 5xSTS in 17 secs. 06/09/2023 5X sit to gear grinding machine operator 16 seconds STG Duration 4 wks-07/08/23 (06/02/23: Improved) ( 06/09/2023 slightly improved) Mcfp Goal (LTG) Improve endurance with pt able to walk 684 ft prior to fatigue or 13 steps at home without heavy breathing. 03/15/23: Hiking 1.25 miles & is tired after 13 stair steps at home, but not heavily breathing. 04/05/23: (NOTE: chronic fatigue for 35 yrs) Tired still after 13 steps at home. 04/05/23: Walking before fatigue - 500 ft. 2 minute walk test 2 min walk test 341 feet and patient reports daily 20 minute walks and stairs daily X 4 at home. 05/24/2023 walk to fatigue Gia 12/20 rating at 8 min 20 seconds and 1611 feet. 05/26/23: Not heavy breathing after travelling 13 steps. 06/02/23: Walked outdoors 11, 000 steps yesterday. LTG Duration (06/02/23: MET GOAL) One Impairment Pt lacks appropriate self care HEP. Short Term Goal (STG) Pt will be educated and independent in donning/doffing a coat without pain. STG Duration 4 wks-04/01/23 (03/07/23: MET GOAL) Mcfp Goal (LTG) Pt will be independent in a self care HEP for general strengthening of core/LE's/UE' s and bilateral thumb mobility ex's. 03/07/23: HEP: (LE's) Sit<> stands, (UE's)AROM rubén shlder ext (elbows straight & flexed) & I/S in IR reaching hand up spine. 03/10/23: (UE's) I/S pt in self R thumb IP/MCP flex stretch f/b active flex strengthening and issued Lev1 TPutty (yellow). 03/21/23: BUFFING TURNER AND COUNTER added HEP: Log roll sup<>sit transfer. 04/07/23: BUFFING TURNER AND COUNTER added HEP: (UE' s) supine shoulder flexion, AA seated shoulder ER and towel squeeze and twist. 04/11/23: BUFFING TURNER AND COUNTER added HEP: AROM tendon glide. 04/19/23: BUFFING TURNER AND COUNTER added HEP: (UE' s) loosening knots with large ropes with right hand for strengthening. Discussed jar mussel opener devices and knives that are designed for weak hands. 04/21/23; BUFFING TURNER AND COUNTER added HEP: (UE) AROM IR. 04/26/23: Pt to ex for endurance (Core:standing UBE) using GIA Perceived Exertion Scale of Fairly Light (scale 11) to less than Somewhat Hard. Sit<>Stand ex's at home, but to do less if too tiring. 06/09/2023 - Patient reports working on using all of fingers when dressing, but has been working on it. Patient able to touch base of 5th digit with thumb, oppostition AROM LTG Duration 8 wks-08/05/23 progressing 03/07/23 Assessment Summary Assessment Pt is a 72 yo female attending rehab to improve endurance ( primarily walking), reduce fatigue, decr R thumb pain and improve R hand function (clothing man ). The pt continues to make progress toward goals with the largest gains made toward the balance goal ie goal 6. Patient's functional use of right UE continues to be limited. The pt would benefit from continued skilled physical therapy to further improve her LE strength and endurance, improve her clothing man ability/strength and to progress balance for safety with gait and functional activities and progression of her HEP. Physical Therapy Plan Frequency and Duration Frequency of Treatment 2x/Week Duration of treatment (weeks) 8 Plan of Care Start Date 06/09/23 Plan of Care End Date 08/05/23 Next Visit Focus/Plan Next Note Type Treatment Note Next Visit Plan Next: Assess for Progress Note: ABC score, Paper Testing Supervisor strength , SLS and/or Tandem stance. Assess stair amb. Paraffin dip R hand, start stair stepping for LE/quad, gluteal strengthening. FOCUS: R hand mobility and clothing man strength, & Endurance for ascending stairs. Encourage pt to improve endurance on home stair program. Focus on improving R thumb mobility and finger/wrist ext mobility (stretch to flexors), f/b strengthening flexion to improve thumb/hand ability to clothing man (GOAL 5), and Quad/ Hamstring strengthening (STS endurance), and improve balance once LE strength achieved, (R LE primarily) for safety and fluidity of gait. ENDURANCE: LE: Sit<>Stands from lower surface, monitor for appropriate Perceived exertion scale 10-11. Balance & Progress HEP (see LT GOAL #1). [ End ] Plan of Care Dates Plan of Care Start Date 06/09/23 Plan of Care End Date 08/05/23 Electronically Signed by: Kim Reyes, PT 06/09/23 7823 If you are in agreement with this Plan of Care, please return a signed and dated copy. I have reviewed this Plan of Care and certify that the skilled therapy services above are required to meet the patient?s needs. Physician Signature Date Printed Name and Credentials Clinical Instructor Signature Printed Name and Credentials
--- NOTE | 2023-06-14 16:17 | PT.OTN ---
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) Pain in unspecified joint (06/14/23) Physical Therapy Treatment Note PT-OP-A Visit Information Start: 03/03/23 17:50 Freq: Status: Active Protocol: Document 06/14/23 12:52 AB (Rec: 06/14/23 15:01 AB [id number]) Out-Patient Physical Therapy Visit Information Visit Information Visit Type Treatment Note Visit Note Access Code [email or web address] Visit Start Time 13:48 Visit Stop Time 14:30 Visit Number 29 Number of CREDIT HISTORIAN Visits 2 Evaluation Information Evaluation Date 03/04/23 Precautions Precautions SOB after walking & putting shoes on, Fibromyalgia, [place]'s disease, Chronic fatigue for 35 yrs, recent surgery (07/20/22) 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 PT-OP-B Current Condition Start: 03/03/23 17:50 Freq: Status: Active Protocol: Document 03/04/23 13:04 LRN (Rec: 03/04/23 15:17 LRN [id number]) Current Condition History of Current Condition Onset Date 06/3022 Current Complaints Fatigue, SOB, general soreness of body. 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 Currently dealing with effect of tapering down use of hydrocortisone. Shoulders, legs, R ankle pain new since surgery. Has hot spots on top of L leg and at spine on LB, R hand (cat bit her a couple months before surgery). On 6 hrs of Tylenol and 8 hrs on Meloxicam daily then can sleep. R hand is most problematic. Prior Treatments and Tests MRI & CAT scan to check on surgery results. PT for neck 5-6 yrs ago without resolution. Treatment Goals Patient/Caregiver Goals Pt goals: Cooking or sitting on toilet w /o the riser w/o pain in shoulders, legs, R ankle. Getting up from chair without difficulty. Able to move stick shift with R hand w/o pain. Taking on/off coat w/o pain. Prior Functional Status Baseline Function- ADL's Independent Baseline Function- Mobility Independent Baseline Function- Other Before surgery (2 yrs ago) hiking and 1/2 mile a day. 2x /week 3-5 miles. Before surgery: (3yrs ago) Panting putting shoes/boots, walking 1 mile. Current Functional Impairments (Reported) Functional Limitations- ADL's Difficulty opening cans with can roustabout crew leader, and help to put coat on. Functional Limitations- Mobility/Gait Walks 1x/day 6-8 blocks. Fatigued from walking into treatment room. 13 steps to get to room, results in breathing heavy. Personal Factors Other Personal Factors That May Effect Tumor from pituitary gland Therapy/Recovery removed 07/20/22, currently working on steroid taper. Fibromyalgia. SOB just walking and putting shoes on. PT-OP-C Subjective Start: 03/03/23 17:50 Freq: Status: Active Protocol: Document 06/14/23 12:52 AB (Rec: 06/14/23 15:01 AB [id number]) OP-PT Subjective Patient Comments Patient Comments Patient reports her endurance is improving, but her back hurts, attributes to the step up and down to get on and off the boat which she feels increased core action during that movement. Patient also reports the matress in the boat is not comfortable. Also is sleeping with matress on floor at home as boxspring will not fit up stairs. Patient Questionnaires ABC- Activity Specific Balance Confidence Scale ABC Score 94.06 ABC Functional Impairment 1 to <20% Impaired (Score 81- 99) PT-OP-E Functional Tests Start: 03/03/23 17:50 Freq: Status: Active Protocol: Document 05/19/23 08:04 AB (Rec: 05/19/23 12:50 AB [id number]) Functional Tests 2 Minute Walk Test Distance 341 feet Device Used no device PT-OP-G Mobility & Gait Start: 03/03/23 17:50 Freq: Status: Active Protocol: Document 03/04/23 13:04 LRN (Rec: 03/04/23 15:17 LRN [id number]) OP Mobility Evaluation Functional Movements Other Functional Movements Putting coat on: Pt dons from overhead and requires assistance to pull coat down through arms and to clear head . PT-OP-H Neuro Start: 03/03/23 17:50 Freq: Status: Active Protocol: Document 03/04/23 13:04 LRN (Rec: 03/04/23 15:17 LRN [id number]) Sensation Evaluation Gross Sensation Gross Sensation WNL Vital Signs Pulse At rest sitting Pulse at Rest (bpm) 80 Pulse Assessment Method BP cuff Blood Pressure Sitting Blood Pressure (90/60-120/80 mmHg) 125/75 H Blood Pressure Source Automatic Cuff PT-OP-J Posture/Palpation/Skin Start: 03/03/23 17:50 Freq: Status: Active Protocol: Document 03/04/23 13:04 LRN (Rec: 03/04/23 15:17 LRN [id number]) Posture Evaluation Position Standing Head/C-Spine Posture Forward Head T-Spine Posture Increased Kyphosis L-Spine Posture Increased Lordosis Shoulder Posture (L) Rounded,(R) Rounded,(L) Elevated Scapula Posture (L) Neutral,(R) Neutral Arm Posture (L) Internally Rotated,(R) Internally Rotated Pelvis Posture Anteriorly Tilted Weight Distribution Balanced Knee Posture (L) Neutral,(R) Neutral Ankle/Foot Posture (L) Neutral,(R) Neutral Foot Arch (L) High Arch,(R) High Arch PT-OP-K Range of Motion Start: 03/03/23 17:50 Freq: Status: Active Protocol: Document 04/11/23 08:06 AB (Rec: 04/11/23 10:43 AB [id number]) Shoulder Goniometric Range of Motion Shoulder left shoulder AROM Testing Position PROM supine Flexion 151 Abduction 91 External Rotation at 45 degrees 55 Abduction Right shoulder AROM Testing Position PROM supine Flexion 141 Abduction 84 External Rotation at 45 degrees 47 Abduction PT-OP-M Strength Start: 03/03/23 17:50 Freq: Status: Active Protocol: Document 03/07/23 10:36 LRN (Rec: 03/07/23 11:33 LRN [id number]) Finger/Thumb Strength Finger Manual Muscle Testing Right Thumb Flexion (fingers C8) 5 Normal Extension (thumb C8) 4+ Good+ Adduction 5 Normal Abduction (fingers T1) 4+ Good+ Comments Pain with testing of thumb AD. Opposition: 5/5 except with middle finger 3/5 due to lateral wrist pain (around pisiform) and digits 4 & 5 strength is 4+/5. Left Thumb Comments 5/5 w/o pain Opposition: 5/5 with all fingers. PT-OP-Q Treatments Start: 03/03/23 17:50 Freq: Status: Active Protocol: Document 06/14/23 12:52 AB (Rec: 06/14/23 15:01 AB [id number]) Cardio Equipment Bicycle (Upright) Duration (Minutes) 10 Resistance 5 Seat Position 5 Other 6.5 min reports feeling a little sweat, able to hold a conversation Therapeutic Exercises Sitting Exercises wrist extension Side right Reps/Minutes 15 with fingers clasped Standing Exercises step up Standing Exercise Name 6 inch step with UE use Side bilateral Reps/Minutes 2X10 each LE Comments verbal cues to step back down slowly Gait Training Gait Activity Stairs Device Used rail Level of Assistance distand supervision, Distance/Duration 4 six inch steps X 2 post assessment Comments Verbal and visual cues for flexing trunk forward slightly at hips and to position hand fwd on rail to decrease quad dominant pattern and decrease force on knees. Manual Therapy Treatment Soft Tissue Mobilization right forearm Body Location prior to hand and wrist ex Mobilization Type Rolling,Other Intensity/Depth Superficial Body Position Hooklying Comments prior to wrist exercises Joint Mobilizations R Middle jts Joint MCP & PIP jt Direction PA Grade II Body Position Hooklying Reps/Duration 10x R Index jt Joint MCP & PIP jt Direction PA Grade II Body Position Hooklying Reps/Duration 10x R thumb MCP jt Joint R thumb MCP jt Direction PA AP Grade III Body Position Hooklying Reps/Duration X10 R thumb IP jt Joint and PIP this session Direction AP and PA Grade III Body Position Hooklying Reps/Duration X10 PT-OP-R Modalities Start: 03/03/23 17:50 Freq: Status: Active Protocol: Document 06/14/23 12:52 AB (Rec: 06/14/23 15:01 [id number]) Paraffin Bath Treatment Right Hand Treatment Technique Dip-immersion Wax Temperature (degrees F) 120 Number Wax Layers (layers) 10 Patient Tolerance Good PT-OP-T Assessment and Plan Start: 03/03/23 17:50 Freq: Status: Active Protocol: Document 06/14/23 12:52 AB (Rec: 06/14/23 15:01 [id number]) Physical Therapy Assessment Goals Six Impairment Decreased balance Impairment SLS: 3 secs R, 8 secs L Tandem stance: R leg behind - 0 secs; L leg behind - 10 secs. Computer Customer Support Specialist Goal (LTG) Improve SLS or tandem stance to improve balance and safety with gait. 03/27/23: Treatment note indicates TAndem STance: R foot behind 0 secs, L foot behind 10 secs 06/09/2023 Left LE 15 seconds SLS without UE use right LE 17 seconds 06/14/2023 Tandem stance 30 second left foot fwd and right foot forward without UE use with no reaction and therapist ending test at 30 seconds. ABC score 94.06% 94% funtion 16% impairment. LTG Duration 8 wks-08/05/23 met 06/14/2023 Five Impairment Decreased R hand floor broker strength Fdc Goal (LTG) Pt able to feel safe gripping shower door to get out of shower without fear of falling or floor broker post on a boat to get off the boat onto a dock. 05/31/2023 Jet Worker strength left 17 , 20, 20 right 11,10,12 lbs 06/09/2023 Pt reports continued difficulty gripping hammer, door of shower which is a small floor broker, and hasn't tried post at boat. 10,11,12.5 lb floor broker strength right UE this session LTG Duration 8 wks-08/05/23 Progressing (06/09/2023) Two Impairment Decreased endurance making transfers from chairs and toilet difficult. Impairment Pain in shoulders, legs, R ankle making sitting on toilet w/o a riser and getting up from a chair difficult. (5xSTS Norm for 70-79 yo is 12 .6 secs) (30 sec chair stand Norm for 70-74 yo female is 10-15x) Short Term Goal (STG) Improve endurance with 5xSTS in 12 secs or less or 30 sec chair stand 10x or greater, or walk 546 ft prior to fatigue. 03/07/23: 30 STS - 7 reps. 03/31/23 PT reports less pain right ankle with sit to stand with band tied above knees to control valgus at knee impact on ankle. 04/05/23: 30 STS - 7 reps, 5xSTS in 23 secs. 04/14/23: 30 STS - 7 reps. 5XSTS in 19 secs. 05/05/23: 30 STS - 7 reps. 5XSTS in 21 secs. 06/02/23: 30 STS - 8 reps, 5xSTS in 17 secs. 06/09/2023 5X sit to key ringer 16 seconds STG Duration 4 wks-07/08/23 (06/02/23: Improved) ( 06/09/2023 slightly improved) Fdc Goal (LTG) Improve endurance with pt able to walk 684 ft prior to fatigue or 13 steps at home without heavy breathing. 03/15/23: Hiking 1.25 miles & is tired after 13 stair steps at home, but not heavily breathing. 04/05/23: (NOTE: chronic fatigue for 35 yrs) Tired still after 13 steps at home. 04/05/23: Walking before fatigue - 500 ft. 2 minute walk test 2 min walk test 341 feet and patient reports daily 20 minute walks and stairs daily X 4 at home. 05/24/2023 walk to fatigue Gia 12/20 rating at 8 min 20 seconds and 1611 feet. 05/26/23: Not heavy breathing after travelling 13 steps. 06/02/23: Walked outdoors 11, 000 steps yesterday. LTG Duration (06/02/23: MET GOAL) One Impairment Pt lacks appropriate self care HEP. Short Term Goal (STG) Pt will be educated and independent in donning/doffing a coat without pain. STG Duration 4 wks-04/01/23 (03/07/23: MET GOAL) Computer Customer Support Specialist Goal (LTG) Pt will be independent in a self care HEP for general strengthening of core/LE's/UE' s and bilateral thumb mobility ex's. 03/07/23: HEP: (LE's) Sit<> stands, (UE's)AROM rubén shlder ext (elbows straight & flexed) & I/S in IR reaching hand up spine. 03/10/23: (UE's) I/S pt in self R thumb IP/MCP flex stretch f/b active flex strengthening and issued Lev1 TPutty (yellow). 03/21/23: CREDIT HISTORIAN added HEP: Log roll sup<>sit transfer. 04/07/23: CREDIT HISTORIAN added HEP: (UE' s) supine shoulder flexion, AA seated shoulder ER and towel squeeze and twist. 04/11/23: CREDIT HISTORIAN added HEP: AROM tendon glide. 04/19/23: CREDIT HISTORIAN added HEP: (UE' s) loosening knots with large ropes with right hand for strengthening. Discussed jar roustabout crew leader devices and knives that are designed for weak hands. 04/21/23; CREDIT HISTORIAN added HEP: (UE) AROM IR. 04/26/23: Pt to ex for endurance (Core:standing UBE) using GIA Perceived Exertion Scale of Fairly Light (scale 11) to less than Somewhat Hard. Sit<>Stand ex's at home, but to do less if too tiring. 06/09/2023 - Patient reports working on using all of fingers when dressing, but has been working on it. Patient able to touch base of 5th digit with thumb, oppostition AROM LTG Duration 8 wks-08/05/23 progressing 03/07/23 Assessment Summary Assessment ABC score improved from 91 to 94. Patient reports feeling fine end of session, able to descend stairs with one rail, with a less quad dominant pattern, decreased velocity. Physical Therapy Plan Next Visit Focus/Plan Next Note Type Treatment Note Next Visit Plan Next: Paraffin dip R hand, progress stair stepping for LE/quad, possibly 4 inch or 6 inch step down (progress from step up step back) if able to perform pain free, gluteal strengthening. FOCUS: R hand mobility and floor broker strength, & Endurance for ascending stairs. Encourage pt to improve endurance on home stair program. Focus on improving R thumb mobility and finger/wrist ext mobility (stretch to flexors), f/b strengthening flexion to improve thumb/hand ability to floor broker (GOAL 5), and Quad/ Hamstring strengthening (STS endurance), and improve balance once LE strength achieved, (R LE primarily) for safety and fluidity of gait. ENDURANCE: LE: Sit<>Stands from lower surface, monitor for appropriate Perceived exertion scale 10-11. Balance & Progress HEP (see LT GOAL #1). [ End ]
--- NOTE | 2023-06-16 10:53 | PT.OTN ---
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) Pain in unspecified joint (06/16/23) Physical Therapy Treatment Note PT-OP-A Visit Information Start: 03/03/23 17:50 Freq: Status: Active Protocol: Document 06/16/23 08:09 AB (Rec: 06/16/23 10:53 AB [id number]) Out-Patient Physical Therapy Visit Information Visit Information Visit Type Treatment Note Visit Note Access Code [email or web address] Visit Start Time 09:47 Visit Stop Time 10:30 Visit Number 30 Number of PROPERTY ADJUSTER Visits 3 Evaluation Information Evaluation Date 03/04/23 Precautions Precautions SOB after walking & putting shoes on, Fibromyalgia, Ruston's disease, Chronic fatigue for 35 yrs, recent surgery (07/20/22) 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 PT-OP-B Current Condition Start: 03/03/23 17:50 Freq: Status: Active Protocol: Document 03/04/23 13:04 LRN (Rec: 03/04/23 15:17 LRN [id number]) Current Condition History of Current Condition Onset Date 06/3022 Current Complaints Fatigue, SOB, general soreness of body. 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 Currently dealing with effect of tapering down use of hydrocortisone. Shoulders, legs, R ankle pain new since surgery. Has hot spots on top of L leg and at spine on LB, R hand (cat bit her a couple months before surgery). On 6 hrs of Tylenol and 8 hrs on Meloxicam daily then can sleep. R hand is most problematic. Prior Treatments and Tests MRI & CAT scan to check on surgery results. PT for neck 5-6 yrs ago without resolution. Treatment Goals Patient/Caregiver Goals Pt goals: Cooking or sitting on toilet w /o the riser w/o pain in shoulders, legs, R ankle. Getting up from chair without difficulty. Able to move stick shift with R hand w/o pain. Taking on/off coat w/o pain. Prior Functional Status Baseline Function- ADL's Independent Baseline Function- Mobility Independent Baseline Function- Other Before surgery (2 yrs ago) hiking and 1/2 mile a day. 2x /week 3-5 miles. Before surgery: (3yrs ago) Panting putting shoes/boots, walking 1 mile. Current Functional Impairments (Reported) Functional Limitations- ADL's Difficulty opening cans with can reel winder, and help to put coat on. Functional Limitations- Mobility/Gait Walks 1x/day 6-8 blocks. Fatigued from walking into treatment room. 13 steps to get to room, results in breathing heavy. Personal Factors Other Personal Factors That May Effect Tumor from pituitary gland Therapy/Recovery removed 07/20/22, currently working on steroid taper. Fibromyalgia. SOB just walking and putting shoes on. PT-OP-C Subjective Start: 03/03/23 17:50 Freq: Status: Active Protocol: Document 06/16/23 08:09 AB (Rec: 06/16/23 10:53 AB [id number]) OP-PT Subjective Patient Comments Patient Comments Patient reports endrance is maybe the same or improving, the right hand continues to be stubborn. Patient reports the left knee is feeling a little sore attributes to stepping on and off the boat. PT-OP-E Functional Tests Start: 03/03/23 17:50 Freq: Status: Active Protocol: Document 05/19/23 08:04 AB (Rec: 05/19/23 12:50 AB [id number]) Functional Tests 2 Minute Walk Test Distance 341 feet Device Used no device PT-OP-G Mobility & Gait Start: 03/03/23 17:50 Freq: Status: Active Protocol: Document 03/04/23 13:04 LRN (Rec: 03/04/23 15:17 LRN [id number]) OP Mobility Evaluation Functional Movements Other Functional Movements Putting coat on: Pt dons from overhead and requires assistance to pull coat down through arms and to clear head . PT-OP-H Neuro Start: 03/03/23 17:50 Freq: Status: Active Protocol: Document 03/04/23 13:04 LRN (Rec: 03/04/23 15:17 LRN [id number]) Sensation Evaluation Gross Sensation Gross Sensation WNL Vital Signs Pulse At rest sitting Pulse at Rest (bpm) 80 Pulse Assessment Method BP cuff Blood Pressure Sitting Blood Pressure (90/60-120/80 mmHg) 125/75 H Blood Pressure Source Automatic Cuff PT-OP-J Posture/Palpation/Skin Start: 03/03/23 17:50 Freq: Status: Active Protocol: Document 03/04/23 13:04 LRN (Rec: 03/04/23 15:17 LRN [id number]) Posture Evaluation Position Standing Head/C-Spine Posture Forward Head T-Spine Posture Increased Kyphosis L-Spine Posture Increased Lordosis Shoulder Posture (L) Rounded,(R) Rounded,(L) Elevated Scapula Posture (L) Neutral,(R) Neutral Arm Posture (L) Internally Rotated,(R) Internally Rotated Pelvis Posture Anteriorly Tilted Weight Distribution Balanced Knee Posture (L) Neutral,(R) Neutral Ankle/Foot Posture (L) Neutral,(R) Neutral Foot Arch (L) High Arch,(R) High Arch PT-OP-K Range of Motion Start: 03/03/23 17:50 Freq: Status: Active Protocol: Document 04/11/23 08:06 AB (Rec: 04/11/23 10:43 AB [id number]) Shoulder Goniometric Range of Motion Shoulder left shoulder AROM Testing Position PROM supine Flexion 151 Abduction 91 External Rotation at 45 degrees 55 Abduction Right shoulder AROM Testing Position PROM supine Flexion 141 Abduction 84 External Rotation at 45 degrees 47 Abduction PT-OP-M Strength Start: 03/03/23 17:50 Freq: Status: Active Protocol: Document 03/07/23 10:36 LRN (Rec: 03/07/23 11:33 LRN [id number]) Finger/Thumb Strength Finger Manual Muscle Testing Right Thumb Flexion (fingers C8) 5 Normal Extension (thumb C8) 4+ Good+ Adduction 5 Normal Abduction (fingers T1) 4+ Good+ Comments Pain with testing of thumb AD. Opposition: 5/5 except with middle finger 3/5 due to lateral wrist pain (around pisiform) and digits 4 & 5 strength is 4+/5. Left Thumb Comments 5/5 w/o pain Opposition: 5/5 with all fingers. PT-OP-Q Treatments Start: 03/03/23 17:50 Freq: Status: Active Protocol: Document 06/16/23 08:09 AB (Rec: 06/16/23 10:53 AB [id number]) Cardio Equipment Bicycle (Upright) Duration (Minutes) 3 Resistance 5 to 1 Seat Position 5 Other reports feeling it in the left knee even with resistance decreased Therapeutic Exercises Supine Exercises wrist extension stretch Side right Reps/Minutes 60 seconds X 1 Comments verbal cues Sitting Exercises digiflex yellow Sitting Exercise Name single finger set up Side right Equipment Used digiflex yellow Reps/Minutes one minute Comments increased focus on each finger joint performed independently towel therabar squeeze and twist Sitting Exercise Name yellow therabar Side bilateral Reps/Minutes on min Comments post paraffin and manual therapy finger glide AROM Side right Reps/Minutes X4 Comments verbal and visual cues wrist extension Side right Reps/Minutes 15 with fingers clasped X15 with fingers extended Sit<>Stands Reps/Minutes X4 Comments not fox even from raised seat height Standing Exercises dowel with 2 lb off rope Standing Exercise Name winding up and down wrist flex and ext with gripping Resistance 2lb Reps/Minutes X2 Comments verbal cues to perform to fatigue Gia scale wrist/ fingers 3/10 Gia right Other Exercises squat Mini Side bilateral Reps/Minutes 2X10 Comments monitored for pain Therapeutic Activity Therapeutic Activity ascending stairs Name 4 inch step with rail step up step back Reps/Minutes X2 Comments verbal cues to activate gluteal muscles when ascending and reviewed importance of UE fwd on rail when descending. Reports no increased knee pain left knee. Manual Therapy Treatment Soft Tissue Mobilization right hand Mobilization Type Cross-Friction,Rolling Intensity/Depth Moderate Body Position Hooklying Comments prior to hand exercises right forearm Body Location ant and posterior Mobilization Type Cross-Friction,Rolling,Other Intensity/Depth Moderate Body Position Hooklying Comments prior to wrist exercises Joint Mobilizations R Middle jts Joint MCP & PIP jt Direction PA, AP Grade III Body Position Hooklying Reps/Duration 10x R Index jt Joint MCP & PIP jt Direction PA,AP Grade III Body Position Hooklying Reps/Duration 10x R thumb MCP jt Joint R thumb MCP jt Direction PA AP Grade III Body Position Hooklying Reps/Duration X10 R thumb IP jt Joint and PIP this session Direction AP and PA Grade III Body Position Hooklying Reps/Duration X10 PT-OP-R Modalities Start: 03/03/23 17:50 Freq: Status: Active Protocol: Document 06/16/23 08:09 AB (Rec: 06/16/23 10:53 AB [id number]) Paraffin Bath Treatment Right Hand Treatment Technique Dip-immersion Wax Temperature (degrees F) 120 Number Wax Layers (layers) 7 Patient Tolerance Good PT-OP-T Assessment and Plan Start: 03/03/23 17:50 Freq: Status: Active Protocol: Document 06/16/23 08:09 AB (Rec: 06/16/23 10:53 AB [id number]) Physical Therapy Assessment Goals Six Impairment Decreased balance Impairment SLS: 3 secs R, 8 secs L Tandem stance: R leg behind - 0 secs; L leg behind - 10 secs. Usp Goal (LTG) Improve SLS or tandem stance to improve balance and safety with gait. 03/27/23: Treatment note indicates TAndem STance: R foot behind 0 secs, L foot behind 10 secs 06/09/2023 Left LE 15 seconds SLS without UE use right LE 17 seconds 06/14/2023 Tandem stance 30 second left foot fwd and right foot forward without UE use with no reaction and therapist ending test at 30 seconds. ABC score 94.06% 94% funtion 16% impairment. LTG Duration 8 wks-08/05/23 met 06/14/2023 Five Impairment Decreased R hand cdc associate strength Usp Goal (LTG) Pt able to feel safe gripping shower door to get out of shower without fear of falling or cdc associate post on a boat to get off the boat onto a dock. 05/31/2023 Sales Receptionist strength left 17 , 20, 20 right 11,10,12 lbs 06/09/2023 Pt reports continued difficulty gripping hammer, door of shower which is a small cdc associate, and hasn't tried post at boat. 10,11,12.5 lb cdc associate strength right UE this session LTG Duration 8 wks-08/05/23 Progressing (06/09/2023) Two Impairment Decreased endurance making transfers from chairs and toilet difficult. Impairment Pain in shoulders, legs, R ankle making sitting on toilet w/o a riser and getting up from a chair difficult. (5xSTS Norm for 70-79 yo is 12 .6 secs) (30 sec chair stand Norm for 70-74 yo female is 10-15x) Short Term Goal (STG) Improve endurance with 5xSTS in 12 secs or less or 30 sec chair stand 10x or greater, or walk 546 ft prior to fatigue. 03/07/23: 30 STS - 7 reps. 03/31/23 PT reports less pain right ankle with sit to stand with band tied above knees to control valgus at knee impact on ankle. 04/05/23: 30 STS - 7 reps, 5xSTS in 23 secs. 04/14/23: 30 STS - 7 reps. 5XSTS in 19 secs. 05/05/23: 30 STS - 7 reps. 5XSTS in 21 secs. 06/02/23: 30 STS - 8 reps, 5xSTS in 17 secs. 06/09/2023 5X sit to tapping machine operator 16 seconds STG Duration 4 wks-07/08/23 (06/02/23: Improved) ( 06/09/2023 slightly improved) [employer] Launch Commander Goal (LTG) Improve endurance with pt able to walk 684 ft prior to fatigue or 13 steps at home without heavy breathing. 03/15/23: Hiking 1.25 miles & is tired after 13 stair steps at home, but not heavily breathing. 04/05/23: (NOTE: chronic fatigue for 35 yrs) Tired still after 13 steps at home. 04/05/23: Walking before fatigue - 500 ft. 2 minute walk test 2 min walk test 341 feet and patient reports daily 20 minute walks and stairs daily X 4 at home. 05/24/2023 walk to fatigue Gia 12/20 rating at 8 min 20 seconds and 1611 feet. 05/26/23: Not heavy breathing after travelling 13 steps. 06/02/23: Walked outdoors 11, 000 steps yesterday. LTG Duration (06/02/23: MET GOAL) One Impairment Pt lacks appropriate self care HEP. Short Term Goal (STG) Pt will be educated and independent in donning/doffing a coat without pain. STG Duration 4 wks-04/01/23 (03/07/23: MET GOAL) Usp Goal (LTG) Pt will be independent in a self care HEP for general strengthening of core/LE's/UE' s and bilateral thumb mobility ex's. 03/07/23: HEP: (LE's) Sit<> stands, (UE's)AROM rubén shlder ext (elbows straight & flexed) & I/S in IR reaching hand up spine. 03/10/23: (UE's) I/S pt in self R thumb IP/MCP flex stretch f/b active flex strengthening and issued Lev1 TPutty (yellow). 03/21/23: PROPERTY ADJUSTER added HEP: Log roll sup<>sit transfer. 04/07/23: PROPERTY ADJUSTER added HEP: (UE' s) supine shoulder flexion, AA seated shoulder ER and towel squeeze and twist. 04/11/23: PROPERTY ADJUSTER added HEP: AROM tendon glide. 04/19/23: PROPERTY ADJUSTER added HEP: (UE' s) loosening knots with large ropes with right hand for strengthening. Discussed jar reel winder devices and knives that are designed for weak hands. 04/21/23; PROPERTY ADJUSTER added HEP: (UE) AROM IR. 04/26/23: Pt to ex for endurance (Core:standing UBE) using GIA Perceived Exertion Scale of Fairly Light (scale 11) to less than Somewhat Hard. Sit<>Stand ex's at home, but to do less if too tiring. 06/09/2023 - Patient reports working on using all of fingers when dressing, but has been working on it. Patient able to touch base of 5th digit with thumb, oppostition AROM LTG Duration 8 wks-08/05/23 progressing 03/07/23 Assessment Summary Assessment Bike and sit to stand exercises limited this session due to left knee discomfort. Increased time spent on right hand manual therapy and exercise this session, with instruction to isolate each finger joint when using the digiflex at home. Physical Therapy Plan Frequency and Duration Frequency of Treatment 2x/Week Duration of treatment (weeks) 8 Plan of Care Start Date 06/09/23 Plan of Care End Date 08/05/23 Next Visit Focus/Plan Next Note Type Treatment Note Next Visit Plan Next: Paraffin dip R hand, progress stair stepping for LE/quad, possibly 4 inch or 6 inch step down (progress from step up step back) if able to perform pain free, gluteal strengthening. FOCUS: R hand mobility and cdc associate strength, & Endurance for ascending stairs. Encourage pt to improve endurance on home stair program. Focus on improving R thumb mobility and finger/wrist ext mobility (stretch to flexors), f/b strengthening flexion to improve thumb/hand ability to cdc associate (GOAL 5), and Quad/ Hamstring strengthening (STS endurance), and improve balance once LE strength achieved, (R LE primarily) for safety and fluidity of gait. ENDURANCE: LE: Sit<>Stands from lower surface, monitor for appropriate Perceived exertion scale 10-11. Balance & Progress HEP (see LT GOAL #1). [ End ]
--- NOTE | 2023-06-21 16:36 | PT.OTN ---
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) Pain in unspecified joint (06/21/23) Physical Therapy Treatment Note PT-OP-A Visit Information Start: 03/03/23 17:50 Freq: Status: Active Protocol: Document 06/21/23 12:53 AB (Rec: 06/21/23 16:36 AB [id number]) Out-Patient Physical Therapy Visit Information Visit Information Visit Type Treatment Note Visit Note Access Code [id number] Visit Start Time 13:01 Visit Stop Time 13:45 Visit Number 31 Number of DIRECTOR OF OPERATIONS SUPPORT Visits 4 Evaluation Information Evaluation Date 03/04/23 Precautions Precautions SOB after walking & putting shoes on, Fibromyalgia, Dexter's disease, Chronic fatigue for 35 yrs, recent surgery (07/20/22) 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 PT-OP-B Current Condition Start: 03/03/23 17:50 Freq: Status: Active Protocol: Document 03/04/23 13:04 LRN (Rec: 03/04/23 15:17 LRN [id number]) Current Condition History of Current Condition Onset Date 06/3022 Current Complaints Fatigue, SOB, general soreness of body. 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 Currently dealing with effect of tapering down use of hydrocortisone. Shoulders, legs, R ankle pain new since surgery. Has hot spots on top of L leg and at spine on LB, R hand (cat bit her a couple months before surgery). On 6 hrs of Tylenol and 8 hrs on Meloxicam daily then can sleep. R hand is most problematic. Prior Treatments and Tests MRI & CAT scan to check on surgery results. PT for neck 5-6 yrs ago without resolution. Treatment Goals Patient/Caregiver Goals Pt goals: Cooking or sitting on toilet w /o the riser w/o pain in shoulders, legs, R ankle. Getting up from chair without difficulty. Able to move stick shift with R hand w/o pain. Taking on/off coat w/o pain. Prior Functional Status Baseline Function- ADL's Independent Baseline Function- Mobility Independent Baseline Function- Other Before surgery (2 yrs ago) hiking and 1/2 mile a day. 2x /week 3-5 miles. Before surgery: (3yrs ago) Panting putting shoes/boots, walking 1 mile. Current Functional Impairments (Reported) Functional Limitations- ADL's Difficulty opening cans with can project accountant, and help to put coat on. Functional Limitations- Mobility/Gait Walks 1x/day 6-8 blocks. Fatigued from walking into treatment room. 13 steps to get to room, results in breathing heavy. Personal Factors Other Personal Factors That May Effect Tumor from pituitary gland Therapy/Recovery removed 07/20/22, currently working on steroid taper. Fibromyalgia. SOB just walking and putting shoes on. PT-OP-C Subjective Start: 03/03/23 17:50 Freq: Status: Active Protocol: Document 06/21/23 12:53 AB (Rec: 06/21/23 16:36 AB [id number]) OP-PT Subjective Patient Comments Patient Comments Patient reports the knee is better. Patient reports she went on an hour hike yesterday . 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 Patient verbalizes she has questions regarding HEP. PT-OP-E Functional Tests Start: 03/03/23 17:50 Freq: Status: Active Protocol: Document 05/19/23 08:04 AB (Rec: 05/19/23 12:50 AB [id number]) Functional Tests 2 Minute Walk Test Distance 341 feet Device Used no device PT-OP-G Mobility & Gait Start: 03/03/23 17:50 Freq: Status: Active Protocol: Document 03/04/23 13:04 LRN (Rec: 03/04/23 15:17 LRN [id number]) OP Mobility Evaluation Functional Movements Other Functional Movements Putting coat on: Pt dons from overhead and requires assistance to pull coat down through arms and to clear head . PT-OP-H Neuro Start: 03/03/23 17:50 Freq: Status: Active Protocol: Document 03/04/23 13:04 LRN (Rec: 03/04/23 15:17 LRN [id number]) Sensation Evaluation Gross Sensation Gross Sensation WNL Vital Signs Pulse At rest sitting Pulse at Rest (bpm) 80 Pulse Assessment Method BP cuff Blood Pressure Sitting Blood Pressure (90/60-120/80 mmHg) 125/75 H Blood Pressure Source Automatic Cuff PT-OP-J Posture/Palpation/Skin Start: 03/03/23 17:50 Freq: Status: Active Protocol: Document 03/04/23 13:04 LRN (Rec: 03/04/23 15:17 LRN [id number]) Posture Evaluation Position Standing Head/C-Spine Posture Forward Head T-Spine Posture Increased Kyphosis L-Spine Posture Increased Lordosis Shoulder Posture (L) Rounded,(R) Rounded,(L) Elevated Scapula Posture (L) Neutral,(R) Neutral Arm Posture (L) Internally Rotated,(R) Internally Rotated Pelvis Posture Anteriorly Tilted Weight Distribution Balanced Knee Posture (L) Neutral,(R) Neutral Ankle/Foot Posture (L) Neutral,(R) Neutral Foot Arch (L) High Arch,(R) High Arch PT-OP-K Range of Motion Start: 03/03/23 17:50 Freq: Status: Active Protocol: Document 04/11/23 08:06 AB (Rec: 04/11/23 10:43 AB [id number]) Shoulder Goniometric Range of Motion Shoulder left shoulder AROM Testing Position PROM supine Flexion 151 Abduction 91 External Rotation at 45 degrees 55 Abduction Right shoulder AROM Testing Position PROM supine Flexion 141 Abduction 84 External Rotation at 45 degrees 47 Abduction PT-OP-M Strength Start: 03/03/23 17:50 Freq: Status: Active Protocol: Document 03/07/23 10:36 LRN (Rec: 03/07/23 11:33 LRN [id number]) Finger/Thumb Strength Finger Manual Muscle Testing Right Thumb Flexion (fingers C8) 5 Normal Extension (thumb C8) 4+ Good+ Adduction 5 Normal Abduction (fingers T1) 4+ Good+ Comments Pain with testing of thumb AD. Opposition: 5/5 except with middle finger 3/5 due to lateral wrist pain (around pisiform) and digits 4 & 5 strength is 4+/5. Left Thumb Comments 5/5 w/o pain Opposition: 5/5 with all fingers. PT-OP-Q Treatments Start: 03/03/23 17:50 Freq: Status: Active Protocol: Document 06/21/23 12:53 AB (Rec: 06/21/23 16:36 AB [id number]) Cardio Equipment Bicycle (Upright) Duration (Minutes) 3 Resistance 5 to 1 Seat Position 5 Other reports feeling it in the left knee even with resistance decreased Therapeutic Exercises Sitting Exercises wrist extension Side right Reps/Minutes 15 with fingers clasped X15 with fingers extended Sit<>Stands Side bilateral Resistance level one band Reps/Minutes 2X10 Comments Patient reports can feel HR Increase (83 BPM post second set) Standing Exercises hammer exercises Standing Exercise Name biceps, triceps shoulder flexion Side right Reps/Minutes X3 each Comments Patient initiates ex she performs at home, Pt ed thumb up w/ flex, dec velo Manual Therapy Treatment Soft Tissue Mobilization right forearm Body Location ant and posterior Mobilization Type Cross-Friction,Rolling,Other Intensity/Depth Moderate Body Position Hooklying Comments prior to wrist exercises Joint Mobilizations R Middle jts Joint MCP & PIP jt also med and lat with arom flexion Direction PA, AP Grade III Body Position Hooklying Reps/Duration 10x R Index jt Joint MCP & PIP jt also med and lat with AROM flex Direction PA,AP Grade III Body Position Hooklying Reps/Duration 10x R thumb MCP jt Joint R thumb MCP jt Direction PA AP Grade III Body Position Hooklying Reps/Duration X10 R thumb IP jt Joint and PIP this session also lat and med with AROM flex Direction AP and PA Grade III Body Position Hooklying Reps/Duration X10 Manual Techniques PROM right fingers and thumb flexion Reps/Duration X5 each finger PT-OP-R Modalities Start: 03/03/23 17:50 Freq: Status: Active Protocol: Document 06/21/23 12:53 AB (Rec: 06/21/23 16:36 AB [id number]) Paraffin Bath Treatment Right Hand Treatment Technique Dip-immersion Wax Temperature (degrees F) 120 Number Wax Layers (layers) 7 Patient Tolerance Good PT-OP-T Assessment and Plan Start: 03/03/23 17:50 Freq: Status: Active Protocol: Document 06/21/23 12:53 AB (Rec: 06/21/23 16:36 AB [id number]) Physical Therapy Assessment Goals Six Impairment Decreased balance Impairment SLS: 3 secs R, 8 secs L Tandem stance: R leg behind - 0 secs; L leg behind - 10 secs. Pulp Mill Team Leader Goal (LTG) Improve SLS or tandem stance to improve balance and safety with gait. 03/27/23: Treatment note indicates TAndem STance: R foot behind 0 secs, L foot behind 10 secs 06/09/2023 Left LE 15 seconds SLS without UE use right LE 17 seconds 06/14/2023 Tandem stance 30 second left foot fwd and right foot forward without UE use with no reaction and therapist ending test at 30 seconds. ABC score 94.06% 94% funtion 16% impairment. LTG Duration 8 wks-08/05/23 met 06/14/2023 Five Impairment Decreased R hand kennel operator strength Pulp Mill Team Leader Goal (LTG) Pt able to feel safe gripping shower door to get out of shower without fear of falling or kennel operator post on a boat to get off the boat onto a dock. 05/31/2023 Topographic Computator strength left 17 , 20, 20 right 11,10,12 lbs 06/09/2023 Pt reports continued difficulty gripping hammer, door of shower which is a small kennel operator, and hasn't tried post at boat. 10,11,12.5 lb kennel operator strength right UE this session LTG Duration 8 wks-08/05/23 Progressing (06/09/2023) Two Impairment Decreased endurance making transfers from chairs and toilet difficult. Impairment Pain in shoulders, legs, R ankle making sitting on toilet w/o a riser and getting up from a chair difficult. (5xSTS Norm for 70-79 yo is 12 .6 secs) (30 sec chair stand Norm for 70-74 yo female is 10-15x) Short Term Goal (STG) Improve endurance with 5xSTS in 12 secs or less or 30 sec chair stand 10x or greater, or walk 546 ft prior to fatigue. 03/07/23: 30 STS - 7 reps. 03/31/23 PT reports less pain right ankle with sit to stand with band tied above knees to control valgus at knee impact on ankle. 04/05/23: 30 STS - 7 reps, 5xSTS in 23 secs. 04/14/23: 30 STS - 7 reps. 5XSTS in 19 secs. 05/05/23: 30 STS - 7 reps. 5XSTS in 21 secs. 06/02/23: 30 STS - 8 reps, 5xSTS in 17 secs. 06/09/2023 5X sit to guide dog instructor 16 seconds STG Duration 4 wks-07/08/23 (06/02/23: Improved) ( 06/09/2023 slightly improved) Pulp Mill Team Leader Goal (LTG) Improve endurance with pt able to walk 684 ft prior to fatigue or 13 steps at home without heavy breathing. 03/15/23: Hiking 1.25 miles & is tired after 13 stair steps at home, but not heavily breathing. 04/05/23: (NOTE: chronic fatigue for 35 yrs) Tired still after 13 steps at home. 04/05/23: Walking before fatigue - 500 ft. 2 minute walk test 2 min walk test 341 feet and patient reports daily 20 minute walks and stairs daily X 4 at home. 05/24/2023 walk to fatigue Gia 12/20 rating at 8 min 20 seconds and 1611 feet. 05/26/23: Not heavy breathing after travelling 13 steps. 06/02/23: Walked outdoors 11, 000 steps yesterday. 06/21/23 Good fox to sit to stand 2X 10 with band and into session reporting hiking an hour yesterday. LTG Duration (06/02/23: MET GOAL) One Impairment Pt lacks appropriate self care HEP. Short Term Goal (STG) Pt will be educated and independent in donning/doffing a coat without pain. STG Duration 4 wks-04/01/23 (03/07/23: MET GOAL) Shelter Goal (LTG) Pt will be independent in a self care HEP for general strengthening of core/LE's/UE' s and bilateral thumb mobility ex's. 03/07/23: HEP: (LE's) Sit<> stands, (UE's)AROM rubén shlder ext (elbows straight & flexed) & I/S in IR reaching hand up spine. 03/10/23: (UE's) I/S pt in self R thumb IP/MCP flex stretch f/b active flex strengthening and issued Lev1 TPutty (yellow). 03/21/23: DIRECTOR OF OPERATIONS SUPPORT added HEP: Log roll sup<>sit transfer. 04/07/23: DIRECTOR OF OPERATIONS SUPPORT added HEP: (UE' s) supine shoulder flexion, AA seated shoulder ER and towel squeeze and twist. 04/11/23: DIRECTOR OF OPERATIONS SUPPORT added HEP: AROM tendon glide. 04/19/23: DIRECTOR OF OPERATIONS SUPPORT added HEP: (UE' s) loosening knots with large ropes with right hand for strengthening. Discussed jar project accountant devices and knives that are designed for weak hands. 04/21/23; DIRECTOR OF OPERATIONS SUPPORT added HEP: (UE) AROM IR. 04/26/23: Pt to ex for endurance (Core:standing UBE) using GIA Perceived Exertion Scale of Fairly Light (scale 11) to less than Somewhat Hard. Sit<>Stand ex's at home, but to do less if too tiring. 06/09/2023 - Patient reports working on using all of fingers when dressing, but has been working on it. Patient able to touch base of 5th digit with thumb, oppostition AROM LTG Duration 8 wks-08/05/23 progressing 03/07/23 Assessment Summary Assessment Good fox to sit to stand with band 2X10, with HR at 83 BPM post. Patient ed to perform 3x10 every other day, and continue with stair ex at home . Patient continues to be unable to make a fist and have difficulty with opening smaller jars, grabbing bars/ posts when needed. Physical Therapy Plan Frequency and Duration Frequency of Treatment 2x/Week Duration of treatment (weeks) 8 Plan of Care Start Date 06/09/23 Plan of Care End Date 08/05/23 Next Visit Focus/Plan Next Note Type Treatment Note Next Visit Plan Next: Inc focus on hand, possibly assess kennel operator strength start and end of session. Paraffin dip R hand, progress stair stepping for LE/quad, possibly 6 inch step down ( progress from step up step back) if able to perform pain free, gluteal strengthening. FOCUS: R hand mobility and kennel operator strength, & Endurance for ascending stairs. Encourage pt to improve endurance on home stair program. Focus on improving R thumb mobility and finger/wrist ext mobility (stretch to flexors), f/b strengthening flexion to improve thumb/hand ability to kennel operator (GOAL 5), and Quad/ Hamstring strengthening (STS endurance), and improve balance once LE strength achieved, (R LE primarily) for safety and fluidity of gait. ENDURANCE: LE: Sit<>Stands from lower surface, monitor for appropriate Perceived exertion scale 10-11. Balance & Progress HEP (see LT GOAL #1). [ End ]
--- NOTE | 2023-06-23 13:33 | PT.OTN ---
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) Pain in unspecified joint (06/23/23) Physical Therapy Treatment Note PT-OP-A Visit Information Start: 03/03/23 17:50 Freq: Status: Active Protocol: Document 06/23/23 09:00 LRN (Rec: 06/23/23 09:49 LRN [id number]) Out-Patient Physical Therapy Visit Information Visit Information Visit Type Treatment Note Visit Start Time 09:00 Visit Stop Time 09:46 Visit Number 32 Evaluation Information Evaluation Date 03/04/23 Precautions Precautions SOB after walking & putting shoes on, Fibromyalgia, Libra's disease, Chronic fatigue for 35 yrs, recent surgery (07/20/22) 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 PT-OP-B Current Condition Start: 03/03/23 17:50 Freq: Status: Active Protocol: Document 03/04/23 13:04 LRN (Rec: 03/04/23 15:17 LRN [id number]) Current Condition History of Current Condition Onset Date 06/3022 Current Complaints Fatigue, SOB, general soreness of body. 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 Currently dealing with effect of tapering down use of hydrocortisone. Shoulders, legs, R ankle pain new since surgery. Has hot spots on top of L leg and at spine on LB, R hand (cat bit her a couple months before surgery). On 6 hrs of Tylenol and 8 hrs on Meloxicam daily then can sleep. R hand is most problematic. Prior Treatments and Tests MRI & CAT scan to check on surgery results. PT for neck 5-6 yrs ago without resolution. Treatment Goals Patient/Caregiver Goals Pt goals: Cooking or sitting on toilet w /o the riser w/o pain in shoulders, legs, R ankle. Getting up from chair without difficulty. Able to move stick shift with R hand w/o pain. Taking on/off coat w/o pain. Prior Functional Status Baseline Function- ADL's Independent Baseline Function- Mobility Independent Baseline Function- Other Before surgery (2 yrs ago) hiking and 1/2 mile a day. 2x /week 3-5 miles. Before surgery: (3yrs ago) Panting putting shoes/boots, walking 1 mile. Current Functional Impairments (Reported) Functional Limitations- ADL's Difficulty opening cans with can transplant coordinator, and help to put coat on. Functional Limitations- Mobility/Gait Walks 1x/day 6-8 blocks. Fatigued from walking into treatment room. 13 steps to get to room, results in breathing heavy. Personal Factors Other Personal Factors That May Effect Tumor from pituitary gland Therapy/Recovery removed 07/20/22, currently working on steroid taper. Fibromyalgia. SOB just walking and putting shoes on. PT-OP-C Subjective Start: 03/03/23 17:50 Freq: Status: Active Protocol: Document 06/23/23 09:00 LRN (Rec: 06/23/23 09:49 LRN [id number]) OP-PT Subjective Patient Comments Patient Comments Able to tuck shirt in with R arm; sometimes painful in the shoulder. Still having trouble gripping and writing is difficult. This morning using a knife is not really easy. PT-OP-E Functional Tests Start: 03/03/23 17:50 Freq: Status: Active Protocol: Document 06/23/23 09:00 LRN (Rec: 06/23/23 09:49 LRN [id number]) Functional Tests 30 Second Sit to Stand Test Score 11 reps Five Times Sit to Stand Test Score 13 secs PT-OP-G Mobility & Gait Start: 03/03/23 17:50 Freq: Status: Active Protocol: Document 03/04/23 13:04 LRN (Rec: 03/04/23 15:17 LRN [id number]) OP Mobility Evaluation Functional Movements Other Functional Movements Putting coat on: Pt dons from overhead and requires assistance to pull coat down through arms and to clear head . PT-OP-H Neuro Start: 03/03/23 17:50 Freq: Status: Active Protocol: Document 03/04/23 13:04 LRN (Rec: 03/04/23 15:17 LRN [id number]) Sensation Evaluation Gross Sensation Gross Sensation WNL Vital Signs Pulse At rest sitting Pulse at Rest (bpm) 80 Pulse Assessment Method BP cuff Blood Pressure Sitting Blood Pressure (90/60-120/80 mmHg) 125/75 H Blood Pressure Source Automatic Cuff PT-OP-J Posture/Palpation/Skin Start: 03/03/23 17:50 Freq: Status: Active Protocol: Document 03/04/23 13:04 LRN (Rec: 03/04/23 15:17 LRN [id number]) Posture Evaluation Position Standing Head/C-Spine Posture Forward Head T-Spine Posture Increased Kyphosis L-Spine Posture Increased Lordosis Shoulder Posture (L) Rounded,(R) Rounded,(L) Elevated Scapula Posture (L) Neutral,(R) Neutral Arm Posture (L) Internally Rotated,(R) Internally Rotated Pelvis Posture Anteriorly Tilted Weight Distribution Balanced Knee Posture (L) Neutral,(R) Neutral Ankle/Foot Posture (L) Neutral,(R) Neutral Foot Arch (L) High Arch,(R) High Arch PT-OP-K Range of Motion Start: 03/03/23 17:50 Freq: Status: Active Protocol: Document 04/11/23 08:06 AB (Rec: 04/11/23 10:43 AB [id number]) Shoulder Goniometric Range of Motion Shoulder left shoulder AROM Testing Position PROM supine Flexion 151 Abduction 91 External Rotation at 45 degrees 55 Abduction Right shoulder AROM Testing Position PROM supine Flexion 141 Abduction 84 External Rotation at 45 degrees 47 Abduction PT-OP-M Strength Start: 03/03/23 17:50 Freq: Status: Active Protocol: Document 03/07/23 10:36 LRN (Rec: 03/07/23 11:33 LRN [id number]) Finger/Thumb Strength Finger Manual Muscle Testing Right Thumb Flexion (fingers C8) 5 Normal Extension (thumb C8) 4+ Good+ Adduction 5 Normal Abduction (fingers T1) 4+ Good+ Comments Pain with testing of thumb AD. Opposition: 5/5 except with middle finger 3/5 due to lateral wrist pain (around pisiform) and digits 4 & 5 strength is 4+/5. Left Thumb Comments 5/5 w/o pain Opposition: 5/5 with all fingers. PT-OP-Q Treatments Start: 03/03/23 17:50 Freq: Status: Active Protocol: Document 06/23/23 09:00 LRN (Rec: 06/23/23 09:49 LRN [id number]) Cardio Equipment Bicycle (Upright) Duration (Minutes) 5 Resistance 8, rpm 60 or above unless GIA scale above 12. Seat Position 5 Gym Equipment Shuttle Recovery Unilateral Squats Details Bilateral Unilateral squat Resistance 25# Shuttle Recovery Platform Stable Reps/Time 15x 2 Bilateral Squats Details Rubén Unilateral squat Resistance 37#, 50# Shuttle Recovery Platform Stable Reps/Time 15x 2 Therapeutic Exercises Sitting Exercises Thumb flex strengthening Sitting Exercise Name Rizwana thumb flex with thumb at MCP of little finger pad Side right Reps/Minutes 5' Sit<>Stands Side bilateral Resistance level one band Reps/Minutes 2X10+ Comments See Functional Tests above. Manual Therapy Treatment Joint Mobilizations R Middle jts Joint MCP & PIP jt also med and lat with arom flexion Direction PA, AP Grade III Body Position Hooklying Reps/Duration 5' R thumb IP jt Joint and PIP this session also lat and med with AROM flex Direction AP and PA Grade III Body Position Sitting Reps/Duration 10' PT-OP-R Modalities Start: 03/03/23 17:50 Freq: Status: Active Protocol: Document 06/21/23 12:53 AB (Rec: 06/21/23 16:36 AB [id number]) Paraffin Bath Treatment Right Hand Treatment Technique Dip-immersion Wax Temperature (degrees F) 120 Number Wax Layers (layers) 7 Patient Tolerance Good PT-OP-T Assessment and Plan Start: 03/03/23 17:50 Freq: Status: Active Protocol: Document 06/23/23 09:00 LRN (Rec: 06/23/23 09:49 LRN [id number]) Physical Therapy Assessment Goals Six Impairment Decreased balance Impairment SLS: 3 secs R, 8 secs L Tandem stance: R leg behind - 0 secs; L leg behind - 10 secs. Prison Goal (LTG) Improve SLS or tandem stance to improve balance and safety with gait. 03/27/23: Treatment note indicates TAndem STance: R foot behind 0 secs, L foot behind 10 secs 06/09/2023 Left LE 15 seconds SLS without UE use right LE 17 seconds 06/14/2023 Tandem stance 30 second left foot fwd and right foot forward without UE use with no reaction and therapist ending test at 30 seconds. ABC score 94.06% 94% funtion 16% impairment. LTG Duration 8 wks-08/05/23 (met 06/14/2023 ) Five Impairment Decreased R hand pantograph i engraver strength Prison Goal (LTG) Pt able to feel safe gripping shower door to get out of shower without fear of falling or pantograph i engraver post on a boat to get off the boat onto a dock. 05/31/2023 Mfts strength left 17 , 20, 20 right 11,10,12 lbs 06/09/2023 Pt reports continued difficulty gripping hammer, door of shower which is a small pantograph i engraver, and hasn't tried post at boat. 10,11,12.5 lb pantograph i engraver strength right UE this session LTG Duration 8 wks-08/05/23 Progressing (06/09/2023) Two Impairment Decreased endurance making transfers from chairs and toilet difficult. Impairment Pain in shoulders, legs, R ankle making sitting on toilet w/o a riser and getting up from a chair difficult. (5xSTS Norm for 70-79 yo is 12 .6 secs) (30 sec chair stand Norm for 70-74 yo female is 10-15x) Short Term Goal (STG) Improve endurance with 5xSTS in 12 secs or less or 30 sec chair stand 10x or greater, or walk 546 ft prior to fatigue. 03/07/23: 30 STS - 7 reps. 03/31/23 PT reports less pain right ankle with sit to stand with band tied above knees to control valgus at knee impact on ankle. 04/05/23: 30 STS - 7 reps, 5xSTS in 23 secs. 04/14/23: 30 STS - 7 reps. 5XSTS in 19 secs. 05/05/23: 30 STS - 7 reps. 5XSTS in 21 secs. 06/02/23: 30 STS - 8 reps, 5xSTS in 17 secs. 06/09/2023 5X sit to life skills instructor 16 seconds 06/23/23: 30 STS - 11 reps, 5xSTS in 13 secs. STG Duration 4 wks-07/08/23 (06/23/23: MET GOAL except 5xSTS in 12 or less) Ship Self Defense System Mk1 Operator Goal (LTG) Improve endurance with pt able to walk 684 ft prior to fatigue or 13 steps at home without heavy breathing. 03/15/23: Hiking 1.25 miles & is tired after 13 stair steps at home, but not heavily breathing. 04/05/23: (NOTE: chronic fatigue for 35 yrs) Tired still after 13 steps at home. 04/05/23: Walking before fatigue - 500 ft. [id number] minute walk test 2 min walk test 341 feet and patient reports daily 20 minute walks and stairs daily X 4 at home. 05/24/2023 walk to fatigue Gia 12/20 rating at 8 min 20 seconds and 1611 feet. 05/26/23: Not heavy breathing after travelling 13 steps. 06/02/23: Walked outdoors 11, 000 steps yesterday. 06/21/23 Good fox to sit to stand 2X 10 with band and into session reporting hiking an hour yesterday. LTG Duration (06/02/23: MET GOAL) One Impairment Pt lacks appropriate self care HEP. Short Term Goal (STG) Pt will be educated and independent in donning/doffing a coat without pain. STG Duration 4 wks-04/01/23 (03/07/23: MET GOAL) Ship Self Defense System Mk1 Operator Goal (LTG) Pt will be independent in a self care HEP for general strengthening of core/LE's/UE' s and bilateral thumb mobility ex's. 03/07/23: HEP: (LE's) Sit<> stands, (UE's)AROM rubén shlder ext (elbows straight & flexed) & I/S in IR reaching hand up spine. 03/10/23: (UE's) I/S pt in self R thumb IP/MCP flex stretch f/b active flex strengthening and issued Lev1 TPutty (yellow). 03/21/23: OUTBOARD MOTORS EXPERIMENTAL MECHANIC added HEP: Log roll sup<>sit transfer. 04/07/23: OUTBOARD MOTORS EXPERIMENTAL MECHANIC added HEP: (UE' s) supine shoulder flexion, AA seated shoulder ER and towel squeeze and twist. 04/11/23: OUTBOARD MOTORS EXPERIMENTAL MECHANIC added HEP: AROM tendon glide. 04/19/23: OUTBOARD MOTORS EXPERIMENTAL MECHANIC added HEP: (UE' s) loosening knots with large ropes with right hand for strengthening. Discussed jar transplant coordinator devices and knives that are designed for weak hands. 04/21/23; OUTBOARD MOTORS EXPERIMENTAL MECHANIC added HEP: (UE) AROM IR. 04/26/23: Pt to ex for endurance (Core:standing UBE) using GIA Perceived Exertion Scale of Fairly Light (scale 11) to less than Somewhat Hard. Sit<>Stand ex's at home, but to do less if too tiring. 06/09/2023 - Patient reports working on using all of fingers when dressing, but has been working on it. Patient able to touch base of 5th digit with thumb, oppostition AROM LTG Duration 8 wks-08/05/23 progressing 03/07/23 Assessment Summary Assessment Pt is a 72 yo female attending rehab to improve endurance ( primarily walking), reduce fatigue, decr R thumb pain and improve R hand function (pantograph i engraver ). Pt met part of STG 2: 30 Sec STS test and has met walking distance goal. Not met 5xSTS goal of 12 secs or less. Pt also reporting able to tuck shirt in with her R arm with occasional twinge of pain in shoulder. Physical Therapy Plan Frequency and Duration Frequency of Treatment 2x/Week Duration of treatment (weeks) 8 Plan of Care Start Date 06/09/23 Plan of Care End Date 08/05/23 Next Visit Focus/Plan Next Note Type Treatment Note Next Visit Plan Next: Possibly assess pantograph i engraver strength start and end of session, then Paraffin dip R hand. Tiffani focus on hand & LE strength/endurance (as fox incr reps then resistance on Shuttle recovery), ADD: TB ankle strengthening to HEP. Check Sit<>Stands from lower surface, monitor for appropriate Perceived exertion scale 10-11. Progress stair stepping for LE /quad, possibly 6 inch step down (progress from step up step back) if able to perform pain free, gluteal strengthening. FOCUS: LE Strength/Endurance for ascending stairs. Encourage pt to improve endurance on home stair program. FOCUS: Mfts - improving R thumb mobility and finger/wrist ext mobility ( stretch to flexors), f/b strengthening flexion to improve thumb/hand ability to pantograph i engraver (GOAL 5), and Quad/ Hamstring strengthening (STS endurance), and improve balance once LE strength achieved, (R LE primarily) for safety and fluidity of gait. Balance & Progress HEP (see LT GOAL #1). [ End ]
--- NOTE | 2023-06-30 16:43 | PT.OTN ---
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) Pain in unspecified joint (06/30/23) Physical Therapy Treatment Note PT-OP-A Visit Information Start: 03/03/23 17:50 Freq: Status: Active Protocol: Document 06/30/23 08:11 AB (Rec: 06/30/23 09:02 AB [id number]) Out-Patient Physical Therapy Visit Information Visit Information Visit Type Treatment Note Visit Start Time 08:17 Visit Stop Time 08:59 Visit Number 34 Number of LAWN SERVICE SUPERVISOR Visits 1 Evaluation Information Evaluation Date 03/04/23 Precautions Precautions SOB after walking & putting shoes on, Fibromyalgia, Libra's disease, Chronic fatigue for 35 yrs, recent surgery (07/20/22) 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 PT-OP-B Current Condition Start: 03/03/23 17:50 Freq: Status: Active Protocol: Document 03/04/23 13:04 LRN (Rec: 03/04/23 15:17 LRN [id number]) Current Condition History of Current Condition Onset Date 06/3022 Current Complaints Fatigue, SOB, general soreness of body. 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 Currently dealing with effect of tapering down use of hydrocortisone. Shoulders, legs, R ankle pain new since surgery. Has hot spots on top of L leg and at spine on LB, R hand (cat bit her a couple months before surgery). On 6 hrs of Tylenol and 8 hrs on Meloxicam daily then can sleep. R hand is most problematic. Prior Treatments and Tests MRI & CAT scan to check on surgery results. PT for neck 5-6 yrs ago without resolution. Treatment Goals Patient/Caregiver Goals Pt goals: Cooking or sitting on toilet w /o the riser w/o pain in shoulders, legs, R ankle. Getting up from chair without difficulty. Able to move stick shift with R hand w/o pain. Taking on/off coat w/o pain. Prior Functional Status Baseline Function- ADL's Independent Baseline Function- Mobility Independent Baseline Function- Other Before surgery (2 yrs ago) hiking and 1/2 mile a day. 2x /week 3-5 miles. Before surgery: (3yrs ago) Panting putting shoes/boots, walking 1 mile. Current Functional Impairments (Reported) Functional Limitations- ADL's Difficulty opening cans with can chute greaser, and help to put coat on. Functional Limitations- Mobility/Gait Walks 1x/day 6-8 blocks. Fatigued from walking into treatment room. 13 steps to get to room, results in breathing heavy. Personal Factors Other Personal Factors That May Effect Tumor from pituitary gland Therapy/Recovery removed 07/20/22, currently working on steroid taper. Fibromyalgia. SOB just walking and putting shoes on. PT-OP-C Subjective Start: 03/03/23 17:50 Freq: Status: Active Protocol: Document 06/30/23 08:11 AB (Rec: 06/30/23 09:02 AB [id number]) OP-PT Subjective Patient Comments Patient Comments Hedis Review Nurse strength right hand start of session: 7,7,6. Patient reports she has been having better luck with small jars. PT-OP-E Functional Tests Start: 03/03/23 17:50 Freq: Status: Active Protocol: Document 06/23/23 09:00 LRN (Rec: 06/23/23 09:49 LRN [id number]) Functional Tests 30 Second Sit to Stand Test Score 11 reps Five Times Sit to Stand Test Score 13 secs PT-OP-G Mobility & Gait Start: 03/03/23 17:50 Freq: Status: Active Protocol: Document 03/04/23 13:04 LRN (Rec: 03/04/23 15:17 LRN [id number]) OP Mobility Evaluation Functional Movements Other Functional Movements Putting coat on: Pt dons from overhead and requires assistance to pull coat down through arms and to clear head . PT-OP-H Neuro Start: 03/03/23 17:50 Freq: Status: Active Protocol: Document 03/04/23 13:04 LRN (Rec: 03/04/23 15:17 LRN [id number]) Sensation Evaluation Gross Sensation Gross Sensation WNL Vital Signs Pulse At rest sitting Pulse at Rest (bpm) 80 Pulse Assessment Method BP cuff Blood Pressure Sitting Blood Pressure (90/60-120/80 mmHg) 125/75 H Blood Pressure Source Automatic Cuff PT-OP-J Posture/Palpation/Skin Start: 03/03/23 17:50 Freq: Status: Active Protocol: Document 03/04/23 13:04 LRN (Rec: 03/04/23 15:17 LRN [id number]) Posture Evaluation Position Standing Head/C-Spine Posture Forward Head T-Spine Posture Increased Kyphosis L-Spine Posture Increased Lordosis Shoulder Posture (L) Rounded,(R) Rounded,(L) Elevated Scapula Posture (L) Neutral,(R) Neutral Arm Posture (L) Internally Rotated,(R) Internally Rotated Pelvis Posture Anteriorly Tilted Weight Distribution Balanced Knee Posture (L) Neutral,(R) Neutral Ankle/Foot Posture (L) Neutral,(R) Neutral Foot Arch (L) High Arch,(R) High Arch PT-OP-K Range of Motion Start: 03/03/23 17:50 Freq: Status: Active Protocol: Document 04/11/23 08:06 AB (Rec: 04/11/23 10:43 AB [id number]) Shoulder Goniometric Range of Motion Shoulder left shoulder AROM Testing Position PROM supine Flexion 151 Abduction 91 External Rotation at 45 degrees 55 Abduction Right shoulder AROM Testing Position PROM supine Flexion 141 Abduction 84 External Rotation at 45 degrees 47 Abduction PT-OP-M Strength Start: 03/03/23 17:50 Freq: Status: Active Protocol: Document 06/28/23 14:35 LRN (Rec: 06/28/23 15:41 LRN [id number]) Hand Hedis Review Nurse/Pinch Strength Hand Dominance Hand Dominance Right Hand Strength Right Hedis Review Nurse (lbs) 2.25 Comments Hedis Review Nurse strength in kgs (3 trials ): 2.5, 2, 2. Avg strength is 2.25 kgs. Hedis Review Nurse strength in kgs (3 trials ) after manual therapy: 6, 6, 6. Avg strength is 6 kg. Norm for 70-74 yo female is 22 .5 kg R, 18.6 kg L. Hedis Review Nurse strength in kgs (3 trials ) after manual treatment: 6, 6, 6; avg strength is 6 kg. Left Comments Hedis Review Nurse strength in kgs (3 trials ): 10, 10, 10. Avg strength is 10 kgs. Norm for 70-74 yo female is 22 .5 kg R, 18.6 kg L. PT-OP-Q Treatments Start: 03/03/23 17:50 Freq: Status: Active Protocol: Document 06/30/23 08:11 AB (Rec: 06/30/23 09:02 AB [id number]) Cardio Equipment Bicycle (Upright) Duration (Minutes) 5 Resistance 8, rpm 60 or above unless GIA scale above 12. ( 12 between fairly light* Seat Position 5 Other * and somewhat hard GIA Therapeutic Exercises Sitting Exercises digiflex yellow Sitting Exercise Name single finger set up Side right Equipment Used digiflex yellow Reps/Minutes one minute Comments increased focus on each finger joint performed independently seated screwing and unscrewing bolts Sitting Exercise Name All screws Side right Reps/Minutes X2 in and out Comments Patient reports none feel difficult towel therabar squeeze and twist Sitting Exercise Name yellow therabar Side bilateral Reps/Minutes on min Comments post paraffin and manual therapy wrist extension Side right Reps/Minutes 15 with fingers clasped X15 with fingers extended Standing Exercises step down fwd Standing Exercise Name bilateral UE use to one UE Side bilateral Reps/Minutes 2X10 fwd Comments Unsteady with one UE and only one UE at home/not added to HEP step up Standing Exercise Name 6 inch step with UE use Side bilateral Reps/Minutes 2X10 each LE Comments verbal cues to step back down slowly Manual Therapy Treatment Soft Tissue Mobilization right forearm Body Location ant and posterior Mobilization Type Cross-Friction,Rolling,Other Intensity/Depth Moderate Body Position Hooklying Comments prior to wrist exercises Joint Mobilizations R Middle jts Joint MCP & PIP jt also med and lat with arom flexion Direction PA, AP Grade III Body Position Hooklying Reps/Duration 5' R Index jt Joint MCP & PIP jt also med and lat with AROM flex Direction PA,AP Grade III Body Position Hooklying Reps/Duration 10x R thumb MCP jt Joint R thumb MCP jt Direction PA AP Grade III Body Position Hooklying Reps/Duration X10 R thumb IP jt Joint and PIP this session also lat and med with AROM flex Direction AP and PA Grade III Body Position Sitting Reps/Duration 10' PT-OP-R Modalities Start: 03/03/23 17:50 Freq: Status: Active Protocol: Document 06/30/23 08:11 AB (Rec: 06/30/23 16:43 AB [id number]) Paraffin Bath Treatment Right Hand Treatment Technique Dip-immersion Wax Temperature (degrees F) 120 Number Wax Layers (layers) 7 Patient Tolerance Good PT-OP-T Assessment and Plan Start: 03/03/23 17:50 Freq: Status: Active Protocol: Document 06/30/23 08:11 AB (Rec: 06/30/23 09:02 AB [id number]) Physical Therapy Assessment Goals Five Impairment Decreased R hand non destructive testing technician strength Long-Term Goal (LTG) Pt able to feel safe gripping shower door to get out of shower without fear of falling or non destructive testing technician post on a boat to get off the boat onto a dock. 05/31/2023 Hedis Review Nurse strength left 17 , 20, 20 right 11,10,12 lbs 06/09/2023 Pt reports continued difficulty gripping hammer, door of shower which is a small non destructive testing technician, and hasn't tried post at boat. 10,11,12.5 lb non destructive testing technician strength right UE this session 06/28/23: Hedis Review Nurse strength right is 2.5, 2, 2 kg non destructive testing technician strength , left is 7, 7, 7 kg. After manual therapy right is 6, 6, 6 kg. LTG Duration 8 wks-08/05/23 Progressing (06/28/2023) Two Impairment Decreased endurance making transfers from chairs and toilet difficult. Impairment Pain in shoulders, legs, R ankle making sitting on toilet w/o a riser and getting up from a chair difficult. (5xSTS Norm for 70-79 yo is 12 .6 secs) (30 sec chair stand Norm for 70-74 yo female is 10-15x) Short Term Goal (STG) Improve endurance with 5xSTS in 12 secs or less or 30 sec chair stand 10x or greater, or walk 546 ft prior to fatigue. 03/07/23: 30 STS - 7 reps. 03/31/23 PT reports less pain right ankle with sit to stand with band tied above knees to control valgus at knee impact on ankle. 04/05/23: 30 STS - 7 reps, 5xSTS in 23 secs. 04/14/23: 30 STS - 7 reps. 5XSTS in 19 secs. 05/05/23: 30 STS - 7 reps. 5XSTS in 21 secs. 06/02/23: 30 STS - 8 reps, 5xSTS in 17 secs. 06/09/2023 5X sit to district superintendent 16 seconds 06/23/23: 30 STS - 11 reps, 5xSTS in 13 secs. STG Duration 4 wks-07/08/23 (06/23/23: MET GOAL except 5xSTS in 12 or less) Shaper Operator Goal (LTG) Improve endurance with pt able to walk 684 ft prior to fatigue or 13 steps at home without heavy breathing. 03/15/23: Hiking 1.25 miles & is tired after 13 stair steps at home, but not heavily breathing. 04/05/23: (NOTE: chronic fatigue for 35 yrs) Tired still after 13 steps at home. 04/05/23: Walking before fatigue - 500 ft. 2 minute walk test 2 min walk test 341 feet and patient reports daily 20 minute walks and stairs daily X 4 at home. 05/24/2023 walk to fatigue Gia / rating at 8 min 20 seconds and 1611 feet. 05/26/23: Not heavy breathing after travelling 13 steps. 06/02/23: Walked outdoors 11, 000 steps yesterday. 06/21/23 Good fox to sit to stand 2X 10 with band and into session reporting hiking an hour yesterday. LTG Duration (06/02/23: MET GOAL) One Impairment Pt lacks appropriate self care HEP. Short Term Goal (STG) Pt will be educated and independent in donning/doffing a coat without pain. STG Duration 4 wks-04/01/23 (03/07/23: MET GOAL) Long-Term Goal (LTG) Pt will be independent in a self care HEP for general strengthening of core/LE's/UE' s and bilateral thumb mobility ex's. 03/07/23: HEP: (LE's) Sit<> stands, (UE's)AROM rubén shlder ext (elbows straight & flexed) & I/S in IR reaching hand up spine. 03/10/23: (UE's) I/S pt in self R thumb IP/MCP flex stretch f/b active flex strengthening and issued Lev1 TPutty (yellow). 03/21/23: LAWN SERVICE SUPERVISOR added HEP: Log roll sup<>sit transfer. 04/07/23: LAWN SERVICE SUPERVISOR added HEP: (UE' s) supine shoulder flexion, AA seated shoulder ER and towel squeeze and twist. 04/11/23: LAWN SERVICE SUPERVISOR added HEP: AROM tendon glide. 04/19/23: LAWN SERVICE SUPERVISOR added HEP: (UE' s) loosening knots with large ropes with right hand for strengthening. Discussed jar chute greaser devices and knives that are designed for weak hands. 04/21/23; LAWN SERVICE SUPERVISOR added HEP: (UE) AROM IR. 04/26/23: Pt to ex for endurance (Core:standing UBE) using GIA Perceived Exertion Scale of Fairly Light (scale 11) to less than Somewhat Hard. Sit<>Stand ex's at home, but to do less if too tiring. 06/09/2023 - Patient reports working on using all of fingers when dressing, but has been working on it. Patient able to touch base of 5th digit with thumb, oppostition AROM LTG Duration 8 wks-08/05/23 progressing 03/07/23 Assessment Summary Assessment 8 inch step up step back Hedis Review Nurse 10,9,9 lbs end of session . with patient reporting feeling fine. Physical Therapy Plan Frequency and Duration Frequency of Treatment 2x/Week Duration of treatment (weeks) 8 Plan of Care Start Date 06/09/23 Plan of Care End Date 08/05/23 Next Visit Focus/Plan Next Visit Plan Assess/monitor non destructive testing technician strength start and end of session and after her weekend on her boal. Paraffin dip R hand and increase strengthening on Shuttle (incr reps then resistance on Shuttle recovery ). Incr focus on hand gripping. ADD: TB ankle strengthening to HEP & Check Sit<>Stands from lower surface , monitor for appropriate Perceived exertion scale 10-11 . Progress: stair stepping for LE/quad, possibly 6 inch step down (progress from step up step back possibly 8 inch stepu up step back vs 4 inch step down) if able to perform pain free, gluteal strengthening. FOCUS: LE Strength/Endurance for ascending stairs. Encourage pt to improve endurance on home stair program. FOCUS: Hedis Review Nurse - improving R thumb mobility and finger/ wrist ext mobility (stretch to flexors), f/b strengthening flexion to improve thumb/hand ability to non destructive testing technician (GOAL 5), and Quad/Hamstring strengthening ( STS endurance), and improve balance once LE strength achieved, (R LE primarily) for safety and fluidity of gait. Balance & Progress HEP (see LT GOAL #1). [ End ]
--- NOTE | 2023-07-05 16:37 | PT.OTN ---
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) Pain in unspecified joint (07/05/23) Physical Therapy Treatment Note PT-OP-A Visit Information Start: 03/03/23 17:50 Freq: Status: Active Protocol: Document 07/05/23 12:46 AB (Rec: 07/05/23 14:19 AB [id number]) Out-Patient Physical Therapy Visit Information Visit Information Visit Type Treatment Note Visit Note Access Code [email or web address] Visit Start Time 13:01 Visit Stop Time 13:45 Visit Number 35 Number of PACK PULLER Visits 2 Evaluation Information Evaluation Date 03/04/23 Precautions Precautions SOB after walking & putting shoes on, Fibromyalgia, [place]'s disease, Chronic fatigue for 35 yrs, recent surgery (07/20/22) 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 PT-OP-B Current Condition Start: 03/03/23 17:50 Freq: Status: Active Protocol: Document 03/04/23 13:04 LRN (Rec: 03/04/23 15:17 LRN [id number]) Current Condition History of Current Condition Onset Date 06/3022 Current Complaints Fatigue, SOB, general soreness of body. 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 Currently dealing with effect of tapering down use of hydrocortisone. Shoulders, legs, R ankle pain new since surgery. Has hot spots on top of L leg and at spine on LB, R hand (cat bit her a couple months before surgery). On 6 hrs of Tylenol and 8 hrs on Meloxicam daily then can sleep. R hand is most problematic. Prior Treatments and Tests MRI & CAT scan to check on surgery results. PT for neck 5-6 yrs ago without resolution. Treatment Goals Patient/Caregiver Goals Pt goals: Cooking or sitting on toilet w /o the riser w/o pain in shoulders, legs, R ankle. Getting up from chair without difficulty. Able to move stick shift with R hand w/o pain. Taking on/off coat w/o pain. Prior Functional Status Baseline Function- ADL's Independent Baseline Function- Mobility Independent Baseline Function- Other Before surgery (2 yrs ago) hiking and 1/2 mile a day. 2x /week 3-5 miles. Before surgery: (3yrs ago) Panting putting shoes/boots, walking 1 mile. Current Functional Impairments (Reported) Functional Limitations- ADL's Difficulty opening cans with can storeroom clerk, and help to put coat on. Functional Limitations- Mobility/Gait Walks 1x/day 6-8 blocks. Fatigued from walking into treatment room. 13 steps to get to room, results in breathing heavy. Personal Factors Other Personal Factors That May Effect Tumor from pituitary gland Therapy/Recovery removed 07/20/22, currently working on steroid taper. Fibromyalgia. SOB just walking and putting shoes on. PT-OP-C Subjective Start: 03/03/23 17:50 Freq: Status: Active Protocol: Document 07/05/23 12:46 AB (Rec: 07/05/23 14:19 AB [id number]) OP-PT Subjective Patient Comments Patient Comments Patient reports she had to access the boat backwards to decrease the strain on knees as stool has not yet arrived. Patient reports brushing teeth , cutting with a knife and holding a pen to write contineus to be difficult. Patient reports she is tired, kind of trashed from being on the boat. PT-OP-E Functional Tests Start: 03/03/23 17:50 Freq: Status: Active Protocol: Document 06/23/23 09:00 LRN (Rec: 06/23/23 09:49 LRN [id number]) Functional Tests 30 Second Sit to Stand Test Score 11 reps Five Times Sit to Stand Test Score 13 secs PT-OP-G Mobility & Gait Start: 03/03/23 17:50 Freq: Status: Active Protocol: Document 03/04/23 13:04 LRN (Rec: 03/04/23 15:17 LRN [id number]) OP Mobility Evaluation Functional Movements Other Functional Movements Putting coat on: Pt dons from overhead and requires assistance to pull coat down through arms and to clear head . PT-OP-H Neuro Start: 03/03/23 17:50 Freq: Status: Active Protocol: Document 03/04/23 13:04 LRN (Rec: 03/04/23 15:17 LRN [id number]) Sensation Evaluation Gross Sensation Gross Sensation WNL Vital Signs Pulse At rest sitting Pulse at Rest (bpm) 80 Pulse Assessment Method BP cuff Blood Pressure Sitting Blood Pressure (90/60-120/80 mmHg) 125/75 H Blood Pressure Source Automatic Cuff PT-OP-J Posture/Palpation/Skin Start: 03/03/23 17:50 Freq: Status: Active Protocol: Document 03/04/23 13:04 LRN (Rec: 03/04/23 15:17 LRN [id number]) Posture Evaluation Position Standing Head/C-Spine Posture Forward Head T-Spine Posture Increased Kyphosis L-Spine Posture Increased Lordosis Shoulder Posture (L) Rounded,(R) Rounded,(L) Elevated Scapula Posture (L) Neutral,(R) Neutral Arm Posture (L) Internally Rotated,(R) Internally Rotated Pelvis Posture Anteriorly Tilted Weight Distribution Balanced Knee Posture (L) Neutral,(R) Neutral Ankle/Foot Posture (L) Neutral,(R) Neutral Foot Arch (L) High Arch,(R) High Arch PT-OP-K Range of Motion Start: 03/03/23 17:50 Freq: Status: Active Protocol: Document 04/11/23 08:06 AB (Rec: 04/11/23 10:43 AB [id number]) Shoulder Goniometric Range of Motion Shoulder left shoulder AROM Testing Position PROM supine Flexion 151 Abduction 91 External Rotation at 45 degrees 55 Abduction Right shoulder AROM Testing Position PROM supine Flexion 141 Abduction 84 External Rotation at 45 degrees 47 Abduction PT-OP-M Strength Start: 03/03/23 17:50 Freq: Status: Active Protocol: Document 06/28/23 14:35 LRN (Rec: 06/28/23 15:41 LRN [id number]) Hand Plastic Parts Fabricator/Pinch Strength Hand Dominance Hand Dominance Right Hand Strength Right Plastic Parts Fabricator (lbs) 2.25 Comments Plastic Parts Fabricator strength in kgs (3 trials ): 2.5, 2, 2. Avg strength is 2.25 kgs. Plastic Parts Fabricator strength in kgs (3 trials ) after manual therapy: 6, 6, 6. Avg strength is 6 kg. Norm for 70-74 yo female is 22 .5 kg R, 18.6 kg L. Plastic Parts Fabricator strength in kgs (3 trials ) after manual treatment: 6, 6, 6; avg strength is 6 kg. Left Comments Plastic Parts Fabricator strength in kgs (3 trials ): 10, 10, 10. Avg strength is 10 kgs. Norm for 70-74 yo female is 22 .5 kg R, 18.6 kg L. PT-OP-Q Treatments Start: 03/03/23 17:50 Freq: Status: Active Protocol: Document 07/05/23 12:46 AB (Rec: 07/05/23 14:19 AB [id number]) Cardio Equipment Bicycle (Upright) Duration (Minutes) 5 Resistance 8 Seat Position 5 Other reports somewhat hard the last minute, comments could feel it in thighs Therapeutic Exercises Sitting Exercises digiflex yellow Sitting Exercise Name single finger set up Side right Equipment Used digiflex yellow Reps/Minutes one minute Comments increased focus on each finger joint performed independently finger glide AROM Side right Reps/Minutes X4 Comments verbal and visual cues wrist extension Side right Reps/Minutes 15 with fingers clasped X15 with fingers extended Manual Therapy Treatment Soft Tissue Mobilization right forearm Body Location ant and posterior Mobilization Type Cross-Friction,Rolling,Other Intensity/Depth Moderate Body Position Hooklying Comments prior to wrist exercises Joint Mobilizations R Middle jts Joint MCP & PIP jt also med and lat with arom flexion Direction PA, AP Grade III Body Position Hooklying Reps/Duration 5' R Index jt Joint MCP & PIP jt also med and lat with AROM flex Direction PA,AP Grade III Body Position Hooklying Reps/Duration 10x R thumb MCP jt Joint R thumb MCP jt Direction PA AP Grade III Body Position Hooklying Reps/Duration X10 R thumb IP jt Joint and PIP this session also lat and med with AROM flex Direction AP and PA Grade III Body Position Sitting Reps/Duration 10' Manual Techniques contract relax right wrist and fingers Reps/Duration X2 PT-OP-R Modalities Start: 03/03/23 17:50 Freq: Status: Active Protocol: Document 07/05/23 12:46 AB (Rec: 07/05/23 14:19 AB [id number]) Paraffin Bath Treatment Right Hand Treatment Technique Dip-immersion Wax Temperature (degrees F) 120 Number Wax Layers (layers) 7 Patient Tolerance Good PT-OP-T Assessment and Plan Start: 03/03/23 17:50 Freq: Status: Active Protocol: Document 07/05/23 12:46 AB (Rec: 07/05/23 14:19 AB [id number]) Physical Therapy Assessment Goals Five Impairment Decreased R hand transplant registered nurse strength Senior Care Goal (LTG) Pt able to feel safe gripping shower door to get out of shower without fear of falling or transplant registered nurse post on a boat to get off the boat onto a dock. 05/31/2023 Plastic Parts Fabricator strength left 17 , 20, 20 right 11,10,12 lbs 06/09/2023 Pt reports continued difficulty gripping hammer, door of shower which is a small transplant registered nurse, and hasn't tried post at boat. 10,11,12.5 lb transplant registered nurse strength right UE this session 06/28/23: Plastic Parts Fabricator strength right is 2.5, 2, 2 kg transplant registered nurse strength , left is 7, 7, 7 kg. After manual therapy right is 6, 6, 6 kg. LTG Duration 8 wks-08/05/23 Progressing (06/28/2023) Two Impairment Decreased endurance making transfers from chairs and toilet difficult. Impairment Pain in shoulders, legs, R ankle making sitting on toilet w/o a riser and getting up from a chair difficult. (5xSTS Norm for 70-79 yo is 12 .6 secs) (30 sec chair stand Norm for 70-74 yo female is 10-15x) Short Term Goal (STG) Improve endurance with 5xSTS in 12 secs or less or 30 sec chair stand 10x or greater, or walk 546 ft prior to fatigue. 03/07/23: 30 STS - 7 reps. 03/31/23 PT reports less pain right ankle with sit to stand with band tied above knees to control valgus at knee impact on ankle. 04/05/23: 30 STS - 7 reps, 5xSTS in 23 secs. 04/14/23: 30 STS - 7 reps. 5XSTS in 19 secs. 05/05/23: 30 STS - 7 reps. 5XSTS in 21 secs. 06/02/23: 30 STS - 8 reps, 5xSTS in 17 secs. 06/09/2023 5X sit to training engineer 16 seconds 06/23/23: 30 STS - 11 reps, 5xSTS in 13 secs. STG Duration 4 wks-07/08/23 (06/23/23: MET GOAL except 5xSTS in 12 or less) Community Worker Goal (LTG) Improve endurance with pt able to walk 684 ft prior to fatigue or 13 steps at home without heavy breathing. 03/15/23: Hiking 1.25 miles & is tired after 13 stair steps at home, but not heavily breathing. 04/05/23: (NOTE: chronic fatigue for 35 yrs) Tired still after 13 steps at home. 04/05/23: Walking before fatigue - 500 ft. minute walk test 2 min walk test 341 feet and patient reports daily 20 minute walks and stairs daily X 4 at home. 05/24/2023 walk to fatigue Gia 12/20 rating at 8 min 20 seconds and 1611 feet. 05/26/23: Not heavy breathing after travelling 13 steps. 06/02/23: Walked outdoors 11, 000 steps yesterday. 06/21/23 Good fox to sit to stand 2X 10 with band and into session reporting hiking an hour yesterday. LTG Duration (06/02/23: MET GOAL) One Impairment Pt lacks appropriate self care HEP. Short Term Goal (STG) Pt will be educated and independent in donning/doffing a coat without pain. STG Duration 4 wks-04/01/23 (03/07/23: MET GOAL) Community Worker Goal (LTG) Pt will be independent in a self care HEP for general strengthening of core/LE's/UE' s and bilateral thumb mobility ex's. 03/07/23: HEP: (LE's) Sit<> stands, (UE's)AROM rubén shlder ext (elbows straight & flexed) & I/S in IR reaching hand up spine. 03/10/23: (UE's) I/S pt in self R thumb IP/MCP flex stretch f/b active flex strengthening and issued Lev1 TPutty (yellow). 03/21/23: PACK PULLER added HEP: Log roll sup<>sit transfer. 04/07/23: PACK PULLER added HEP: (UE' s) supine shoulder flexion, AA seated shoulder ER and towel squeeze and twist. 04/11/23: PACK PULLER added HEP: AROM tendon glide. 04/19/23: PACK PULLER added HEP: (UE' s) loosening knots with large ropes with right hand for strengthening. Discussed jar storeroom clerk devices and knives that are designed for weak hands. 04/21/23; PACK PULLER added HEP: (UE) AROM IR. 04/26/23: Pt to ex for endurance (Core:standing UBE) using GIA Perceived Exertion Scale of Fairly Light (scale 11) to less than Somewhat Hard. Sit<>Stand ex's at home, but to do less if too tiring. 06/09/2023 - Patient reports working on using all of fingers when dressing, but has been working on it. Patient able to touch base of 5th digit with thumb, oppostition AROM LTG Duration 8 wks-08/05/23 progressing 03/07/23 Assessment Summary Assessment Patient reports her transplant registered nurse feels looser end of session. Plastic Parts Fabricator right hand 15,13,14 lbs end of session. Physical Therapy Plan Frequency and Duration Frequency of Treatment 2x/Week Duration of treatment (weeks) 8 Plan of Care Start Date 06/09/23 Plan of Care End Date 08/05/23 Next Visit Focus/Plan Next Note Type Treatment Note Next Visit Plan Assess/monitor transplant registered nurse strength start and end of session and after her weekend on her boal. Paraffin dip R hand and increase strengthening on Shuttle (incr reps then resistance on Shuttle recovery ). Incr focus on hand gripping. ADD: TB ankle strengthening to HEP & Check Sit<>Stands from lower surface , monitor for appropriate Perceived exertion scale 10-11 . Progress: stair stepping for LE/quad, possibly 6 inch step down (progress from step up step back possibly 8 inch stepu up step back vs 4 inch step down) if able to perform pain free, gluteal strengthening. FOCUS: LE Strength/Endurance for ascending stairs. Encourage pt to improve endurance on home stair program. FOCUS: Plastic Parts Fabricator - improving R thumb mobility and finger/ wrist ext mobility (stretch to flexors), f/b strengthening flexion to improve thumb/hand ability to transplant registered nurse (GOAL 5), and Quad/Hamstring strengthening ( STS endurance), and improve balance once LE strength achieved, (R LE primarily) for safety and fluidity of gait. Balance & Progress HEP (see LT GOAL #1). [ End ]
--- NOTE | 2023-07-07 10:23 | PT.OTN ---
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 PT-OP-B Current Condition Start: 03/03/23 17:50 Freq: Status: Active Protocol: Document 03/04/23 13:04 LRN (Rec: 03/04/23 15:17 LRN [id number]) Current Condition History of Current Condition Onset Date 06/3022 Current Complaints Fatigue, SOB, general soreness of body. 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 Currently dealing with effect of tapering down use of hydrocortisone. Shoulders, legs, R ankle pain new since surgery. Has hot spots on top of L leg and at spine on LB, R hand (cat bit her a couple months before surgery). On 6 hrs of Tylenol and 8 hrs on Meloxicam daily then can sleep. R hand is most problematic. Prior Treatments and Tests MRI & CAT scan to check on surgery results. PT for neck 5-6 yrs ago without resolution. Treatment Goals Patient/Caregiver Goals Pt goals: Cooking or sitting on toilet w /o the riser w/o pain in shoulders, legs, R ankle. Getting up from chair without difficulty. Able to move stick shift with R hand w/o pain. Taking on/off coat w/o pain. Prior Functional Status Baseline Function- ADL's Independent Baseline Function- Mobility Independent Baseline Function- Other Before surgery (2 yrs ago) hiking and 1/2 mile a day. 2x /week 3-5 miles. Before surgery: (3yrs ago) Panting putting shoes/boots, walking 1 mile. Current Functional Impairments (Reported) Functional Limitations- ADL's Difficulty opening cans with can application integration specialist, and help to put coat on. Functional Limitations- Mobility/Gait Walks 1x/day 6-8 blocks. Fatigued from walking into treatment room. 13 steps to get to room, results in breathing heavy. Personal Factors Other Personal Factors That May Effect Tumor from pituitary gland Therapy/Recovery removed 07/20/22, currently working on steroid taper. Fibromyalgia. SOB just walking and putting shoes on. PT-OP-C Subjective Start: 03/03/23 17:50 Freq: Status: Active Protocol: Document 07/07/23 09:09 LRN (Rec: 07/07/23 10:22 LRN [id number]) OP-PT Subjective Patient Comments Patient Comments States feels safe gripping shower door to get out of shower without fear of falling , but gripping post on a boat to get off the boat onto a dock is the same. States she has referral from water filterer helper for Cardiac rehab but planning on starting after the summer. Pt would like to know what ex's she should be doing on her HEP, recommended one more visit for HEP review and treatment of hand machine lead burner strength/balance ex's if needed. PT-OP-E Functional Tests Start: 03/03/23 17:50 Freq: Status: Active Protocol: Document 06/23/23 09:00 LRN (Rec: 06/23/23 09:49 LRN [id number]) Functional Tests 30 Second Sit to Stand Test Score 11 reps Five Times Sit to Stand Test Score 13 secs PT-OP-G Mobility & Gait Start: 03/03/23 17:50 Freq: Status: Active Protocol: Document 03/04/23 13:04 LRN (Rec: 03/04/23 15:17 LRN [id number]) OP Mobility Evaluation Functional Movements Other Functional Movements Putting coat on: Pt dons from overhead and requires assistance to pull coat down through arms and to clear head . PT-OP-H Neuro Start: 03/03/23 17:50 Freq: Status: Active Protocol: Document 03/04/23 13:04 LRN (Rec: 03/04/23 15:17 LRN [id number]) Sensation Evaluation Gross Sensation Gross Sensation WNL Vital Signs Pulse At rest sitting Pulse at Rest (bpm) 80 Pulse Assessment Method BP cuff Blood Pressure Sitting Blood Pressure (90/60-120/80 mmHg) 125/75 H Blood Pressure Source Automatic Cuff PT-OP-J Posture/Palpation/Skin Start: 03/03/23 17:50 Freq: Status: Active Protocol: Document 03/04/23 13:04 LRN (Rec: 03/04/23 15:17 LRN [id number]) Posture Evaluation Position Standing Head/C-Spine Posture Forward Head T-Spine Posture Increased Kyphosis L-Spine Posture Increased Lordosis Shoulder Posture (L) Rounded,(R) Rounded,(L) Elevated Scapula Posture (L) Neutral,(R) Neutral Arm Posture (L) Internally Rotated,(R) Internally Rotated Pelvis Posture Anteriorly Tilted Weight Distribution Balanced Knee Posture (L) Neutral,(R) Neutral Ankle/Foot Posture (L) Neutral,(R) Neutral Foot Arch (L) High Arch,(R) High Arch PT-OP-K Range of Motion Start: 03/03/23 17:50 Freq: Status: Active Protocol: Document 04/11/23 08:06 AB (Rec: 04/11/23 10:43 AB [id number]) Shoulder Goniometric Range of Motion Shoulder left shoulder AROM Testing Position PROM supine Flexion 151 Abduction 91 External Rotation at 45 degrees 55 Abduction Right shoulder AROM Testing Position PROM supine Flexion 141 Abduction 84 External Rotation at 45 degrees 47 Abduction PT-OP-M Strength Start: 03/03/23 17:50 Freq: Status: Active Protocol: Document 07/07/23 09:09 LRN (Rec: 07/07/23 10:22 LRN [id number]) Hand Rn Med Surg/Pinch Strength Hand Strength Left Comments Rn Med Surg strength in kgs (3 trials ): 6, 6, 6. Avg strength is 6 kgs (previously tested avg strength was 10 kg). Norm for 70-74 yo female is 22 .5 kg R, 18.6 kg L. PT-OP-Q Treatments Start: 03/03/23 17:50 Freq: Status: Active Protocol: Document 07/07/23 09:09 LRN (Rec: 07/07/23 10:22 LRN [id number]) Cardio Equipment Bicycle (Upright) Duration (Minutes) 5 Resistance 8 Seat Position 5 Other no complaints Gym Equipment Shuttle Recovery Unilateral Squats Details Bilaterally Resistance 37#, 25# Shuttle Recovery Platform Stable Reps/Time 10x , & 15x 2 Bilateral Squats Resistance 50#, 67# Shuttle Recovery Platform Stable Reps/Time 15x 2, 10x respectively Manual Therapy Treatment Joint Mobilizations R ring finger Joint PIP & DIP jt and with AROM flex Direction PA Grade III Body Position Sitting Reps/Duration 5' Comments Mob as tolerated. R little finger Joint PIP & DIP jt and with AROM flex Direction PA Grade III Body Position Sitting Reps/Duration 5' Comments Mob as tolerated. R Middle jts Joint PIP, DIP jt and with AROM Direction PA Grade III Body Position Sitting Reps/Duration 5' Comments Mob as tolerated. R Index jt Joint MCP & PIP jt also med and lat with AROM flex Direction PA Grade III Body Position Sitting Reps/Duration 5' Comments Mob as tolerated. Self-Care/Home Management Treatment Education Patient Education Home Exercise Program Activities Self-Care/Home Management Activities Issued & reviewed HEP: Ankle strengthening with TB (DF, IV, EV). PT-OP-R Modalities Start: 03/03/23 17:50 Freq: Status: Active Protocol: Document 07/07/23 09:09 LRN (Rec: 07/07/23 10:22 [facility] [id number]) Paraffin Bath Treatment Right Hand Treatment Technique Dip-immersion Wax Temperature (degrees F) 120 Number Wax Layers (layers) 7 Patient Tolerance Good PT-OP-T Assessment and Plan Start: 03/03/23 17:50 Freq: Status: Active Protocol: Document 07/07/23 09:09 LRN (Rec: 07/07/23 10:22 [facility] [id number]) Physical Therapy Assessment Goals Five Impairment Decreased R hand machine lead burner strength Home Theater Installer Goal (LTG) Pt able to feel safe gripping shower door to get out of shower without fear of falling or machine lead burner post on a boat to get off the boat onto a dock. 05/31/2023 Rn Med Surg strength left 17 , 20, 20 right 11,10,12 lbs 06/09/2023 Pt reports continued difficulty gripping hammer, door of shower which is a small machine lead burner, and hasn't tried post at boat. 10,11,12.5 lb machine lead burner strength right UE this session 06/28/23: Rn Med Surg strength right is 2.5, 2, 2 kg machine lead burner strength , left is 7, 7, 7 kg. After manual therapy right is 6, 6, 6 kg. 07/07/23: Rn Med Surg strength (kgs in sitting) right is 6, 6, 6; avg strength is 6 kg. LTG Duration 8 wks-08/05/23 (07/07/23: No change since last msmt) Two Impairment Decreased endurance making transfers from chairs and toilet difficult. Impairment Pain in shoulders, legs, R ankle making sitting on toilet w/o a riser and getting up from a chair difficult. (5xSTS Norm for 70-79 yo is 12 .6 secs) (30 sec chair stand Norm for 70-74 yo female is 10-15x) Short Term Goal (STG) Improve endurance with 5xSTS in 12 secs or less or 30 sec chair stand 10x or greater, or walk 546 ft prior to fatigue. 03/07/23: 30 STS - 7 reps. 03/31/23 PT reports less pain right ankle with sit to stand with band tied above knees to control valgus at knee impact on ankle. 04/05/23: 30 STS - 7 reps, 5xSTS in 23 secs. 04/14/23: 30 STS - 7 reps. 5XSTS in 19 secs. 05/05/23: 30 STS - 7 reps. 5XSTS in 21 secs. 06/02/23: 30 STS - 8 reps, 5xSTS in 17 secs. 06/09/2023 5X sit to scouring machine operator 16 seconds 06/23/23: 30 STS - 11 reps, 5xSTS in 13 secs. STG Duration 4 wks-07/08/23 (06/23/23: MET GOAL except 5xSTS in 12 or less) [facility] Goal (LTG) Improve endurance with pt able to walk 684 ft prior to fatigue or 13 steps at home without heavy breathing. 03/15/23: Hiking 1.25 miles & is tired after 13 stair steps at home, but not heavily breathing. 04/05/23: (NOTE: chronic fatigue for 35 yrs) Tired still after 13 steps at home. 04/05/23: Walking before fatigue - 500 ft. 2 minute walk test 2 min walk test 341 feet and patient reports daily 20 minute walks and stairs daily X 4 at home. 05/24/2023 walk to fatigue Gia 12/20 rating at 8 min 20 seconds and 1611 feet. 05/26/23: Not heavy breathing after travelling 13 steps. 06/02/23: Walked outdoors 11, 000 steps yesterday. 06/21/23 Good fox to sit to stand 2X 10 with band and into session reporting hiking an hour yesterday. LTG Duration (06/02/23: MET GOAL) One Impairment Pt lacks appropriate self care HEP. Short Term Goal (STG) Pt will be educated and independent in donning/doffing a coat without pain. STG Duration 4 wks-04/01/23 (03/07/23: MET GOAL) [facility] Goal (LTG) Pt will be independent in a self care HEP for general strengthening of core/LE's/UE' s and bilateral thumb mobility ex's. 03/07/23: HEP: (LE's) Sit<> stands, (UE's)AROM rubén shlder ext (elbows straight & flexed) & I/S in IR reaching hand up spine. 03/10/23: (UE's) I/S pt in self R thumb IP/MCP flex stretch f/b active flex strengthening and issued Lev1 TPutty (yellow). 03/21/23: UPPER SHAPER added HEP: Log roll sup<>sit transfer. 04/07/23: UPPER SHAPER added HEP: (UE' s) supine shoulder flexion, AA seated shoulder ER and towel squeeze and twist. 04/11/23: UPPER SHAPER added HEP: AROM tendon glide. 04/19/23: UPPER SHAPER added HEP: (UE' s) loosening knots with large ropes with right hand for strengthening. Discussed jar application integration specialist devices and knives that are designed for weak hands. 04/21/23; UPPER SHAPER added HEP: (UE) AROM IR. 04/26/23: Pt to ex for endurance (Core:standing UBE) using GIA Perceived Exertion Scale of Fairly Light (scale 11) to less than Somewhat Hard. Sit<>Stand ex's at home, but to do less if too tiring. 06/09/2023 - Patient reports working on using all of fingers when dressing, but has been working on it. Patient able to touch base of 5th digit with thumb, oppostition AROM. 07/07/23: HEP: Ankle TB strengthening LTG Duration 8 wks-08/05/23 (07/07/23: progressed) Assessment Summary Assessment Pt is a 72 yo female rehab to improve endurance (primarily walking), reduce fatigue, decr R thumb pain and improve R hand function (machine lead burner). Pt has made good improvements in all areas except was not able to demonstrate consistant improved machine lead burner strength because of dependence upon hand mobility. The pt has made known she enjoys attending therapy, but she will be enrolled in cardiac rehab when she can commit to 3 continuous months of therapy. She has summer plans; therefore now would be a good time to discharge her to her HEP that she will feel she can continue with. Review of HEP and placement will be priority of next visit. Physical Therapy Plan Frequency and Duration Frequency of Treatment 2x/Week Duration of treatment (weeks) 8 Plan of Care Start Date 06/09/23 Plan of Care End Date 08/05/23 Next Visit Focus/Plan Next Note Type Discharge Summary Next Visit Plan DC to HEP. Check machine lead burner strength end of session if pt wants to know. -Paraffin dip R hand and w/ strengthening on Shuttle (incr reps then resistance on Shuttle recovery). -Review HEP of TB ankle strengthening -Balance ex's if pt feels LE strength is enough, (R LE primarily) for safety and fluidity of gait. Stair stepping for LE/quad, possibly 6 inch step down ( progress from step up step back possibly 8 inch step up step back vs 4 inch step down) if able to perform pain free, gluteal strengthening. FOCUS: LE Strength/Endurance for ascending stairs. Encourage pt to improve endurance on home stair program. FOCUS: Rn Med Surg - improving R thumb mobility and finger/wrist ext mobility ( stretch to flexors), f/b strengthening flexion to improve thumb/hand ability to machine lead burner (GOAL 5), and Quad/ Hamstring strengthening (STS endurance), and Balance & Progress HEP (see LT GOAL #1). [ End ]
--- NOTE | 2023-07-21 15:38 | PT.OTN ---
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) Pain in unspecified joint (07/21/23) Physical Therapy Treatment Note PT-OP-A Visit Information Start: 03/03/23 17:50 Freq: Status: Active Protocol: Document 07/21/23 14:38 LRN (Rec: 07/21/23 15:35 LRN [id number]) Out-Patient Physical Therapy Visit Information Visit Information Visit Type Treatment Note Visit Start Time 14:38 Visit Stop Time 15:18 Visit Number 37 Evaluation Information Evaluation Date 03/04/23 Precautions Precautions SOB after walking & putting shoes on, Fibromyalgia, Libra's disease, Chronic fatigue for 35 yrs, recent surgery (07/20/22) 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 PT-OP-B Current Condition Start: 03/03/23 17:50 Freq: Status: Active Protocol: Document 03/04/23 13:04 LRN (Rec: 03/04/23 15:17 LRN [id number]) Current Condition History of Current Condition Onset Date 06/3022 Current Complaints Fatigue, SOB, general soreness of body. 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 Currently dealing with effect of tapering down use of hydrocortisone. Shoulders, legs, R ankle pain new since surgery. Has hot spots on top of L leg and at spine on LB, R hand (cat bit her a couple months before surgery). On 6 hrs of Tylenol and 8 hrs on Meloxicam daily then can sleep. R hand is most problematic. Prior Treatments and Tests MRI & CAT scan to check on surgery results. PT for neck 5-6 yrs ago without resolution. Treatment Goals Patient/Caregiver Goals Pt goals: Cooking or sitting on toilet w /o the riser w/o pain in shoulders, legs, R ankle. Getting up from chair without difficulty. Able to move stick shift with R hand w/o pain. Taking on/off coat w/o pain. Prior Functional Status Baseline Function- ADL's Independent Baseline Function- Mobility Independent Baseline Function- Other Before surgery (2 yrs ago) hiking and 1/2 mile a day. 2x /week 3-5 miles. Before surgery: (3yrs ago) Panting putting shoes/boots, walking 1 mile. Current Functional Impairments (Reported) Functional Limitations- ADL's Difficulty opening cans with can cylinder die machine operator, and help to put coat on. Functional Limitations- Mobility/Gait Walks 1x/day 6-8 blocks. Fatigued from walking into treatment room. 13 steps to get to room, results in breathing heavy. Personal Factors Other Personal Factors That May Effect Tumor from pituitary gland Therapy/Recovery removed 07/20/22, currently working on steroid taper. Fibromyalgia. SOB just walking and putting shoes on. PT-OP-C Subjective Start: 03/03/23 17:50 Freq: Status: Active Protocol: Document 07/21/23 14:38 LRN (Rec: 07/21/23 15:35 LRN [id number]) OP-PT Subjective Patient Comments Patient Comments The little steps has helped getting in/out of boat and was able to grasp the post and wooden handle on the boat. Getting on/off boat now feels secure with ability to hang onto a post/wooden handle. Patient Questionnaires ABC- Activity Specific Balance Confidence Scale ABC Score 94.06 (previously given) ABC Functional Impairment 1 to <20% Impaired (Score 81- 99) PT-OP-E Functional Tests Start: 03/03/23 17:50 Freq: Status: Active Protocol: Document 06/23/23 09:00 LRN (Rec: 06/23/23 09:49 LRN [id number]) Functional Tests 30 Second Sit to Stand Test Score 11 reps Five Times Sit to Stand Test Score 13 secs PT-OP-G Mobility & Gait Start: 03/03/23 17:50 Freq: Status: Active Protocol: Document 03/04/23 13:04 LRN (Rec: 03/04/23 15:17 LRN [id number]) OP Mobility Evaluation Functional Movements Other Functional Movements Putting coat on: Pt dons from overhead and requires assistance to pull coat down through arms and to clear head . PT-OP-H Neuro Start: 03/03/23 17:50 Freq: Status: Active Protocol: Document 03/04/23 13:04 LRN (Rec: 03/04/23 15:17 LRN [id number]) Sensation Evaluation Gross Sensation Gross Sensation WNL Vital Signs Pulse At rest sitting Pulse at Rest (bpm) 80 Pulse Assessment Method BP cuff Blood Pressure Sitting Blood Pressure (90/60-120/80 mmHg) 125/75 H Blood Pressure Source Automatic Cuff PT-OP-J Posture/Palpation/Skin Start: 03/03/23 17:50 Freq: Status: Active Protocol: Document 03/04/23 13:04 LRN (Rec: 03/04/23 15:17 LRN [id number]) Posture Evaluation Position Standing Head/C-Spine Posture Forward Head T-Spine Posture Increased Kyphosis L-Spine Posture Increased Lordosis Shoulder Posture (L) Rounded,(R) Rounded,(L) Elevated Scapula Posture (L) Neutral,(R) Neutral Arm Posture (L) Internally Rotated,(R) Internally Rotated Pelvis Posture Anteriorly Tilted Weight Distribution Balanced Knee Posture (L) Neutral,(R) Neutral Ankle/Foot Posture (L) Neutral,(R) Neutral Foot Arch (L) High Arch,(R) High Arch PT-OP-K Range of Motion Start: 03/03/23 17:50 Freq: Status: Active Protocol: Document 04/11/23 08:06 AB (Rec: 04/11/23 10:43 AB [id number]) Shoulder Goniometric Range of Motion Shoulder left shoulder AROM Testing Position PROM supine Flexion 151 Abduction 91 External Rotation at 45 degrees 55 Abduction Right shoulder AROM Testing Position PROM supine Flexion 141 Abduction 84 External Rotation at 45 degrees 47 Abduction PT-OP-M Strength Start: 03/03/23 17:50 Freq: Status: Active Protocol: Document 07/21/23 14:38 LRN (Rec: 07/21/23 15:35 LRN [id number]) Hand Rag Washer/Pinch Strength Hand Strength Right Comments Rag Washer strength in kgs (3 trials ): 8, 8, 8. Avg strength is 8 kg. Norm for 70-74 yo female is 22 .5 kg R, 18.6 kg L. PT-OP-Q Treatments Start: 03/03/23 17:50 Freq: Status: Active Protocol: Document 07/21/23 14:38 LRN (Rec: 07/21/23 15:35 LRN [id number]) Cardio Equipment Upper Body Ergometer (UBE) Duration (Minutes) 5 RPM 70 Seat Position 10 Height 3 Other Able to hold a conversation, staying within her GIA limit. Therapeutic Exercises Sitting Exercises Finger AB Sitting Exercise Name Finger AB strengthening Side bilateral Equipment Used Rubber band Reps/Minutes 3' Comments Extra time for set up to ex Finger ext ex Sitting Exercise Name All finger ext ex's Side bilateral Equipment Used Rubber band Reps/Minutes 6' Comments Extra time for set up to ex full linen sorter and full extend Sitting Exercise Name Gripping with elbow 90 deg's flexed Side right Equipment Used Hand dynamometer Reps/Minutes 5' Comments Rag Washer strength is 8 kg (Rag Washer strength tested) Self-Care/Home Management Treatment Activities Self-Care/Home Management Activities Pt brings in her HEP handouts for review. Discussed exercise times per week for improving vs maintaining. Added resistance to her finger ex's and encouraged ankle resisted ex's for balance. PT-OP-R Modalities Start: 03/03/23 17:50 Freq: Status: Active Protocol: Document 07/07/23 09:09 LRN (Rec: 07/07/23 10:22 LRN [id number]) Paraffin Bath Treatment Right Hand Treatment Technique Dip-immersion Wax Temperature (degrees F) 120 Number Wax Layers (layers) 7 Patient Tolerance Good PT-OP-T Assessment and Plan Start: 03/03/23 17:50 Freq: Status: Active Protocol: Document 07/21/23 14:38 LRN (Rec: 07/21/23 15:35 LRN [id number]) Physical Therapy Assessment Goals Six Impairment Decreased balance Impairment SLS: 3 secs R, 8 secs L Tandem stance: R leg behind - 0 secs; L leg behind - 10 secs. Fpc Goal (LTG) Improve SLS or tandem stance to improve balance and safety with gait. 03/27/23: Treatment note indicates TAndem STance: R foot behind 0 secs, L foot behind 10 secs 06/09/2023 Left LE 15 seconds SLS without UE use right LE 17 seconds 06/14/2023 Tandem stance 30 second left foot fwd and right foot forward without UE use with no reaction and therapist ending test at 30 seconds. ABC score 94.06% 94% funtion 16% impairment. LTG Duration 8 wks-08/05/23 (met 06/14/2023 ) Five Impairment Decreased R hand linen sorter strength Fpc Goal (LTG) Pt able to feel safe gripping shower door to get out of shower without fear of falling or linen sorter post on a boat to get off the boat onto a dock. 05/31/2023 Rag Washer strength left 17 , 20, 20 right 11,10,12 lbs 06/09/2023 Pt reports continued difficulty gripping hammer, door of shower which is a small linen sorter, and hasn't tried post at boat. 10,11,12.5 lb linen sorter strength right UE this session 06/28/23: Rag Washer strength right is 2.5, 2, 2 kg linen sorter strength , left is 7, 7, 7 kg. After manual therapy right is 6, 6, 6 kg. 07/07/23: Rag Washer strength (kgs in sitting) right is 6, 6, 6; avg strength is 6 kg. 07/21/23: Pt feeling safe gripping shower door to get out of shower and gripping post on their boat to get onto a dock without fear of falling. Rag Washer strength of R hand improved from 6 to 8 kg avg. LTG Duration 8 wks-08/05/23 (07/21/23: MET GOAL) Four Impairment Can't tuck shirt in from behind due to rubén shoulder restriction. Impairment Spouse is helping to tuck shirt in. Reaching behind head: Rubén to C7. Reaching behind back: S1 right, S2 left Fpc Goal (LTG) Improve shoulder mobility with pt able to tuck shirt in independently. 04/14/23: Hasn't tried to tuck shirt in. 04/28/2023 Patient reports she is able to tuck in shirt. Goal met LTG Duration 8 wks-05/27/23 (05/05/23: MET GOAL on 04/28/23) Three Impairment Decreased R hand strength due to thumb pain. Short Term Goal (STG) Improve R UE/linen sorter strength with pt able to cooking w/o thumb pain, or pt able to independently open jars or can with can cylinder die machine operator. 03/10/23: Pt reportedly had more R thumb ROM after paraffin dip and PROM/JMT. 03/15/23: Improved R thumb PROM: MCP jt ~45 deg flex, IP jt ~30 deg's flex; Opposition: thumb to little finger PIP jt distally. 04/05/23: Joints in R hand loosening. No pain with cooking. Pain in R thumb opening cans. Can't make fist with R hand as well as with L hand. Can't tuck shirt in from behind. 04/26/23: Slightly better able to linen sorter with R hand. New can cylinder die machine operator, so able to open can most times. Might lack strength to twist handle to open can. 05/10/23: Dosen't have thumb pain with cooking but fingers don't bend well and states thumb is improving in mobility . Opening jars is difficulty. Opening jars, if can break the seal first. Can open cans with new can cylinder die machine operator (x 2). STG Duration 4 wks-05/06/23 (05/10/23: MET GOAL) Fpc Goal (LTG) Improve R UE/linen sorter strength with pt able to move stick shift with R hand w/o pain. 04/05/23: Still using both hands, not able to linen sorter well. 05/10/23: Able to move stick shift with R hand w/o pain. LTG Duration 8 wks-05/27/23 (05/10/23: MET GOAL) Two Impairment Decreased endurance making transfers from chairs and toilet difficult. Impairment Pain in shoulders, legs, R ankle making sitting on toilet w/o a riser and getting up from a chair difficult. (5xSTS Norm for 70-79 yo is 12 .6 secs) (30 sec chair stand Norm for 70-74 yo female is 10-15x) Short Term Goal (STG) Improve endurance with 5xSTS in 12 secs or less or 30 sec chair stand 10x or greater, or walk 546 ft prior to fatigue. 03/07/23: 30 STS - 7 reps. 03/31/23 PT reports less pain right ankle with sit to stand with band tied above knees to control valgus at knee impact on ankle. 04/05/23: 30 STS - 7 reps, 5xSTS in 23 secs. 04/14/23: 30 STS - 7 reps. 5XSTS in 19 secs. 05/05/23: 30 STS - 7 reps. 5XSTS in 21 secs. 06/02/23: 30 STS - 8 reps, 5xSTS in 17 secs. 06/09/2023 5X sit to linseed oil temperer 16 seconds 06/23/23: 30 STS - 11 reps, 5xSTS in 13 secs. STG Duration 4 wks-07/08/23 (06/23/23: MET GOAL except 5xSTS in 12 or less) Fpc Goal (LTG) Improve endurance with pt able to walk 684 ft prior to fatigue or 13 steps at home without heavy breathing. 03/15/23: Hiking 1.25 miles & is tired after 13 stair steps at home, but not heavily breathing. 04/05/23: (NOTE: chronic fatigue for 35 yrs) Tired still after 13 steps at home. 04/05/23: Walking before fatigue - 500 ft. minute walk test 2 min walk test 341 feet and patient reports daily 20 minute walks and stairs daily X 4 at home. 05/24/2023 walk to fatigue Gia 02/09 rating at 8 min 20 seconds and 1611 feet. 05/26/23: Not heavy breathing after travelling 13 steps. 06/02/23: Walked outdoors 11, 000 steps yesterday. 06/21/23 Good fox to sit to stand 2X 10 with band and into session reporting hiking an hour yesterday. LTG Duration (06/02/23: MET GOAL) One Impairment Pt lacks appropriate self care HEP. Short Term Goal (STG) Pt will be educated and independent in donning/doffing a coat without pain. STG Duration 4 wks-04/01/23 (03/07/23: MET GOAL) Ruby Rails Developer Goal (LTG) Pt will be independent in a self care HEP for general strengthening of core/LE's/UE' s and bilateral thumb mobility ex's. 03/07/23: HEP: (LE's) Sit<> stands, (UE's)AROM rubén shlder ext (elbows straight & flexed) & I/S in IR reaching hand up spine. 03/10/23: (UE's) I/S pt in self R thumb IP/MCP flex stretch f/b active flex strengthening and issued Lev1 TPutty (yellow). 03/21/23: TECHNICAL SPECIALIST CYTOGENETICS added HEP: Log roll sup<>sit transfer. 04/07/23: TECHNICAL SPECIALIST CYTOGENETICS added HEP: (UE' s) supine shoulder flexion, AA seated shoulder ER and towel squeeze and twist. 04/11/23: TECHNICAL SPECIALIST CYTOGENETICS added HEP: AROM tendon glide. 04/19/23: TECHNICAL SPECIALIST CYTOGENETICS added HEP: (UE' s) loosening knots with large ropes with right hand for strengthening. Discussed jar cylinder die machine operator devices and knives that are designed for weak hands. 04/21/23; TECHNICAL SPECIALIST CYTOGENETICS added HEP: (UE) AROM IR. 04/26/23: Pt to ex for endurance (Core:standing UBE) using GIA Perceived Exertion Scale of Fairly Light (scale 11) to less than Somewhat Hard. Sit<>Stand ex's at home, but to do less if too tiring. 06/09/2023 - Patient reports working on using all of fingers when dressing, but has been working on it. Patient able to touch base of 5th digit with thumb, oppostition AROM. 07/07/23: HEP: Ankle TB strengthening 07/21/23: Modified HEP as needed. Noted times/wk based on whether pt needed improving or maintaining strength of hands, LE. LTG Duration 8 wks-08/05/23 (07/21/23: MET GOAL) Assessment Summary Assessment Pt is a 72 yo female in rehab to improve endurance ( primarily walking), reduce fatigue, decr R thumb pain and improve R hand function (linen sorter ). The pt has done very welll with therapy and has progressed in all areas with linen sorter strength the last to improve, leaving her feeling secure with getting in//out of her shower and their boat. The pt appears to have a good understanding of her HEP and is ready to be placed on her HEP. Goals were met. Pt feels she should be able to improve in her hands use and understands she might be able to return for hand PT or OT if further improvement is needed . Physical Therapy Plan Discharge Physical Therapy Discharge Reasons Goals Met Discharge Comments Thank you for your referral.
== END 2023-07-25 13:52 | disposition home or self-care (01) ==
LOC: PHYS 14:30
PROVIDERS: Family Provider Family Medicine; PCP Family Medicine; Referring Provider Family Medicine; Visit Provider Family Medicine
DX: E24.0 Pituitary-dependent Cushing's disease (principal); M25.50 Pain in unspecified joint
CPT/HCPCS: 97018; 97033; 97110; 97112; 97140; 97162; 97530; 97535

== ENCOUNTER → 2023-12-05 07:11 | Outpatient (CLI) | payer MEDICARE, OTHER, SELFPAY ==
[2023-12-06 07:41] LABS: Adrenocorticotropic Hormone 41.9 pg/mL (7.2-63.3)
== END ==
PROVIDERS: Family Provider Family Medicine; PCP Family Medicine; Referring Provider Internal Medicine Endocrinology, Diabetes & Metabolism; Visit Provider Internal Medicine Endocrinology, Diabetes & Metabolism
DX: Z86.39 Personal history of other endocrine, nutritional and metabolic disease (principal)
CPT/HCPCS: 36415; 82024; 82533

== ENCOUNTER → 2023-12-06 09:01 | Outpatient (CLI) | payer MEDICARE, OTHER, SELFPAY ==
--- NOTE | 2023-12-06 09:03 | DI.MRI.S_ITS ---
PROCEDURE: MR BRAIN (PITUITARY) WWO CON INDICATIONS: HX CUSHINGS DISEASE TECHNIQUE: Noncontrast sagittal and axial FLAIR, axial gradient echo, axial diffusion and ADC through the brain. Thin-slice sagittal and coronal T1 spin echo, coronal T2 fast spin echo through the pituitary. After the administration contrast, optional dynamic coronal T1 spin echo, thin-slice coronal and sagittal T1 spin echo images through the pituitary fossa; axial and coronal and sagittal T1 spin echo with fat saturation through the brain. COMPARISON: None. FINDINGS: Image quality: Excellent. Pituitary Gland: Normal in appearance. No masses are identified. The pituitary gland enhances symmetrically. The pituitary stalk is midline. CSF Spaces: Ventricles are normal in size and shape. Basal cisterns are patent. No extra-axial fluid collections. Brain: No intracranial bleeds or mass effects. No abnormal intracranial enhancement. Holder-white matter interface is intact. Age-related global volume loss and chronic microvascular ischemic changes. Diffusion weighted images demonstrate no acute ischemic insults. Brainstem is normal. Normal intravascular flow voids are present. Skull and face: Calvarial marrow is normal in signal. Orbits appear normal. Sinuses: Sinuses and mastoids are clear. IMPRESSION: 1. Normal appearance of the pituitary gland. No lesions are identified. 2. No acute intracranial abnormalities or abnormal intracranial enhancement. 3. Age-related global volume loss and microvascular ischemic changes. Dictated by: Juanjo Reyes M.D. on 12/06/2023 at 14:53 Approved by: Juanjo Reyes M.D. on 12/06/2023 at 14:56
== END ==
LOC: MRI 09:02
PROVIDERS: Family Provider Family Medicine; PCP Family Medicine; Referring Provider Internal Medicine Endocrinology, Diabetes & Metabolism; Visit Provider Internal Medicine Endocrinology, Diabetes & Metabolism
DX: E24.0 Pituitary-dependent Cushing's disease (principal); Z86.39 Personal history of other endocrine, nutritional and metabolic disease
CPT/HCPCS: 70553; A9579

== ENCOUNTER → 2023-12-29 12:36 | Outpatient (CLI) | payer MEDICARE, OTHER, SELFPAY ==
--- NOTE | 2023-12-29 12:38 | DI.RAD.S_ITS ---
PROCEDURE: XR LUMBAR SPINE 2-3V INDICATIONS: Low back pain TECHNIQUE: 3 views of the lumbar spine were acquired. COMPARISON: None. FINDINGS: Lumbar spine curvature and alignment: Grade 1 L4-5 spondylolisthesis featuring 1 cm L4 anterior subluxation. This is due to degenerative facet disease. Bones: There are no osseous abnormalities. Disc spaces: Mild L4-5 and L5-S1 degenerative disc and facet disease noted. Intervertebral foramen: Grossly normal in width. Soft tissues: No soft tissue swelling, calcification or mass. IMPRESSION: Grade 1 L4-5 spondylolisthesis. Mild degeneration Dictated by: Sarwat Givens M.D. on 12/30/2023 at 9:31 Approved by: Sarwat Givens M.D. on 12/30/2023 at 9:33
== END ==
PROVIDERS: Family Provider Family Medicine; PCP Family Medicine; Referring Provider Family Medicine; Visit Provider Family Medicine
DX: M43.16 Spondylolisthesis, lumbar region (principal); M47.816 Spondylosis without myelopathy or radiculopathy, lumbar region; M47.817 Spondylosis without myelopathy or radiculopathy, lumbosacral region; M51.360 Other intervertebral disc degeneration, lumbar region with discogenic back pain only; M51.370 Other intervertebral disc degeneration, lumbosacral region with discogenic back pain only
CPT/HCPCS: 72100

== ENCOUNTER → 2024-01-09 07:34 | Outpatient (CLI) | payer MEDICARE, OTHER, SELFPAY ==
--- NOTE | 2024-01-09 07:35 | DI.US.S_ITS ---
PROCEDURE: US PELVIC COMPLETE INDICATIONS: Post-menopausal bleeding TECHNIQUE: Real-time scanning was performed of the pelvic organs, with image documentation. Additional endovaginal scanning was necessary due to incomplete visualization of the adnexal and endometrial structures by transabdominal scanning. COMPARISON: None. FINDINGS: Uterus: Uterus is anteverted and normal in size at 6.0 x 3.4 cm. There is focus heterogeneous echogenicity within the left posterior intramural aspect of the uterus measuring 1.8 x 1.5 x 2.0 cm. There is mild appearance of increased vascularity. The endometrium measures 1.4 mm combined thickness. Ovaries: Not visualized. Other: No pathologic free abdominal or pelvic fluid. IMPRESSION: Focus of heterogeneous echogenicity within the uterus. While this could represent a fibroid, no priors are available for comparison. Recommend three-month interval follow-up. We strive to produce accurate, complete, and clear reports of imaging services. To assist us in improving patient care, this report was composed using standard report templates and voice recognition software. Therefore, it may contain abnormal punctuation, insertions and/or omissions. Occasional wrong-word or sound-alike substitutions may occur. Though we review the report and make efforts to correct it, we do recommend that the report be read carefully in proper context to recognize any text inaccuracies. Dictated by: Orly Meyers M.D. on 01/09/2024 at 16:26 Approved by: Orly Meyers M.D. on 01/09/2024 at 16:28
== END ==
PROVIDERS: Family Provider Family Medicine; PCP Family Medicine; Referring Provider Family Medicine; Visit Provider Family Medicine
DX: N95.0 Postmenopausal bleeding (principal)
CPT/HCPCS: 76830; 76856

== ENCOUNTER → 2024-02-16 14:47 | Outpatient (CLI) | payer MEDICARE, OTHER, SELFPAY ==
--- NOTE | 2024-02-16 14:49 | DI.ECHO.S_ITS ---
[facility] : : [address] : [facility] : : [place], : : [place] [address] : : Phone: [phone] Echocardiogram Report + + :Name: HORACIO ESTRADA Study Date: 02/16/2024 Height: 64 in : :[facility] ReadingLocation: Weight: 125 lb : : Gender: Female BSA: 1.6 m2 : :: 1950 Age: 73 yrs BP: 153/88 mmHg: :Reason For Study: CONGESTIVE HEART FAILURE : :Ordering Physician: ARELIS, : :PASHA Mendes Performed By: Ace Pickering : :Referring: PASHA INFANTE : + + Interpretation Summary The ejection fraction is estimated to be 60-65%. Grade II diastolic dysfunction. The left atrium is severely dilated. The right ventricle is mildly dilated. The right ventricular systolic function is normal. The right atrium is moderate to severely dilated. There is mild mitral regurgitation. There is mild tricuspid regurgitation. The right ventricular systolic pressure is estimated to be at least 37 mmHg based on an estimated right atrial pressure of 3 mm Hg. Procedure: A two-dimensional transthoracic echocardiogram with color flow and Doppler was performed. The study quality was technically good. There is no prior echocardiogram noted for this patient. The patient was in normal sinus rhythm during the exam. Left Ventricle: The left ventricle is normal in size. There is normal left ventricular wall thickness. There is no ventricular septal defect visualized. The ejection fraction is estimated to be 60-65%. There are no focal wall motion abnormalities. Diastolic parameters suggest a pseudonormalization pattern, consistent with probable elevated filling pressures. Right Ventricle: The right ventricle is mildly dilated. The right ventricular systolic function is normal. Atria: The left atrium is severely dilated. The right atrium is moderate to severely dilated. There is no Doppler evidence for an atrial septal defect. Mitral Valve: The mitral valve leaflets are mildly calcified. The mitral valve leaflets appear mildly thickened, but open well. There is mild mitral regurgitation. Aortic Valve: The aortic valve is trileaflet. The aortic valve is slightly calcified. There is no aortic valve stenosis. No aortic regurgitation is present. Tricuspid Valve: The tricuspid valve leaflets are thin and pliable. There is mild tricuspid regurgitation. The right ventricular systolic pressure is estimated to be at least 37 mmHg based on an estimated right atrial pressure of 3 mm Hg. Pulmonic Valve: The pulmonic valve leaflets are thin and pliable; valve motion is normal. There is trace pulmonic regurgitation. Great Vessels: The aortic root is normal size. The dimensions of the ascending aorta are normal. The pulmonary artery is normal size. The IVC is of normal diameter and collapses greater than 50% with a sniff. This suggests a low right atrial pressure of 3 mm Hg. Pericardium/ Pleura There is no pericardial effusion. There is no pleural effusion. MMode/2D Measurements & Calculations LVIDd: 4.2 cm AoV Openin.7 cm LVIDs: 2.3 cm LVOT diam: 1.8 cm IVSd: 0.98 cm Ao root diam: 2.6 cm LVPWd: 0.77 cm asc Aorta Diam: 2.9 cm LV turner. diameter/BSA (cm/m^2): 2.6 Ao Arch Diam (Prox Trans): 2.1 cm LV sys. diameter/BSA (cm/m^2): 1.4 FS: 46.6 % EPSS: 0.43 cm LA A2 area: 22.5 cm2 RA long axis: 5.5 cm LA A4 area: 22.4 cm2 RA area: 17.9 cm2 LA length (vol): 5.4 cm RA vol: 49.3 ml LA vol: 79.3 ml RA : 30.8 ml/m2 LA vol index: 49.5 ml/m2 RVD1 (basal): 3.5 cm IVC diam: 1.4 cm RVD2 (mid): 2.8 cm TAPSE: 2.2 cm Doppler Measurements & Calculations Ao V2 max: 155.1 cm/sec LVOT Max Adan: 114.6 cm/sec Ao V2 mean: 102.5 cm/sec LV V1 max P.3 mmHg Ao V2 VTI: 35.1 cm LV V1 VTI: 26.7 cm Ao max P.6 mmHg Ao mean P.8 mmHg RINA(I,D): 2.0 cm2 MV E max adan: 67.3 cm/sec RINA(V,D): 1.9 cm2 MV A max adan: 48.4 cm/sec RINA indexed to BSA (cm^2/m^2): 1.2 MV E/A: 1.4 sev ratio: 0.76 Med Peak E' Adan: 6.3 cm/sec E/E' med: 10.7 Lat Peak E' Adan: 8.7 cm/sec E/E' lat: 7.7 E/e' average: 9.2 MV dec time: 0.15 sec TR max adan: 293.1 cm/sec TR max P.4 mmHg PA V2 max: 81.6 cm/sec SV(LVOT): 68.6 ml PA V2 mean: 58.4 cm/sec PA mean P.5 mmHg PA pr(Accel): 41.3 mmHg Reading Physician:09:51 PM
== END ==
PROVIDERS: Family Provider Family Medicine; PCP Family Medicine; Referring Provider Family Medicine; Visit Provider Family Medicine
DX: I50.9 Heart failure, unspecified (principal); I08.1 Rheumatic disorders of both mitral and tricuspid valves
CPT/HCPCS: 93306

== ENCOUNTER → 2024-03-06 06:45 | Outpatient (CLI) | payer MEDICARE, OTHER, SELFPAY ==
[2024-03-06 07:49] LABS: Add Manual Diff / Slide Review NO; Basophils Absolute Auto 0 /uL (0-100); Basophils Percent Auto 0.7 % (0-2); Eosinophils Absolute Auto 100 /uL (0-450); Eosinophils Percent Auto 2.3 % (2-4); Hematocrit 42.6 % (36-46); Hemoglobin 14.3 g/dL (12.0-16.0); Lymphocytes Absolute Auto 1400 /uL (1100-4500); Mean Corpuscular HGB Conc 33.6 % (30-36); Mean Corpuscular Hemoglobin 31.8 PG (26-34); Mean Corpuscular Volume 94.7 fL (80-100); Monocytes Absolute Auto 400 /uL (0-900); Monocytes Percent Auto 9.4 % (3-14); Neutrophils Absolute Auto 2400 /uL (1500-7000); Neutrophils Percent Auto 54.6 % (50-75); Platelet Count 261 X10^3/uL (150-400); Red Cell Distribution Width 12.4 % (11.6-14.8); White Blood Cell Count 4.4 X10^3/uL (4.5-11.0)
[2024-03-06 08:36] LABS: HEMOLYSIS < 15 (0-50); Iron 118 ug/dL (37-170)
[2024-03-06 08:46] LABS: Alanine Aminotransferase 19 IU/L (<35); Albumin 4.5 g/dL (3.5-5.0); Alkaline Phosphatase 66 U/L (38-126); Aspartate Aminotransferase 23 IU/L (14-36); BUN Creatinine Ratio 31.1 (6-22); Bilirubin Total 0.6 mg/dL (0.2-1.3); Blood Urea Nitrogen 19 mg/dL (7-17); Calcium 9.3 mg/dL (8.4-10.2); Carbon Dioxide 27 mmol/L (22-32); Chloride 105 mmol/L (98-107); Cholesterol 259 mg/dL (140-199); Estimated Glomerular Filt Rate > 60 mL/min (>60); Globulin 2.3 g/dL (1.7-4.1); Glucose 101 mg/dL (80-110); HDL Cholesterol 75 mg/dL (40-60); HEMOLYSIS < 15 (0-50); LDL Cholesterol Calculated 154 mg/dL (<100); Sodium 138 mmol/L (137-145); Total Protein 6.8 g/dL (6.3-8.2); Triglycerides 148 mg/dL (35-150)
[2024-03-06 08:48] LABS: Percent Iron Saturation 41 % (15-50); Total Iron Binding Capacity 287 ug/dL (265-497); Transferrin 266 mg/dL (206-381)
[2024-03-06 08:53] LABS: Vitamin D 25 Hydroxy (D3) 33.3 ng/mL (30.0-100.0)
[2024-03-06 09:20] LABS: Ferritin 33 ng/mL (11-264)
[2024-03-06 09:45] LABS: Folate 11.3 ng/mL (2.76-20.0); Vitamin B12 494 pg/mL (239-931)
== END ==
PROVIDERS: Family Provider Family Medicine; PCP Family Medicine; Referring Provider Family Medicine; Visit Provider Family Medicine
DX: Z86.2 Personal history of diseases of the blood and blood-forming organs and certain disorders involving the immune mechanism (principal); I50.9 Heart failure, unspecified; M81.0 Age-related osteoporosis without current pathological fracture; N95.0 Postmenopausal bleeding; I10 Essential (primary) hypertension
CPT/HCPCS: 36415; 80053; 80061; 82306; 82607; 82728; 82746; 83540; 83550; 85025

== ENCOUNTER → 2024-03-31 14:36 | Outpatient (CLI) | payer MEDICARE, OTHER, SELFPAY ==
--- NOTE | 2024-03-31 14:40 | DI.MG.S_ITS ---
BILATERAL DIGITAL SCREENING MAMMOGRAM 3D/2D WITH CAD: 03/31/2024 CLINICAL: Routine screening. Family history of breast cancer. Comparison is made to exams dated: 09/23/2022 mammogram, 04/28/2021 mammogram, and 08/23/2019 mammogram - Outside facility. The breasts are heterogeneously dense, which may obscure small masses (category c / 51-75% glandular tissue). Current study was also evaluated with a Computer Aided Detection (CAD) system. There is a possible developing oval equal density focal asymmetry with an obscured margin in the left breast central to the nipple middle depth. No other significant masses, calcifications, or other findings are seen in either breast. IMPRESSION: INCOMPLETE: NEED ADDITIONAL IMAGING EVALUATION The possible developing oval equal density focal asymmetry in the left breast is indeterminate. Additional views with possible ultrasound are recommended. Based on the Tyrer Cuzick model (a risk assessment model) the patient's lifetime risk is 12.7% and her 10 year risk is 9.5%. According to the ACR, ACS, and NCCN guidelines, an annual breast MRI exam along with mammogram is recommended if the patient's lifetime risk is 20% or greater. This exam was interpreted at Station ID: [id number]. NOTE: For mammograms, a report in lay terms will be sent to the patient. Approximately 15% of breast malignancies will not be visualized mammographically. In the management of a palpable breast mass, a negative mammogram must not discourage biopsy of a clinically suspicious lesion. Electronically Signed By: Elver Martinez M.D. at/:04/02/2024 07:49:54 letter sent: Additional Imaging Needed ACR BI-RADS Category 0: Incomplete: Need Additional Imaging Evaluation
== END ==
PROVIDERS: Family Provider Family Medicine; PCP Family Medicine; Referring Provider Family Medicine; Visit Provider Family Medicine
DX: Z12.31 Encounter for screening mammogram for malignant neoplasm of breast (principal); Z80.3 Family history of malignant neoplasm of breast; R92.333 Mammographic heterogeneous density, bilateral breasts
CPT/HCPCS: 77063; 77067

== ENCOUNTER 2024-04-19 08:15 | Outpatient (RCR) | payer MEDICARE, OTHER, SELFPAY ==
--- NOTE | 2024-01-31 17:17 | PT.OIE ---
Current Diagnoses Other chronic pain (01/31/24) Low back pain, unspecified (01/31/24) Past Medical History (Last Updated 01/31/23 @ 21:21 by Billie Norman) Abnormal Pap smear of cervix (~1977) Cataracts, bilateral (~2010) Chicken pox Endometriosis (~1988) Fibromyalgia Genital warts (~1972) Heavy menstrual period Hypertension (~2013) Measles Painful menstrual periods (~1964) Past Surgical History (Last Updated 01/31/23 @ 21:21 by Billie Norman) Anesthesia History of cataract removal with insertion of prosthetic lens History of tonsillectomy (~1977) History of tubal ligation (~1988) Pituitary adenoma (~2022) Visit Care Team Role Provider Type Caitlyn Dominguez DO Family Provider Physician Specialty: [facility] Address: [address] [place] [address], [address], [facility] Email: [email or web address] Amy Mejia MD Attending Provider Physician Primary Care Provider Referring Provider Specialty: [facility] BUFFET WAITER/WAITRESS Address: [address] [place] [address], [facility] Email: [email or web address] Physical Therapy Initial Evaluation PT-OP-A Visit Information Start: 01/08/24 14:48 Freq: Status: Active Protocol: Document 01/31/24 09:55 LRN (Rec: 01/31/24 10:42 GROVER [id number]) Out-Patient Physical Therapy Visit Information Visit Information Visit Type Initial Evaluation Visit Start Time 09:55 Visit Stop Time 10:41 Visit Number 1 Evaluation Information Evaluation Date 01/31/24 Precautions Precautions Pt reported: Osteoporosis ( level 4 in L/S), [place] disease, SOB due to Heart Failure - 2020 ( granite cutter said caused by [place] diseease), Fibromyalgia. PT-OP-B Current Condition Start: 01/08/24 14:48 Freq: Status: Active Protocol: Document 01/31/24 09:55 LRN (Rec: 01/31/24 10:42 [email or web address] [id number]) Current Condition History of Current Condition Onset Date 6 months ago Current Complaints LBP sharp w/walking, sitting mostly on R side, sometimes L History of Current Condition Insidious onset of LBP. Supine and bending over is fine. Walking (sharp pain with each step) and sitting is painful. Pain is constant is 7/10 (with pain med 5/10). With activity of walking and sitting, pain during the movement is 7/10, (with meds it is still 7/10 but sharp). Initially she thought the pain was from being on hydrocortisone for a long time and thought it was due to fci use of meds, but 09/13 x-ray showed she has a grade 1 L4-5 anterior spondylolisthesis due to degenernative facet disease ( also has mild L4-5 & L5-S1 DDD and facet disease). Hiking she uses a walking stick and meds to reduce the pain. Prior Treatments and Tests x-ray showed she has a grade 1 L4-5 anterior spondylolisthesis due to degenernative facet disease ( also has mild L4-5 & L5-S1 DDD and facet disease. Treatment Goals Patient/Caregiver Goals Pt goal is to -eliminate the sharp pain, to be able to walk w/o pain on each step. -be able to stand and sit for 30 minute in regular chair ( not recliner). -return to previous level of sore low back, rated 2/10. -independent on appropriate self care HEP. Personal Factors Other Personal Factors That May Effect Hikes or walks daily, [facility] ex [facility]/wk and web based ex program for spondylosis daily. PT-OP-C Subjective Start: 01/08/24 14:48 Freq: Status: Active Protocol: Document 01/31/24 09:55 LRN (Rec: 01/31/24 10:42 LRN [id number]) Patient Questionnaires Oswestry Low Back Index Oswestry Score 18/50 Oswestry Impairment 20 to 39% Impaired (Score 20- 39) OP-PT Pain Assessment Pain Assessment Grid Paper Pain Assessment Grid Completed Yes Location Low back Pain Location Details SIJ's and lateral sacral borders (R more than L) Intensity 5 Scale Used Numeric (0 - 10) Description Aching,Sharp Frequency Constant Pain Duration Intermittent sharp pain, constant aching pain Pain Aggravating Factors Exercise,Sitting,Walking Pain Alleviating Factors Medication Comments Pain Comments Neuropathy on top of both feet . PT-OP-F Manual Assessment Start: 01/08/24 14:48 Freq: Status: Active Protocol: Document 01/31/24 09:55 LRN (Rec: 01/31/24 10:42 LRN [id number]) Manual Assessments Joint Mobility Assessment Joint Mobility Assessment Sacrum in L rotation. PT-OP-H Neuro Start: 01/08/24 14:48 Freq: Status: Active Protocol: Document 01/31/24 09:55 LRN (Rec: 01/31/24 10:42 LRN [id number]) Sensation Evaluation Gross Sensation Gross Sensation WNL PT-OP-J Posture/Palpation/Skin Start: 01/08/24 14:48 Freq: Status: Active Protocol: Document 01/31/24 09:55 LRN (Rec: 01/31/24 10:42 LRN [id number]) Posture Evaluation Position Standing Head/C-Spine Posture Forward Head T-Spine Posture Increased Kyphosis Shoulder Posture (L) Elevated Knee Posture (L) Genu Valgus,(R) Genu Valgus Palpation Assessment Location Low Back Palpation Location R SIJ>L SIJ & R sacral border> L sacral border Palpation Findings Soft Tissue Tightness Palpation Details Gentle PA of L/S facets caused no pain and soft tissue tension was symmetrical. PT-OP-K Range of Motion Start: 01/08/24 14:48 Freq: Status: Active Protocol: Document 01/31/24 09:55 LRN (Rec: 01/31/24 10:42 LRN [id number]) Lumbar Spine Range of Motion Lumbar Spine Active Degrees Testing Position Standing Flexion 73 Extension 5 Rotation Left 25 Rotation Right 25 Lateral Flexion Left 8 Lateral Flexion Right 9 Hip Goniometric Range of Motion Hip Right Passive Testing Position Supine Flexion w/Knee Flexed 130 Internal Rotation 25 External Rotation 65 Comments Flex is approximate ROM Left Passive Testing Position Supine Flexion w/Knee Flexed 130 Internal Rotation 20 External Rotation 70 PT-OP-M Strength Start: 01/08/24 14:48 Freq: Status: Active Protocol: Document 01/31/24 09:55 LRN (Rec: 01/31/24 10:42 LRN [id number]) Hip Strength Hip Manual Muscle Testing Right Flexion (L2) 4+ Good+ Extension (S1) 3 Fair External Rotation 4+ Good+ Internal Rotation 3 Fair Left Flexion (L2) 3 Fair Extension (S1) 3 Fair External Rotation 3 Fair Internal Rotation 3 Fair Comments Pain with testing in L low back PT-OP-Q Treatments Start: 01/08/24 14:48 Freq: Status: Active Protocol: Document 01/31/24 09:55 LRN (Rec: 01/31/24 10:42 LRN [id number]) Self-Care/Home Management Treatment Education Other Education Discussed pt lead quesions/ answers regarding her current exercise program and appropriate ex routine. Discussed results of evaluation, goals, treatment, and plan of care (POC) with pt , attendance/cx/dns policy; pt agreeable to evaluation, goals, treatment, attendance/ cx/dns policy and POC. Activities Self-Care/Home Management Activities Reviewed pt's online Anteriolisthesis exercise program with recommendations of ex's not to do and discussion of modification to some exercises that would make them appropriate to do. PT-OP-T Assessment and Plan Start: 01/08/24 14:48 Freq: Status: Active Protocol: Document 01/31/24 09:55 LRN (Rec: 01/31/24 10:42 LRN [id number]) Physical Therapy Assessment Rehab Potential Rehabilitation Potential Good Evaluation Complexity Number of Personal Factors/Comorbidities 1-2 Impairments Impairments Activity Tolerance,Gait,Pain, Posture,ROM,Soft Tissue Mobility,Strength Goals Three Impairment Lower back pain limiting sitting in regular chair 15' Crystalizer Operator Goal (LTG) Pt will be able to sit for 30 minute in regular chair (not recliner). LTG Duration 04/27/24 One Impairment Pt lacks appropriate self care HEP. Short Term Goal (STG) Pt will be educated and will demonstrate log roll transfers , proper body mechanics for ADLs, proper sitting/standing posture. STG Duration 03/16/24 Crystalizer Operator Goal (LTG) Pt will be independent in a approriate and effective self care HEP for core/hip strengthening and mobility ex' s. LTG Duration 04/27/24 Two Impairment Lower back pain with walking ( sharp pn) and sitting (5/10) Short Term Goal (STG) Eliminate the sharp pain, to be able to walk w/o pain on each step. STG Duration 03/16/24 Half-Way Goal (LTG) Return to previous level of sore low back, rated 2/10 with pt able to tolerate standing 30 minutes. LTG Duration 04/27/24 Assessment Summary Assessment Pt is a 73 yo female who presents with rubén lower sacral pain at SIJ's and sacral borders. X-rays indicate grade 1 L4-5 anterior spondylolisthesis due to degenernative facet disease ( also has mild L4-5 & L5-S1 DDD and facet disease. Her pain is at her rubén PSIS (mostly R side) and sharp pain along the sacral borders with walking and sitting. Her sacrum is in L rotation, and she has pain with gait when weightbearing on LE's. Trunk flexion and rubén hip IR, & R hip ER is decreased. Left hip strength is decreased compared to right except extension and IR is bilaterally 3/5. JING score is 36, indicating 36% impairment. The pt will benefit from skilled physical therapy to work towards achieving the above stated goals. Physical Therapy Plan Frequency and Duration Frequency of Treatment 1x/Week Duration of treatment (weeks) 12 Plan of Care Start Date 01/31/24 Plan of Care End Date 04/27/24 Therapeutic Interventions Therapeutic Interventions Gait Training,Home Exercise Program,Manual Therapy, Neuromuscular Re-education, Self-Care/Home Management,Soft Tissue Mobilization, Therapeutic Activities, Therapeutic Exercises Next Visit Focus/Plan Next Note Type Treatment Note Next Visit Plan Next: Review pt's current online and [facility] HEP and modify as appropriate. STM Sacrum and abdomen for L4 posterior positioning on L5. STM for L4-5, L5-S1 DDD and facet disease (caution Level 4 Osteoporosis). POC: Therapeutic Ex (core stab flexion strengthening/ROM flex), Therapeutic Activity ( transfer & body mechanics training), manual therapy (STM LB, gluteal, pelvis), Gait ( MWM & Proper Posture) & Balance training, Pt Education (HEP, pain mgmt-RICE).
--- NOTE | 2024-01-31 17:17 | PT.OPPOC ---
Physical, Occupational & Speech Therapy At [facility] Current Diagnoses Other chronic pain (01/31/24) Low back pain, unspecified (01/31/24) Visit Care Team Role Provider Type Caitlyn Dominguez DO Family Provider Physician Specialty: Family Practice Address: [address] [place] [address], [facility] [address], [place], [address] Email: [email or web address] Amy Mejia MD Attending Provider Physician Primary Care Provider Referring Provider Specialty: Family Practice HUMAN RESOURCES CONSULTANT Address: [address] [place] [address], [id number] Email: [email or web address] Plan Of Care PT-OP-B Current Condition Start: 01/08/24 14:48 Freq: Status: Active Protocol: Document 01/31/24 09:55 LRN (Rec: 01/31/24 10:42 LRN [id number]) Current Condition History of Current Condition Onset Date 6 months ago Current Complaints LBP sharp w/walking, sitting mostly on R side, sometimes L History of Current Condition Insidious onset of LBP. Supine and bending over is fine. Walking (sharp pain with each step) and sitting is painful. Pain is constant is 7/10 (with pain med 5/10). With activity of walking and sitting, pain during the movement is 7/10, (with meds it is still 7/10 but sharp). 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 Hiking she uses a walking stick and meds to reduce the pain. Prior Treatments and Tests x-ray showed she has a grade 1 L4-5 anterior spondylolisthesis due to degenernative facet disease ( also has mild L4-5 & L5-S1 DDD and facet disease. Treatment Goals Patient/Caregiver Goals Pt goal is to -eliminate the sharp pain, to be able to walk w/o pain on each step. -be able to stand and sit for 30 minute in regular chair ( not recliner). -return to previous level of sore low back, rated 2/10. -independent on appropriate self care HEP. Personal Factors Other Personal Factors That May Effect Hikes or walks daily, [facility] ex 3x/wk and web based ex program for spondylosis daily. PT-OP-T Assessment and Plan Start: 01/08/24 14:48 Freq: Status: Active Protocol: Document 01/31/24 09:55 LRN (Rec: 01/31/24 10:42 LRN [id number]) Physical Therapy Assessment Rehab Potential Rehabilitation Potential Good Evaluation Complexity Number of Personal Factors/Comorbidities 1-2 Impairments Impairments Activity Tolerance,Gait,Pain, Posture,ROM,Soft Tissue Mobility,Strength Goals Three Impairment Lower back pain limiting sitting in regular chair 15' Retail Associate Manager Bilingual Goal (LTG) Pt will be able to sit for 30 minute in regular chair (not recliner). LTG Duration 04/27/24 One Impairment Pt lacks appropriate self care HEP. Short Term Goal (STG) Pt will be educated and will demonstrate log roll transfers , proper body mechanics for ADLs, proper sitting/standing posture. STG Duration 03/16/24 Retail Associate Manager Bilingual Goal (LTG) Pt will be independent in a approriate and effective self care HEP for core/hip strengthening and mobility ex' s. LTG Duration 04/27/24 Two Impairment Lower back pain with walking ( sharp pn) and sitting (5/10) Short Term Goal (STG) Eliminate the sharp pain, to be able to walk w/o pain on each step. STG Duration 03/16/24 Retail Associate Manager Bilingual Goal (LTG) Return to previous level of sore low back, rated 2/10 with pt able to tolerate standing 30 minutes. LTG Duration 04/27/24 Assessment Summary Assessment Pt is a 73 yo female who presents with rubén lower sacral pain at SIJ's and sacral borders. X-rays indicate grade 1 L4-5 anterior spondylolisthesis due to degenernative facet disease ( also has mild L4-5 & L5-S1 DDD and facet disease. Her pain is at her rubén PSIS (mostly R side) and sharp pain along the sacral borders with walking and sitting. Her sacrum is in L rotation, and she has pain with gait when weightbearing on LE's. Trunk flexion and rubén hip IR, & R hip ER is decreased. Left hip strength is decreased compared to right except extension and IR is bilaterally 3/5. JING score is 36, indicating 36% impairment. The pt will benefit from skilled physical therapy to work towards achieving the above stated goals. Physical Therapy Plan Frequency and Duration Frequency of Treatment 1x/Week Duration of treatment (weeks) 12 Plan of Care Start Date 01/31/24 Plan of Care End Date 04/27/24 Therapeutic Interventions Therapeutic Interventions Gait Training,Home Exercise Program,Manual Therapy, Neuromuscular Re-education, Self-Care/Home Management,Soft Tissue Mobilization, Therapeutic Activities, Therapeutic Exercises Next Visit Focus/Plan Next Note Type Treatment Note Next Visit Plan Next: Review pt's current online and . [facility] HEP and modify as appropriate. STM Sacrum and abdomen for L4 posterior positioning on L5. STM for L4-5, L5-S1 DDD and facet disease (caution Level 4 Osteoporosis). POC: Therapeutic Ex (core stab flexion strengthening/ROM flex), Therapeutic Activity ( transfer & body mechanics training), manual therapy (STM LB, gluteal, pelvis), Gait ( MWM & Proper Posture) & Balance training, Pt Education (HEP, pain mgmt-RICE). Plan of Care Dates Plan of Care Start Date 01/31/24 Plan of Care End Date 04/27/24 Electronically Signed by: Kim Reyes, PT 01/31/24 0878 If you are in agreement with this Plan of Care, please return a signed and dated copy. I have reviewed this Plan of Care and certify that the skilled therapy services above are required to meet the patient?s needs. Physician Signature Date Printed Name and Credentials Clinical Instructor Signature Printed Name and Credentials
--- NOTE | 2024-02-02 09:28 | PT.OTN ---
Current Diagnoses Other chronic pain (02/02/24) Low back pain, unspecified (02/02/24) Physical Therapy Treatment Note PT-OP-A Visit Information Start: 01/08/24 14:48 Freq: Status: Active Protocol: Document 02/02/24 08:22 LRN (Rec: 02/02/24 09:26 LRN [id number]) Out-Patient Physical Therapy Visit Information Visit Information Visit Type Treatment Note Visit Start Time 08:23 Visit Stop Time 09:10 Visit Number 2 Evaluation Information Evaluation Date 01/31/24 Precautions Precautions Spondylolisthesis L4-L5, L5-S1 . Pt reported: Osteoporosis (level 4 in L/S), [place] disease, SOB due to Heart Failure - 2020 ( spinner tender said caused by [place] diseease), Fibromyalgia. PT-OP-B Current Condition Start: 01/08/24 14:48 Freq: Status: Active Protocol: Document 01/31/24 09:55 LRN (Rec: 01/31/24 10:42 LRN [id number]) Current Condition History of Current Condition Onset Date 6 months ago Current Complaints LBP sharp w/walking, sitting mostly on R side, sometimes L History of Current Condition Insidious onset of LBP. Supine and bending over is fine. Walking (sharp pain with each step) and sitting is painful. Pain is constant is 7/10 (with pain med 5/10). With activity of walking and sitting, pain during the movement is 7/10, (with meds it is still 7/10 but sharp). 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 Hiking she uses a walking stick and meds to reduce the pain. Prior Treatments and Tests x-ray showed she has a grade 1 L4-5 anterior spondylolisthesis due to degenernative facet disease ( also has mild L4-5 & L5-S1 DDD and facet disease. Treatment Goals Patient/Caregiver Goals Pt goal is to -eliminate the sharp pain, to be able to walk w/o pain on each step. -be able to stand and sit for 30 minute in regular chair ( not recliner). -return to previous level of sore low back, rated 2/10. -independent on appropriate self care HEP. Personal Factors Other Personal Factors That May Effect Hikes or walks daily, [facility] ex 3x/wk and web based ex program for spondylosis daily. PT-OP-C Subjective Start: 01/08/24 14:48 Freq: Status: Active Protocol: Document 02/02/24 08:22 LRN (Rec: 02/02/24 09:26 LRN [id number]) OP-PT Subjective Patient Comments Patient Comments ......... PT-OP-F Manual Assessment Start: 01/08/24 14:48 Freq: Status: Active Protocol: Document 01/31/24 09:55 LRN (Rec: 01/31/24 10:42 LRN [id number]) Manual Assessments Joint Mobility Assessment Joint Mobility Assessment Sacrum in L rotation. PT-OP-H Neuro Start: 01/08/24 14:48 Freq: Status: Active Protocol: Document 01/31/24 09:55 LRN (Rec: 01/31/24 10:42 LRN [id number]) Sensation Evaluation Gross Sensation Gross Sensation WNL PT-OP-J Posture/Palpation/Skin Start: 01/08/24 14:48 Freq: Status: Active Protocol: Document 01/31/24 09:55 LRN (Rec: 01/31/24 10:42 LRN [id number]) Posture Evaluation Position Standing Head/C-Spine Posture Forward Head T-Spine Posture Increased Kyphosis Shoulder Posture (L) Elevated Knee Posture (L) Genu Valgus,(R) Genu Valgus Palpation Assessment Location Low Back Palpation Location R SIJ>L SIJ & R sacral border> L sacral border Palpation Findings Soft Tissue Tightness Palpation Details Gentle PA of L/S facets caused no pain and soft tissue tension was symmetrical. PT-OP-K Range of Motion Start: 01/08/24 14:48 Freq: Status: Active Protocol: Document 01/31/24 09:55 LRN (Rec: 01/31/24 10:42 LRN [id number]) Lumbar Spine Range of Motion Lumbar Spine Active Degrees Testing Position Standing Flexion 73 Extension 5 Rotation Left 25 Rotation Right 25 Lateral Flexion Left 8 Lateral Flexion Right 9 Hip Goniometric Range of Motion Hip Right Passive Testing Position Supine Flexion w/Knee Flexed 130 Internal Rotation 25 External Rotation 65 Comments Flex is approximate ROM Left Passive Testing Position Supine Flexion w/Knee Flexed 130 Internal Rotation 20 External Rotation 70 PT-OP-M Strength Start: 01/08/24 14:48 Freq: Status: Active Protocol: Document 01/31/24 09:55 LRN (Rec: 01/31/24 10:42 LRN [id number]) Hip Strength Hip Manual Muscle Testing Right Flexion (L2) 4+ Good+ Extension (S1) 3 Fair External Rotation 4+ Good+ Internal Rotation 3 Fair Left Flexion (L2) 3 Fair Extension (S1) 3 Fair External Rotation 3 Fair Internal Rotation 3 Fair Comments Pain with testing in L low back PT-OP-Q Treatments Start: 01/08/24 14:48 Freq: Status: Active Protocol: Document 02/02/24 08:22 LRN (Rec: 02/02/24 09:26 LRN [id number]) Therapeutic Exercises Supine Exercises PT Sup HEP Supine Exercise Name [employer] ex's: HamstriLE neural stretch, bridge, toe stretch Side bilateral Reps/Minutes 13' KTC stretch Side bilateral Reps/Minutes 5SH - 3' Prone Exercises Pt prone HEP Prone Exercise Name [employer] ex's: Leg lift for Ilipsoas stretch Reps/Minutes 10' Sidelying Exercises Open bood Sidelying Exercise Name Open book leading with head rotation Side bilateral Reps/Minutes 7' Other Exercises 4 pt Other Exercise Name Cat/sway back to tolerance & arm lifts Reps/Minutes 5 SH - 11' Comments Extra time to train on NS and max fox mvmt Self-Care/Home Management Treatment Education Other Education 11' Education of pt in her pain symptoms-max fox with exercise, and anatomy of the lumbar region of spine and nerves. Activities Self-Care/Home Management Activities 4' Issued & reviewed HEP: Open book with emphasis on leading with head and no LBP w /exercise. PT-OP-T Assessment and Plan Start: 01/08/24 14:48 Freq: Status: Active Protocol: Document 02/02/24 08:22 LRN (Rec: 02/02/24 09:26 LRN [id number]) Physical Therapy Assessment Goals Three Impairment Lower back pain limiting sitting in regular chair 15' Intermediate Goal (LTG) Pt will be able to sit for 30 minute in regular chair (not recliner). LTG Duration 04/27/24 One Impairment Pt lacks appropriate self care HEP. Short Term Goal (STG) Pt will be educated and will demonstrate log roll transfers , proper body mechanics for ADLs, proper sitting/standing posture. STG Duration 03/16/24 Intermediate Goal (LTG) Pt will be independent in a approriate and effective self care HEP for core/hip strengthening and mobility ex' s. 02/02/24: 4 pt, supine & prone ex's of her online HEP was modified and reviewed. LTG Duration 04/27/24 progressing Two Impairment Lower back pain with walking ( sharp pn) and sitting (5/10) Short Term Goal (STG) Eliminate the sharp pain, to be able to walk w/o pain on each step. STG Duration 03/16/24 Ivory Carver Goal (LTG) Return to previous level of sore low back, rated 2/10 with pt able to tolerate standing 30 minutes. LTG Duration 04/27/24 Assessment Summary Assessment 73 yo female w/rubén lower sacral pain at SIJ's and sacral borders due to spondylolisthesis (mild L4-5 & L5-S1 DDD and facet disease), pain in rubén PSIS (mostly R side) and sharp pain along sacral borders w/walking and sitting, sacrum in L rotation , and pain with gait when weightbearing on LE's; dc'd trunk flexion, rubén hip IR, & R hip ER, & dec'd L hip strength. Today, I was able to review a portion of her online ex program she has been doing daily from [employer] [employer] [facility] with modifications made to avoid painful onset of L/S extension portion of ex's and start of deep core flexors co- contraction during ex. Pt needs further training/ education of Core flexion stabilization and modication of her HEPs as needed. Physical Therapy Plan Frequency and Duration Frequency of Treatment 1x/Week Duration of treatment (weeks) 12 Plan of Care Start Date 01/31/24 Plan of Care End Date 04/27/24 Next Visit Focus/Plan Next Note Type Treatment Note Next Visit Plan Next: HEP REVIEW. Complete review of pt's current online standing and sitting HEP ( [facility] [facility]), and [facility] HEP and modify as appropriate. If time after HEP review, STM Sacrum and abdomen for L4 posterior positioning on L5. STM for L4-5, L5-S1 DDD and facet disease (caution Level 4 Osteoporosis). POC: Therapeutic Ex (core stab flexion strengthening/ROM flex), Therapeutic Activity ( transfer & body mechanics training), manual therapy (STM LB, gluteal, pelvis), Gait ( MWM & Proper Posture) & Balance training, Pt Education (HEP, pain mgmt-RICE).
--- NOTE | 2024-02-06 12:38 | PT.OTN ---
Current Diagnoses Other chronic pain (02/06/24) Low back pain, unspecified (02/06/24) Physical Therapy Treatment Note PT-OP-A Visit Information Start: 01/08/24 14:48 Freq: Status: Active Protocol: Document 02/06/24 08:10 AB (Rec: 02/06/24 12:38 AB [id number]) Out-Patient Physical Therapy Visit Information Visit Information Visit Type Treatment Note Visit Start Time 09:46 Visit Stop Time 10:37 Visit Number 3 Number of SPECIAL CRIMES INVESTIGATOR Visits 1 Evaluation Information Evaluation Date 01/31/24 Precautions Precautions Spondylolisthesis L4-L5, L5-S1 . Pt reported: Osteoporosis (level 4 in L/S), [place] disease, SOB due to Heart Failure - 2020 ( cap blocker said caused by [place] diseease), Fibromyalgia. PT-OP-B Current Condition Start: 01/08/24 14:48 Freq: Status: Active Protocol: Document 01/31/24 09:55 LRN (Rec: 01/31/24 10:42 LRN [id number]) Current Condition History of Current Condition Onset Date 6 months ago Current Complaints LBP sharp w/walking, sitting mostly on R side, sometimes L History of Current Condition Insidious onset of LBP. Supine and bending over is fine. Walking (sharp pain with each step) and sitting is painful. Pain is constant is 7/10 (with pain med 5/10). With activity of walking and sitting, pain during the movement is 7/10, (with meds it is still 7/10 but sharp). Initially she thought the pain was from being on hydrocortisone for a long time and thought it was due to assisted use of meds, but 09/13 x-ray showed she has a grade 1 L4-5 anterior spondylolisthesis due to degenernative facet disease ( also has mild L4-5 & L5-S1 DDD and facet disease). Hiking she uses a walking stick and meds to reduce the pain. Prior Treatments and Tests x-ray showed she has a grade 1 L4-5 anterior spondylolisthesis due to degenernative facet disease ( also has mild L4-5 & L5-S1 DDD and facet disease. Treatment Goals Patient/Caregiver Goals Pt goal is to -eliminate the sharp pain, to be able to walk w/o pain on each step. -be able to stand and sit for 30 minute in regular chair ( not recliner). -return to previous level of sore low back, rated 2/10. -independent on appropriate self care HEP. Personal Factors Other Personal Factors That May Effect Hikes or walks daily, [facility] ex 3x/wk and web based ex program for spondylosis daily. PT-OP-C Subjective Start: 01/08/24 14:48 Freq: Status: Active Protocol: Document 02/06/24 08:10 AB (Rec: 02/06/24 12:38 AB [id number]) OP-PT Subjective Patient Comments Patient Comments Patient reports she is about the same. Patient rates pain 5 /10 , comments she is on a pain killer. Patient into session without senior center exercises. Patient advised to bring in ex as she is able, focus on ex that bothers. PT-OP-F Manual Assessment Start: 01/08/24 14:48 Freq: Status: Active Protocol: Document 01/31/24 09:55 LRN (Rec: 01/31/24 10:42 LRN [id number]) Manual Assessments Joint Mobility Assessment Joint Mobility Assessment Sacrum in L rotation. PT-OP-H Neuro Start: 01/08/24 14:48 Freq: Status: Active Protocol: Document 01/31/24 09:55 LRN (Rec: 01/31/24 10:42 LRN [id number]) Sensation Evaluation Gross Sensation Gross Sensation WNL PT-OP-J Posture/Palpation/Skin Start: 01/08/24 14:48 Freq: Status: Active Protocol: Document 01/31/24 09:55 LRN (Rec: 01/31/24 10:42 LRN [id number]) Posture Evaluation Position Standing Head/C-Spine Posture Forward Head T-Spine Posture Increased Kyphosis Shoulder Posture (L) Elevated Knee Posture (L) Genu Valgus,(R) Genu Valgus Palpation Assessment Location Low Back Palpation Location R SIJ>L SIJ & R sacral border> L sacral border Palpation Findings Soft Tissue Tightness Palpation Details Gentle PA of L/S facets caused no pain and soft tissue tension was symmetrical. PT-OP-K Range of Motion Start: 01/08/24 14:48 Freq: Status: Active Protocol: Document 01/31/24 09:55 LRN (Rec: 01/31/24 10:42 LRN [id number]) Lumbar Spine Range of Motion Lumbar Spine Active Degrees Testing Position Standing Flexion 73 Extension 5 Rotation Left 25 Rotation Right 25 Lateral Flexion Left 8 Lateral Flexion Right 9 Hip Goniometric Range of Motion Hip Right Passive Testing Position Supine Flexion w/Knee Flexed 130 Internal Rotation 25 External Rotation 65 Comments Flex is approximate ROM Left Passive Testing Position Supine Flexion w/Knee Flexed 130 Internal Rotation 20 External Rotation 70 PT-OP-M Strength Start: 01/08/24 14:48 Freq: Status: Active Protocol: Document 01/31/24 09:55 LRN (Rec: 01/31/24 10:42 LRN [id number]) Hip Strength Hip Manual Muscle Testing Right Flexion (L2) 4+ Good+ Extension (S1) 3 Fair External Rotation 4+ Good+ Internal Rotation 3 Fair Left Flexion (L2) 3 Fair Extension (S1) 3 Fair External Rotation 3 Fair Internal Rotation 3 Fair Comments Pain with testing in L low back PT-OP-Q Treatments Start: 01/08/24 14:48 Freq: Status: Active Protocol: Document 02/06/24 08:10 AB (Rec: 02/06/24 12:38 AB [id number]) Therapeutic Exercises Supine Exercises Breathing from diaphragm Supine Exercise Name in modified restorative pose Reps/Minutes 2 min PT Sup HEP Supine Exercise Name Spondylitis Association ex's:1 .bridge, 2.prone hip ext 3. seated SLR Reps/Minutes 1. X 3 2. X12 and X 4 3. X 5 Comments monitored for pain, VC for bracing as needed and for breathing KTC stretch Side bilateral Reps/Minutes X3 X 3 sec Comments monitored for back and ant hip pain, VC breath from diaphragm Sidelying Exercises Open bood Sidelying Exercise Name Open book leading with head rotation Side bilateral Reps/Minutes 7' Comments HEP review Manual Therapy Treatment Consent Patient gave verbal consent for manual Yes treatment Soft Tissue Mobilization LS area Body Location paraspinals R> L Mobilization Type Sustained Pressure Intensity/Depth Moderate Body Position Sidelying hip Body Location R hip flex at groin, B glut/ pirifor/SI area Mobilization Type Cross-Friction,Rolling, Sustained Pressure Intensity/Depth Moderate Body Position Hooklying Comments and sidelying Self-Care/Home Management Treatment Activities Self-Care/Home Management Activities Patient ed for pillow between knees in sidelying when positioned in this manner during manual therapy. Also patient ed pain rules PT-OP-T Assessment and Plan Start: 01/08/24 14:48 Freq: Status: Active Protocol: Document 02/06/24 08:10 AB (Rec: 02/06/24 12:38 AB [id number]) Physical Therapy Assessment Goals Three Impairment Lower back pain limiting sitting in regular chair 15' Assisted Goal (LTG) Pt will be able to sit for 30 minute in regular chair (not recliner). LTG Duration 04/27/24 One Impairment Pt lacks appropriate self care HEP. Short Term Goal (STG) Pt will be educated and will demonstrate log roll transfers , proper body mechanics for ADLs, proper sitting/standing posture. 02/06/2024 Patient ed to sleep with pillow between knees as positioned form manual. STG Duration 03/16/24 Assisted Goal (LTG) Pt will be independent in a approriate and effective self care HEP for core/hip strengthening and mobility ex' s. 02/02/24: 4 pt, supine & prone ex's of her online HEP was modified and reviewed. LTG Duration 04/27/24 progressing Two Impairment Lower back pain with walking ( sharp pn) and sitting (5/10) Impairment Pain in shoulders, legs, R ankle making sitting on toilet w/o a riser and getting up from a chair difficult. (5xSTS Norm for 70-79 yo is 12 .6 secs) (30 sec chair stand Norm for 70-74 yo female is 10-15x) 02/06/2024 patient reports having no pain with sit to and from stand start of session. Short Term Goal (STG) Eliminate the sharp pain, to be able to walk w/o pain on each step. STG Duration 03/16/24 Educational Technology Specialist Goal (LTG) Return to previous level of sore low back, rated 2/10 with pt able to tolerate standing 30 minutes. LTG Duration 04/27/24 Assessment Summary Assessment 73 yo female w/rubén lower sacral pain at SIJ's and sacral borders due to spondylolisthesis (mild L4-5 & L5-S1 DDD and facet disease), pain in rubén PSIS (mostly R side) and sharp pain along sacral borders w/walking and sitting, sacrum in L rotation , and pain with gait when weightbearing on LE's; dc'd trunk flexion, rubén hip IR, & R hip ER, & dec'd L hip strength. Glenys rates back pain 03/02 end of session. Good return demonstration for HEP and review of , increased tissue density and dec tissue mobility right SI and hip flexor at groin right> left. Physical Therapy Plan Frequency and Duration Frequency of Treatment 1x/Week Duration of treatment (weeks) 12 Plan of Care Start Date 01/31/24 Plan of Care End Date 04/27/24 Next Visit Focus/Plan Next Note Type Treatment Note Next Visit Plan Next: Complete ( next session neck, standing quad stretch, forward fold and sideband) review of pt's current online standing and sitting HEP ( [facility]), and [facility]P and modify as appropriate. If time after HEP review, STM Sacrum and abdomen for L4 posterior positioning on L5. STM for L4-5, L5-S1 DDD and facet disease (caution Level 4 Osteoporosis). POC: Therapeutic Ex (core stab flexion strengthening/ROM flex), Therapeutic Activity ( transfer & body mechanics training/supine to and from sit for HEP), manual therapy ( STM LB, gluteal, pelvis), Gait (MWM & Proper Posture) & Balance training, Pt Education (HEP, pain mgmt-SEAN).
--- NOTE | 2024-02-09 16:42 | PT.OTN ---
Current Diagnoses Other chronic pain (02/09/24) Low back pain, unspecified (02/09/24) Physical Therapy Treatment Note PT-OP-A Visit Information Start: 01/08/24 14:48 Freq: Status: Active Protocol: Document 02/09/24 09:05 LRN (Rec: 02/09/24 09:50 LRN [id number]) Out-Patient Physical Therapy Visit Information Visit Information Visit Type Treatment Note Visit Start Time 09:05 Visit Stop Time 09:45 Visit Number 4 Evaluation Information Evaluation Date 01/31/24 Precautions Precautions Spondylolisthesis L4-L5, L5-S1 . 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 PT-OP-B Current Condition Start: 01/08/24 14:48 Freq: Status: Active Protocol: Document 01/31/24 09:55 LRN (Rec: 01/31/24 10:42 LRN [id number]) Current Condition History of Current Condition Onset Date 6 months ago Current Complaints LBP sharp w/walking, sitting mostly on R side, sometimes L History of Current Condition Insidious onset of LBP. Supine and bending over is fine. Walking (sharp pain with each step) and sitting is painful. Pain is constant is 7/10 (with pain med 5/10). With activity of walking and sitting, pain during the movement is 7/10, (with meds it is still 7/10 but sharp). 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 Hiking she uses a walking stick and meds to reduce the pain. Prior Treatments and Tests x-ray showed she has a grade 1 L4-5 anterior spondylolisthesis due to degenernative facet disease ( also has mild L4-5 & L5-S1 DDD and facet disease. Treatment Goals Patient/Caregiver Goals Pt goal is to -eliminate the sharp pain, to be able to walk w/o pain on each step. -be able to stand and sit for 30 minute in regular chair ( not recliner). -return to previous level of sore low back, rated 2/10. -independent on appropriate self care HEP. Personal Factors Other Personal Factors That May Effect Hikes or walks daily, [facility] ex 3x/wk and web based ex program for spondylosis daily. PT-OP-C Subjective Start: 01/08/24 14:48 Freq: Status: Active Protocol: Document 02/09/24 09:05 LRN (Rec: 02/09/24 09:50 LRN [id number]) OP-PT Subjective Patient Comments Patient Comments Requests review of ex's in her class that she would like to know if safe to do. PT-OP-F Manual Assessment Start: 01/08/24 14:48 Freq: Status: Active Protocol: Document 01/31/24 09:55 LRN (Rec: 01/31/24 10:42 LRN [id number]) Manual Assessments Joint Mobility Assessment Joint Mobility Assessment Sacrum in L rotation. PT-OP-H Neuro Start: 01/08/24 14:48 Freq: Status: Active Protocol: Document 01/31/24 09:55 LRN (Rec: 01/31/24 10:42 LRN [id number]) Sensation Evaluation Gross Sensation Gross Sensation WNL PT-OP-J Posture/Palpation/Skin Start: 01/08/24 14:48 Freq: Status: Active Protocol: Document 01/31/24 09:55 LRN (Rec: 01/31/24 10:42 LRN [id number]) Posture Evaluation Position Standing Head/C-Spine Posture Forward Head T-Spine Posture Increased Kyphosis Shoulder Posture (L) Elevated Knee Posture (L) Genu Valgus,(R) Genu Valgus Palpation Assessment Location Low Back Palpation Location R SIJ>L SIJ & R sacral border> L sacral border Palpation Findings Soft Tissue Tightness Palpation Details Gentle PA of L/S facets caused no pain and soft tissue tension was symmetrical. PT-OP-K Range of Motion Start: 01/08/24 14:48 Freq: Status: Active Protocol: Document 01/31/24 09:55 LRN (Rec: 01/31/24 10:42 LRN [id number]) Lumbar Spine Range of Motion Lumbar Spine Active Degrees Testing Position Standing Flexion 73 Extension 5 Rotation Left 25 Rotation Right 25 Lateral Flexion Left 8 Lateral Flexion Right 9 Hip Goniometric Range of Motion Hip Right Passive Testing Position Supine Flexion w/Knee Flexed 130 Internal Rotation 25 External Rotation 65 Comments Flex is approximate ROM Left Passive Testing Position Supine Flexion w/Knee Flexed 130 Internal Rotation 20 External Rotation 70 PT-OP-M Strength Start: 01/08/24 14:48 Freq: Status: Active Protocol: Document 01/31/24 09:55 LRN (Rec: 01/31/24 10:42 LRN [id number]) Hip Strength Hip Manual Muscle Testing Right Flexion (L2) 4+ Good+ Extension (S1) 3 Fair External Rotation 4+ Good+ Internal Rotation 3 Fair Left Flexion (L2) 3 Fair Extension (S1) 3 Fair External Rotation 3 Fair Internal Rotation 3 Fair Comments Pain with testing in L low back PT-OP-Q Treatments Start: 01/08/24 14:48 Freq: Status: Active Protocol: Document 02/09/24 09:05 LRN (Rec: 02/09/24 09:50 LRN [id number]) Therapeutic Exercises Supine Exercises Fuil Body stretch Supine Exercise Name Full body stretch review Reps/Minutes 5' Comments Modifications needed to support of low with pillow/ towel Sidelying Exercises Quad stretch Sidelying Exercise Name Pt able to do w/o pain w/top knee supported by bottom knee. Side bilateral Reps/Minutes 6' Comments Cued to not let knee drop into AD. Open bood Sidelying Exercise Name Open book leading with head rotation Side bilateral Reps/Minutes 7' Comments HEP review Standing Exercises Trunk Rot strengthening Standing Exercise Name Review and modification of pt trunk rot strengthening @ [facility] Side bilateral Equipment Used Lev 2 TB Reps/Minutes 10' Comments Positional and mvmt training for safety w/ex Self-Care/Home Management Treatment Activities Self-Care/Home Management Activities Issued & reviewed handout: SEAN for pain management. PT-OP-T Assessment and Plan Start: 01/08/24 14:48 Freq: Status: Active Protocol: Document 02/09/24 09:05 LRN (Rec: 02/09/24 09:50 LRN [id number]) Physical Therapy Assessment Goals Three Impairment Lower back pain limiting sitting in regular chair 15' Skilled Nursing Goal (LTG) Pt will be able to sit for 30 minute in regular chair (not recliner). LTG Duration 04/27/24 One Impairment Pt lacks appropriate self care HEP. Short Term Goal (STG) Pt will be educated and will demonstrate log roll transfers , proper body mechanics for ADLs, proper sitting/standing posture. 02/06/2024 Patient ed to sleep with pillow between knees as positioned form manual. STG Duration 03/16/24 Skilled Nursing Goal (LTG) Pt will be independent in a approriate and effective self care HEP for core/hip strengthening and mobility ex' s. 02/02/24: 4 pt, supine & prone ex's of her online HEP was modified and reviewed. 02/09/24: Pt's online HEP modified for trunk rot and reviewed for correct Open Book ex for thoracic rot. LTG Duration 04/27/24 progressing Two Impairment Lower back pain with walking ( sharp pn) and sitting (5/10) Impairment Pain in shoulders, legs, R ankle making sitting on toilet w/o a riser and getting up from a chair difficult. (5xSTS Norm for 70-79 yo is 12 .6 secs) (30 sec chair stand Norm for 70-74 yo female is 10-15x) 02/06/2024 patient reports having no pain with sit to and from stand start of session. Short Term Goal (STG) Eliminate the sharp pain, to be able to walk w/o pain on each step. STG Duration 03/16/24 Skilled Nursing Goal (LTG) Return to previous level of sore low back, rated 2/10 with pt able to tolerate standing 30 minutes. LTG Duration 04/27/24 Assessment Summary Assessment 73 yo female w/rubén lower sacral pain at SIJ's and sacral borders due to spondylolisthesis (mild L4-5 & L5-S1 DDD and facet disease), pain in rubén PSIS (mostly R side) and sharp pain along sacral borders w/walking and sitting, sacrum in L rotation , and pain with gait when weightbearing on LE's; dc'd trunk flexion, rubén hip IR, & R hip ER, & dec'd L hip strength. Today, pt had good questions from pt regarding HEP (reps, holds, position, appropriateness of ex), answered to pt's satifaction. Able to address trunk rot ex 's. Pt R rotates in sleeping, probably causing limititation for L rot; therefore nighttime positioning today was for preventing more Trunk R rot at nighttime. Open book limited in L rot as expected. Physical Therapy Plan Frequency and Duration Frequency of Treatment 1x/Week Duration of treatment (weeks) 12 Plan of Care Start Date 01/31/24 Plan of Care End Date 04/27/24 Next Visit Focus/Plan Next Note Type Treatment Note Next Visit Plan Next: Address ex's: neck, forward fold and sideband) review of pt's current online standing and sitting HEP ( [facility]), and [facility] HEP and modify as appropriate. If time after HEP review, STM Sacrum and abdomen for L4 posterior positioning on L5. STM for L4-5, L5-S1 DDD and facet disease (caution Level 4 Osteoporosis). POC: Therapeutic Ex (core stab flexion strengthening/ROM flex), Therapeutic Activity ( transfer & body mechanics training/supine to and from sit for HEP), manual therapy ( STM LB, gluteal, pelvis), Gait (MWM & Proper Posture) & Balance training, Pt Education (HEP, pain mgmt-SEAN).
--- NOTE | 2024-02-14 14:18 | PT.OTN ---
Current Diagnoses Other chronic pain (02/14/24) Low back pain, unspecified (02/14/24) Physical Therapy Treatment Note PT-OP-A Visit Information Start: 01/08/24 14:48 Freq: Status: Active Protocol: Document 02/14/24 09:50 LRN (Rec: 02/14/24 10:44 LRN [id number]) Out-Patient Physical Therapy Visit Information Visit Information Visit Type Treatment Note Visit Start Time 09:50 Visit Stop Time 10:30 Visit Number 5 Evaluation Information Evaluation Date 01/31/24 PT-OP-B Current Condition Start: 01/08/24 14:48 Freq: Status: Active Protocol: Document 01/31/24 09:55 LRN (Rec: 01/31/24 10:42 LRN [id number]) Current Condition History of Current Condition Onset Date 6 months ago Current Complaints LBP sharp w/walking, sitting mostly on R side, sometimes L History of Current Condition Insidious onset of LBP. Supine and bending over is fine. Walking (sharp pain with each step) and sitting is painful. Pain is constant is 7/10 (with pain med 5/10). With activity of walking and sitting, pain during the movement is 7/10, (with meds it is still 7/10 but sharp). 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 Hiking she uses a walking stick and meds to reduce the pain. Prior Treatments and Tests x-ray showed she has a grade 1 L4-5 anterior spondylolisthesis due to degenernative facet disease ( also has mild L4-5 & L5-S1 DDD and facet disease. Treatment Goals Patient/Caregiver Goals Pt goal is to -eliminate the sharp pain, to be able to walk w/o pain on each step. -be able to stand and sit for 30 minute in regular chair ( not recliner). -return to previous level of sore low back, rated 2/10. -independent on appropriate self care HEP. Personal Factors Other Personal Factors That May Effect Hikes or walks daily, [facility] ex [facility]/wk and web based ex program for spondylosis daily. PT-OP-C Subjective Start: 01/08/24 14:48 Freq: Status: Active Protocol: Document 02/14/24 09:50 LRN (Rec: 02/14/24 10:44 LRN [id number]) OP-PT Subjective Patient Comments Patient Comments States she has been sleeping like shown by SALES DEVELOPMENT COORDINATOR, sidelie with top leg flexed and supported on pillows. States she sleeps comfortably. PT-OP-F Manual Assessment Start: 01/08/24 14:48 Freq: Status: Active Protocol: Document 01/31/24 09:55 LRN (Rec: 01/31/24 10:42 LRN [id number]) Manual Assessments Joint Mobility Assessment Joint Mobility Assessment Sacrum in L rotation. PT-OP-H Neuro Start: 01/08/24 14:48 Freq: Status: Active Protocol: Document 01/31/24 09:55 LRN (Rec: 01/31/24 10:42 LRN [id number]) Sensation Evaluation Gross Sensation Gross Sensation WNL PT-OP-J Posture/Palpation/Skin Start: 01/08/24 14:48 Freq: Status: Active Protocol: Document 01/31/24 09:55 LRN (Rec: 01/31/24 10:42 LRN [id number]) Posture Evaluation Position Standing Head/C-Spine Posture Forward Head T-Spine Posture Increased Kyphosis Shoulder Posture (L) Elevated Knee Posture (L) Genu Valgus,(R) Genu Valgus Palpation Assessment Location Low Back Palpation Location R SIJ>L SIJ & R sacral border> L sacral border Palpation Findings Soft Tissue Tightness Palpation Details Gentle PA of L/S facets caused no pain and soft tissue tension was symmetrical. PT-OP-K Range of Motion Start: 01/08/24 14:48 Freq: Status: Active Protocol: Document 01/31/24 09:55 LRN (Rec: 01/31/24 10:42 LRN [id number]) Lumbar Spine Range of Motion Lumbar Spine Active Degrees Testing Position Standing Flexion 73 Extension 5 Rotation Left 25 Rotation Right 25 Lateral Flexion Left 8 Lateral Flexion Right 9 Hip Goniometric Range of Motion Hip Right Passive Testing Position Supine Flexion w/Knee Flexed 130 Internal Rotation 25 External Rotation 65 Comments Flex is approximate ROM Left Passive Testing Position Supine Flexion w/Knee Flexed 130 Internal Rotation 20 External Rotation 70 PT-OP-M Strength Start: 01/08/24 14:48 Freq: Status: Active Protocol: Document 01/31/24 09:55 LRN (Rec: 01/31/24 10:42 LRN [id number]) Hip Strength Hip Manual Muscle Testing Right Flexion (L2) 4+ Good+ Extension (S1) 3 Fair External Rotation 4+ Good+ Internal Rotation 3 Fair Left Flexion (L2) 3 Fair Extension (S1) 3 Fair External Rotation 3 Fair Internal Rotation 3 Fair Comments Pain with testing in L low back PT-OP-Q Treatments Start: 01/08/24 14:48 Freq: Status: Active Protocol: Document 02/14/24 09:50 LRN (Rec: 02/14/24 10:44 LRN [id number]) Therapeutic Exercises Sitting Exercises Quad/Ilipsoas stretch Sitting Exercise Name 1/2 kneel off chair with knee towards floor and and arm up overhead. Side bilateral Reps/Minutes 2x Comments This is [facility] HEP ex pt wanted review. Leg lift Sitting Exercise Name Sitting at edge of chair for partial SLR Side bilateral Reps/Minutes 4x Neck AROM ex Sitting Exercise Name Review of online ex's: Flex, Ext, Rot, SB Side bilateral Reps/Minutes 1 SH, 3x each Therapeutic Activity Therapeutic Activity Side<>sit Name Training using side down elbow to push and topside hand to push. Reps/Minutes 5' hip hinge for sit<>stand Name Sit<>stand with hip hinging Reps/Minutes 7' Comments Pt needed cuing for TA tight. Manual Therapy Treatment Consent Patient gave verbal consent for manual Yes treatment Soft Tissue Mobilization LS area Body Location QL, Upper gluteals, GM, mainly R side. Mobilization Type Strumming,Sustained Pressure Intensity/Depth Moderate Body Position Prone Self-Care/Home Management Treatment Activities Self-Care/Home Management Activities During Ther Activity Side<>sit training, recommended sidelie sleeping position with legs in same positions vs one leg straight and one flexed. PT-OP-T Assessment and Plan Start: 01/08/24 14:48 Freq: Status: Active Protocol: Document 02/14/24 09:50 LRN (Rec: 02/14/24 10:44 LRN [id number]) Physical Therapy Assessment Goals Three Impairment Lower back pain limiting sitting in regular chair 15' Records Coordinator Goal (LTG) Pt will be able to sit for 30 minute in regular chair (not recliner). LTG Duration 04/27/24 One Impairment Pt lacks appropriate self care HEP. Short Term Goal (STG) Pt will be educated and will demonstrate log roll transfers , proper body mechanics for ADLs, proper sitting/standing posture. 02/06/2024: Patient ed to sleep with pillow between knees as positioned form manual. STG Duration 03/16/24 Records Coordinator Goal (LTG) Pt will be independent in a approriate and effective self care HEP for core/hip strengthening and mobility ex' s. 02/02/24: 4 pt, supine & prone ex's of her online HEP was modified and reviewed. 02/09/24: Pt's online HEP modified for trunk rot and reviewed for correct Open Book ex for thoracic rot. LTG Duration 04/27/24 progressing Two Impairment Lower back pain with walking ( sharp pn) and sitting (5/10) Impairment Pain in shoulders, legs, R ankle making sitting on toilet w/o a riser and getting up from a chair difficult. (5xSTS Norm for 70-79 yo is 12 .6 secs) (30 sec chair stand Norm for 70-74 yo female is 10-15x) 02/06/2024 patient reports having no pain with sit to and from stand start of session. Short Term Goal (STG) Eliminate the sharp pain, to be able to walk w/o pain on each step. STG Duration 03/16/24 Records Coordinator Goal (LTG) Return to previous level of sore low back, rated 2/10 with pt able to tolerate standing 30 minutes. LTG Duration 04/27/24 Assessment Summary Assessment 73 yo female w/rubén lower sacral pain at SIJ's and sacral borders due to spondylolisthesis (mild L4-5 & L5-S1 DDD and facet disease), pain in rubén PSIS (mostly R side) and sharp pain along sacral borders w/walking and sitting, sacrum in L rotation , and pain with gait when weightbearing on LE's; dc'd trunk flexion, rubén hip IR, & R hip ER, & dec'd L hip strength. Physical Therapy Plan Frequency and Duration Frequency of Treatment 1x/Week Duration of treatment (weeks) 12 Plan of Care Start Date 01/31/24 Plan of Care End Date 04/27/24 Next Visit Focus/Plan Next Note Type Treatment Note Next Visit Plan Next: Assess response to STM Sacrum for L4 posterior positioning on L5. STM for L4 -5, L5-S1 DDD and facet disease (caution Level 4 Osteoporosis). Core strengthening. Monitor HEP ([facility]), and [facility] HEP and modify as needed. POC: Therapeutic Ex (core stab flexion strengthening/ROM flex), Therapeutic Activity ( transfer & body mechanics training/supine to and from sit for HEP), manual therapy ( STM LB, gluteal, pelvis), Gait (MWM & Proper Posture) & Balance training, Pt Education (HEP, pain jannette-SEAN).
--- NOTE | 2024-02-20 15:56 | PT.OTN ---
Current Diagnoses Other chronic pain (02/20/24) Low back pain, unspecified (02/20/24) Physical Therapy Treatment Note PT-OP-A Visit Information Start: 01/08/24 14:48 Freq: Status: Active Protocol: Document 02/20/24 13:00 AB (Rec: 02/20/24 15:56 AB [id number]) Out-Patient Physical Therapy Visit Information Visit Information Visit Type Treatment Note Visit Start Time 13:02 Visit Stop Time 13:44 Visit Number 6 Number of SENIOR PROGRAM MANAGER Visits 1 Evaluation Information Evaluation Date 01/31/24 Precautions Precautions Spondylolisthesis L4-L5, L5-S1 . Pt reported: Osteoporosis (level 4 in L/S), Libra disease, SOB due to Heart Failure - 2020 ( director of research said caused by [place] diseease), Fibromyalgia. PT-OP-B Current Condition Start: 01/08/24 14:48 Freq: Status: Active Protocol: Document 01/31/24 09:55 LRN (Rec: 01/31/24 10:42 LRN [id number]) Current Condition History of Current Condition Onset Date 6 months ago Current Complaints LBP sharp w/walking, sitting mostly on R side, sometimes L History of Current Condition Insidious onset of LBP. Supine and bending over is fine. Walking (sharp pain with each step) and sitting is painful. Pain is constant is 7/10 (with pain med 5/10). With activity of walking and sitting, pain during the movement is 7/10, (with meds it is still 7/10 but sharp). Initially she thought the pain was from being on hydrocortisone for a long time and thought it was due to [facility] use of meds, but 09/13 x-ray showed she has a grade 1 L4-5 anterior spondylolisthesis due to degenernative facet disease ( also has mild L4-5 & L5-S1 DDD and facet disease). Hiking she uses a walking stick and meds to reduce the pain. Prior Treatments and Tests x-ray showed she has a grade 1 L4-5 anterior spondylolisthesis due to degenernative facet disease ( also has mild L4-5 & L5-S1 DDD and facet disease. Treatment Goals Patient/Caregiver Goals Pt goal is to -eliminate the sharp pain, to be able to walk w/o pain on each step. -be able to stand and sit for 30 minute in regular chair ( not recliner). -return to previous level of sore low back, rated 2/10. -independent on appropriate self care HEP. Personal Factors Other Personal Factors That May Effect Hikes or walks daily, [facility] ex 3x/wk and web based ex program for spondylosis daily. PT-OP-C Subjective Start: 01/08/24 14:48 Freq: Status: Active Protocol: Document 02/20/24 13:00 AB (Rec: 02/20/24 15:56 AB [id number]) OP-PT Subjective Patient Comments Patient Comments Glenys reports feeling good post manual therapy previous session. Patient rates pain 4/ 10 start of session. Patient reports she already went over the [facility] exercises, but has a question about one ex and another ex someone mentioned. Patient reports she already went to the [facility] exercise today with a tiny increase in pain post. PT-OP-F Manual Assessment Start: 01/08/24 14:48 Freq: Status: Active Protocol: Document 01/31/24 09:55 LRN (Rec: 01/31/24 10:42 LRN [id number]) Manual Assessments Joint Mobility Assessment Joint Mobility Assessment Sacrum in L rotation. PT-OP-H Neuro Start: 01/08/24 14:48 Freq: Status: Active Protocol: Document 01/31/24 09:55 LRN (Rec: 01/31/24 10:42 LRN [id number]) Sensation Evaluation Gross Sensation Gross Sensation WNL PT-OP-J Posture/Palpation/Skin Start: 01/08/24 14:48 Freq: Status: Active Protocol: Document 01/31/24 09:55 LRN (Rec: 01/31/24 10:42 LRN [id number]) Posture Evaluation Position Standing Head/C-Spine Posture Forward Head T-Spine Posture Increased Kyphosis Shoulder Posture (L) Elevated Knee Posture (L) Genu Valgus,(R) Genu Valgus Palpation Assessment Location Low Back Palpation Location R SIJ>L SIJ & R sacral border> L sacral border Palpation Findings Soft Tissue Tightness Palpation Details Gentle PA of L/S facets caused no pain and soft tissue tension was symmetrical. PT-OP-K Range of Motion Start: 01/08/24 14:48 Freq: Status: Active Protocol: Document 01/31/24 09:55 LRN (Rec: 01/31/24 10:42 LRN [id number]) Lumbar Spine Range of Motion Lumbar Spine Active Degrees Testing Position Standing Flexion 73 Extension 5 Rotation Left 25 Rotation Right 25 Lateral Flexion Left 8 Lateral Flexion Right 9 Hip Goniometric Range of Motion Hip Right Passive Testing Position Supine Flexion w/Knee Flexed 130 Internal Rotation 25 External Rotation 65 Comments Flex is approximate ROM Left Passive Testing Position Supine Flexion w/Knee Flexed 130 Internal Rotation 20 External Rotation 70 PT-OP-M Strength Start: 01/08/24 14:48 Freq: Status: Active Protocol: Document 01/31/24 09:55 LRN (Rec: 01/31/24 10:42 LRN [id number]) Hip Strength Hip Manual Muscle Testing Right Flexion (L2) 4+ Good+ Extension (S1) 3 Fair External Rotation 4+ Good+ Internal Rotation 3 Fair Left Flexion (L2) 3 Fair Extension (S1) 3 Fair External Rotation 3 Fair Internal Rotation 3 Fair Comments Pain with testing in L low back PT-OP-Q Treatments Start: 01/08/24 14:48 Freq: Status: Active Protocol: Document 02/20/24 13:00 AB (Rec: 02/20/24 15:56 AB [id number]) Therapeutic Exercises Supine Exercises piriformis stretch Supine Exercise Name HEP Side bilateral Reps/Minutes 60 sec each LE Comments verbal cues segmental bridge Supine Exercise Name from [facility] ex Reps/Minutes X8 Comments Verbal cues to perform minimal lift and push into heels Sitting Exercises seated hip abduction with band Sitting Exercise Name HEP Side bilateral Resistance level 3 band Reps/Minutes one min Standing Exercises sit to stand with band Side bilateral Resistance level 3 band above knees Reps/Minutes 2X10 Comments verbal cues to brace abd when reaching upright Pallof press Standing Exercise Name HEP Side bilateral Resistance level one band Reps/Minutes X12 each side Comments verbal and visual cues Manual Therapy Treatment Soft Tissue Mobilization LS area Body Location bilateral, Lumbar paraspinals 3-5, gluteal area/quadratus Mobilization Type Cross-Friction,Strumming, Sustained Pressure Intensity/Depth Moderate Body Position Sidelying PT-OP-T Assessment and Plan Start: 01/08/24 14:48 Freq: Status: Active Protocol: Document 02/20/24 13:00 AB (Rec: 02/20/24 15:56 AB [id number]) Physical Therapy Assessment Goals Three Impairment Lower back pain limiting sitting in regular chair 15' Nursing Home Goal (LTG) Pt will be able to sit for 30 minute in regular chair (not recliner). LTG Duration 04/27/24 One Impairment Pt lacks appropriate self care HEP. Short Term Goal (STG) Pt will be educated and will demonstrate log roll transfers , proper body mechanics for ADLs, proper sitting/standing posture. 02/06/2024: Patient ed to sleep with pillow between knees as positioned form manual. 02/20/2024 Observed patient perform log roll during transfers this session without any verbal cues. STG Duration 03/16/24 Nursing Home Goal (LTG) Pt will be independent in a approriate and effective self care HEP for core/hip strengthening and mobility ex' s. 02/02/24: 4 pt, supine & prone ex's of her online HEP was modified and reviewed. 02/09/24: Pt's online HEP modified for trunk rot and reviewed for correct Open Book ex for thoracic rot. 02/20/2024 seated hip abd one min X 1 with band, Pallof press and piriformis stretch to HEp LTG Duration 04/27/24 progressing Two Impairment Lower back pain with walking ( sharp pn) and sitting (5/10) Impairment Pain in shoulders, legs, R ankle making sitting on toilet w/o a riser and getting up from a chair difficult. (5xSTS Norm for 70-79 yo is 12 .6 secs) (30 sec chair stand Norm for 70-74 yo female is 10-15x) 02/06/2024 patient reports having no pain with sit to and from stand start of session. Short Term Goal (STG) Eliminate the sharp pain, to be able to walk w/o pain on each step. STG Duration 03/16/24 Nursing Home Goal (LTG) Return to previous level of sore low back, rated 2/10 with pt able to tolerate standing 30 minutes. LTG Duration 04/27/24 Assessment Summary Assessment SLS 3 sec each LE without UE use start of session, post seated hip abd with band one min/ activation SLS without UE use increased to 13 sec left 15+ right. Glenys rates back pain 2/10 end of session. Physical Therapy Plan Frequency and Duration Frequency of Treatment 1x/Week Duration of treatment (weeks) 12 Plan of Care Start Date 01/31/24 Plan of Care End Date 04/27/24 Next Visit Focus/Plan Next Note Type Treatment Note Next Visit Plan Next: STM for L4-5, L5-S1 DDD and facet disease (caution Level 4 Osteoporosis). Core strengthening(assess fox to Pallof press to HEP possiby progress band). Monitor HEP ([facility]), and Sr. POC: Therapeutic Ex (core stab flexion strengthening/ROM flex), Therapeutic Activity ( transfer & body mechanics training/supine to and from sit for HEP), manual therapy ( STM LB, gluteal, pelvis), Gait (MWM & Proper Posture) & Balance ( next session focus ) training, Pt Education (HEP, pain Donta).
--- NOTE | 2024-03-01 13:23 | PT.OTN ---
Current Diagnoses Other chronic pain (03/01/24) Low back pain, unspecified (03/01/24) Physical Therapy Treatment Note PT-OP-A Visit Information Start: 01/08/24 14:48 Freq: Status: Active Protocol: Document 03/01/24 10:46 AB (Rec: 03/01/24 13:22 AB [id number]) Out-Patient Physical Therapy Visit Information Visit Information Visit Type Treatment Note Visit Start Time 10:48 Visit Stop Time 11:34 Visit Number 7 Number of REGULATORY CONSULTANT Visits 1 Evaluation Information Evaluation Date 01/31/24 Precautions Precautions Spondylolisthesis L4-L5, L5-S1 . Pt reported: Osteoporosis (level 4 in L/S), Libra disease, SOB due to Heart Failure - 2020 ( recreation attendant said caused by Morris diseease), Fibromyalgia. PT-OP-B Current Condition Start: 01/08/24 14:48 Freq: Status: Active Protocol: Document 01/31/24 09:55 LRN (Rec: 01/31/24 10:42 LRN [id number]) Current Condition History of Current Condition Onset Date 6 months ago Current Complaints LBP sharp w/walking, sitting mostly on R side, sometimes L History of Current Condition Insidious onset of LBP. Supine and bending over is fine. Walking (sharp pain with each step) and sitting is painful. Pain is constant is 7/10 (with pain med 5/10). With activity of walking and sitting, pain during the movement is 7/10, (with meds it is still 7/10 but sharp). Initially she thought the pain was from being on hydrocortisone for a long time and thought it was due to snf use of meds, but 09/13 x-ray showed she has a grade 1 L4-5 anterior spondylolisthesis due to degenernative facet disease ( also has mild L4-5 & L5-S1 DDD and facet disease). Hiking she uses a walking stick and meds to reduce the pain. Prior Treatments and Tests x-ray showed she has a grade 1 L4-5 anterior spondylolisthesis due to degenernative facet disease ( also has mild L4-5 & L5-S1 DDD and facet disease. Treatment Goals Patient/Caregiver Goals Pt goal is to -eliminate the sharp pain, to be able to walk w/o pain on each step. -be able to stand and sit for 30 minute in regular chair ( not recliner). -return to previous level of sore low back, rated 2/10. -independent on appropriate self care HEP. Personal Factors Other Personal Factors That May Effect Hikes or walks daily, [facility] ex 3x/wk and web based ex program for spondylosis daily. PT-OP-C Subjective Start: 01/08/24 14:48 Freq: Status: Active Protocol: Document 03/01/24 10:46 AB (Rec: 03/01/24 13:22 AB [id number]) OP-PT Subjective Patient Comments Patient Comments Glenys reports she is the same . Patient comments she wants to know how many of the exercises she needs to do at home when discharged. Glenys rates pain 3/10 sacral area start of session, comments post functional fitness at [facility] she is tapped out for the rest of the day and has increased soreness. Patient reports she has the RICE handout and it has been reviewed. PT-OP-F Manual Assessment Start: 01/08/24 14:48 Freq: Status: Active Protocol: Document 01/31/24 09:55 LRN (Rec: 01/31/24 10:42 LRN [id number]) Manual Assessments Joint Mobility Assessment Joint Mobility Assessment Sacrum in L rotation. PT-OP-H Neuro Start: 01/08/24 14:48 Freq: Status: Active Protocol: Document 01/31/24 09:55 LRN (Rec: 01/31/24 10:42 LRN [id number]) Sensation Evaluation Gross Sensation Gross Sensation WNL PT-OP-J Posture/Palpation/Skin Start: 01/08/24 14:48 Freq: Status: Active Protocol: Document 01/31/24 09:55 LRN (Rec: 01/31/24 10:42 LRN [id number]) Posture Evaluation Position Standing Head/C-Spine Posture Forward Head T-Spine Posture Increased Kyphosis Shoulder Posture (L) Elevated Knee Posture (L) Genu Valgus,(R) Genu Valgus Palpation Assessment Location Low Back Palpation Location R SIJ>L SIJ & R sacral border> L sacral border Palpation Findings Soft Tissue Tightness Palpation Details Gentle PA of L/S facets caused no pain and soft tissue tension was symmetrical. PT-OP-K Range of Motion Start: 01/08/24 14:48 Freq: Status: Active Protocol: Document 01/31/24 09:55 LRN (Rec: 01/31/24 10:42 LRN [id number]) Lumbar Spine Range of Motion Lumbar Spine Active Degrees Testing Position Standing Flexion 73 Extension 5 Rotation Left 25 Rotation Right 25 Lateral Flexion Left 8 Lateral Flexion Right 9 Hip Goniometric Range of Motion Hip Right Passive Testing Position Supine Flexion w/Knee Flexed 130 Internal Rotation 25 External Rotation 65 Comments Flex is approximate ROM Left Passive Testing Position Supine Flexion w/Knee Flexed 130 Internal Rotation 20 External Rotation 70 PT-OP-M Strength Start: 01/08/24 14:48 Freq: Status: Active Protocol: Document 01/31/24 09:55 LRN (Rec: 01/31/24 10:42 LRN [id number]) Hip Strength Hip Manual Muscle Testing Right Flexion (L2) 4+ Good+ Extension (S1) 3 Fair External Rotation 4+ Good+ Internal Rotation 3 Fair Left Flexion (L2) 3 Fair Extension (S1) 3 Fair External Rotation 3 Fair Internal Rotation 3 Fair Comments Pain with testing in L low back PT-OP-Q Treatments Start: 01/08/24 14:48 Freq: Status: Active Protocol: Document 03/01/24 10:46 AB (Rec: 03/01/24 13:22 AB [id number]) Therapeutic Exercises Supine Exercises Modified restorative pose Side bilateral Reps/Minutes 2 min Comments verbal cues for breathing from diaphragm piriformis stretch Supine Exercise Name HEP Side bilateral Reps/Minutes 60 sec each LE Comments verbal cues Sitting Exercises seated hip abduction with band Sitting Exercise Name HEP Resistance level 4 band (level 4 band to HEP) Reps/Minutes one min Standing Exercises Pallof press Standing Exercise Name HEP Side bilateral Resistance level 2 band ( band 2 to HEP) Reps/Minutes X10 each side Comments verbal and visual cues Therapeutic Activity Therapeutic Activity supine to sit Name to HEP for left and right side to improve core strength Reps/Minutes from left and right X 1 Comments Patient ed timing for sidelying to sit and to perform from both sides as an exercise at home to improve core strength. hip hinge for sit<>stand Name Sit<>stand with hip hinging Reps/Minutes X3 X2 Comments Pt needed cuing for TA tight. when reaching upright, verbal and tactile cues Manual Therapy Treatment Consent Patient gave verbal consent for manual Yes treatment Soft Tissue Mobilization LS area Body Location bilateral, Lumbar paraspinals/ SI Mobilization Type Cross-Friction,Strumming, Sustained Pressure Intensity/Depth Moderate Body Position Sidelying Self-Care/Home Management Treatment Education Other Education Patient ed post PT ex programs to every other day for Sen center/Spondyl prog and HEP strength ex from PT, stretches ( piriformis to ever other day July 2024.) PT-OP-T Assessment and Plan Start: 01/08/24 14:48 Freq: Status: Active Protocol: Document 03/01/24 10:46 AB (Rec: 03/01/24 13:22 AB [id number]) Physical Therapy Assessment Goals Three Impairment Lower back pain limiting sitting in regular chair 15' Electro Optics Engineer Goal (LTG) Pt will be able to sit for 30 minute in regular chair (not recliner). LTG Duration 04/27/24 One Impairment Pt lacks appropriate self care HEP. Short Term Goal (STG) Pt will be educated and will demonstrate log roll transfers , proper body mechanics for ADLs, proper sitting/standing posture. 02/06/2024: Patient ed to sleep with pillow between knees as positioned form manual. 02/20/2024 Observed patient perform log roll during transfers this session without any verbal cues. 03/01/2024 Patient ed and performed sit to stand with abdominal bracing when reaching upright to dec increased ant pelvic tilt/ lumbar lordosis when reaching upright. Breathing from diaphragm in mod restortive post added to HEP to perform when fatigued post [facility] exercises or fatigued in general. STG Duration 03/16/24 Electro Optics Engineer Goal (LTG) Pt will be independent in a approriate and effective self care HEP for core/hip strengthening and mobility ex' s. 02/02/24: 4 pt, supine & prone ex's of her online HEP was modified and reviewed. 02/09/24: Pt's online HEP modified for trunk rot and reviewed for correct Open Book ex for thoracic rot. 02/20/2024 seated hip abd one min X 1 with band, Pallof press and piriformis stretch to HEP 03/01/2024 Patient reports she has the RICE handout and it was reviewed with her. Increased resistance band for seated hip abd and Pallof press. LTG Duration 04/27/24 progressing Two Impairment Lower back pain with walking ( sharp pn) and sitting (5/10) Impairment Pain in shoulders, legs, R ankle making sitting on toilet w/o a riser and getting up from a chair difficult. (5xSTS Norm for 70-79 yo is 12 .6 secs) (30 sec chair stand Norm for 70-74 yo female is 10-15x) 02/06/2024 patient reports having no pain with sit to and from stand start of session. Short Term Goal (STG) Eliminate the sharp pain, to be able to walk w/o pain on each step. STG Duration 03/16/24 Electro Optics Engineer Goal (LTG) Return to previous level of sore low back, rated 2/10 with pt able to tolerate standing 30 minutes. LTG Duration 04/27/24 Assessment Summary Assessment Glenys rates back pain 2/10 end of session. Patient ed post PT ex programs to every other day for Sen center/ Spondyl prog and HEP strength ex from PT, stretches( piriformis to ever other day July 2024.) Physical Therapy Plan Frequency and Duration Frequency of Treatment 1x/Week Duration of treatment (weeks) 12 Plan of Care Start Date 01/31/24 Plan of Care End Date 04/27/24 Next Visit Focus/Plan Next Note Type Treatment Note Next Visit Plan Next: STM for L4-5, L5-S1 DDD and facet disease (caution Level 4 Osteoporosis). Core strengthening. Monitor HEP POC: Therapeutic Ex (core stab flexion strengthening/ROM flex), Therapeutic Activity ( body mechanics training, manual therapy (STM LB, gluteal, pelvis), Gait (MWM & Proper Posture) & Balance next session focus. Pt Education
--- NOTE | 2024-03-06 15:56 | PT.OTN ---
Current Diagnoses Other chronic pain (03/06/24) Low back pain, unspecified (03/06/24) Physical Therapy Treatment Note PT-OP-A Visit Information Start: 01/08/24 14:48 Freq: Status: Active Protocol: Document 03/06/24 14:35 LRN (Rec: 03/06/24 15:56 LRN [id number]) Out-Patient Physical Therapy Visit Information Visit Information Visit Type Treatment Note Visit Start Time 14:35 Visit Stop Time 15:16 Visit Number 8 Evaluation Information Evaluation Date 01/31/24 Precautions Precautions Spondylolisthesis L4-L5, L5-S1 . Pt reported: Osteoporosis (level 4 in L/S), Redig disease, SOB due to Heart Failure - 2020 ( web database developer said caused by Redig diseease), Fibromyalgia. PT-OP-B Current Condition Start: 01/08/24 14:48 Freq: Status: Active Protocol: Document 01/31/24 09:55 LRN (Rec: 01/31/24 10:42 LRN [id number]) Current Condition History of Current Condition Onset Date 6 months ago Current Complaints LBP sharp w/walking, sitting mostly on R side, sometimes L History of Current Condition Insidious onset of LBP. Supine and bending over is fine. Walking (sharp pain with each step) and sitting is painful. Pain is constant is 7/10 (with pain med 5/10). With activity of walking and sitting, pain during the movement is 7/10, (with meds it is still 7/10 but sharp). Initially she thought the pain was from being on hydrocortisone for a long time and thought it was due to superintendent container terminal use of meds, but 09/13 x-ray showed she has a grade 1 L4-5 anterior spondylolisthesis due to degenernative facet disease ( also has mild L4-5 & L5-S1 DDD and facet disease). Hiking she uses a walking stick and meds to reduce the pain. Prior Treatments and Tests x-ray showed she has a grade 1 L4-5 anterior spondylolisthesis due to degenernative facet disease ( also has mild L4-5 & L5-S1 DDD and facet disease. Treatment Goals Patient/Caregiver Goals Pt goal is to -eliminate the sharp pain, to be able to walk w/o pain on each step. -be able to stand and sit for 30 minute in regular chair ( not recliner). -return to previous level of sore low back, rated 2/10. -independent on appropriate self care HEP. Personal Factors Other Personal Factors That May Effect Hikes or walks daily, Sr [facility] ex 3x/wk and web based ex program for spondylosis daily. PT-OP-C Subjective Start: 01/08/24 14:48 Freq: Status: Active Protocol: Document 03/06/24 14:35 LRN (Rec: 03/06/24 15:56 LRN [id number]) OP-PT Subjective Patient Comments Patient Comments States last week saw and told PCP she hasn't noticed much improvement, so she is being [facility]. Sleeping on sides doesn't feel as stiff on waking, but pain persists in LB. States her exercise class talks and teaches proper posture with exer. PT-OP-F Manual Assessment Start: 01/08/24 14:48 Freq: Status: Active Protocol: Document 01/31/24 09:55 LRN (Rec: 01/31/24 10:42 LRN [id number]) Manual Assessments Joint Mobility Assessment Joint Mobility Assessment Sacrum in L rotation. PT-OP-H Neuro Start: 01/08/24 14:48 Freq: Status: Active Protocol: Document 01/31/24 09:55 LRN (Rec: 01/31/24 10:42 LRN [id number]) Sensation Evaluation Gross Sensation Gross Sensation WNL PT-OP-J Posture/Palpation/Skin Start: 01/08/24 14:48 Freq: Status: Active Protocol: Document 01/31/24 09:55 LRN (Rec: 01/31/24 10:42 LRN [id number]) Posture Evaluation Position Standing Head/C-Spine Posture Forward Head T-Spine Posture Increased Kyphosis Shoulder Posture (L) Elevated Knee Posture (L) Genu Valgus,(R) Genu Valgus Palpation Assessment Location Low Back Palpation Location R SIJ>L SIJ & R sacral border> L sacral border Palpation Findings Soft Tissue Tightness Palpation Details Gentle PA of L/S facets caused no pain and soft tissue tension was symmetrical. PT-OP-K Range of Motion Start: 01/08/24 14:48 Freq: Status: Active Protocol: Document 01/31/24 09:55 LRN (Rec: 01/31/24 10:42 LRN [id number]) Lumbar Spine Range of Motion Lumbar Spine Active Degrees Testing Position Standing Flexion 73 Extension 5 Rotation Left 25 Rotation Right 25 Lateral Flexion Left 8 Lateral Flexion Right 9 Hip Goniometric Range of Motion Hip Right Passive Testing Position Supine Flexion w/Knee Flexed 130 Internal Rotation 25 External Rotation 65 Comments Flex is approximate ROM Left Passive Testing Position Supine Flexion w/Knee Flexed 130 Internal Rotation 20 External Rotation 70 PT-OP-M Strength Start: 01/08/24 14:48 Freq: Status: Active Protocol: Document 01/31/24 09:55 LRN (Rec: 01/31/24 10:42 LRN [id number]) Hip Strength Hip Manual Muscle Testing Right Flexion (L2) 4+ Good+ Extension (S1) 3 Fair External Rotation 4+ Good+ Internal Rotation 3 Fair Left Flexion (L2) 3 Fair Extension (S1) 3 Fair External Rotation 3 Fair Internal Rotation 3 Fair Comments Pain with testing in L low back PT-OP-Q Treatments Start: 01/08/24 14:48 Freq: Status: Active Protocol: Document 03/06/24 14:35 LRN (Rec: 03/06/24 15:56 LRN [id number]) Therapeutic Activity Therapeutic Activity Body Mechanics for ADLs Name Body mechanics training for ADLs. Comments Focus on partial squat for lifting, as pt has boxes to go through. Body Mechanics training Name Body Mechanics Basics education/training Posture training Name Sit & stand posture training Comments Education/training with sitting on multiple seating types, including pt's recliner chair and sitting to use computer. Self-Care/Home Management Treatment Education Other Education Pt lead discussion on new referral received for [facility], and PT rehab POC. Activities Self-Care/Home Management Activities Handouts reviewed and issued: Sitting & standing posture, sitting in various chairs posturing, Body mechanics for daily activities, Body mechancs basics. PT-OP-T Assessment and Plan Start: 01/08/24 14:48 Freq: Status: Active Protocol: Document 03/06/24 14:35 LRN (Rec: 03/06/24 15:56 LRN [id number]) Physical Therapy Assessment Goals Three Impairment Lower back pain limiting sitting in regular chair 15' Controller [employer] Goal (LTG) Pt will be able to sit for 30 minute in regular chair (not recliner). 03/06/24: Went to a movie in theatre and wore her carri brace for 1st 1-1/2 hrs (2.5 hr movie), then 2nd 1/2 of movie became uncomfortable. Can sit in straight back dining room chair 1/2 hr. LTG Duration 04/27/24 (03/06/24: MET GOAL) One Impairment Pt lacks appropriate self care HEP. Short Term Goal (STG) Pt will be educated and will demonstrate log roll transfers , proper body mechanics for ADLs, proper sitting/standing posture. 02/06/2024: Patient ed to sleep with pillow between knees as positioned form manual. 02/20/2024 Observed patient perform log roll during transfers this session without any verbal cues. 03/01/2024 Patient ed and performed sit to stand with abdominal bracing when reaching upright to dec increased ant pelvic tilt/ lumbar lordosis when reaching upright. Breathing from diaphragm in mod restortive post added to HEP to perform when fatigued post Senior center exercises or fatigued in general. 03/06/24: Pt educated in proper sit/stand posture and body mechanics with ADLs and body mechanics basics. STG Duration 03/16/24 (03/06/24: MET GOAL ) Long-Term Goal (LTG) Pt will be independent in a approriate and effective self care HEP for core/hip strengthening and mobility ex' s. 02/02/24: 4 pt, supine & prone ex's of her online HEP was modified and reviewed. 02/09/24: Pt's online HEP modified for trunk rot and reviewed for correct Open Book ex for thoracic rot. 02/20/2024 seated hip abd one min X 1 with band, Pallof press and piriformis stretch to HEP 03/01/2024 Patient reports she has the RICE handout and it was reviewed with her. Increased resistance band for seated hip abd and Pallof press. LTG Duration 04/27/24 progressing on 11/15 (need core ex's) Two Impairment Lower back pain with walking ( sharp pn) and sitting (5/10) Impairment Pain in shoulders, legs, R ankle making sitting on toilet w/o a riser and getting up from a chair difficult. (5xSTS Norm for 70-79 yo is 12 .6 secs) (30 sec chair stand Norm for 70-74 yo female is 10-15x) 02/06/2024 patient reports having no pain with sit to and from stand start of session. Short Term Goal (STG) Eliminate the sharp pain, to be able to walk w/o pain on each step. 03/06/24: With pain med can walk short distances w/o sharp pain. STG Duration 03/16/24 (03/06/24: progressed with use of meds) Controller [employer] Goal (LTG) Return to previous level of sore low back, rated 2/10 with pt able to tolerate standing 30 minutes. 03/06/24: Pain rated 6/10. Able to stand 15' with shifting of wgt with pain rated 7/10. LTG Duration 04/27/24 (03/06/24: progressed with use of meds) Assessment Summary Assessment Pt is a 73 yo female initially w/rubén lower sacral pain at SIJ's and sacral borders due to spondylolisthesis (mild L4- 5 & L5-S1 DDD and facet disease), pain in rubén PSIS ( mostly R side) and sharp pain along sacral borders w/walking and sitting, sacrum in L rotation, and pain with gait when weightbearing on LE's; dc 'd trunk flexion, rubén hip IR, & R hip ER, & dec'd L hip strength. She Physical Therapy Plan Frequency and Duration Frequency of Treatment 1x/Week Duration of treatment (weeks) 12 Plan of Care Start Date 01/31/24 Plan of Care End Date 04/27/24 Next Visit Focus/Plan Next Note Type Treatment Note Next Visit Plan DC in 1-2 visits to HEP as pt plans to attend [facility]. Next: Add Core strengthening to HEP. STM for L4-5, L5-S1 DDD and facet disease (caution Level 4 Osteoporosis). POC: Therapeutic Ex (core stab flexion strengthening), manual therapy (STM LB, gluteal, pelvis).
--- NOTE | 2024-03-13 16:21 | PT.OTN ---
Current Diagnoses Other chronic pain (03/13/24) Low back pain, unspecified (03/13/24) Physical Therapy Treatment Note PT-OP-A Visit Information Start: 01/08/24 14:48 Freq: Status: Active Protocol: Document 03/13/24 13:52 AB (Rec: 03/13/24 16:21 AB [id number]) Out-Patient Physical Therapy Visit Information Visit Information Visit Type Treatment Note Visit Start Time 15:23 Visit Stop Time 16:10 Visit Number 9 Number of BUILDING MAINTENANCE SUPERINTENDENT Visits 1 Evaluation Information Evaluation Date 01/31/24 Precautions Precautions Spondylolisthesis L4-L5, L5-S1 . Pt reported: Osteoporosis (level 4 in L/S), Libra disease, SOB due to Heart Failure - 2020 ( thermostat repairer said caused by [place] diseease), Fibromyalgia. PT-OP-B Current Condition Start: 01/08/24 14:48 Freq: Status: Active Protocol: Document 01/31/24 09:55 LRN (Rec: 01/31/24 10:42 LRN [id number]) Current Condition History of Current Condition Onset Date 6 months ago Current Complaints LBP sharp w/walking, sitting mostly on R side, sometimes L History of Current Condition Insidious onset of LBP. Supine and bending over is fine. Walking (sharp pain with each step) and sitting is painful. Pain is constant is 7/10 (with pain med 5/10). With activity of walking and sitting, pain during the movement is 7/10, (with meds it is still 7/10 but sharp). Initially she thought the pain was from being on hydrocortisone for a long time and thought it was due to assisted use of meds, but 09/13 x-ray showed she has a grade 1 L4-5 anterior spondylolisthesis due to degenernative facet disease ( also has mild L4-5 & L5-S1 DDD and facet disease). Hiking she uses a walking stick and meds to reduce the pain. Prior Treatments and Tests x-ray showed she has a grade 1 L4-5 anterior spondylolisthesis due to degenernative facet disease ( also has mild L4-5 & L5-S1 DDD and facet disease. Treatment Goals Patient/Caregiver Goals Pt goal is to -eliminate the sharp pain, to be able to walk w/o pain on each step. -be able to stand and sit for 30 minute in regular chair ( not recliner). -return to previous level of sore low back, rated 2/10. -independent on appropriate self care HEP. Personal Factors Other Personal Factors That May Effect Hikes or walks daily, [facility] ex 3x/wk and web based ex program for spondylosis daily. PT-OP-C Subjective Start: 01/08/24 14:48 Freq: Status: Active Protocol: Document 03/13/24 13:52 AB (Rec: 03/13/24 16:21 AB [id number]) OP-PT Subjective Patient Comments Patient Comments Patient reports she is not going to [facility] until May 09, 2024, and would like to continue here few more sessions if that is legitimate. (Patient advised she has not yet met 2 of her goals. )Patient reports she cannot stand for 30 minutes, unable yesterday. Patient into session requesting review of how to get down and up from floor when performing HEP. PT-OP-F Manual Assessment Start: 01/08/24 14:48 Freq: Status: Active Protocol: Document 01/31/24 09:55 LRN (Rec: 01/31/24 10:42 LRN [id number]) Manual Assessments Joint Mobility Assessment Joint Mobility Assessment Sacrum in L rotation. PT-OP-H Neuro Start: 01/08/24 14:48 Freq: Status: Active Protocol: Document 01/31/24 09:55 LRN (Rec: 01/31/24 10:42 LRN [id number]) Sensation Evaluation Gross Sensation Gross Sensation WNL PT-OP-J Posture/Palpation/Skin Start: 01/08/24 14:48 Freq: Status: Active Protocol: Document 01/31/24 09:55 LRN (Rec: 01/31/24 10:42 LRN [id number]) Posture Evaluation Position Standing Head/C-Spine Posture Forward Head T-Spine Posture Increased Kyphosis Shoulder Posture (L) Elevated Knee Posture (L) Genu Valgus,(R) Genu Valgus Palpation Assessment Location Low Back Palpation Location R SIJ>L SIJ & R sacral border> L sacral border Palpation Findings Soft Tissue Tightness Palpation Details Gentle PA of L/S facets caused no pain and soft tissue tension was symmetrical. PT-OP-K Range of Motion Start: 01/08/24 14:48 Freq: Status: Active Protocol: Document 01/31/24 09:55 LRN (Rec: 01/31/24 10:42 LRN [id number]) Lumbar Spine Range of Motion Lumbar Spine Active Degrees Testing Position Standing Flexion 73 Extension 5 Rotation Left 25 Rotation Right 25 Lateral Flexion Left 8 Lateral Flexion Right 9 Hip Goniometric Range of Motion Hip Right Passive Testing Position Supine Flexion w/Knee Flexed 130 Internal Rotation 25 External Rotation 65 Comments Flex is approximate ROM Left Passive Testing Position Supine Flexion w/Knee Flexed 130 Internal Rotation 20 External Rotation 70 PT-OP-M Strength Start: 01/08/24 14:48 Freq: Status: Active Protocol: Document 01/31/24 09:55 LRN (Rec: 01/31/24 10:42 LRN [id number]) Hip Strength Hip Manual Muscle Testing Right Flexion (L2) 4+ Good+ Extension (S1) 3 Fair External Rotation 4+ Good+ Internal Rotation 3 Fair Left Flexion (L2) 3 Fair Extension (S1) 3 Fair External Rotation 3 Fair Internal Rotation 3 Fair Comments Pain with testing in L low back PT-OP-Q Treatments Start: 01/08/24 14:48 Freq: Status: Active Protocol: Document 03/13/24 13:52 AB (Rec: 03/13/24 16:21 AB [id number]) Therapeutic Exercises Supine Exercises bug Supine Exercise Name modified,small mvts Side bilateral Reps/Minutes X8 Comments verbal cues and therapists hand on spine to monitore knee to chest core strengthening Supine Exercise Name single knee, double knee Side bilateral Reps/Minutes 1. 30 sec each LE 2. double X 3 30 sec Comments self manual resistance. piriformis stretch Supine Exercise Name HEP Side bilateral Reps/Minutes 60 sec each LE Comments verbal cues Sitting Exercises seated on burundian ball Pallof press Side bilateral Resistance level 2 band Reps/Minutes X15 each side Comments verbal cues, supervision seated hip abduction with band Sitting Exercise Name HEP Resistance (level 5 band to HEP) Reps/Minutes one min Comments Monitored for pain Therapeutic Activity Therapeutic Activity floor to standing Comments Monitored for pain, verbal cues to brace with abdominals when in high kneeling if pain occurs. Verbal cues for less force on UE's Manual Therapy Treatment Soft Tissue Mobilization LS area Body Location bilateral, Lumbar paraspinals/ SI Mobilization Type Cross-Friction,Strumming, Sustained Pressure Intensity/Depth Moderate Body Position Sidelying hip Body Location glute/SI area Mobilization Type Cross-Friction,Rolling, Sustained Pressure Intensity/Depth Moderate Body Position Sidelying PT-OP-T Assessment and Plan Start: 01/08/24 14:48 Freq: Status: Active Protocol: Document 03/13/24 13:52 AB (Rec: 03/13/24 16:21 AB [id number]) Physical Therapy Assessment Goals One Impairment Pt lacks appropriate self care HEP. Short Term Goal (STG) Pt will be educated and will demonstrate log roll transfers , proper body mechanics for ADLs, proper sitting/standing posture. 02/06/2024: Patient ed to sleep with pillow between knees as positioned form manual. 02/20/2024 Observed patient perform log roll during transfers this session without any verbal cues. 03/01/2024 Patient ed and performed sit to stand with abdominal bracing when reaching upright to dec increased ant pelvic tilt/ lumbar lordosis when reaching upright. Breathing from diaphragm in mod restortive post added to HEP to perform when fatigued post [facility] exercises or fatigued in general. 03/06/24: Pt educated in proper sit/stand posture and body mechanics with ADLs and body mechanics basics. STG Duration 03/16/24 (03/06/24: MET GOAL ) Detention Goal (LTG) Pt will be independent in a approriate and effective self care HEP for core/hip strengthening and mobility ex' s. 02/02/24: 4 pt, supine & prone ex's of her online HEP was modified and reviewed. 02/09/24: Pt's online HEP modified for trunk rot and reviewed for correct Open Book ex for thoracic rot. 02/20/2024 seated hip abd one min X 1 with band, Pallof press and piriformis stretch to HEP 03/01/2024 Patient reports she has the RICE handout and it was reviewed with her. Increased resistance band for seated hip abd and Pallof press. 03/13/2024 Patient into session requesting review of how to get down and up from floor when performing HEP. Progressed to level 5 band for seated hip abd with band. LTG Duration 04/27/24 progressing on 11/15 (need core ex's) Two Impairment Lower back pain with walking ( sharp pn) and sitting (5/10) Impairment Pain in shoulders, legs, R ankle making sitting on toilet w/o a riser and getting up from a chair difficult. (5xSTS Norm for 70-79 yo is 12 .6 secs) (30 sec chair stand Norm for 70-74 yo female is 10-15x) 02/06/2024 patient reports having no pain with sit to and from stand start of session. Short Term Goal (STG) Eliminate the sharp pain, to be able to walk w/o pain on each step. 03/06/24: With pain med can walk short distances w/o sharp pain. STG Duration 03/16/24 (03/06/24: progressed with use of meds) Front End Specialist Goal (LTG) Return to previous level of sore low back, rated 2/10 with pt able to tolerate standing 30 minutes. 03/06/24: Pain rated 6/10. Able to stand 15' with shifting of wgt with pain rated 7/10. 03/13/2024 Patient reports she cannot stand for 30 minutes, unable yesterday. LTG Duration 04/27/24 (03/06/24: progressed with use of meds) Assessment Summary Assessment Pt is a 73 yo female initially w/rubén lower sacral pain at SIJ's and sacral borders due to spondylolisthesis (mild L4- 5 & L5-S1 DDD and facet disease).Good demonstration for form with floor to and standing transfers, but initially placed significant force through UEs, able to perform well with light force and no reports of increased pain. Glenys reports pain is less end of session than when she arrived. Physical Therapy Plan Frequency and Duration Frequency of Treatment 1x/Week Duration of treatment (weeks) 12 Plan of Care Start Date 01/31/24 Plan of Care End Date 04/27/24 Next Visit Focus/Plan Next Note Type Treatment Note Next Visit Plan DC possibly end of month// prior to spine/sports clinic start. Next: Add Core double knee to chest with manual resistance to HEP, strengthening to HEP. STM for L4-5, L5-S1 DDD and facet disease (caution Level 4 Osteoporosis). POC: Therapeutic Ex (core stab flexion strengthening) manual therapy (STM LB, gluteal, pelvis).
--- NOTE | 2024-03-29 12:52 | PT.OTN ---
Current Diagnoses Other chronic pain (03/29/24) Low back pain, unspecified (03/29/24) Physical Therapy Treatment Note PT-OP-A Visit Information Start: 01/08/24 14:48 Freq: Status: Active Protocol: Document 03/29/24 10:45 LRN (Rec: 03/29/24 11:50 LRN [id number]) Out-Patient Physical Therapy Visit Information Visit Information Visit Type Progress Note Visit Note 05/09 [facility]t [facility] Visit Start Time 10:45 Visit Stop Time 11:44 Visit Number 10 Evaluation Information Evaluation Date 01/31/24 Precautions Precautions Spondylolisthesis L4-L5, L5-S1 . 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 PT-OP-B Current Condition Start: 01/08/24 14:48 Freq: Status: Active Protocol: Document 01/31/24 09:55 LRN (Rec: 01/31/24 10:42 LRN [id number]) Current Condition History of Current Condition Onset Date 6 months ago Current Complaints LBP sharp w/walking, sitting mostly on R side, sometimes L History of Current Condition Insidious onset of LBP. Supine and bending over is fine. Walking (sharp pain with each step) and sitting is painful. Pain is constant is 7/10 (with pain med 5/10). With activity of walking and sitting, pain during the movement is 7/10, (with meds it is still 7/10 but sharp). Initially she thought the pain was from being on hydrocortisone for a long time and thought it was due to mortgage advisor use of meds, but 09/13 x-ray showed she has a grade 1 L4-5 anterior spondylolisthesis due to degenernative facet disease ( also has mild L4-5 & L5-S1 DDD and facet disease). Hiking she uses a walking stick and meds to reduce the pain. Prior Treatments and Tests x-ray showed she has a grade 1 L4-5 anterior spondylolisthesis due to degenernative facet disease ( also has mild L4-5 & L5-S1 DDD and facet disease. Treatment Goals Patient/Caregiver Goals Pt goal is to -eliminate the sharp pain, to be able to walk w/o pain on each step. -be able to stand and sit for 30 minute in regular chair ( not recliner). -return to previous level of sore low back, rated 2/10. -independent on appropriate self care HEP. Personal Factors Other Personal Factors That May Effect Hikes or walks daily, [facility] ex 3x/wk and web based ex program for spondylosis daily. PT-OP-C Subjective Start: 01/08/24 14:48 Freq: Status: Active Protocol: Document 03/29/24 10:45 LRN (Rec: 03/29/24 11:50 LRN [id number]) OP-PT Subjective Patient Comments Patient Comments Can't be seen at [facility]. States she doesn't want injections or surgery. There has been a slight reduction in pain medication to 1x/day or just Tylenol. Patient Questionnaires Oswestry Low Back Index Oswestry Score 28 Oswestry Impairment 20 to 39% Impaired (Score 20- 39) OP-PT Pain Assessment Pain Assessment Grid Paper Pain Assessment Grid Completed Yes Location Low back Pain Location Details LB 5/10 L, 6/10 R Scale Used Numeric (0 - 10) PT-OP-F Manual Assessment Start: 01/08/24 14:48 Freq: Status: Active Protocol: Document 01/31/24 09:55 LRN (Rec: 01/31/24 10:42 LRN [id number]) Manual Assessments Joint Mobility Assessment Joint Mobility Assessment Sacrum in L rotation. PT-OP-H Neuro Start: 01/08/24 14:48 Freq: Status: Active Protocol: Document 01/31/24 09:55 LRN (Rec: 01/31/24 10:42 LRN [id number]) Sensation Evaluation Gross Sensation Gross Sensation WNL PT-OP-J Posture/Palpation/Skin Start: 01/08/24 14:48 Freq: Status: Active Protocol: Document 01/31/24 09:55 LRN (Rec: 01/31/24 10:42 LRN [id number]) Posture Evaluation Position Standing Head/C-Spine Posture Forward Head T-Spine Posture Increased Kyphosis Shoulder Posture (L) Elevated Knee Posture (L) Genu Valgus,(R) Genu Valgus Palpation Assessment Location Low Back Palpation Location R SIJ>L SIJ & R sacral border> L sacral border Palpation Findings Soft Tissue Tightness Palpation Details Gentle PA of L/S facets caused no pain and soft tissue tension was symmetrical. PT-OP-K Range of Motion Start: 01/08/24 14:48 Freq: Status: Active Protocol: Document 01/31/24 09:55 LRN (Rec: 01/31/24 10:42 LRN [id number]) Lumbar Spine Range of Motion Lumbar Spine Active Degrees Testing Position Standing Flexion 73 Extension 5 Rotation Left 25 Rotation Right 25 Lateral Flexion Left 8 Lateral Flexion Right 9 Hip Goniometric Range of Motion Hip Right Passive Testing Position Supine Flexion w/Knee Flexed 130 Internal Rotation 25 External Rotation 65 Comments Flex is approximate ROM Left Passive Testing Position Supine Flexion w/Knee Flexed 130 Internal Rotation 20 External Rotation 70 PT-OP-M Strength Start: 01/08/24 14:48 Freq: Status: Active Protocol: Document 01/31/24 09:55 LRN (Rec: 01/31/24 10:42 LRN [id number]) Hip Strength Hip Manual Muscle Testing Right Flexion (L2) 4+ Good+ Extension (S1) 3 Fair External Rotation 4+ Good+ Internal Rotation 3 Fair Left Flexion (L2) 3 Fair Extension (S1) 3 Fair External Rotation 3 Fair Internal Rotation 3 Fair Comments Pain with testing in L low back PT-OP-Q Treatments Start: 01/08/24 14:48 Freq: Status: Active Protocol: Document 03/29/24 10:45 LRN (Rec: 03/29/24 11:50 LRN [id number]) Therapeutic Exercises Supine Exercises Hands/knees push Supine Exercise Name Tighten TA>tighten PF>push hold thru 3 breaths w/TA tight >relax 3 breaths Reps/Minutes 10 SH/10 SR x 10 Comments Extra time needed to teach pt to keep TA tight & coord TA/PF /breath. bug Supine Exercise Name April with: arms ovhead & to ceiling to start; arms move w/leg Resistance Arms move w/opp leg, in opp direction, & in same direction Equipment Used Ex with TA/PF tightening in neutral spine. Reps/Minutes 14' (ended w/leg lifts only) Comments Pt not able to maintain neutral spine; therefore ended with leg lifts only. knee to chest core strengthening Supine Exercise Name Assessed single knee, double knee Reps/Minutes 2' Comments Pt not able to hold neutral spine Self-Care/Home Management Treatment Education Other Education Pt I/S to immediately when discomfort starts in the morning to gain neutral spine positioning and hold (with Kegel) and monitor for increase in pain, decrease in pain, time able to continue before pain escalates, then to lie down to rest back and resume when pain decreased. Encouraged pt ot drink more fluids through the day, discussing importance to staying hydrated. Activities Self-Care/Home Management Activities Reviewed self long term program of transfers, body mechanics for ADLs, proper sitting/standing posture. Issued & reviewed HEP: Sup: rizwana abdom bracing pushing hands/knees (pillow) & DLS: March and alt leg lifts-hold. PT-OP-T Assessment and Plan Start: 01/08/24 14:48 Freq: Status: Active Protocol: Document 03/29/24 10:45 LRN (Rec: 03/29/24 11:50 LRN [id number]) Physical Therapy Assessment Goals One Impairment Pt lacks appropriate self care HEP. Short Term Goal (STG) Pt will be educated and will demonstrate log roll transfers , proper body mechanics for ADLs, proper sitting/standing posture. 02/06/2024: Patient ed to sleep with pillow between knees as positioned form manual. 02/20/2024 Observed patient perform log roll during transfers this session without any verbal cues. 03/01/2024 Patient ed and performed sit to stand with abdominal bracing when reaching upright to dec increased ant pelvic tilt/ lumbar lordosis when reaching upright. Breathing from diaphragm in mod restortive post added to HEP to perform when fatigued post [facility] exercises or fatigued in general. 03/06/24: Pt educated in proper sit/stand posture and body mechanics with ADLs and body mechanics basics. STG Duration 03/16/24 (03/06/24: MET GOAL ) Mcfp Goal (LTG) Pt will be independent in a approriate and effective self care HEP for core/hip strengthening and mobility ex' s. 02/02/24: 4 pt, supine & prone ex's of her online HEP was modified and reviewed. 02/09/24: Pt's online HEP modified for trunk rot and reviewed for correct Open Book ex for thoracic rot. 02/20/2024 seated hip abd one min X 1 with band, Pallof press and piriformis stretch to HEP 03/01/2024 Patient reports she has the RICE handout and it was reviewed with her. Increased resistance band for seated hip abd and Pallof press. 03/13/2024 Patient into session requesting review of how to get down and up from floor when performing HEP. Progressed to level 5 band for seated hip abd with band. 03/29/24: HEP: [place] abdom bracing (hooklie hands/knees push), DLS: March and alt leg lifts-hold. LTG Duration 04/27/24 progressing on 11/15 (progress core ex's) Two Impairment Lower back pain with walking ( sharp pn) and sitting (5/10) Impairment Pain in shoulders, legs, R ankle making sitting on toilet w/o a riser and getting up from a chair difficult. (5xSTS Norm for 70-79 yo is 12 .6 secs) (30 sec chair stand Norm for 70-74 yo female is 10-15x) 02/06/2024 patient reports having no pain with sit to and from stand start of session. Short Term Goal (STG) Eliminate the sharp pain, to be able to walk w/o pain on each step. 03/06/24: With pain med can walk short distances w/o sharp pain. 03/29/24: Now, hard time walking on concrete for any length of time because of sharp pain. No pain in shoulders, legs, R ankle making sitting on toilet w/o a riser and getting up from a chair difficult. STG Duration 03/16/24 (03/06/24: progressed with use of meds) Mcfp Goal (LTG) Return to previous level of sore low back, rated 2/10 with pt able to tolerate standing 30 minutes. 03/06/24: Pain rated 6/10. Able to stand 15' with shifting of wgt with pain rated 7/10. 03/13/2024 Patient reports she cannot stand for 30 minutes, unable yesterday. 03/29/24: Tolerates ~15 min of standing. No pain on waking for 15 min, then pain is rated 6/10 (initially reported 5/10), medication is taken when pain is 7-8/10. With sitting in car, she wears a soft brace and pain is lessened to 5/10. LTG Duration 04/27/24 (03/06/24: progressed with use of meds) Assessment Summary Assessment Pt is a 73 yo female initially w/rubén lower sacral pain at SIJ's and sacral borders due to spondylolisthesis (mild L4- 5 & L5-S1 DDD and facet disease). Pt has improved in function per JING score of 28 ( initially was 36). The primary complaint now is sharp pain after 15' of standing and that she still requires medication for her pain. The pt will benefit from continued skilled phyiscal therapy to work towards pelvic and core stability while she waits to get in to [facility] for treatment. Physical Therapy Plan Frequency and Duration Frequency of Treatment 1x/Week Duration of treatment (weeks) 12 Plan of Care Start Date 01/31/24 Plan of Care End Date 04/27/24 Therapeutic Interventions Therapeutic Interventions Manual Therapy,Neuromuscular Re-education,Self-Care/Home Management,Soft Tissue Mobilization,Therapeutic Activities,Therapeutic Exercises Modalities Electric Stimulation Next Visit Focus/Plan Next Note Type Treatment Note Next Visit Plan Continue slowly progressing pt towards increased pelvic and core stability to counteract grade 1 L4-5 anterior spondylolisthesis. PT next: Gentle sacral balancing ( caution: osteoporosis). Next : Progress Core stab with bug but keeping core in neutral spine and stable; strengthening core in neutral spine (review of what neutral spine is if needed), HEP. STM for L4-5, L5-S1 DDD and facet disease (caution Level 4 Osteoporosis). POC: Therapeutic Ex (core stab flexion strengthening) manual therapy (STM LB, gluteal, pelvis).
--- NOTE | 2024-03-29 12:54 | PT.OPPOC ---
Physical, Occupational & Speech Therapy At [facility] Current Diagnoses Other chronic pain (03/29/24) Low back pain, unspecified (03/29/24) Visit Care Team Role Provider Type Caitlyn Dominguez DO Family Provider Physician Specialty: Family Practice Address: [address] [place] [address], [facility] [address], [address] Email: [email or web address] Amy Mejia MD Attending Provider Physician Primary Care Provider Referring Provider Specialty: Family Practice RESIDENTIAL ROOFER Address: [address] [place] [address], [id number] Email: [email or web address] Plan Of Care PT-OP-B Current Condition Start: 01/08/24 14:48 Freq: Status: Active Protocol: Document 01/31/24 09:55 LRN (Rec: 01/31/24 10:42 LRN [id number]) Current Condition History of Current Condition Onset Date 6 months ago Current Complaints LBP sharp w/walking, sitting mostly on R side, sometimes L History of Current Condition Insidious onset of LBP. Supine and bending over is fine. Walking (sharp pain with each step) and sitting is painful. Pain is constant is 7/10 (with pain med 5/10). With activity of walking and sitting, pain during the movement is 7/10, (with meds it is still 7/10 but sharp). Initially she thought the pain was from being on hydrocortisone for a long time and thought it was due to flat folder use of meds, but 09/13 x-ray showed she has a grade 1 L4-5 anterior spondylolisthesis due to degenernative facet disease ( also has mild L4-5 & L5-S1 DDD and facet disease). Hiking she uses a walking stick and meds to reduce the pain. Prior Treatments and Tests x-ray showed she has a grade 1 L4-5 anterior spondylolisthesis due to degenernative facet disease ( also has mild L4-5 & L5-S1 DDD and facet disease. Treatment Goals Patient/Caregiver Goals Pt goal is to -eliminate the sharp pain, to be able to walk w/o pain on each step. -be able to stand and sit for 30 minute in regular chair ( not recliner). -return to previous level of sore low back, rated 2/10. -independent on appropriate self care HEP. Personal Factors Other Personal Factors That May Effect Hikes or walks daily, [facility] ex 3x/wk and web based ex program for spondylosis daily. PT-OP-T Assessment and Plan Start: 01/08/24 14:48 Freq: Status: Active Protocol: Document 03/29/24 10:45 LRN (Rec: 03/29/24 11:50 LRN [id number]) Physical Therapy Assessment Goals One Impairment Pt lacks appropriate self care HEP. Short Term Goal (STG) Pt will be educated and will demonstrate log roll transfers , proper body mechanics for ADLs, proper sitting/standing posture. 02/06/2024: Patient ed to sleep with pillow between knees as positioned form manual. 02/20/2024 Observed patient perform log roll during transfers this session without any verbal cues. 03/01/2024 Patient ed and performed sit to stand with abdominal bracing when reaching upright to dec increased ant pelvic tilt/ lumbar lordosis when reaching upright. Breathing from diaphragm in mod restortive post added to HEP to perform when fatigued post [facility] exercises or fatigued in general. 03/06/24: Pt educated in proper sit/stand posture and body mechanics with ADLs and body mechanics basics. STG Duration 03/16/24 (03/06/24: MET GOAL ) Computer Technical Support Specialist Goal (LTG) Pt will be independent in a approriate and effective self care HEP for core/hip strengthening and mobility ex' s. 02/02/24: 4 pt, supine & prone ex's of her online HEP was modified and reviewed. 02/09/24: Pt's online HEP modified for trunk rot and reviewed for correct Open Book ex for thoracic rot. 02/20/2024 seated hip abd one min X 1 with band, Pallof press and piriformis stretch to HEP 03/01/2024 Patient reports she has the RICE handout and it was reviewed with her. Increased resistance band for seated hip abd and Pallof press. 03/13/2024 Patient into session requesting review of how to get down and up from floor when performing HEP. Progressed to level 5 band for seated hip abd with band. 03/29/24: HEP: Rizwana abdom bracing (hooklie hands/knees push), DLS: March and alt leg lifts-hold. LTG Duration 04/27/24 progressing on 11/15 (progress core ex's) Two Impairment Lower back pain with walking ( sharp pn) and sitting (5/10) Impairment Pain in shoulders, legs, R ankle making sitting on toilet w/o a riser and getting up from a chair difficult. (5xSTS Norm for 70-79 yo is 12 .6 secs) (30 sec chair stand Norm for 70-74 yo female is 10-15x) 02/06/2024 patient reports having no pain with sit to and from stand start of session. Short Term Goal (STG) Eliminate the sharp pain, to be able to walk w/o pain on each step. 03/06/24: With pain med can walk short distances w/o sharp pain. 03/29/24: Now, hard time walking on concrete for any length of time because of sharp pain. No pain in shoulders, legs, R ankle making sitting on toilet w/o a riser and getting up from a chair difficult. STG Duration 03/16/24 (03/06/24: progressed with use of meds) Alf Goal (LTG) Return to previous level of sore low back, rated 2/10 with pt able to tolerate standing 30 minutes. 03/06/24: Pain rated 6/10. Able to stand 15' with shifting of wgt with pain rated 7/10. 03/13/2024 Patient reports she cannot stand for 30 minutes, unable yesterday. 03/29/24: Tolerates ~15 min of standing. No pain on waking for 15 min, then pain is rated 6/10 (initially reported 5/10), medication is taken when pain is 7-8/10. With sitting in car, she wears a soft brace and pain is lessened to 5/10. LTG Duration 04/27/24 (03/06/24: progressed with use of meds) Assessment Summary Assessment Pt is a 73 yo female initially w/rubén lower sacral pain at SIJ's and sacral borders due to spondylolisthesis (mild L4- 5 & L5-S1 DDD and facet disease). Pt has improved in function per JING score of 28 ( initially was 36). The primary complaint now is sharp pain after 15' of standing and that she still requires medication for her pain. The pt will benefit from continued skilled phyiscal therapy to work towards pelvic and core stability while she waits to get [facility]. Physical Therapy Plan Frequency and Duration Frequency of Treatment 1x/Week Duration of treatment (weeks) 12 Plan of Care Start Date 01/31/24 Plan of Care End Date 04/27/24 Therapeutic Interventions Therapeutic Interventions Manual Therapy,Neuromuscular Re-education,Self-Care/Home Management,Soft Tissue Mobilization,Therapeutic Activities,Therapeutic Exercises Modalities Electric Stimulation Next Visit Focus/Plan Next Note Type Treatment Note Next Visit Plan Continue slowly progressing pt towards increased pelvic and core stability to counteract grade 1 L4-5 anterior spondylolisthesis. PT next: Gentle sacral balancing ( caution: osteoporosis). Next : Progress Core stab with bug but keeping core in neutral spine and stable; strengthening core in neutral spine (review of what neutral spine is if needed), HEP. STM for L4-5, L5-S1 DDD and facet disease (caution Level 4 Osteoporosis). POC: Therapeutic Ex (core stab flexion strengthening) manual therapy (STM LB, gluteal, pelvis). Plan of Care Dates Plan of Care Start Date 01/31/24 Plan of Care End Date 04/27/24 Electronically Signed by: Kim Reyes, PT 03/29/24 2183 If you are in agreement with this Plan of Care, please return a signed and dated copy. I have reviewed this Plan of Care and certify that the skilled therapy services above are required to meet the patient?s needs. Physician Signature Date Printed Name and Credentials Clinical Instructor Signature Printed Name and Credentials
--- NOTE | 2024-04-03 09:58 | PT.OTN ---
Current Diagnoses Other chronic pain (04/03/24) Low back pain, unspecified (04/03/24) Physical Therapy Treatment Note PT-OP-A Visit Information Start: 01/08/24 14:48 Freq: Status: Active Protocol: Document 04/03/24 09:07 LRN (Rec: 04/03/24 09:47 LRN [id number]) Out-Patient Physical Therapy Visit Information Visit Information Visit Type Treatment Note Visit Start Time 09:07 Visit Stop Time 09:46 Visit Number 11 (1 after PN) Evaluation Information Evaluation Date 01/31/24 Precautions Precautions Grade 1 Anter Spondylolisthesis L4-L5, L5-S1 . 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 PT-OP-B Current Condition Start: 01/08/24 14:48 Freq: Status: Active Protocol: Document 01/31/24 09:55 LRN (Rec: 01/31/24 10:42 LRN [id number]) Current Condition History of Current Condition Onset Date 6 months ago Current Complaints LBP sharp w/walking, sitting mostly on R side, sometimes L History of Current Condition Insidious onset of LBP. Supine and bending over is fine. Walking (sharp pain with each step) and sitting is painful. Pain is constant is 7/10 (with pain med 5/10). With activity of walking and sitting, pain during the movement is 7/10, (with meds it is still 7/10 but sharp). Initially she thought the pain was from being on hydrocortisone for a long time and thought it was due to watermelon inspector use of meds, but 09/13 x-ray showed she has a grade 1 L4-5 anterior spondylolisthesis due to degenernative facet disease ( also has mild L4-5 & L5-S1 DDD and facet disease). Hiking she uses a walking stick and meds to reduce the pain. Prior Treatments and Tests x-ray showed she has a grade 1 L4-5 anterior spondylolisthesis due to degenernative facet disease ( also has mild L4-5 & L5-S1 DDD and facet disease. Treatment Goals Patient/Caregiver Goals Pt goal is to -eliminate the sharp pain, to be able to walk w/o pain on each step. -be able to stand and sit for 30 minute in regular chair ( not recliner). -return to previous level of sore low back, rated 2/10. -independent on appropriate self care HEP. Personal Factors Other Personal Factors That May Effect Hikes or walks daily, [facility] ex 3x/wk and web based ex program for spondylosis daily. PT-OP-C Subjective Start: 01/08/24 14:48 Freq: Status: Active Protocol: Document 04/03/24 09:07 LRN (Rec: 04/03/24 09:47 LRN [id number]) OP-PT Subjective Patient Comments Patient Comments States she woke w/o back pain and 25' later pain started. Pain si 2/10. Would like to discuss her remote control bed . She wanted to know if having legs elevated at night would be ok on her back, although she noticed it bothered her back for a few minutes. PT-OP-F Manual Assessment Start: 01/08/24 14:48 Freq: Status: Active Protocol: Document 01/31/24 09:55 LRN (Rec: 01/31/24 10:42 LRN [id number]) Manual Assessments Joint Mobility Assessment Joint Mobility Assessment Sacrum in L rotation. PT-OP-H Neuro Start: 01/08/24 14:48 Freq: Status: Active Protocol: Document 01/31/24 09:55 LRN (Rec: 01/31/24 10:42 LRN [id number]) Sensation Evaluation Gross Sensation Gross Sensation WNL PT-OP-J Posture/Palpation/Skin Start: 01/08/24 14:48 Freq: Status: Active Protocol: Document 01/31/24 09:55 LRN (Rec: 01/31/24 10:42 LRN [id number]) Posture Evaluation Position Standing Head/C-Spine Posture Forward Head T-Spine Posture Increased Kyphosis Shoulder Posture (L) Elevated Knee Posture (L) Genu Valgus,(R) Genu Valgus Palpation Assessment Location Low Back Palpation Location R SIJ>L SIJ & R sacral border> L sacral border Palpation Findings Soft Tissue Tightness Palpation Details Gentle PA of L/S facets caused no pain and soft tissue tension was symmetrical. PT-OP-K Range of Motion Start: 01/08/24 14:48 Freq: Status: Active Protocol: Document 01/31/24 09:55 LRN (Rec: 01/31/24 10:42 LRN [id number]) Lumbar Spine Range of Motion Lumbar Spine Active Degrees Testing Position Standing Flexion 73 Extension 5 Rotation Left 25 Rotation Right 25 Lateral Flexion Left 8 Lateral Flexion Right 9 Hip Goniometric Range of Motion Hip Right Passive Testing Position Supine Flexion w/Knee Flexed 130 Internal Rotation 25 External Rotation 65 Comments Flex is approximate ROM Left Passive Testing Position Supine Flexion w/Knee Flexed 130 Internal Rotation 20 External Rotation 70 PT-OP-M Strength Start: 01/08/24 14:48 Freq: Status: Active Protocol: Document 01/31/24 09:55 LRN (Rec: 01/31/24 10:42 LRN [id number]) Hip Strength Hip Manual Muscle Testing Right Flexion (L2) 4+ Good+ Extension (S1) 3 Fair External Rotation 4+ Good+ Internal Rotation 3 Fair Left Flexion (L2) 3 Fair Extension (S1) 3 Fair External Rotation 3 Fair Internal Rotation 3 Fair Comments Pain with testing in L low back PT-OP-Q Treatments Start: 01/08/24 14:48 Freq: Status: Active Protocol: Document 04/03/24 09:07 LRN (Rec: 04/03/24 09:47 LRN [id number]) Therapeutic Exercises Supine Exercises NS/april w/o drop Supine Exercise Name NS/April w/o foot touching down Side bilateral Reps/Minutes 15x each NS/heel slide Supine Exercise Name Foot w/shoe on in pillowcase Side bilateral Reps/Minutes 15x each Comments Cued NS without flattening or arching back, and breath. Hands/knees push Supine Exercise Name Tighten TA>tighten PF>push hold thru 3 breaths w/TA tight >relax 3 breaths Reps/Minutes 10 SH/10 SR x 15 Comments Cued to tighten TA & PF with push bug Supine Exercise Name April & Donato with: arms ovhead & to ceiling to start; arms move w/leg Resistance Arms move w/opp leg, in opp direction, & in same direction Equipment Used Ex with TA/PF tightening in neutral spine. Reps/Minutes 10x 2 April, 15x arms/ legs mvmt Comments Pt able to keep NS with april, not with arms/legs mvmt . Sitting Exercises seated hip abduction with band Sitting Exercise Name Active hip AB with TB around knees Resistance (level 3 band to HEP) Reps/Minutes one min Comments Cued NS, (avoid over arching of back) Leg lift Sitting Exercise Name NS/March Side bilateral Reps/Minutes 10x each Comments Cued NS, (avoid over arching of back) Self-Care/Home Management Treatment Education Other Education Pt lead discussion on her nighttime positioning in bed with legs elevated. Recommended pt use bed with legs elevated during the day to diminish LBP and avoid nightttime as her legs are not swollen and her new bed will help to flatten her LB (at L4- L5, L5-S1 level of anterior spondy). PT-OP-T Assessment and Plan Start: 01/08/24 14:48 Freq: Status: Active Protocol: Document 04/03/24 09:07 LRN (Rec: 04/03/24 09:47 LRN [id number]) Physical Therapy Assessment Goals One Impairment Pt lacks appropriate self care HEP. Short Term Goal (STG) Pt will be educated and will demonstrate log roll transfers , proper body mechanics for ADLs, proper sitting/standing posture. 02/06/2024: Patient ed to sleep with pillow between knees as positioned form manual. 02/20/2024 Observed patient perform log roll during transfers this session without any verbal cues. 03/01/2024 Patient ed and performed sit to stand with abdominal bracing when reaching upright to dec increased ant pelvic tilt/ lumbar lordosis when reaching upright. Breathing from diaphragm in mod restortive post added to HEP to perform when fatigued post [facility] exercises or fatigued in general. 03/06/24: Pt educated in proper sit/stand posture and body mechanics with ADLs and body mechanics basics. STG Duration 03/16/24 (03/06/24: MET GOAL ) Tax Examining Technician Goal (LTG) Pt will be independent in a approriate and effective self care HEP for core/hip strengthening and mobility ex' s. 02/02/24: 4 pt, supine & prone ex's of her online HEP was modified and reviewed. 02/09/24: Pt's online HEP modified for trunk rot and reviewed for correct Open Book ex for thoracic rot. 02/20/2024 seated hip abd one min X 1 with band, Pallof press and piriformis stretch to HEP 03/01/2024 Patient reports she has the RICE handout and it was reviewed with her. Increased resistance band for seated hip abd and Pallof press. 03/13/2024 Patient into session requesting review of how to get down and up from floor when performing HEP. Progressed to level 5 band for seated hip abd with band. 03/29/24: HEP: Rizwana abdom bracing (hooklie hands/knees push), DLS: March and alt leg lifts-hold. LTG Duration 04/27/24 progressing on 11/15 (progress core ex's) Two Impairment Lower back pain with walking ( sharp pn) and sitting (5/10) Impairment Pain in shoulders, legs, R ankle making sitting on toilet w/o a riser and getting up from a chair difficult. (5xSTS Norm for 70-79 yo is 12 .6 secs) (30 sec chair stand Norm for 70-74 yo female is 10-15x) 02/06/2024 patient reports having no pain with sit to and from stand start of session. Short Term Goal (STG) Eliminate the sharp pain, to be able to walk w/o pain on each step. 03/06/24: With pain med can walk short distances w/o sharp pain. 03/29/24: Now, hard time walking on concrete for any length of time because of sharp pain. No pain in shoulders, legs, R ankle making sitting on toilet w/o a riser and getting up from a chair difficult. STG Duration 03/16/24 (03/06/24: progressed with use of meds) Penitentiary Goal (LTG) Return to previous level of sore low back, rated 2/10 with pt able to tolerate standing 30 minutes. 03/06/24: Pain rated 6/10. Able to stand 15' with shifting of wgt with pain rated 7/10. 03/13/2024 Patient reports she cannot stand for 30 minutes, unable yesterday. 03/29/24: Tolerates ~15 min of standing. No pain on waking for 15 min, then pain is rated 6/10 (initially reported 5/10), medication is taken when pain is 7-8/10. With sitting in car, she wears a soft brace and pain is lessened to 5/10. LTG Duration 04/27/24 (03/06/24: progressed with use of meds) Assessment Summary Assessment Deferred manual treatment today due to pt waking with no pain for ' and pain only at 04/02. Pt able to hold L/S stable with marching when cued to keep R side stable lifting R LE & to breath; therefore advanced to march w/o leg drop . bug has less control with leg drop and pelvis with arms/legs moving vs just Marching. NS/Heel slides shows weaker on LLE with less movement of leg before loss of lumbar stabiity. Pt ready to advance reps with exercises. Physical Therapy Plan Frequency and Duration Frequency of Treatment 1x/Week Duration of treatment (weeks) 12 Plan of Care Start Date 01/31/24 Plan of Care End Date 04/27/24 Next Visit Focus/Plan Next Note Type Treatment Note Next Visit Plan Next: Review pt's HEP and update. Pt to add more reps ( 15x 2 or 10x 3) with exercises & review bug but keeping core in neutral spine and stable & coordinating mvmt of arms legs w/core stable; cont strengthen core in neutral spine (review of what neutral spine is if needed), slowly progressing pt towards increased pelvic and core stability to counteract grade 1 L4-5 anterior spondylolisthesis. If needed gentle sacral balancing ( caution osteporosis). STM for L4-5, L5-S1 DDD and facet disease (caution Level 4 Osteoporosis). POC: Therapeutic Ex (core stab flexion strengthening), manual therapy (STM LB, gluteal, pelvis).
--- NOTE | 2024-04-10 09:59 | PT.OTN ---
Current Diagnoses Other chronic pain (04/10/24) Low back pain, unspecified (04/10/24) Physical Therapy Treatment Note PT-OP-A Visit Information Start: 01/08/24 14:48 Freq: Status: Active Protocol: Document 04/10/24 08:02 AB (Rec: 04/10/24 09:59 AB [id number]) Out-Patient Physical Therapy Visit Information Visit Information Visit Type Treatment Note Visit Start Time 09:04 Visit Stop Time 09:48 Visit Number 12 (2 after PN) Number of ZONING ENGINEER Visits 1 Evaluation Information Evaluation Date 01/31/24 Precautions Precautions Grade 1 Anter Spondylolisthesis L4-L5, L5-S1 . Pt reported: Osteoporosis (level 4 in L/S), [place] disease, SOB due to Heart Failure - 2020 ( zigzag stitcher said caused by Libra diseease), Fibromyalgia. PT-OP-B Current Condition Start: 01/08/24 14:48 Freq: Status: Active Protocol: Document 01/31/24 09:55 LRN (Rec: 01/31/24 10:42 LRN [id number]) Current Condition History of Current Condition Onset Date 6 months ago Current Complaints LBP sharp w/walking, sitting mostly on R side, sometimes L History of Current Condition Insidious onset of LBP. Supine and bending over is fine. Walking (sharp pain with each step) and sitting is painful. Pain is constant is 7/10 (with pain med 5/10). With activity of walking and sitting, pain during the movement is 7/10, (with meds it is still 7/10 but sharp). 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 Hiking she uses a walking stick and meds to reduce the pain. Prior Treatments and Tests x-ray showed she has a grade 1 L4-5 anterior spondylolisthesis due to degenernative facet disease ( also has mild L4-5 & L5-S1 DDD and facet disease. Treatment Goals Patient/Caregiver Goals Pt goal is to -eliminate the sharp pain, to be able to walk w/o pain on each step. -be able to stand and sit for 30 minute in regular chair ( not recliner). -return to previous level of sore low back, rated 2/10. -independent on appropriate self care HEP. Personal Factors Other Personal Factors That May Effect Hikes or walks daily, [facility] ex 3x/wk and web based ex program for spondylosis daily. PT-OP-C Subjective Start: 01/08/24 14:48 Freq: Status: Active Protocol: Document 04/10/24 08:02 AB (Rec: 04/10/24 09:59 AB [id number]) OP-PT Subjective Patient Comments Patient Comments Patient reports she took a pain pill due to has a big day , rates pain 2/10 start of session, reports pain was 7/10 earlier. 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 L HS lacking 24 deg AROM measured 90/90 position. PT-OP-F Manual Assessment Start: 01/08/24 14:48 Freq: Status: Active Protocol: Document 01/31/24 09:55 LRN (Rec: 01/31/24 10:42 LRN [id number]) Manual Assessments Joint Mobility Assessment Joint Mobility Assessment Sacrum in L rotation. PT-OP-H Neuro Start: 01/08/24 14:48 Freq: Status: Active Protocol: Document 01/31/24 09:55 LRN (Rec: 01/31/24 10:42 LRN [id number]) Sensation Evaluation Gross Sensation Gross Sensation WNL PT-OP-J Posture/Palpation/Skin Start: 01/08/24 14:48 Freq: Status: Active Protocol: Document 01/31/24 09:55 LRN (Rec: 01/31/24 10:42 LRN [id number]) Posture Evaluation Position Standing Head/C-Spine Posture Forward Head T-Spine Posture Increased Kyphosis Shoulder Posture (L) Elevated Knee Posture (L) Genu Valgus,(R) Genu Valgus Palpation Assessment Location Low Back Palpation Location R SIJ>L SIJ & R sacral border> L sacral border Palpation Findings Soft Tissue Tightness Palpation Details Gentle PA of L/S facets caused no pain and soft tissue tension was symmetrical. PT-OP-K Range of Motion Start: 01/08/24 14:48 Freq: Status: Active Protocol: Document 01/31/24 09:55 LRN (Rec: 01/31/24 10:42 LRN [id number]) Lumbar Spine Range of Motion Lumbar Spine Active Degrees Testing Position Standing Flexion 73 Extension 5 Rotation Left 25 Rotation Right 25 Lateral Flexion Left 8 Lateral Flexion Right 9 Hip Goniometric Range of Motion Hip Right Passive Testing Position Supine Flexion w/Knee Flexed 130 Internal Rotation 25 External Rotation 65 Comments Flex is approximate ROM Left Passive Testing Position Supine Flexion w/Knee Flexed 130 Internal Rotation 20 External Rotation 70 PT-OP-M Strength Start: 01/08/24 14:48 Freq: Status: Active Protocol: Document 01/31/24 09:55 LRN (Rec: 01/31/24 10:42 LRN [id number]) Hip Strength Hip Manual Muscle Testing Right Flexion (L2) 4+ Good+ Extension (S1) 3 Fair External Rotation 4+ Good+ Internal Rotation 3 Fair Left Flexion (L2) 3 Fair Extension (S1) 3 Fair External Rotation 3 Fair Internal Rotation 3 Fair Comments Pain with testing in L low back PT-OP-Q Treatments Start: 01/08/24 14:48 Freq: Status: Active Protocol: Document 04/10/24 08:02 AB (Rec: 04/10/24 09:59 AB [id number]) Therapeutic Exercises Supine Exercises NS/march w/o drop Supine Exercise Name 1. w/ foot touching down 2. w/ o foot touching down Side bilateral Reps/Minutes 1. 15x each 2. X10 Comments verbal and tactile cues Hands/knees push Supine Exercise Name into pillow Reps/Minutes 10 seconds X15 Comments monitored for pain and neutral spine bug Supine Exercise Name Small april & Donato with: arms ovhead & to ceiling to start; arms move w/leg Reps/Minutes X 15 Comments verbal cues piriformis stretch Supine Exercise Name HEP Side bilateral Reps/Minutes 60 sec each LE X2 Comments verbal cues Sitting Exercises Breathing from diaphragm Sitting Exercise Name Pillowus under UE's for tactile cues Reps/Minutes ~2 min seated on egyptian ball Pallof press Side bilateral Resistance level 3 band Reps/Minutes X15 each side Comments verbal cues, supervision seated hip abduction with band Sitting Exercise Name Active hip AB with TB around knees Resistance (level 5 band to HEP) Reps/Minutes X15 w/o hold Standing Exercises Pallof press Standing Exercise Name HEP Side bilateral Resistance level3 band ( band to HEP) Reps/Minutes X15 each side Comments verbal and visual cues Self-Care/Home Management Treatment Education Other Education Patient ed/review seated breathing from diaphragm with advice to performe while seated in class she is attending today. PT-OP-T Assessment and Plan Start: 01/08/24 14:48 Freq: Status: Active Protocol: Document 04/10/24 08:02 AB (Rec: 04/10/24 09:59 AB [id number]) Physical Therapy Assessment Goals One Impairment Pt lacks appropriate self care HEP. Short Term Goal (STG) Pt will be educated and will demonstrate log roll transfers , proper body mechanics for ADLs, proper sitting/standing posture. 02/06/2024: Patient ed to sleep with pillow between knees as positioned form manual. 02/20/2024 Observed patient perform log roll during transfers this session without any verbal cues. 03/01/2024 Patient ed and performed sit to stand with abdominal bracing when reaching upright to dec increased ant pelvic tilt/ lumbar lordosis when reaching upright. Breathing from diaphragm in mod restortive post added to HEP to perform when fatigued post [facility] exercises or fatigued in general. 03/06/24: Pt educated in proper sit/stand posture and body mechanics with ADLs and body mechanics basics. STG Duration 03/16/24 (03/06/24: MET GOAL ) Communications Lead Goal (LTG) Pt will be independent in a approriate and effective self care HEP for core/hip strengthening and mobility ex' s. 02/02/24: 4 pt, supine & prone ex's of her online HEP was modified and reviewed. 02/09/24: Pt's online HEP modified for trunk rot and reviewed for correct Open Book ex for thoracic rot. 02/20/2024 seated hip abd one min X 1 with band, Pallof press and piriformis stretch to HEP 03/01/2024 Patient reports she has the RICE handout and it was reviewed with her. Increased resistance band for seated hip abd and Pallof press. 03/13/2024 Patient into session requesting review of how to get down and up from floor when performing HEP. Progressed to level 5 band for seated hip abd with band. 03/29/24: HEP: [place]iz[place] abdom bracing (hooklie hands/knees push), DLS: March and alt leg lifts-hold. 04/10/2023 Patient reports performing HEp 3X 10 for the most part. LTG Duration 04/27/24 progressing on 11/15 (progress core ex's) Two Impairment Lower back pain with walking ( sharp pn) and sitting (5/10) Impairment Pain in shoulders, legs, R ankle making sitting on toilet w/o a riser and getting up from a chair difficult. (5xSTS Norm for 70-79 yo is 12 .6 secs) (30 sec chair stand Norm for 70-74 yo female is 10-15x) 02/06/2024 patient reports having no pain with sit to and from stand start of session. Short Term Goal (STG) Eliminate the sharp pain, to be able to walk w/o pain on each step. 03/06/24: With pain med can walk short distances w/o sharp pain. 03/29/24: Now, hard time walking on concrete for any length of time because of sharp pain. No pain in shoulders, legs, R ankle making sitting on toilet w/o a riser and getting up from a chair difficult. 04/10/2024 Patient reports able to walk 20 min prior to incrreased pain and comments she avoids pavement and cement when she can. STG Duration 03/16/24 (03/06/24: progressed with use of meds) Communications Lead Goal (LTG) Return to previous level of sore low back, rated 2/10 with pt able to tolerate standing 30 minutes. 03/06/24: Pain rated 6/10. Able to stand 15' with shifting of wgt with pain rated 7/10. 03/13/2024 Patient reports she cannot stand for 30 minutes, unable yesterday. 03/29/24: Tolerates ~15 min of standing. No pain on waking for 15 min, then pain is rated 6/10 (initially reported 5/10), medication is taken when pain is 7-8/10. With sitting in car, she wears a soft brace and pain is lessened to 5/10. Patient rates driving /riding in car fox to 20 minutes, comments she always has something behind back in car. LTG Duration 04/27/24 (03/06/24: progressed with use of meds) Assessment Summary Assessment HEP reviewed this session with patient rating back pain 0/10 end of session compared to 2/ 10 start of session. Physical Therapy Plan Frequency and Duration Frequency of Treatment 1x/Week Duration of treatment (weeks) 12 Plan of Care Start Date 01/31/24 Plan of Care End Date 04/27/24 Therapeutic Interventions Therapeutic Interventions Manual Therapy,Neuromuscular Re-education,Self-Care/Home Management,Soft Tissue Mobilization,Therapeutic Activities,Therapeutic Exercises Next Visit Focus/Plan Next Note Type Treatment Note Next Visit Plan Next: cont neutral spine and stable & coordinating mvmt of arms legs w/core stable ( possibly add UE mvt to bracing with marching ex on HEP or UE mvt with LE ext from hooklying vs 90/90 bug; cont strengthen core in neutral spine (review of what neutral spine is if needed), slowly progressing pt towards increased pelvic and core stability to counteract grade 1 L4-5 anterior spondylolisthesis. If needed gentle sacral balancing ( caution osteporosis). STM for L4-5, L5-S1 DDD and facet disease (caution Level 4 Osteoporosis). POC: Therapeutic Ex (core stab flexion strengthening), manual therapy (STM LB, gluteal, pelvis).
--- NOTE | 2024-04-19 15:16 | PT.OTN ---
Current Diagnoses Other chronic pain (04/19/24) Low back pain, unspecified (04/19/24) Physical Therapy Treatment Note PT-OP-A Visit Information Start: 01/08/24 14:48 Freq: Status: Active Protocol: Document 04/19/24 08:18 LRN (Rec: 04/19/24 09:02 LRN [id number]) Out-Patient Physical Therapy Visit Information Visit Information Visit Type Treatment Note Visit Start Time 08:18 Visit Stop Time 09:00 Visit Number 13 (3/after PN Evaluation Information Evaluation Date 01/31/24 Precautions Precautions Grade 1 Anter Spondylolisthesis L4-L5, L5-S1 . 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 PT-OP-B Current Condition Start: 01/08/24 14:48 Freq: Status: Active Protocol: Document 01/31/24 09:55 LRN (Rec: 01/31/24 10:42 LRN [id number]) Current Condition History of Current Condition Onset Date 6 months ago Current Complaints LBP sharp w/walking, sitting mostly on R side, sometimes L History of Current Condition Insidious onset of LBP. Supine and bending over is fine. Walking (sharp pain with each step) and sitting is painful. Pain is constant is 7/10 (with pain med 5/10). With activity of walking and sitting, pain during the movement is 7/10, (with meds it is still 7/10 but sharp). 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 Hiking she uses a walking stick and meds to reduce the pain. Prior Treatments and Tests x-ray showed she has a grade 1 L4-5 anterior spondylolisthesis due to degenernative facet disease ( also has mild L4-5 & L5-S1 DDD and facet disease. Treatment Goals Patient/Caregiver Goals Pt goal is to -eliminate the sharp pain, to be able to walk w/o pain on each step. -be able to stand and sit for 30 minute in regular chair ( not recliner). -return to previous level of sore low back, rated 2/10. -independent on appropriate self care HEP. Personal Factors Other Personal Factors That May Effect Hikes or walks daily, [facility] ex 3x/wk and web based ex program for spondylosis daily. PT-OP-C Subjective Start: 01/08/24 14:48 Freq: Status: Active Protocol: Document 04/19/24 08:18 LRN (Rec: 04/19/24 09:02 LRN [id number]) OP-PT Subjective Patient Comments Patient Comments Yesterday didn't take any pain pills, was in pain but didn't kill me, pain 07/31. Seeing [facility] 05/09/24. PT-OP-F Manual Assessment Start: 01/08/24 14:48 Freq: Status: Active Protocol: Document 01/31/24 09:55 LRN (Rec: 01/31/24 10:42 LRN [id number]) Manual Assessments Joint Mobility Assessment Joint Mobility Assessment Sacrum in L rotation. PT-OP-H Neuro Start: 01/08/24 14:48 Freq: Status: Active Protocol: Document 01/31/24 09:55 LRN (Rec: 01/31/24 10:42 LRN [id number]) Sensation Evaluation Gross Sensation Gross Sensation WNL PT-OP-J Posture/Palpation/Skin Start: 01/08/24 14:48 Freq: Status: Active Protocol: Document 01/31/24 09:55 LRN (Rec: 01/31/24 10:42 LRN [id number]) Posture Evaluation Position Standing Head/C-Spine Posture Forward Head T-Spine Posture Increased Kyphosis Shoulder Posture (L) Elevated Knee Posture (L) Genu Valgus,(R) Genu Valgus Palpation Assessment Location Low Back Palpation Location R SIJ>L SIJ & R sacral border> L sacral border Palpation Findings Soft Tissue Tightness Palpation Details Gentle PA of L/S facets caused no pain and soft tissue tension was symmetrical. PT-OP-K Range of Motion Start: 01/08/24 14:48 Freq: Status: Active Protocol: Document 01/31/24 09:55 LRN (Rec: 01/31/24 10:42 LRN [id number]) Lumbar Spine Range of Motion Lumbar Spine Active Degrees Testing Position Standing Flexion 73 Extension 5 Rotation Left 25 Rotation Right 25 Lateral Flexion Left 8 Lateral Flexion Right 9 Hip Goniometric Range of Motion Hip Right Passive Testing Position Supine Flexion w/Knee Flexed 130 Internal Rotation 25 External Rotation 65 Comments Flex is approximate ROM Left Passive Testing Position Supine Flexion w/Knee Flexed 130 Internal Rotation 20 External Rotation 70 PT-OP-M Strength Start: 01/08/24 14:48 Freq: Status: Active Protocol: Document 01/31/24 09:55 LRN (Rec: 01/31/24 10:42 LRN [id number]) Hip Strength Hip Manual Muscle Testing Right Flexion (L2) 4+ Good+ Extension (S1) 3 Fair External Rotation 4+ Good+ Internal Rotation 3 Fair Left Flexion (L2) 3 Fair Extension (S1) 3 Fair External Rotation 3 Fair Internal Rotation 3 Fair Comments Pain with testing in L low back PT-OP-Q Treatments Start: 01/08/24 14:48 Freq: Status: Active Protocol: Document 04/19/24 08:18 LRN (Rec: 04/19/24 09:02 LRN [id number]) Therapeutic Exercises Supine Exercises /april w/alt arm lifts Side bilateral Hamstring/LE neural glide Side bilateral Comments Extra time for pt clarification of proper ex form and performance /april w/o drop Supine Exercise Name 1. w/ foot touching down 2. w/ o foot touching down Side bilateral Reps/Minutes 1. 15x each 2. X10 Comments verbal and tactile cues NS/heel slide Supine Exercise Name Foot w/shoe on in pillowcase Side bilateral Reps/Minutes 15x each Comments Cued NS without flattening or arching back, and breath. Self-Care/Home Management Treatment Education Other Education Discussed her HEP handouts with recommendations of hold time and reps. Education in why not to stretch when getting numbness/ tingling. Activities Self-Care/Home Management Activities Issued HEP: Hamstring/LE neural glide & DLS program: Pelvic Tilt, PF/TA, Mutifidi, TA & Heel Slide (HS), HS & SLR . PT-OP-T Assessment and Plan Start: 01/08/24 14:48 Freq: Status: Active Protocol: Document 04/19/24 08:18 LRN (Rec: 04/19/24 09:02 LRN [id number]) Physical Therapy Assessment Goals One Impairment Pt lacks appropriate self care HEP. Short Term Goal (STG) Pt will be educated and will demonstrate log roll transfers , proper body mechanics for ADLs, proper sitting/standing posture. 02/06/2024: Patient ed to sleep with pillow between knees as positioned form manual. 02/20/2024 Observed patient perform log roll during transfers this session without any verbal cues. 03/01/2024 Patient ed and performed sit to stand with abdominal bracing when reaching upright to dec increased ant pelvic tilt/ lumbar lordosis when reaching upright. Breathing from diaphragm in mod restortive post added to HEP to perform when fatigued post [facility] exercises or fatigued in general. 03/06/24: Pt educated in proper sit/stand posture and body mechanics with ADLs and body mechanics basics. STG Duration 03/16/24 (03/06/24: MET GOAL ) Jail Goal (LTG) Pt will be independent in a approriate and effective self care HEP for core/hip strengthening and mobility ex' s. 02/02/24: 4 pt, supine & prone ex's of her online HEP was modified and reviewed. 02/09/24: Pt's online HEP modified for trunk rot and reviewed for correct Open Book ex for thoracic rot. 02/20/2024 seated hip abd one min X 1 with band, Pallof press and piriformis stretch to HEP 03/01/2024 Patient reports she has the RICE handout and it was reviewed with her. Increased resistance band for seated hip abd and Pallof press. 03/13/2024 Patient into session requesting review of how to get down and up from floor when performing HEP. Progressed to level 5 band for seated hip abd with band. 03/29/24: HEP: [place]iz[place] abdom bracing (hooklie hands/knees push), DLS: March and alt leg lifts-hold. 04/10/2023 Patient reports performing HEp 3X 10 for the most part. 04/19/24: HEP: Hamstring/LE neural glide & DLS program: Pelvic Tilt, PF/TA, Mutifidi, TA & Heel Slide (HS), HS & SLR . LTG Duration 04/27/24 (04/19/24: MET GOAL) Two Impairment Lower back pain with walking ( sharp pn) and sitting (5/10) Impairment Pain in shoulders, legs, R ankle making sitting on toilet w/o a riser and getting up from a chair difficult. (5xSTS Norm for 70-79 yo is 12 .6 secs) (30 sec chair stand Norm for 70-74 yo female is 10-15x) 02/06/2024 patient reports having no pain with sit to and from stand start of session. Short Term Goal (STG) Eliminate the sharp pain, to be able to walk w/o pain on each step. 03/06/24: With pain med can walk short distances w/o sharp pain. 03/29/24: Now, hard time walking on concrete for any length of time because of sharp pain. No pain in shoulders, legs, R ankle making sitting on toilet w/o a riser and getting up from a chair difficult. 04/10/2024 Patient reports able to walk 20 min prior to incrreased pain and comments she avoids pavement and cement when she can. STG Duration 03/16/24 (04/19/24: progressed, NOT MET GOAL, pt using meds for pain) Jail Goal (LTG) Return to previous level of sore low back, rated 2/10 with pt able to tolerate standing 30 minutes. 03/06/24: Pain rated 6/10. Able to stand 15' with shifting of wgt with pain rated 7/10. 03/13/2024 Patient reports she cannot stand for 30 minutes, unable yesterday. 03/29/24: Tolerates ~15 min of standing. No pain on waking for 15 min, then pain is rated 6/10 (initially reported 5/10), medication is taken when pain is 7-8/10. With sitting in car, she wears a soft brace and pain is lessened to 5/10. Patient rates driving /riding in car fox to 20 minutes, comments she always has something behind back in car. LTG Duration 04/27/24 (04/19/24: NOT MET GOAL, uses meds for pain, 15' stand toleranc) Assessment Summary Assessment Pt is a 73 yo female initially w/rubén lower sacral pain at SIJ's and sacral borders due to spondylolisthesis (mild L4- 5 & L5-S1 DDD and facet disease). Function improved per JING score of 28 (initially was 36). She has sharp pain after 15' of standing and she requires use of medications to achieve pain tolerance. The pt has a HEP and she is doing modified community exercise. The pt is ready for discharge to her HEP as she is planning to be [facility] . The pt understands she will need a new referral if further PT is needed. Physical Therapy Plan Discharge Physical Therapy Discharge Reasons Patient Request Discharge Comments Pt goals were partially met as her pain persists, limiting her activity tolerance. Thank you for your referral.
== END 2024-04-20 09:37 | disposition home or self-care (01) ==
LOC: PHYS 08:15
PROVIDERS: Family Provider Family Medicine; PCP Family Medicine; Referring Provider Family Medicine; Visit Provider Family Medicine
DX: M54.50 Low back pain, unspecified (principal); G89.29 Other chronic pain
CPT/HCPCS: 97110; 97140; 97162; 97530; 97535

== ENCOUNTER → 2024-05-02 11:50 | Outpatient (CLI) | payer MEDICARE, OTHER, SELFPAY ==
--- NOTE | 2024-05-02 11:53 | DI.MG.S_ITS ---
MM diagnostic mammo unilat LT, US breast LT limited: 05/02/2024 BI-RADS: 1 CLINICAL: 73-year old female for left diagnostic mammogram and left diagnostic breast ultrasound that is a recall from screening, bilateral, digital, tomosynthesis, w/mammo cad on 03/31/2024. Tyrer-Cuzick lifetime risk of 9.6%. Current reported family history of breast cancer: maternal grandmother and sister. PRIOR EXAMS 03/31/2024, 04/28/2022, 04/28/2021, 08/23/2019. MAMMOGRAPHY TECHNIQUE: 2D and 3D (tomosynthesis) digital mammographic views obtained, with additional images as needed for full coverage. Current study was also evaluated with a Computer Aided Detection (CAD) system. ULTRASOUND TECHNIQUE TARGETED Left Breast Ultrasound: Real-time ultrasound exam was performed focused to area of clinical and/or imaging concern. DENSITY Left: C. The breasts are heterogeneously dense, which may obscure small masses. MAMMOGRAPHY FINDINGS Left (finding-1): Central, 4 cm from nipple, Middle depth: The previously questioned focal asymmetry is not present on spot compression views, favored to represent benign superimposed fibroglandular tissue. ULTRASOUND FINDINGS Left (finding-1): Upper at 12:00, 4.0 cm from nipple: No suspicious sonographic finding present. The central left breast was scanned. 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 IMPRESSION: Left * No evidence of malignancy with benign findings. RECOMMENDATIONS Left: Central, 4 cm from nipple, Middle depth * Annual screening mammography in eleven months (March 2025). OVERALL ASSESSMENT CATEGORY BI-RADS-1: Negative. The [employer] recommends annual screening mammography beginning at age 40 for women with average risk of breast cancer. ELECTRONICALLY SIGNED: Marisela Cardoso M.D. on 05/02/2024 at 01:34:03 PM PT Interpreting Station ID: [id number]
== END ==
LOC: MAMMO 11:52
PROVIDERS: Family Provider Family Medicine; PCP Family Medicine; Referring Provider Family Medicine; Visit Provider Family Medicine
DX: R92.8 Other abnormal and inconclusive findings on diagnostic imaging of breast (principal); R92.333 Mammographic heterogeneous density, bilateral breasts; Z80.3 Family history of malignant neoplasm of breast
CPT/HCPCS: 76642; 77065; G0279

== ENCOUNTER → 2024-05-10 18:47 | Outpatient (CLI) | payer MEDICARE, OTHER, SELFPAY ==
--- NOTE | 2024-05-10 18:50 | DI.MRI.S_ITS ---
PROCEDURE: MR LUMBAR SPINE WO CON INDICATIONS: L4-5 spondylolisthesis TECHNIQUE: Noncontrast sagittal T1 spin echo and T2 fast echo, sagittal STIR, and T2 fast spin echo through the lumbar spine. In cases with scoliosis, additional coronal T2 fast spin echo may be performed. COMPARISON: [facility], CR, XR LUMBAR SPINE 2-3V, 12/29/2023, 12:41. FINDINGS: Image quality: Excellent. Alignment and Curvature: There is approximately 8 millimeters of L4-L5 anterolisthesis secondary to facet hypertrophy. Bone Marrow: Marrow is of normal overall signal. No acute vertebral body compression fractures. Spinal Cord: Conus medullaris terminates at the L1 level. Visualized cord demonstrates normal signal and size. Paraspinous Soft Tissues: No paravertebral masses. T12-L1: Loss of disc signal. No central stenosis. No neural foraminal narrowing. No neural compression. L1-L2: Loss of disc signal. No central stenosis. No neural foraminal narrowing. No neural compression. L2-L3: Loss of disc signal. Mild, diffuse disc bulge. Mild bilateral facet hypertrophy. No central stenosis. Mild bilateral neural foraminal narrowing. No neural compression. L3-L4: Loss of disc signal. Mild, diffuse disc bulge. Mild bilateral facet hypertrophy. Mild narrowing of the central canal. Mild bilateral neural foraminal narrowing. No neural compression. L4-L5: Loss of disc signal. Mild, diffuse disc bulge. Severe bilateral facet hypertrophy. Moderate narrowing of the central canal. [id number] right and moderate left neural foraminal narrowing. No neural compression. Disc annulus fissures. L5-S1: Loss of disc signal. Mild bilateral facet hypertrophy. No central stenosis. No neural foraminal narrowing. No neural compression. IMPRESSION: Grade 1 L4-L5 degenerative spondylolisthesis. Multilevel degenerative disc disease. Multilevel facet arthropathy. No severe central canal stenosis. No severe neural foraminal narrowing. No neural compression. Dictated by: Shahnaz Ceron MD, PhD on 05/11/2024 at 9:35 Approved by: Shahnaz Ceron MD, PhD on 05/11/2024 at 9:38
== END ==
PROVIDERS: Family Provider Family Medicine; PCP Family Medicine; Referring Provider Physical Medicine & Rehabilitation; Visit Provider Physical Medicine & Rehabilitation
DX: M43.16 Spondylolisthesis, lumbar region (principal); M51.369 Other intervertebral disc degeneration, lumbar region without mention of lumbar back pain or lower extremity pain; M47.816 Spondylosis without myelopathy or radiculopathy, lumbar region; M47.817 Spondylosis without myelopathy or radiculopathy, lumbosacral region; M48.061 Spinal stenosis, lumbar region without neurogenic claudication
CPT/HCPCS: 72148

== ENCOUNTER → 2024-05-30 13:19 | Outpatient (CLI) | payer MEDICARE, OTHER, SELFPAY ==
--- NOTE | 2024-05-30 13:21 | DI.US.S_ITS ---
PROCEDURE: US PELVIC COMPLETE INDICATIONS: FOLLOW UP 12/09/23 US TECHNIQUE: Real-time scanning was performed of the pelvic organs, with image documentation. Additional endovaginal scanning was necessary due to incomplete visualization of the adnexal and endometrial structures by transabdominal scanning. COMPARISON: [facility], US, US PELVIC COMPLETE, 01/09/2024, 7:43. FINDINGS: Uterus: Uterus is retroverted and normal in size at 5.3 x 5.5 x 3.7 cm. The myometrium is heterogeneous. The endometrium measures 2 mm combined thickness. Heterogeneous solid/cystic mass within the mid/fundal endometrium measuring 2.2 x 1.9 x 0.6 cm, previously 2.4 x 1.6 x 0.8 cm. Moderate fluid with debris within the endometrium. Ill-defined heterogeneous hyperechoic focus within the uterus measuring 1.4 x 1.3 x 1.6 cm, previously 1.8 x 2.0 x 1.5 cm. Ovaries: The ovaries are not well seen. Other: No pathologic free abdominal or pelvic fluid. IMPRESSION: Solid/cystic mass within the endometrium measuring 2.2 x 1.9 x 0.6 cm. Recommend gynecology consultation. Moderate fluid with debris within the endometrium. Again seen ill-defined heterogeneous hypoechoic focus within the uterus measuring up to 1.6 cm, mildly decreased compared to prior. May represent a fibroid versus other mass. We strive to produce accurate, complete, and clear reports of imaging services. To assist us in improving patient care, this report was composed using standard report templates and voice recognition software. Therefore, it may contain abnormal punctuation, insertions and/or omissions. Occasional wrong-word or sound-alike substitutions may occur. Though we review the report and make efforts to correct it, we do recommend that the report be read carefully in proper context to recognize any text inaccuracies. Dictated by: Juanjo Reyes M.D. on 05/30/2024 at 15:45 Approved by: Juanjo Reyes M.D. on 05/30/2024 at 15:49
== END ==
PROVIDERS: Family Provider Family Medicine; PCP Family Medicine; Referring Provider Obstetrics & Gynecology; Visit Provider Obstetrics & Gynecology
DX: N85.8 Other specified noninflammatory disorders of uterus (principal); N95.0 Postmenopausal bleeding
CPT/HCPCS: 76830; 76856

== ENCOUNTER → 2024-07-05 06:39 | Outpatient (CLI) | payer MEDICARE, OTHER, SELFPAY ==
[2024-07-05 08:01] LABS: BUN Creatinine Ratio 23.6 (6-22); Blood Urea Nitrogen 17 mg/dL (7-17); Calcium 9.4 mg/dL (8.4-10.2); Carbon Dioxide 29 mmol/L (22-32); Chloride 101 mmol/L (98-107); Estimated Glomerular Filt Rate > 60 mL/min (>60); Glucose 96 mg/dL (70-99); HEMOLYSIS < 15 (0-50); Potassium 4.1 mmol/L (3.4-5.1); Sodium 136 mmol/L (137-145)
[2024-07-05 08:15] LABS: Vitamin D 25 Hydroxy (D3) 42.6 ng/mL (30.0-100.0)
[2024-07-05 08:30] LABS: Cortisol Random 13.3 ug/dL
[2024-07-06 08:36] LABS: Adrenocorticotropic Hormone 32.6 pg/mL (7.2-63.3)
== END ==
PROVIDERS: Family Provider Family Medicine; PCP Family Medicine; Referring Provider Internal Medicine Endocrinology, Diabetes & Metabolism; Visit Provider Internal Medicine Endocrinology, Diabetes & Metabolism
DX: M81.0 Age-related osteoporosis without current pathological fracture (principal); Z86.39 Personal history of other endocrine, nutritional and metabolic disease
CPT/HCPCS: 36415; 80048; 82024; 82306; 82533; 82627

== ENCOUNTER 2024-08-02 06:29 | Day surgery (SDC) | payer MEDICARE, OTHER, SELFPAY ==
[2024-07-31 14:56] VITALS: BMI 22.1
--- NOTE | 2024-08-02 | PATH_ITS ---
[facility] Accession Number: [id number] No. of containers..01 Tissue . 01 Material submitted: . endometrium - ENDOMETRIAL CURETTINGS . 01 Diagnosis: ENDOMETRIAL CURETTINGS: No well-preserved endometrial tissue identified. The specimen consists of blood and mucoinflammatory debris. Please see comment. FLYNN 08/09/2024 1746 Local . 01 Comment: Due to the scant nature of this biopsy, it may not be entirely bank representative of this patient's endometrium; additional sampling could be considered, if clinically appropriate. . 01 Electronically signed: . Ely Garza MD, Pathologist NPI- [id number] . 01 Gross description: . Received in formalin with two identifiers and endometrial curetting, are multiple red-brown soft tissue fragments admixed with mucohemorrhagic material received on friable Telfa paper aggregating to 1.7 x 1.0 x 0.2 cm. Filtered and submitted entirely in cassette A1. ([id number]) /FLYNN 08/04/2024 2309 Local . 01 Pathologist provided ICD-10: N85.8, N95.0 . 01 CPT . 123975 Specimen Comment: A courtesy copy of this report has been sent to [phone] Performed at: [address] [id number], [place], [place] [id number] MD Alonso Leone MD Phone: [phone]
[2024-08-02] MEDS: LACTATED RINGERS 1,000 ML 42 ML IV (06:45)
[2024-08-02] MEDS: ACETAMINOPHEN 325 MG TABLET 650 MG PO (06:45)
[2024-08-02 06:48] VITALS: BP 170/89; PULSE 67; RESP 16; TEMP 36.7; O2SAT 100; BMI 22.1
--- NOTE | 2024-08-02 07:09 | EKG_ITS ---
[address] [address] Test Date: 2024-08-02 Pat Name: Glenys Plunkett Department: Room: Gender: Female [employer] Supervisor: James BROOKS : 1950 Requested By: Order Number: [id number] Reading MD: Taiwo Beatty Measurements Intervals [place] Rate: 62 P: 14 AR: 160 QRS: 20 QRSD: 78 T: 21 QT: 434 QTc: 440 Interpretive Statements Normal sinus rhythm ST & T wave abnormality, consider anterior ischemia Electronically Signed On 08-03-2024 0:11:54 PDT by Taiwo Beatty
--- NOTE | 2024-08-02 07:38 | PM.PREOP ---
Pre-operative Note COVID-19 COVID-19 status: Not tested Interval Note History & Physical reviewed/Exam performed by Physician: Yes Changes to H&P: No
--- NOTE | 2024-08-02 08:18 | SUR.OPER ---
Lithotomy on padded OR bed, head on pillow, arms secured on padded arm boards at <90 degrees abduction. Legs secured in padded yellow fins stirrups.
[2024-08-02 08:55] VITALS: BP 127/75; PULSE 78; RESP 12; TEMP 36.3; O2SAT 96
--- NOTE | 2024-08-02 08:56 | P.OP_ITS ---
Operative Date/Time/Diagnoses Date of procedure: 08/02/24 Time of procedure: 08:10 Pre-op diagnosis: Postmenopausal bleeding Endometrial mass Post-op diagnosis: other (Post menopausal bleeding, bicornuate uterus) Procedure & Clinicians Procedure: Procedures Operation Date: 08/02/24 07:45 Actual Procedure Side Surgeon p Hysteroscopy WITH D&C Torrey Velez MD Indications: raciel is a post-menopausal 73 yo who experienced isolated episodes of light vaginal spotting for a single day on October 29, 2023 and again about 2 weeks ago. These are isolated, brief episodes and not necessarily associated with any cramping or pelvic discomfort. She does occasionally however have cramping in the pelvis which is unrelated to her bleeding. She also experiences low back pain but this has been a longstanding issue. Recent pelvic ultrasound performed 05/30/24 shows: FINDINGS: Uterus: Uterus is retroverted and normal in size at 5.3 x 5.5 x 3.7 cm. The myometrium is heterogeneous. The endometrium measures 2 mm combined thickness. Heterogeneous solid/cystic mass within the mid/fundal endometrium measuring 2.2 x 1.9 x 0.6 cm, previously 2.4 x 1.6 x 0.8 cm. Moderate fluid with debris within the endometrium. Ill-defined heterogeneous hyperechoic focus within the uterus measuring 1.4 x 1.3 x 1.6 cm, previously 1.8 x 2.0 x 1.5 cm. Ovaries: The ovaries are not well seen. Other: No pathologic free abdominal or pelvic fluid. IMPRESSION: Solid/cystic mass within the endometrium measuring 2.2 x 1.9 x 0.6 cm. Recommend gynecology consultation. Moderate fluid with debris within the endometrium. Again seen ill-defined heterogeneous hypoechoic focus within the uterus measuring up to 1.6 cm, mildly decreased compared to prior. May represent a fibroid versus other mass. Urinalysis today is negative for any hematuria. Patient's Paps throughout her reproductive life have been negative. She has not had another episode of bleeding since her episode of spotting 2 weeks ago and she is not spotting/bleeding today. We review the results of the most recent pelvic ultrasound as well as the ultrasound results from November 2023. There appears to be a significant change in that there is now a distinct mass within the endometrial cavity which was not clearly visible previously. Because of this change we discussed moving forward with hysteroscopy, possible biopsies, and dilation and curettage of the uterus. Following those discussions patient expresses a desire to move forward with the procedures and she presents today for her scheduled surgery. Surgeon: Torrey Velez Anesthesia Type: General Operative Notes Findings: There is significant cervical stenosis but dilation to 7 mm was successful. The endocervical canal is unremarkable. The endometrial cavity itself shows no endometrial abnormalities but rather diffuse atrophy. What appeared to be an endometrial mass on ultrasound is a bicornuate uterus with the septum between the 2 cornua. Both fallopian tube ostia were visible. There were no endometrial or submucosal abnormality seen. Closure Type: not applicable Specimen(s): endometrial curettings Applied: none Estimated blood loss (mL): 10 Blood products transfused: none Procedure in detail: With the patient under general LMA in the modified dorsal lithotomy position, the perineum, vagina, and lower abdomen were prepped and draped in the usual fashion for hysteroscopy with endometrial ablation. A pre-surgical safety time- out was then taken in accordance with [facility] Main OR protocols. A bivalve speculum was inserted in the vagina and the cervix visualized. The anterior lip of the cervix was grasped with a single-tooth tenaculum and the endocervical canal was then dilated to 6 mm diameter. Hysteroscope was placed through the endocervical canal into the endometrial cavity and the cavity was visualized. There were no localized abnormalities within the endometrial cavity and the endometrium itself was atrophic. Both tubal ostia were visualized. The hysteroscope was then withdrawn and a curettage was accomplished with endometrial curettings submitted as a pathologic specimen. The tenaculum was then removed from the anterior lip of the cervix and no bleeding was encountered. The speculum was then removed from the vagina and the patient awakened from anesthesia. She was then transferred to the PACU for a period of observation and recovery having tolerated the procedure well. Complications: none Post-operative Condition: stable Disposition: PACU Plan for aftercare: Routine post-op care.
[2024-08-02 09:00] VITALS: BP 143/70; PULSE 85; RESP 14; O2SAT 97
[2024-08-02 09:05] VITALS: BP 135/72; PULSE 85; RESP 13; O2SAT 96
[2024-08-02 09:10] VITALS: BP 144/78; PULSE 77; RESP 10; TEMP 36.1; O2SAT 98
== END 2024-08-02 09:45 | disposition home or self-care (01) ==
PROVIDERS: Family Provider Family Medicine; PCP Family Medicine; Referring Provider Obstetrics & Gynecology; Visit Provider Obstetrics & Gynecology
PROC: 0UDB8ZZ Extraction of Endometrium, Via Natural or Artificial Opening Endoscopic (ICD-10-PCS; CPT 58558; principal; 2024-08-02 07:45)
DX: N95.0 Postmenopausal bleeding (principal); Q51.3 Bicornate uterus; N88.2 Stricture and stenosis of cervix uteri
CPT/HCPCS: 58558; 93005; J1100; J1885; J2405; J2704; J3010

== ENCOUNTER → 2024-11-09 11:17 | Outpatient (CLI) | payer MEDICARE, OTHER, SELFPAY ==
[2024-11-09 12:37] LABS: Hematocrit 42.2 % (36-46); Hemoglobin 14.5 g/dL (12.0-16.0); Mean Corpuscular HGB Conc 34.4 % (30-36); Mean Corpuscular Hemoglobin 31.6 PG (26-34); Mean Corpuscular Volume 91.8 fL (80-100); Platelet Count 265 X10^3/uL (150-400)
[2024-11-09 13:47] LABS: Free T4, Direct Thyroxine 1.16 ng/dL (0.78-2.19)
[2024-11-09 14:01] LABS: Thyroid Stimulating Hormone 1.79 uIU/mL (0.47-4.68)
== END ==
PROVIDERS: PCP Family Medicine; Referring Provider Internal Medicine; Visit Provider Internal Medicine
DX: R07.89 Other chest pain (principal); R53.83 Other fatigue
CPT/HCPCS: 36415; 84439; 84443; 85027

== ENCOUNTER → 2024-11-21 08:09 | Outpatient (CLI) | payer MEDICARE, OTHER, SELFPAY ==
--- NOTE | 2024-11-21 08:12 | DI.MRI.S_ITS ---
PROCEDURE: MR BRAIN (PITUITARY) WWO CON INDICATIONS: [place]'s disease TECHNIQUE: Noncontrast sagittal and axial FLAIR, axial gradient echo, axial diffusion and ADC through the brain. Thin-slice sagittal and coronal T1 spin echo, coronal T2 fast spin echo through the pituitary. After the administration contrast, optional dynamic coronal T1 spin echo, thin-slice coronal and sagittal T1 spin echo images through the pituitary fossa; axial and coronal and sagittal T1 spin echo with fat saturation through the brain. COMPARISON: MRI pituitary gland December 06, 2023. FINDINGS: Image quality: Excellent. Pituitary Gland: Pituitary gland is normal in size and contour. No sellar suprasellar mass. Pituitary gland demonstrates normal postcontrast enhancement with no areas of relative delayed postcontrast enhancement. Pituitary infundibulum is midline with normal thickness and postcontrast enhancement. Optic chiasm is normal. The cavernous sinus demonstrates normal postcontrast enhancement.. CSF Spaces: Ventricles are normal in size and shape. Basal cisterns are patent. No extra-axial fluid collections. Brain: No intracranial bleeds or mass effects. Mild, diffuse cerebral volume loss. Mild periventricular and subcortical white matter chronic microvascular ischemic change. No abnormal intracranial enhancement. Holder-white matter interface is intact. Diffusion weighted images demonstrate no acute ischemic insults. Brainstem is normal. Normal intravascular flow voids are present. Skull and face: Calvarial marrow is normal in signal. Orbits appear normal. Sinuses: Sinuses and mastoids are clear. IMPRESSION: Normal pituitary gland. No evidence of pituitary microadenoma. No sellar or suprasellar mass. Mild, diffuse cerebral volume loss. Mild periventricular and subcortical white matter chronic microvascular ischemic change. Dictated by: Shahnaz Ceron MD, PhD on 11/21/2024 at 12:09 Approved by: Shahnaz Ceron MD, PhD on 11/21/2024 at 12:20
[2024-11-21 09:16] LABS: Blood Urea Nitrogen 16 mg/dL (7-17); Calcium 9.4 mg/dL (8.4-10.2); Carbon Dioxide 29 mmol/L (22-32); Chloride 101 mmol/L (98-107); Estimated Glomerular Filt Rate > 60 mL/min (>60); Glucose 80 mg/dL (70-99); HEMOLYSIS < 15 (0-50); Potassium 3.3 mmol/L (3.4-5.1); Sodium 140 mmol/L (137-145)
[2024-11-21 09:48] LABS: Vitamin D 25 Hydroxy (D3) 32.8 ng/mL (30.0-100.0)
== END ==
LOC: MRI 08:11
PROVIDERS: PCP Family Medicine; Referring Provider Internal Medicine Endocrinology, Diabetes & Metabolism; Visit Provider Internal Medicine Endocrinology, Diabetes & Metabolism
DX: E24.0 Pituitary-dependent Cushing's disease (principal); M81.0 Age-related osteoporosis without current pathological fracture
CPT/HCPCS: 36415; 70553; 80048; 82306; A9579

== ENCOUNTER → 2025-01-10 11:31 | Outpatient (CLI) | payer MEDICARE, OTHER, SELFPAY ==
--- NOTE | 2025-01-10 11:34 | DI.ECHO.S_ITS ---
[facility] : : [address] : : [id number] : : Phone: [phone] Echocardiogram Report + + :Name: HORACIO ESTRADA Study Date: 01/10/2025 Height: 64 in : :[facility] ReadingLocation: Weight: 127 lb : : Gender: Female BSA: 1.6 m2 : :: 1950 Age: 74 yrs BP: 145/79 mmHg: :Reason For Study: Chest Tightness : :Ordering Physician: SRINATH, : :LUPE Performed By: Lillian Rebolledo : :Referring: LUPE YO : + + Interpretation Summary Normal sinus rhythm; uncontrolled hypertension. Normal LV size and wall thickness; normal wall motion and LV systolic function. EF is 55-60%. No diastolic dysfunction. Normal chamber sizes. Moderate central tricuspid regurgitation with estimated PA systolic pressure of 33 mm Hg assuming RA pressure of 3 mm hg. Compared to prior echo 02/16/2024 diastolic dysfunction is no longer observed. Procedure: A two-dimensional transthoracic echocardiogram with color flow and Doppler was performed. The study quality was technically adequate. Comparison is made with the echocardiogram of 02-16-24. The heart rate ranged between 58-61 bpm during the study. Left Ventricle: The left ventricle is normal in size and wall thickness. The ejection fraction is estimated to be 55-60%. Normal diastolic function. Right Ventricle: The right ventricle grossly appears normal in size with probable normal systolic function. Atria: The left atrial size is normal. Right atrial size is normal. The interatrial septum grossly appears intact with no obvious evidence for an atrial septal defect. Mitral Valve: The mitral valve is grossly normal. There is mild mitral regurgitation. Aortic Valve: The aortic valve is trileaflet. The aortic valve opens well. 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 No aortic regurgitation is present. Tricuspid Valve: The tricuspid valve leaflets are thin and pliable. There is moderate to severe tricuspid regurgitation. The right ventricular systolic pressure is estimated to be at least 33 mmHg based on an estimated right atrial pressure of 3 mm Hg. Pulmonic Valve: The pulmonic valve is not well seen, but is grossly normal. There is a trace or physiologic amount of pulmonic regurgitation. Great Vessels: The aortic root is normal size. The ascending aorta is normal in size. The aortic arch is normal in size. The IVC is of normal diameter and collapses greater than 50% with a sniff. This suggests a low right atrial pressure of 3 mm Hg. Pericardium/ Pleura There is no pericardial effusion. There is no pleural effusion. MMode/2D Measurements & Calculations LVIDd: 4.3 cm LVOT diam: 1.8 cm LVIDs: 2.5 cm Ao root diam: 2.9 cm FS: 43.0 % asc Aorta Diam: 2.7 cm EPSS: 0.23 cm Ao Arch Diam (Prox Trans): 2.7 cm IVSd: 1.1 cm LVPWd: 0.68 cm LV turner. diameter/BSA (cm/m^2): 2.7 LV sys. diameter/BSA (cm/m^2): 1.5 LA A2 area: 18.7 cm2 RA long axis: 5.0 cm LA A4 area: 19.0 cm2 RA area: 18.3 cm2 LA length (vol): 5.8 cm RA vol: 56.8 ml LA vol: 52.1 ml RA : 35.2 ml/m2 LA vol index: 32.3 ml/m2 IVC diam: 1.7 cm TAPSE: 2.8 cm Doppler Measurements & Calculations Ao V2 max: 157.5 cm/sec LVOT Max Adan: 89.4 cm/sec Ao V2 mean: 109.0 cm/sec LV V1 max P.2 mmHg Ao max P.9 mmHg LV V1 VTI: 20.4 cm Ao mean P.3 mmHg RINA(I,D): 1.5 cm2 Ao V2 VTI: 33.9 cm RINA(V,D): 1.4 cm2 sev ratio: 0.60 RINA indexed to BSA (cm^2/m^2): 0.93 MV E max adan: 65.5 cm/sec TR max adan: 240.2 cm/sec MV A max adan: 48.6 cm/sec TR max P.3 mmHg MV E/A: 1.3 PA V2 max: 74.5 cm/sec Med Peak E' Adan: 5.4 cm/sec PA V2 mean: 49.3 cm/sec E/E' med: 12.1 PA mean P.2 mmHg Lat Peak E' Adan: 5.6 cm/sec PA pr(Accel): 24.2 mmHg E/E' lat: 11.7 E/e' average: 11.9 MV dec time: 0.20 sec Pulm Patricio Pacheco Adan: 26.1 cm/sec SV([facility]): 51.0 ml Electronically signed by: Lupe Yo M.D. on Reading Physician:01/13/2025 11:05 AM
[2025-01-10 12:28] LABS: Alanine Aminotransferase 14 IU/L (<35); Albumin 4.4 g/dL (3.5-5.0); Albumin Globulin Ratio 2.1 (1.0-2.8); Alkaline Phosphatase 50 U/L (38-126); Blood Urea Nitrogen 20 mg/dL (7-17); Calcium 9.4 mg/dL (8.4-10.2); Carbon Dioxide 29 mmol/L (22-32); Chloride 100 mmol/L (98-107); Estimated Glomerular Filt Rate > 60 mL/min (>60); Globulin 2.1 g/dL (1.7-4.1); Glucose 84 mg/dL (70-99); HEMOLYSIS < 15 (0-50); Potassium 3.6 mmol/L (3.4-5.1); Sodium 138 mmol/L (137-145); Total Protein 6.5 g/dL (6.3-8.2)
== END ==
PROVIDERS: PCP Family Medicine; Referring Provider Internal Medicine; Visit Provider Internal Medicine
DX: I08.1 Rheumatic disorders of both mitral and tricuspid valves (principal); R07.89 Other chest pain; R53.83 Other fatigue; E78.00 Pure hypercholesterolemia, unspecified; I10 Essential (primary) hypertension
CPT/HCPCS: 36415; 80053; 93306

== ENCOUNTER → 2025-01-28 13:23 | Outpatient (CLI) | payer MEDICARE, OTHER, SELFPAY ==
[2025-01-28 15:07] LABS: Blood Urea Nitrogen 21 mg/dL (7-17); Calcium 9.8 mg/dL (8.4-10.2); Carbon Dioxide 30 mmol/L (22-32); Chloride 99 mmol/L (98-107); Estimated Glomerular Filt Rate > 60 mL/min (>60); Glucose 109 mg/dL (70-99); HEMOLYSIS < 15 (0-50); Potassium 3.7 mmol/L (3.4-5.1); Sodium 138 mmol/L (137-145)
== END ==
PROVIDERS: PCP Family Medicine; Referring Provider Family Medicine; Visit Provider Internal Medicine Endocrinology, Diabetes & Metabolism
DX: E87.6 Hypokalemia (principal)
CPT/HCPCS: 36415; 80048

== ENCOUNTER → 2025-02-05 07:40 | Outpatient (CLI) | payer MEDICARE, OTHER, SELFPAY ==
[2025-02-05 09:53] LABS: Cholesterol 218 mg/dL (140-199); HDL Cholesterol 75 mg/dL (40-60); Triglycerides 107 mg/dL (35-150)
== END ==
PROVIDERS: PCP Family Medicine; Referring Provider Internal Medicine; Visit Provider Internal Medicine
DX: E78.00 Pure hypercholesterolemia, unspecified (principal); I10 Essential (primary) hypertension
CPT/HCPCS: 36415; 80061